=== PATIENT | female | born 1980 | race Caucasian/White ===

== ENCOUNTER → 2017-05-23 18:35 | Outpatient (CLI) | payer MEDICAID, SELFPAY ==
[2017-05-23 20:00] LABS: Group B Strep DNA By PCR Negative (Negative); Internal Control PASS; Probe Check PASS; Specimen Processing Control PASS
== END ==
PROVIDERS: Visit Provider Obstetrics & Gynecology
DX: O09.893 Supervision of other high risk pregnancies, third trimester (principal); Z3A.00 Weeks of gestation of pregnancy not specified
CPT/HCPCS: 87081; 87653

== ENCOUNTER → 2017-06-05 12:09 | Outpatient (CLI) | payer MEDICAID, SELFPAY ==
[2017-06-05 12:43] LABS: ROM Internal Control Test YES-OK TO RESULT pt. (Internal QC); ROM Patient Test Negative (Negative)
[2017-06-05 13:05] LABS: Absolute Lymphocyte Count 1.62 X10^3/ul (0.83-4.51); Absolute Neutrophil Count 7.7 X10^3/uL (2.0-7.7); Basophil# 0.02 X10^3/uL; Basophil% 0.2 % (0-1); Eosinophil# 0.11 X10^3/uL; Eosinophils% 1.1 % (0-5); Hematocrit 34.2 % (37-47); Hemoglobin 11.9 g/dl (12.0-15.0); Lymphocyte # 1.62 X10^3/ul (4.0); Lymphocyte % 15.8 % (19-41); Mean Corp Hgb Conc 34.8 g/gl (32-36); Mean Corpuscular Volume 89.1 fL (81-99); Mean Platelet Vol. 8.6 fl (6.2-12.0); Monocyte% 5.9 % (0-10); Neutrophil # 7.73 X10^3/uL (2.7-7.7); Neutrophil % 75.5 % (47-70); Platelet Count 158 K/mm3 (150-450); RBC Distribution Width CV 12.9 % (11.6-14.6); RBC Distribution Width SD 40.9 fl (35.1-43.9); Red Blood Count 3.84 M/mm3 (4.2-5.4); White Blood Count 10.2 K/mm3 (4.4-11.0)
[2017-06-05 13:06] LABS: POSITIVE COUNT NO; POSITIVE DIFFERENTIAL NO; POSITIVE MORPHOLOGY NO
[2017-06-05 13:29] LABS: Protein, Urine (Random) 16.1 mg/dL (<11.9); Protein:Creat Ratio 201 mg/g CRE (0-200)
[2017-06-05 13:54] LABS: ALB/GLOB Ratio 0.7 RATIO (0.9-2.4); AST(SGOT) 15 U/L (15-37); Alanine Aminotransfer ALT/SGPT 14 U/L (13-56); Albumin, Serum 2.7 g/dL (3.2-5.0); Alkaline Phosphatase 107 U/L (45-117); Anion Gap 7 (5-15); BUN 6 mg/dL (7-18); BUN/Creat Ratio 9.6 RATIO (10-20); Calcium,Total 9.1 mg/dL (8.5-10.1); Chloride 105 mmol/L (98-107); Creatinine, Serum 0.63 mg/dL (0.55-1.02); EST Glomerular Filtration Rate 114 mL/min (>60); Est Glom Filt Rate - Afr Amer 138 mL/min (>60); Globulin 3.9 g/dL (2.2-4.2); Glucose 86 mg/dL (74-106); LDH 134 U/L (84-246); Potassium 3.8 mmol/L (3.5-5.1); Protein, Total 6.6 g/dL (6.4-8.2); Sodium Level 139 mmol/L (136-145); Uric Acid 4.8 mg/dL (2.6-6.0)
== END ==
LOC: LABSPEC 12:31 → LAB 12:32
PROVIDERS: Family Provider Internal Medicine; PCP Internal Medicine; Visit Provider Nurse Practitioner Women's Health
DX: O09.893 Supervision of other high risk pregnancies, third trimester (principal); N89.8 Other specified noninflammatory disorders of vagina; O16.9 Unspecified maternal hypertension, unspecified trimester; Z3A.38 38 weeks gestation of pregnancy
CPT/HCPCS: 36415; 80053; 82570; 83615; 84112; 84156; 84550; 85025

== ENCOUNTER 2017-06-08 15:00 | Inpatient (IN) | payer MEDICAID, SELFPAY ==
[2017-06-08 14:49] VITALS: BMI 35.4
[2017-06-08 15:01] LABS: ROM Internal Control Test YES-OK TO RESULT pt. (Internal QC)
[2017-06-08 15:02] LABS: ROM Patient Test POSITIVE (Negative)
[2017-06-08] MEDS: Lactated Ringers 1,000 ML 50 ML IV ×2 (15:30→19:57)
[2017-06-08 15:43] LABS: Hematocrit 34.1 % (37-47); Hemoglobin 11.4 g/dl (12.0-15.0); Mean Corp Hgb Conc 33.4 g/gl (32-36); Mean Corpuscular Hgb 29.9 pg (27.0-32.0); Mean Corpuscular Volume 89.5 fL (81-99); Mean Platelet Vol. 9.1 fl (6.2-12.0); Platelet Count 148 K/mm3 (150-450); RBC Distribution Width CV 13.3 % (11.6-14.6); RBC Distribution Width SD 42.8 fl (35.1-43.9); Red Blood Count 3.81 M/mm3 (4.2-5.4); White Blood Count 9.9 K/mm3 (4.4-11.0)
[2017-06-08 15:45] LABS: Scan Indicated on CBC? Y/N NO
[2017-06-08] MEDS: miSOPROStol 25 MCG TABLET PO ×2 (17:04→21:07)
--- NOTE | 2017-06-08 19:07 | PCM.HP.OB ---
- Problem List (1) PROM (premature rupture of membranes) Status: Acute (2) Supervision of other high risk pregnancies, third trimester Status: Acute Comment: PRR KATALINA 06/18/17 boy PC Erik boyfriend Moe (3) Bicuspid aortic valve Status: Chronic Comment: s/p cardio consult, cleared for vaginal or cs delivery, follow up (4) Hyperlipidemia Status: Chronic (5) Mitral insufficiency Status: Chronic Qualifiers: (6) Nonrheumatic aortic (valve) stenosis Status: Chronic (7) Nonrheumatic tricuspid (valve) insufficiency Status: Chronic (8) Tricuspid insufficiency Status: Chronic Qualifiers: History Date of Admission: 06/08/17 Final KATALINA: 06/18/17 Gestational age: 38 Weeks and 4 Days History of this : 36 yo @ 38w4d presents with SROM meconium fluid. she denies any bleeding and ahs some contractions. she denies any CP SOB Pertinent Past Medical History: Medical History Nonrheumatic aortic (valve) stenosis (Chronic) Palpitations (Chronic) Hyperlipidemia (Chronic) nonrheumatic insufficiency mitral (Chronic) Nonrheumatic tricuspid (valve) insufficiency (Chronic) Mitral insufficiency (Chronic) Bicuspid aortic valve (Chronic) Tricuspid insufficiency (Chronic) Supervision of other high risk pregnancies, third trimester (Acute) Hyperlipidemia (Chronic) Family History Father Cancer prostate- Alcoholism Brother Diabetes Grandfather Alcoholism Mother Hypertension Hyperlipemia Anxiety Grandmother Parkinson disease Social History Smoking Status: Never smoker alcohol intake: never substance use type: does not use caffeine: No what type of physical activity do you participate in: none seatbelt use: always do you feel safe at home: Yes additional social history: 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 Date Name GA/Weeks Outcome Route Bth Weight Gen Labor Lgth Anesthesia Del Locatn Provider FOB Unknown 2014 Erik 38 live - full term Male [facility] Allergies bandages Adverse Reaction (Intermediate, Uncoded 06/08/17 15:22) Hives,itching pt states no reaction to latex Current Medications Acetaminophen (Tylenol) 325 - 650 mg PO Q4H PRN PRN PRN Reason: PAIN OR FEVER >100.4F Al Hydroxide/Mg Hydroxide (Mylanta Ii) 15 - 30 ml PO Q4H PRN PRN PRN Reason: INDIGESTION Citric Acid/Sodium Citrate (Bicitra) 30 ml PO UD PRN Lactated Ringer's () 1,000 mls @ 50 mls/hr IV .Q20H [facility] Last Admin: 06/08/17 15:30 Dose: 50 mls/hr Misoprostol (Cytotec) 25 mcg PO Q4H [facility] Stop: 06/09/17 13:01 Last Admin: 06/08/17 17:04 Dose: 25 mcg Nalbuphine HCl (Nubain) 5 - 10 mg IV Q3H PRN PRN PRN Reason: PAIN (4-10/10) Ondansetron HCl (Zofran) 4 mg IV Q8H PRN PRN PRN Reason: NAUSEA Promethazine HCl (Phenergan (Ll)) 6.25 - 12.5 mg IV Q4H PRN PRN; Protocol PRN Reason: IF NAUSEA PERSISTS Sodium Chloride () 5 - 15 ml IV UD [facility] Smoking Status: Never smoker Alcohol: None Drug Use: none Number of Fetus(es): 1 - fhts 130s moderate variability reactive no decels toco irregular Review of Systems Constitutional: Denies: Chills, Fever, Weight Change HEENT: Denies: Head Aches, Sinus Congestion, Sinus Drainage Cardiovascular: Denies: Chest Pain, Palpitations Respiratory: Denies: Cough, Shortness of breath at rest, Sputum production Gastrointestinal: Reports: Abdominal Pain. Denies: Nausea, Vomiting Genitourinary: Denies: Dysuria Gynecological: Reports: Vaginal discharge. Denies: Vaginal bleeding Musculoskeletal: Denies: Joint Pain, Joint Tenderness Skin: Denies: Rash, Wounds Neurological: Denies: Numbness, Tingling, Focal weakness Psychiatric: Denies: Anxiety, Depression, Homicidal Ideations, Suicidal Ideations Hematologic/ Lymphatic: Denies: Easy Bruising, Easy Bleeding Physical Exam General: Alert, Oriented x3, No apparent distress Cardiovascular: Regular rate Lungs: Normal air movement Abdomen: Soft, Non Tender, Gravid Estimated gestational size: Appropriate for gestational size Presentation: Cephalic Cervix Dilation (cm): 1.5 Station: -3 Effacement (%): 60 Assessment/Plan Active and Suspected Problems (Last Reviewed 06/06/17 @ 13:00 by Mabel Pollock) PROM (premature rupture of membranes) (Acute) 36 yo @ 38w4d presents with PROM 1. 1 cm dilated recommend cytotec IOL. 2. epi prn 3. meconium- peds to be present at delivery.
--- NOTE | 2017-06-08 19:13 | HP.PCM_ITS ---
- Problem List (1) PROM (premature rupture of membranes) Status: Acute (2) Supervision of other high risk pregnancies, third trimester Status: Acute Comment: PRR KATALINA 06/18/17 boy PC Erik boyfriend Moe (3) Bicuspid aortic valve Status: Chronic Comment: s/p cardio consult, cleared for vaginal or cs delivery, follow up (4) Hyperlipidemia Status: Chronic (5) Mitral insufficiency Status: Chronic Qualifiers: (6) Nonrheumatic aortic (valve) stenosis Status: Chronic (7) Nonrheumatic tricuspid (valve) insufficiency Status: Chronic (8) Tricuspid insufficiency Status: Chronic Qualifiers: History Date of Admission: 06/08/17 Final KATALINA: 06/18/17 Gestational age: 38 Weeks and 4 Days History of this : 36 yo @ 38w4d presents with SROM meconium fluid. she denies any bleeding and ahs some contractions. she denies any CP SOB Pertinent Past Medical History: Medical History Nonrheumatic aortic (valve) stenosis (Chronic) Palpitations (Chronic) Hyperlipidemia (Chronic) nonrheumatic insufficiency mitral (Chronic) Nonrheumatic tricuspid (valve) insufficiency (Chronic) Mitral insufficiency (Chronic) Bicuspid aortic valve (Chronic) Tricuspid insufficiency (Chronic) Supervision of other high risk pregnancies, third trimester (Acute) Hyperlipidemia (Chronic) Family History Father Cancer prostate- Alcoholism Brother Diabetes Grandfather Alcoholism Mother Hypertension Hyperlipemia Anxiety Grandmother Parkinson disease Social History Smoking Status: Never smoker alcohol intake: never substance use type: does not use caffeine: No what type of physical activity do you participate in: none seatbelt use: always do you feel safe at home: Yes additional social history: 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 Date Name GA/Weeks Outcome Route Bth Weight Gen Labor Lgth Anesthesia Del Locatn Provider FOB Unknown 2014 Erik 38 live - full term Male [place] [facility] Allergies bandages Adverse Reaction (Intermediate, Uncoded 06/08/17 15:22) Hives,itching pt states no reaction to latex Current Medications Acetaminophen (Tylenol) 325 - 650 mg PO Q4H PRN PRN PRN Reason: PAIN OR FEVER >100.4F Al Hydroxide/Mg Hydroxide (Mylanta Ii) 15 - 30 ml PO Q4H PRN PRN PRN Reason: INDIGESTION Citric Acid/Sodium Citrate (Bicitra) 30 ml PO UD PRN Lactated Ringer's () 1,000 mls @ 50 mls/hr IV .Q20H [facility] Last Admin: 06/08/17 15:30 Dose: 50 mls/hr Misoprostol (Cytotec) 25 mcg PO Q4H [facility] Stop: 06/09/17 13:01 Last Admin: 06/08/17 17:04 Dose: 25 mcg Nalbuphine HCl (Nubain) 5 - 10 mg IV Q3H PRN PRN PRN Reason: PAIN (4-10/10) Ondansetron HCl (Zofran) 4 mg IV Q8H PRN PRN PRN Reason: NAUSEA Promethazine HCl (Phenergan (Ll)) 6.25 - 12.5 mg IV Q4H PRN PRN; Protocol PRN Reason: IF NAUSEA PERSISTS Sodium Chloride () 5 - 15 ml IV UD [facility] Smoking Status: Never smoker Alcohol: None Drug Use: none Number of Fetus(es): 1 - fhts 130s moderate variability reactive no decels toco irregular Review of Systems Constitutional: Denies: Chills, Fever, Weight Change HEENT: Denies: Head Aches, Sinus Congestion, Sinus Drainage Cardiovascular: Denies: Chest Pain, Palpitations Respiratory: Denies: Cough, Shortness of breath at rest, Sputum production Gastrointestinal: Reports: Abdominal Pain. Denies: Nausea, Vomiting Genitourinary: Denies: Dysuria Gynecological: Reports: Vaginal discharge. Denies: Vaginal bleeding Musculoskeletal: Denies: Joint Pain, Joint Tenderness Skin: Denies: Rash, Wounds Neurological: Denies: Numbness, Tingling, Focal weakness Psychiatric: Denies: Anxiety, Depression, Homicidal Ideations, Suicidal Ideations Hematologic/ Lymphatic: Denies: Easy Bruising, Easy Bleeding Physical Exam General: Alert, Oriented x3, No apparent distress Cardiovascular: Regular rate Lungs: Normal air movement Abdomen: Soft, Non Tender, Gravid Estimated gestational size: Appropriate for gestational size Presentation: Cephalic Cervix Dilation (cm): 1.5 Station: -3 Effacement (%): 60 Assessment/Plan Active and Suspected Problems (Last Reviewed 06/06/17 @ 13:00 by Mabel Pollock) PROM (premature rupture of membranes) (Acute) 36 yo @ 38w4d presents with PROM 1. 1 cm dilated recommend cytotec IOL. 2. epi prn 3. meconium- peds to be present at delivery.
[2017-06-09] MEDS: Lactated Ringers 1,000 ML 50 ML IV ×4 (02:23→16:22)
[2017-06-09] MEDS: fentaNYL-bupivacaine (epidural) 100 ML BAG EPIDURAL ×4 (02:58→17:40)
[2017-06-09] MEDS: Oxytocin 30 units/NS 500 ml 30 UNITS/500 ML IV.SOLN IV (03:17)
[2017-06-09] MEDS: Ondansetron 4 MG/2 ML Vial IV ×2 (06:44→14:49)
[2017-06-09] MEDS: Amnioinfusion- 0.9% NS 1,000 ML IV.SOLN. 500 ML INTRA-UTER ×2 (11:39→15:23)
--- NOTE | 2017-06-09 12:37 | PCM.PN.BLA ---
Progress Note fht 120s moderate variability reactive- developed recurrent periodic variables that resolved with amnioinfusion and position changes. making adequate cervical change. comfortable with epidural. pit off for now, will restart prn.
[2017-06-09] MEDS: Oxytocin 30 units/NS 500 ml 30 UNITS/500 ML IV.SOLN 334 UNITS IV (20:53)
[2017-06-09] MEDS: Oxytocin 30 units/NS 500 ml 30 UNITS/500 ML IV.SOLN 167 UNITS IV (21:00)
--- NOTE | 2017-06-09 21:54 | PCM.OB.VAG ---
- Problem List (1) PROM (premature rupture of membranes) Status: Acute (2) Supervision of other high risk pregnancies, third trimester Status: Acute Comment: PRR KATALINA 06/18/17 boy GABRIELA [place] boyfriend Moe (3) Bicuspid aortic valve Status: Chronic Comment: s/p cardio consult, cleared for vaginal or cs delivery, follow up (4) Hyperlipidemia Status: Chronic (5) Mitral insufficiency Status: Chronic Qualifiers: (6) Nonrheumatic aortic (valve) stenosis Status: Chronic (7) Nonrheumatic tricuspid (valve) insufficiency Status: Chronic (8) Tricuspid insufficiency Status: Chronic Qualifiers: (9) heart rate decelerations affecting management of mother Status: Acute Vaginal Delivery Maternal Presentation: Medically Indicated Induction 36-year-old at 38 weeks 5 days presents with premature rupture of membranes meconium. Medical Reason for Induction: Premature Rupture of Membranes Amniotic Membrane Rupture Type: Spontaneous at home Amniotic Fluid Description: Moderate meconium Final KATALINA: 06/18/17 Gestational age: 38 Weeks and 5 Days Date of Procedure: 06/09/17 Pre-Operative Diagnosis: Induction of labor premature rupture of membranes, heart rate deceler Post-Operative Diagnosis: Same Surgery/ Procedure Performed: Vacuum Assisted Vaginal Delivery Type of Anesthesia: Epidural Description of Procedure: Patient proceeded to complete dilation and began pushing. After 2 hours the patient developed recurrent late decelerations with absent to minimal variability despite position changes and turning down the Pitocin. It was assessed that she still had at least another hour of pushing since she was at the +2 station and therefore the decision to apply a vacuum to shorten the second stage of labor was made. Vacuum was applied twice with no pop offs and pulls were made with 3 contractions to deliver the head in the KANDICE presentation. Vacuum was removed a left medial lateral episiotomy was made to aid in delivery and the anterior and posterior shoulders were delivered without complication and the infant was placed in the maternal abdomen cord was clamped and cut and handed off to waiting generation engineering technologist. Apgars were 6 and 8. Episiotomy was noted to be a second-degree laceration which was repaired in the usual fashion with 3-0 Vicryl repeat. EBL 300 cc. Placenta delivered spontaneously immediately following was noted be intact and have a three-vessel cord. ABGs and ABGs were sent. Presentation: KANDICE Placental Delivery Description: Spontaneous Placenta Disposition: [facility] Cord Vessel Description: 3 Vessels Cord Entanglement: None Estimated Blood Loss: 300 Infant A gender: Male Episiotomy Description: Left Mediolateral, Perineal Extension/lac, 2nd degree Medications given after delivery: IV Pitocin Complications: None
[2017-06-09] MEDS: Naproxen 250 MG Tablet PO (22:58)
[2017-06-09] MEDS: oxyCODONE 5 MG Tablet PO (23:00)
[2017-06-10 01:58] VITALS: BP 108/66; PULSE 91; RESP 17; TEMP 37.2; O2SAT 96
[2017-06-10] MEDS: oxyCODONE 5 MG Tablet PO ×2 (03:34→21:55)
[2017-06-10 06:00] VITALS: BP 115/59; PULSE 90; RESP 18; TEMP 37.2; O2SAT 94
--- NOTE | 2017-06-10 06:58 | NURSING ---
Patient stated she wanted to wait until her 6 weeks for bilateral tubal ligation. Patient requesting epidural cath be removed. Dr. Estevez notified of patient's desire to delay tubal.
--- NOTE | 2017-06-10 07:51 | PCM.PN.OB ---
Patient Problems: Active and Suspected Problems (Last Reviewed 06/06/17 @ 13:00 by Mabel Pollock) PROM (premature rupture of membranes) (Acute) heart rate decelerations affecting management of mother (Acute) Subjective: Grav 2/1 PPD 1; VAVD. . Denies chest pain, SOB. Some cramping donna with . Pain otherwise controlled - Physical Exam General: Alert, Oriented x3, Cooperative HEENT: Atraumatic, PERRLA, EOMI, Normocephalic Neck: Supple, No JVD, Negative Carotid Bruits Lungs: Clear to auscultation, Normal air movement Cardiovascular: Regular rate, No murmurs Abdomen: Bowel Sounds Present, Soft, Non Tender Extremities: No edema, Capillary Refill Less than 3 Seconds Skin: No rashes, No breakdown Musculoskeletal: No Tenderness to Palpation of Joints or Extremities Neurological: Cranial nerves II-XII grossly intact Psych/Mental Status: Normal Affect, Appropriate Vital Signs Temp Pulse Resp BP Pulse Ox 98.9 F 90 18 115/59 L 94 06/10/17 06:00 06/10/17 06:00 06/10/17 06:00 06/10/17 06:00 06/10/17 06:00 Oxygen Delivery Method Room Air Weight: 193 lb 9.054 oz Body Mass Index (BMI) 35.4 Intake and Output for Last 24 Hours 06/08/17 06/09/17 06/10/17 23:59 23:59 23:59 Intake Total 1387 / 1387 4279 / 4279 Output Total 2350 / 2350 500 / 500 Balance 1387 / 1387 1929 / 1929 -500 / -500 Medical Necessity - Tobacco Use Smoking Status: Never smoker Assessment/Plan Active and Suspected Problems (Last Reviewed 06/06/17 @ 13:00 by Mabel Pollock) PROM (premature rupture of membranes) (Acute) heart rate decelerations affecting management of mother (Acute)
[2017-06-10] MEDS: Naproxen 250 MG Tablet PO ×2 (08:32→20:15)
[2017-06-10 08:35] VITALS: BP 110/58; PULSE 89; RESP 20; TEMP 37.2; O2SAT 95
--- NOTE | 2017-06-10 09:18 | PCM.PN.OB ---
Patient Problems: Active and Suspected Problems (Last Reviewed 06/06/17 @ 13:00 by Mabel Pollock) PROM (premature rupture of membranes) (Acute) heart rate decelerations affecting management of mother (Acute) Subjective: Grav 2/1 PPD 1; VAVD. . Denies chest pain, SOB, nausea. Some cramping donna with . Pain otherwise controlled - Physical Exam General: Alert, Oriented x3 Abdomen: Soft, Non Tender, - - FF U2 Vital Signs Temp Pulse Resp BP Pulse Ox 98.9 F 90 18 115/59 L 94 06/10/17 06:00 06/10/17 06:00 06/10/17 06:00 06/10/17 06:00 06/10/17 06:00 Oxygen Delivery Method Room Air Weight: 193 lb 9.054 oz Body Mass Index (BMI) 35.4 Intake and Output for Last 24 Hours 06/08/17 06/09/17 06/10/17 23:59 23:59 23:59 Intake Total 1387 / 1387 4279 / 4279 Output Total 2350 / 2350 500 / 500 Balance 1387 / 1387 1929 / 1929 -500 / -500 Medical Necessity - Tobacco Use Smoking Status: Never smoker Assessment/Plan Active and Suspected Problems (Last Reviewed 06/06/17 @ 13:00 by Mabel Pollock) PROM (premature rupture of membranes) (Acute) heart rate decelerations affecting management of mother (Acute)
--- NOTE | 2017-06-10 09:35 | PCM.PN.OB ---
Patient Problems: Active and Suspected Problems (Last Reviewed 06/06/17 @ 13:00 by Mabel Pollock) PROM (premature rupture of membranes) (Acute) heart rate decelerations affecting management of mother (Acute) Subjective: doing well no CP SOB N V bottom sore managed with pain meds - Physical Exam General: Alert, Oriented x3 Abdomen: Soft, Non Tender, - - FF below U Vital Signs Temp Pulse Resp BP Pulse Ox 98.9 F 90 18 115/59 L 94 06/10/17 06:00 06/10/17 06:00 06/10/17 06:00 06/10/17 06:00 06/10/17 06:00 Oxygen Delivery Method Room Air Weight: 193 lb 9.054 oz Body Mass Index (BMI) 35.4 Intake and Output for Last 24 Hours 06/08/17 06/09/17 06/10/17 23:59 23:59 23:59 Intake Total 1387 / 1387 4279 / 4279 Output Total 2350 / 2350 500 / 500 Balance 1387 / 1387 1929 / 1929 -500 / -500 Medical Necessity - Tobacco Use Smoking Status: Never smoker Assessment/Plan Active and Suspected Problems (Last Reviewed 06/06/17 @ 13:00 by Mabel Pollock) PROM (premature rupture of membranes) (Acute) heart rate decelerations affecting management of mother (Acute) s/p VAVD ppd1 , rh positive, routine care. doing well
[2017-06-10] MEDS: Senna/Docusate Sodium 1 Tablet PO (10:27)
[2017-06-10] MEDS: Prenatal Vits Tablet 1 TABLET PO (10:27)
[2017-06-10 11:39] VITALS: BP 119/66; PULSE 98; RESP 18; TEMP 37.2; O2SAT 96
[2017-06-10 15:58] VITALS: BP 119/67; PULSE 91; RESP 12; TEMP 37.1; O2SAT 97
[2017-06-10 20:00] VITALS: BP 125/68; PULSE 95; RESP 16; TEMP 37.3; O2SAT 98
[2017-06-11 01:52] VITALS: BP 119/72; PULSE 90; RESP 18; TEMP 37.1; O2SAT 98
[2017-06-11] MEDS: Dibucaine 30 GM Tube 1 APPLIC TOPICAL (05:36)
--- NOTE | 2017-06-11 07:45 | PCM.PN.OB ---
Patient Problems: Active and Suspected Problems (Last Reviewed 06/06/17 @ 13:00 by Mabel Pollock) PROM (premature rupture of membranes) (Acute) heart rate decelerations affecting management of mother (Acute) Subjective: Doing well. No shortness of breasth, chest pain, nausea. Home today. Still some perineal discomfort and uterine cramping. - Physical Exam General: Alert, Oriented x3 Abdomen: Soft, Non Tender, - - FF below U Vital Signs Temp Pulse Resp BP Pulse Ox 98.7 F 90 18 119/72 98 06/11/17 01:52 06/11/17 01:52 06/11/17 01:52 06/11/17 01:52 06/11/17 01:52 Oxygen Delivery Method Room Air Weight: 193 lb 9.054 oz Body Mass Index (BMI) 35.4 Intake and Output for Last 24 Hours 06/09/17 06/10/17 06/11/17 23:59 23:59 23:59 Intake Total 4279 / 4279 Output Total 2350 / 2350 500 / 500 Balance 1929 / 1929 -500 / -500 Medical Necessity - Tobacco Use Smoking Status: Never smoker Assessment/Plan Active and Suspected Problems (Last Reviewed 06/06/17 @ 13:00 by Mabel Pollock) PROM (premature rupture of membranes) (Acute) heart rate decelerations affecting management of mother (Acute) S/P VAVD, PPD #2. Doing well. Routine care. Home today.
--- NOTE | 2017-06-11 08:02 | DCINST_ITS ---
Discharge Diet: No Restrictions Discharge Activity: Return to Normal Activity, May not drive while taking narcotic pain medications., May Shower May resume sexual activity in: 4-6 weeks Additional Activity Instructions:: Nothing in the vagina for 4-6 weeks. You may return to work/school in 6 weeks. Call your doctor if your incision/area has: Continuous Slow Oozing, Sudden Increased Bleeding, Increased Pain/ Swelling, Increased Redness, Foul Smelling Discharge Additional Instructions: If you experience any of the following, contact your healthcare provider. * Bleeding that soaks a pad every hour for 2 hours * Fever 100.4 or higher * Unrelieved incision or abdominal pain * Swelling, redness, discharge or bleeding from your incision or episiotomy site * Your incision begins to separate * Problems urinating (including inability to urinate or burning while urinating) . * Visual changes * Severe headache * Flu-like symptoms * Pain or redness in one of both of your breasts * Pain, warmth, tenderness or swelling in your legs, especially the calf area * Frequent nausea and vomiting * Symptoms of depression or anxiety If you experience any of the following, call 911 or go to the nearest Emergency Room. * Chest pain * Problems breathing * Seizure activity * Partial or complete paralysis of a body part, slurred speech, weakness or drooping of the face, or a sudden inability to walk or hold your balance Allergies/Adverse Reactions: Allergies bandages Adverse Reaction (Intermediate, Uncoded 06/08/17 15:22) Hives,itching pt states no reaction to latex Medications to take at Discharge Vits [Prenatabs FA ] 1 tab PO DAILY 05/02/14 Naproxen 500 mg PO BID #60 tab 06/11/17 Oxycodone HCl/Acetaminophen [Percocet 5/325] 1 - 2 tablet PO Q4H PRN PRN 7 Days #15 tablet 06/11/17 The following prescriptions were given: Oxycodone HCl/Acetaminophen [Percocet 5/325] 1 - 2 tablet PO Q4H PRN PRN 7 Days #15 tablet PRN Reason: Pain Naproxen 500 mg PO BID #60 tab When: Call to make an appointment with your doctor in 6 weeks. If you had elevated Blood Pressure or 4th degree laceration you will need to be seen in 2 weeks. Primary Care Physician: Rubén Alexander MD [Primary Care Provider] -
[2017-06-11 09:25] VITALS: BP 121/71; PULSE 71; RESP 20; TEMP 36.7; O2SAT 98
[2017-06-11] MEDS: Prenatal Vits Tablet 1 TABLET PO (09:40)
[2017-06-11] MEDS: Naproxen 250 MG Tablet PO (09:40)
[2017-06-11] MEDS: Senna/Docusate Sodium 1 Tablet PO (09:41)
[2017-06-11 13:38] VITALS: BP 127/69; PULSE 95; RESP 16; TEMP 37.1; O2SAT 97
[2017-06-11 14:45] VITALS: BP 127/69; PULSE 95; RESP 16; TEMP 37.1; O2SAT 97
== END 2017-06-11 14:45 | disposition home or self-care (01) | DRG 372 ==
LOC: WPOUT 15:04 → WP 15:06
PROVIDERS: Admitting Provider Obstetrics & Gynecology; Family Provider Internal Medicine; PCP Internal Medicine; Visit Provider Obstetrics & Gynecology
DX: O42.90 Premature rupture of membranes, unspecified as to length of time between rupture and onset of labor, unspecified weeks of gestation (principal); O16.9 Unspecified maternal hypertension, unspecified trimester; Q23.1 Congenital insufficiency of aortic valve; O76 Abnormality in fetal heart rate and rhythm complicating labor and delivery; E78.5 Hyperlipidemia, unspecified; Z37.0 Single live birth; Z3A.38 38 weeks gestation of pregnancy; O77.0 Labor and delivery complicated by meconium in amniotic fluid; N89.8 Other specified noninflammatory disorders of vagina
CPT/HCPCS: 36415; 59025; 59050; 80053; 82570; 83615; 84112; 84156; 84550; 85025; 85027; 86850; 86900; 99218; J7030; J7120; G0378; J2405

== ENCOUNTER 2017-06-12 13:13 | Outpatient (CLI) | payer MEDICAID, SELFPAY | END 2017-06-12 14:00 | disposition home or self-care (01) | LOC: WPOUT 13:15 → WP 13:17 | PROVIDERS: Family Provider Internal Medicine; PCP Internal Medicine; Visit Provider Obstetrics & Gynecology | DX: Z39.1 Encounter for care and examination of lactating mother (principal) | CPT/HCPCS: 96152 ==

== ENCOUNTER 2017-08-01 10:41 | Day surgery (SDC) | payer MEDICAID, SELFPAY ==
--- NOTE | 2017-07-29 06:13 | HP.PCM_ITS ---
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 Is patient in pain?: No Allergies bandages Adverse Reaction (Intermediate, Uncoded 07/28/17 14:23) Hives,itching Medications Vits [Prenatabs FA ] 1 tab PO DAILY 05/02/14 [History Confirmed ] : Yes [facility] Medical History Nonrheumatic aortic (valve) stenosis (Chronic) Palpitations (Chronic) Hyperlipidemia (Chronic) nonrheumatic insufficiency mitral (Chronic) Nonrheumatic tricuspid (valve) insufficiency (Chronic) Mitral insufficiency (Chronic) Bicuspid aortic valve (Chronic) Tricuspid insufficiency (Chronic) Supervision of other high risk pregnancies, third trimester (Acute) Hyperlipidemia (Chronic) Family History Father Cancer prostate- Alcoholism Brother Diabetes Grandfather Alcoholism Mother Hypertension Hyperlipemia Anxiety Grandmother Parkinson disease Social History Smoking Status: Never smoker alcohol intake: never substance use type: does not use caffeine: No what type of physical activity do you participate in: none seatbelt use: always do you feel safe at home: Yes additional social history: Moe- Self employed g[employer] Pregancy History 2 Elective abortions Hx Para 2 Spontaneous abortions Hx # Term Pregnancies Ectopic pregnancies Hx # Pregnancies Multiple births # of living children 2 Past Pregnancies Del. Date Name GA/Weeks Outcome Route Bth Weight Gen Labor Lgth Anesthesia Del Locatn Provider FOB Unknown 2014 Erik 38 live - full term Male [facility] 06/09/17 [place] 39 live - full term vacuum 6lbs 8oz Male epidural [facility] Sonya Rosa Delivery Date: 06/09/17 On 06/11/17 @ 11:30 Fatmata Gonzalez PROM, decels Delivery Date: No notes to display Depression Screen PHQ-2/9 If score is 2 or greater, continue Source: Developed by Drs. Alfonso Daugherty, Gina Rdz, Ray Galvan and colleagues, with an educational vianey from [employer] Scoring: Total Score Depression Severity Action 1-4 Minimal depression No action needed 5-9 Mild depression Repeat PHQ-9 at follow up 10-14 Moderate depression Make tx plan,consider counseling, fup, prescription 15-19 Moderately severe depression Prescribe drugs and counseling immediately 20-27 Severe depression If poor response, refer pt to mental health specialist Post HPI 6 week : Details: FATMATA CASTELLANOS is a 36 year old who presents for sterilization ROS Const Reports system reviewed and no additional complaints, except as docu GI Reports system reviewed and no additional complaints, except as docu, Denies bloating, Denies nausea, Denies vomiting, Denies constipation Reports system reviewed and no additional complaints, except as docu, Denies abnormal vaginal bleeding, Denies pelvic pain, Denies sexual problems, Denies urinary urgency, Denies vaginal discharge, Denies urinary hesitancy, Denies urinary incontinence Skin/Breast Reports system reviewed and no additional complaints, except as docu, Reports as per HPI Psych Reports as per HPI Exam Const General: cooperative, healthy appearing, comfortable, no acute distress HENMT Head: normal to inspection Neck Neck: normal visual inspection, no lymphadenopathy Thyroid: thyroid normal Chest Breast inspection: normal inspection of the breasts, normal inspection of the axillae Breast palpation: normal palpation of the breasts, normal palpation of the axillae Resp Effort & Inspection: normal respiratory effort GI Inspection: normal to inspection Palpation: soft, no hepatosplenomegaly, nontender General: bladder normal to palpation External Female Exam: normal external appearance, normal appearance of the urethra Urethra: normal appearance of the urethra Speculum Exam - Vagina: normal appearance of the vagina, normal vaginal discharge Speculum Exam - Cervix: normal appearance of the cervix Bimanual Exam- Vagina & Uterus: bladder normal to palpation, normal bimanual exam, uterine shape normal, uterine size normal, uterus non-tender Bimanual Exam- Adnexa, other: normal adnexae, pelvic support normal Pelvic Support: normal Skin General: no rashes or lesions noted Assessment & Plan sterilization plan laparoscopic bilateral salpingectomy.
[2017-08-01] VITALS (7 sets, daily range): BP systolic 102–135; BP diastolic 66–90; PULSE 45–70; RESP 16–18; TEMP 36.1–36.6; O2SAT 98–100; BMI 28.3
--- NOTE | 2017-08-01 | FALS_PTH ---
PATIENT: ALEK CASTELLANOS LOC: [facility] [place] U#:[id number] AGE/SX: 36/F ROOM: RE08/01/[address]: Dr. Sonya Estevez MD : 1980 BED: DIS: 08/01/2017 SPEC #: [id number] RECD: 08/01/17 14:56 STATUS: SWAPNA AUGUSTO #: [id number] CLARK: 08/01/17 00:[address]: Sonya Estevez DEPT: SURGICAL PATHOLOGY RECD BY: Mark Lucio ENTERED: 08/01/17 14:56 SP TYPE: FALL TUBES OTHR DR: Dr. Rubén Alexander MD Tissues: Fallopian tube Procedures: Surgery Specimen Level II HEADER OPERATION: Laparoscopic bilateral salpingectomy PRE-OP DIAGNOSIS: Desire for sterilization TISSUE SUBMITTED: Bilateral fallopian tubes MICROSCOPIC DIAGNOSIS Bilateral fallopian tubes, salpingectomy: Bilateral fallopian tubes including fimbrial ends, no pathologic diagnosis. SJ:reymundo 08/04/17 MICROSCOPIC DESCRIPTION Slides are reviewed. GROSS DESCRIPTION Received is one container labeled with the patient's name and designated bilateral fallopian tubes. The specimen consists of bilateral fallopian tubes including fimbrial ends. The fallopian tubes are not identified as right or left. One of the fallopian tubes measure 6.5 cm in length and 0.5 cm in diameter. The second fallopian tube measures 7 cm in length and 0.5 cm in diameter. Sections do not reveal any mass lesion. Heating And Cooling Systems Engineer sections are submitted in two cassettes with each cassette containing one fallopian tube. / DAKOTA:reymundo 08/01/17 TC:4 CPT: 52991 x2
[2017-08-01 11:06] LABS: Internal QC Validated? YES +Cl - CLEAR BKGD
[2017-08-01 11:10] LABS: Pregnancy, Urine Negative Negative
--- NOTE | 2017-08-01 12:42 | PCM.OPRPT ---
Problem List (1) Sterilization Status: Acute Report of Operation Date of Procedure: 08/01/17 Pre-Operative Diagnosis: sterilization Surgery/Procedure Performed:: laparoscopic bilateral salpigectomy Description of Surgical Findings:: Soft uterus normal fallopian tubes and ovaries bilaterally Type of Anesthesia:: General Special Medications: none Specimen's removed: bilateral tubes Drains: None Estimated Blood Loss (mL): Normal Fluids Replaced: crystalloid Description of Procedure: Patient was taken in the operating room and was placed under general anesthesia was prepped and draped in normal sterile fashion in the dorsal lithotomy position. Bladder was drained of clear urine and SCDs were on preoperatively. Uterus was sounded and a uterine manipulator was placed after dilating. Attention was then paid to the abdominal portion of the procedure and the umbilicus was elevated with towel clamps and injected with Marcaine and after a 5 mm incision was made and the Veress needle was entered into the abdomen confirmed to be intra-abdominal with a low opening pressure of less than 5 mmHg. Abdomen was insufflated with CO2 gas and a 5 mm optical trocar was placed under direct visualization. A left lower quadrant 5 mm port and a 5 mm port suprapubically replaced under direct visualization. Uterus was well visualized and bilateral fallopian tubes identified and was ntoed to be very soft and fribale, a small uterine perforation was seen with minimal bleedingremedied with di at the end of the procedure. bilateral tubes were elevated and transecting across the mesosalpinx and the attachment to the uterine corpus bilaterally the tubes were removed without complication. Excellent hemostasis was noted. Fallopian tubes were removed through the lower port sites without complication. Liver and upper abdomen were visualized notably within normal limits and no other gross abnormalities were seen in the abdomen. All instruments removed from the abdomen after gas was desufflated. Port sites were closed with 3-0 Monocryl Steri's and op sites were applied. All instruments removed from the vagina and patient was awoken and taken recovery in stable condition. Grafts/Implants Used: none - Complications none - Admit VTE Documentation VTE Present on Admission: No VTE Mechan Device Prophylaxis: SCD's VTE Pharm Prophylaxis ordered?: Yes
--- NOTE | 2017-08-01 12:43 | PCM.DC.TUB ---
Discharge Diet: No Restrictions - Increase fluid intake for the next 48 hours. Discharge Activity: Return to Normal Activity, May Drive - when you are no longer taking narcotic pain medications., May Shower, May Take a Tub Bath - in 7 days Additional Activity Instructions:: Ambulate often the next week after surgery. Nothing in the vagina for 5 days. Call your doctor if your incision/area has: Continuous Slow Oozing, Sudden Increased Bleeding, Increased Pain/ Swelling, Increased Redness, Foul Smelling Discharge Call your doctor if you observe: Fever of 101 or Higher Allergies/Adverse Reactions: Allergies bandages Adverse Reaction (Intermediate, Uncoded 07/28/17 14:23) Hives,itching pt states no reaction to latex Medications to take at Discharge Vits [Prenatabs FA ] 1 tab PO DAILY 05/02/14 Primary Care Physician: Rubén Alexander MD [Primary Care Provider] - Please Follow Up With: Sonya Estevez MD - [phone] When: 2-3 weeks Please Follow Up With:
[2017-08-01] MEDS: Bupivacaine 0.25% 30 ML Vial (13:05)
== END 2017-08-01 15:24 | disposition home or self-care (01) ==
LOC: SDC 10:41 → AC 10:43
PROVIDERS: Family Provider Internal Medicine; PCP Internal Medicine; Visit Provider Obstetrics & Gynecology
PROC: (CPT 58661; principal; 2017-08-01 12:15)
DX: Z30.2 Encounter for sterilization (principal); E78.5 Hyperlipidemia, unspecified
CPT/HCPCS: 58661; 81025; 86850; 86900; 88302; J7120

== ENCOUNTER → 2018-06-08 11:50 | Outpatient (CLI) | payer MEDICAID, SELFPAY ==
[2018-06-04 09:31] VITALS: BMI 26.6
--- NOTE | 2018-06-08 11:52 | US_ITS ---
STUDY: SUPERFICIAL ULTRASOUND - LEFT FOREARM REASON FOR EXAM: Female, 37 years old. Lump anterior forearm. TECHNIQUE: A superficial ultrasound was performed with real-time and static ramirez-scale imaging. COMPARISON: None. FINDINGS: At the interface between the subcutaneous tissues and musculature is a lentiform shaped, mildly heterogeneous 1.3 x 0.9 x 0.4 cm soft tissue nodule difficult to further characterize. This may be a lymph node or hematoma. US/Ext Non Vasc Limited/Soft Tiss IMPRESSION: 1.3 cm nodule at the interface between the subcutaneous tissues and musculature of the anterior left midforearm, correlating to the palpable lesion. Electronically Signed: Fernando Burden MD at 19:02 EDT , Service support ,
== END ==
PROVIDERS: Family Provider Internal Medicine; PCP Internal Medicine; Referring Provider Nurse Practitioner Family; Visit Provider Nurse Practitioner Family
DX: R22.30 Localized swelling, mass and lump, unspecified upper limb (principal)
CPT/HCPCS: 76882

== ENCOUNTER → 2018-06-23 12:46 | Outpatient (CLI) | payer MEDICAID, SELFPAY ==
[2018-06-04 10:07] VITALS: BMI 26.6
[2018-06-15 09:32] VITALS: BMI 26.6
--- NOTE | 2018-06-23 12:47 | ECHOD_ITS ---
Reason For Study: BISCUPID AORTIC VALVE Procedure This was a 2D Doppler, Color Flow transthoracic echocardiogram. Exam performed in department. Left Ventricle Normal LV size. Left ventricular systolic function is normal. The estimated ejection fraction is 65 %. Normal diastology for age. No regional wall motion abnormalities noted. Right Ventricle Normal RV size. Normal systolic function. Atria Normal left atrium. Normal right atrium. Mitral Valve Normal mitral valve. Mild (1+) eccentric mitral valve insufficiency. Tricuspid Valve Normal tricuspid valve. Mild tricuspid valve insufficiency. Aortic Valve The aortic valve is not well visualized. Peak aortic valve gradient 33 mmHg. Mean aortic valve gradient 20 mmHg. Mild aortic stenosis. Pulmonic Valve Normal pulmonic valve. Great Vessels Normal aortic root. The pulmonary artery is normal size. Normal inferior vena cava. Pericardium/Pleural No pericardial effusion. MMode/2D Measurements & Calculations LVIDd: 4.1 cm IVSd: 0.85 cm LVOT diam: 2.0 cm LVIDs: 2.6 cm LVPWd: 1.0 cm LVOT area: 3.0 cm2 RVDd: 3.0 cm FS: 36.3 % Ao root diam: 2.6 cm LAV(MOD-bp): 43.9 ml LA A4 area: 16.4 cm2 LA dimension: 0.94 cm LAV(MOD-bp) Indexed: 26.7 ml/m2 LAV(MOD-sp2): 40.8 ml LAV(MOD-sp4): 47.7 ml LA dimension(2D): 2.8 cm RA A4 area: 13.9 cm2 Time Measurements MV dec time: 0.23 sec Doppler Measurements & Calculations MV E max nirmal: 100.9 cm/sec Lat Peak E' Nirmal: 12.2 cm/sec Med Peak E' Nirmal: 9.6 cm/sec MV A max nirmal: 65.6 cm/sec E/E' lat: 8.3 E/E' med: 10.6 MV E/A: 1.5 Ao V2 max: 296.6 cm/sec LV V1 max: 145.5 cm/sec SV(LVOT): 100.5 ml Ao max P.8 mmHg LV V1 max P.5 mmHg Ao V2 mean: 214.8 cm/sec LV V1 mean P.7 mmHg Ao mean P.9 mmHg LV V1 mean: 102.5 cm/sec Ao V2 VTI: 70.1 cm LV V1 VTI: 33.0 cm NITESH(I,D): 1.4 cm2 NITESH(V,D): 1.5 cm2 PA V2 max: 98.0 cm/sec TR max nirmal: 242.4 cm/sec TR max P.6 mmHg Interpretation Summary Normal LV size. Left ventricular systolic function is normal. The estimated ejection fraction is 65 %. Normal diastology for age. Mild (1+) eccentric mitral valve insufficiency. Mild aortic stenosis. Mean aortic valve gradient 20 mmHg. Previously documented bicuspid AV Ordering Physician: Alex Jones Referring Physician: Rubén Alexander Performed By: Ashley Loera, CYNTHIA, RVT
== END ==
PROVIDERS: Family Provider Internal Medicine; PCP Internal Medicine; Referring Provider Internal Medicine Cardiovascular Disease; Visit Provider Internal Medicine Cardiovascular Disease
DX: Q23.1 Congenital insufficiency of aortic valve (principal)
CPT/HCPCS: 93306

== ENCOUNTER → 2018-08-18 | Outpatient (CLI) | payer MEDICAID, SELFPAY ==
[2018-08-18 14:52] VITALS: BMI 26.9
--- NOTE | 2018-08-18 15:54 | RAD_ITS ---
STUDY: X-RAY - PELVIS AND RIGHT HIP REASON FOR EXAM: Female, 37 years old. Pain TECHNIQUE: 3 views of the pelvis and hip. COMPARISON: None. FINDINGS: There is a non-specific bowel gas pattern. Normal visualized soft tissue structures. Normal bilateral iliac wings, sacroiliac joints and visualized sacrum. Normal bilateral superior and inferior pubic rami. Normal pubic symphysis. Normal bilateral ischial tuberosities. Normal visualized femoral head. Normal acetabulum. Normal hip joint. RAD/HIP, UNI W/ Pelvis 2-3 Views IMPRESSION: Normal x-ray examination of the pelvis and right hip. Electronically Signed: Kennedy Zarco, at 16:19 EDT Tel , Service support ,
== END | disposition home or self-care (01) ==
LOC: HPRAD 15:54
PROVIDERS: Family Provider Internal Medicine; PCP Internal Medicine; Referring Provider Internal Medicine; Visit Provider Internal Medicine
DX: M25.551 Pain in right hip (principal)
CPT/HCPCS: 73502

== ENCOUNTER 2018-09-02 08:29 | Emergency (ER) | payer MEDICAID, SELFPAY ==
[2018-09-01 09:41] VITALS: BMI 26.9
[2018-09-02 08:31] VITALS: BP 120/72; PULSE 88; RESP 16; TEMP 37.2; O2SAT 98; BMI 26.5
[2018-09-02] MEDS: Fluorescein 1 MG STRIP 1 STRIP OPHTHALMIC (08:59)
[2018-09-02] MEDS: Tetracaine 0.5% Ophthalmic Bottle OPHTHALMIC (08:59)
--- NOTE | 2018-09-02 09:15 | ED.VISSUMM ---
- ER Visit Summary Date of Service: 09/02/18 Chief Complaint: Right eye pain History of Present Illness: The patient is a [address] Alexander. She does not wear glasses or contacts. 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 She reports that 4 days ago at work she had the onset of a sharp pain in her right eye and it feels that it was a foreign body there. That resolved, but the next morning she woke up in her eye was diffusely red. She used the tele-clinic and began Polytrim drops 3 days ago. States it is not getting better and went to the now clinic yesterday and was placed on ofloxacin drops. She woke up this morning and her eye is more swollen. Patient denies any foreign body sensation at this time. She does have a sharp pain is 6 out of 10 with blinking and 2 out of 10 at rest. She complains of photophobia. She reports that she has had drainage and crusting from her eye. She has blurred vision. She denies any fever, chills, cough. She does report she has a sore throat that started 10 severity. Physical Examination: Vitals: Stable. Afebrile. General: Well-nourished and well-developed. Head: Normocephalic atraumatic. Right eye: She does have moderate swelling of the upper eyelid. There is no erythema or warmth. There is mild swelling of the lower eyelid. The upper eyelid was everted. There is no foreign body under this. She has diffuse conjunctival injection. There is significant chemosis laterally. Extraocular motions are intact. She has very mild pain with direct light. She has no consensual photophobia. Neck: Supple, no lymphadenopathy. No JVD. Nontender. Cardiovascular: Regular rate and rhythm. No murmurs. Respiratory: No respiratory distress. Clear to auscultation bilaterally. Abdominal: Soft, nontender, nondistended, normal bowel sounds. No guarding, rebound, or peritoneal signs. Back: Nontender. Extremities: Nontender, no edema. Skin: Normal color, no rash. Neurologic: Alert and oriented ?3. Cranial nerves II through XII are intact. Normal strength and sensation. Psych: Normal affect. Emergency Department Course and Treatment: Patient is resting comfortably without complaint. Treatment Plan: The patient was discussed with Dr. Chen. He will see her in the office today at 1 PM. Disposition: Discharged in stable condition. Impression: 1. Acute right eye pain. This note was generated with Finalta dictation software. It may contain incorrect words, spelling, and punctuation that were not noted in review of the chart prior to signing ED Disposition - Plan for ED Patient: Instructions: Understanding Red Eye: Causes Referrals: Shay Chen MD [STAFF PHYSICIAN] - 09/02/18 1:00 pm
--- NOTE | 2018-09-02 09:23 | ED.DCSUM_ITS ---
- ER Visit Summary Date of Service: 09/02/18 Chief Complaint: Right eye pain History of Present Illness: The patient is a [address] Alexander. She does not wear glasses or contacts. 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 She reports that 4 days ago at work she had the onset of a sharp pain in her right eye and it feels that it was a foreign body there. That resolved, but the next morning she woke up in her eye was diffusely red. She used the tele-clinic and began Polytrim drops 3 days ago. States it is not getting better and went to the now clinic yesterday and was placed on ofloxacin drops. She woke up this morning and her eye is more swollen. Patient denies any foreign body sensation at this time. She does have a sharp pain is 6 out of 10 with blinking and 2 out of 10 at rest. She complains of photophobia. She reports that she has had drainage and crusting from her eye. She has blurred vision. She denies any fever, chills, cough. She does report she has a sore throat that started 10 severity. Physical Examination: Vitals: Stable. Afebrile. General: Well-nourished and well-developed. Head: Normocephalic atraumatic. Right eye: She does have moderate swelling of the upper eyelid. There is no erythema or warmth. There is mild swelling of the lower eyelid. The upper eyelid was everted. There is no foreign body under this. She has diffuse conjunctival injection. There is significant chemosis laterally. Extraocular motions are intact. She has very mild pain with direct light. She has no consensual photophobia. Neck: Supple, no lymphadenopathy. No JVD. Nontender. Cardiovascular: Regular rate and rhythm. No murmurs. Respiratory: No respiratory distress. Clear to auscultation bilaterally. Abdominal: Soft, nontender, nondistended, normal bowel sounds. No guarding, rebound, or peritoneal signs. Back: Nontender. Extremities: Nontender, no edema. Skin: Normal color, no rash. Neurologic: Alert and oriented ?3. Cranial nerves II through XII are intact. Normal strength and sensation. Psych: Normal affect. Emergency Department Course and Treatment: Patient is resting comfortably without complaint. Treatment Plan: The patient was discussed with Dr. Chen. He will see her in the office today at 1 PM. Disposition: Discharged in stable condition. Impression: 1. Acute right eye pain. This note was generated with digitalbox dictation software. It may contain incorrect words, spelling, and punctuation that were not noted in review of the chart prior to signing ED Disposition - Plan for ED Patient: Instructions: Understanding Red Eye: Causes Referrals: Shay Chen MD [STAFF PHYSICIAN] - 09/02/18 1:00 pm
== END 2018-09-02 09:31 | disposition home or self-care (01) ==
LOC: ED 09:14
PROVIDERS: Emergency Provider Emergency Medicine; Family Provider Internal Medicine; PCP Internal Medicine
DX: H57.11 Ocular pain, right eye (principal); H11.421 Conjunctival edema, right eye; J02.9 Acute pharyngitis, unspecified; Q23.1 Congenital insufficiency of aortic valve
CPT/HCPCS: 99283

== ENCOUNTER → 2018-10-08 | Outpatient (CLI) | payer MEDICAID, SELFPAY ==
[2018-10-08 14:28] VITALS: BMI 26.5
--- NOTE | 2018-10-08 14:50 | RAD_ITS ---
STUDY: X-RAY - LUMBAR SPINE REASON FOR EXAM: Female, 38 years old. Back pain TECHNIQUE: 4 view(s) of the lumbar spine were obtained. COMPARISON: None FINDINGS: Normal lumbar lordosis. There is no substantial scoliosis. There is a normal alignment of the vertebrae. There are minimal osteophytes. Normal disc space heights. The soft tissue structures are unremarkable. RAD/L/S Spine Min 4 Views IMPRESSION: Mild spondylosis no acute fractures. Electronically Signed: Alfonso Velez, at 19:33 EDT Tel , Service support ,
== END | disposition home or self-care (01) ==
LOC: HPRAD 14:49
PROVIDERS: Family Provider Internal Medicine; PCP Internal Medicine; Referring Provider Orthopaedic Surgery; Visit Provider Orthopaedic Surgery
DX: M25.551 Pain in right hip (principal); R20.0 Anesthesia of skin; R20.2 Paresthesia of skin
CPT/HCPCS: 72110

== ENCOUNTER → 2018-11-17 | Outpatient (CLI) | payer MEDICAID, SELFPAY ==
[2018-10-08 15:36] VITALS: BMI 26.5
[2018-11-17 12:22] LABS: Anion Gap 6 (5-15); BUN 14 mg/dL (7-18); BUN/Creat Ratio 21.8 RATIO (10-20); Calcium,Total 8.4 mg/dL (8.5-10.1); Chloride 106 mmol/L (98-107); Cholesterol 152 mg/dL (200); Creatinine, Serum 0.64 mg/dL (0.55-1.02); EST Glomerular Filtration Rate 110 mL/min (>60); Est Glom Filt Rate - Afr Amer 133 mL/min (>60); Glucose 84 mg/dL (74-106); High Density Lipoprotein 51 mg/dL; Potassium 3.4 mmol/L (3.5-5.1); Sodium Level 139 mmol/L (136-145); Triglycerides 100 mg/dL; Very Low Density Lipoprotein 20 mg/dL (5-40)
== END | disposition home or self-care (01) ==
LOC: LAB 10:19
PROVIDERS: Family Provider Internal Medicine; PCP Internal Medicine; Referring Provider Internal Medicine; Visit Provider Internal Medicine
DX: E78.5 Hyperlipidemia, unspecified (principal)
CPT/HCPCS: 36415; 80048; 80061

== ENCOUNTER → 2018-12-02 11:16 | Outpatient (CLI) | payer MEDICAID, SELFPAY ==
[2018-11-17 10:44] VITALS: BMI 25.6
--- NOTE | 2018-12-02 11:19 | RAD_ITS ---
STUDY: X-RAY - CERVICAL SPINE REASON FOR EXAM: Female, 38 years old. Neck stiffness, no trauma TECHNIQUE: 3 view(s) of the cervical spine were obtained. COMPARISON: None FINDINGS: Normal anterior atlantoaxial articulation. Normal odontoid process. Normal cervical lordosis. There is endplate spondylosis of C5-C7. There is narrowing of the C5-6 and C6-7 disc spaces. The soft tissue structures are unremarkable. RAD/Cerv Spine 2 or 3 Views IMPRESSION: Cervical degenerative changes with disc space narrowing from C5 to C7. There is no evidence of fracture or subluxation. Electronically Signed: Boaz Manning MD at 23:40 EDT , Service support ,
[2019-05-20 08:12] VITALS: BMI 25.6
== END ==
PROVIDERS: Family Provider Internal Medicine; PCP Internal Medicine; Referring Provider Internal Medicine; Visit Provider Internal Medicine
DX: M54.10 Radiculopathy, site unspecified (principal); M54.5 Low back pain
CPT/HCPCS: 72040; 97113

== ENCOUNTER 2019-03-01 12:00 | Outpatient (RCR) | payer MEDICAID, SELFPAY ==
[2018-10-08 15:36] VITALS: BMI 26.5
--- NOTE | 2018-10-21 16:55 | HP.PTEVAL ---
Patient's Visit Information ALEK CASTELLANOS is a 38 year old F referred to Physical Therapy by Conchita Roman DO with a diagnosis of LBP. Date of Evaluation: 10/21/18 Physical Therapist: Keyla Melendrez PT, Cert MDT - Visit Plan Frequency: 2-3x /Week Duration: 4-6 Weeks Plan: AQUATIC THERAPY FOR PAIN RELEIF, POSTURE CORRECTION/STRENGTHENING, INSTRUCTION IN APPROPRIATE BODY MECHANICS AND ACTIVITY MODIFICATIONS. PLEASE INCLUDE PELVIC FLOOR EX'S. DLS WITH A NEUTRAL SPINE. SMITH LE ROM, STRETCHING AND STRENGTHENING. HEP INSTRUCTION. 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 MOM OF TWO YOUNG KIDS. Disability: NO. Present symptoms: LOW BACK PAIN, HIP PAIN, PELVIC AND GROIN PAIN. INTERMITTENT LEFT UE AND LEFT LE NUMBESS ESPECIALLY WITH WORKING OUT AND SHE HAS BEEN REFERRED TO A NEUROLOGIST FOR FUTHER TESTING. NO RIGHT SIDE SX'S LIKE THIS. INTERMITTENT SHARP SHOOTING PAINS IN FRONT OF PELVIS AT TIMES THAT CAN BE DEBILITATING AND SHE REPORTS IT ALMOST FEELS LIKE IT DISLOCATES. RIGHT BACK/HIP PAIN AND LEFT LATERAL THIGH TINGLING. AT NIGHT HAS A HORRIBLE FEELING LIKE SHE NEEDS TO CRACK HER BACK BUT SHE CAN'T. Present since: ABOUT 18 MONTHS AGO. Pain Scale: WORST 8/10, LEAST 0/10. Currently: 3/10. UNCHANGING. Commenced as a result of: GIVING ? Symptoms at onset: WHEN HER BABY WAS ABOUT 3 MONTHS OLD SHE HAD AN EPISODE OF HER HIPS AND LEGS SUDDENLY LOCKING UP ON HER ONE DAY AND SHE COULDN'T GET OUT OF BED. Worse: WORKING OUT (CAN'T MOVE THE NEXT DAY AFTER DOING HIP EX'S), GETTING OUT OF BED IS ONE OF THE WORST THINGS, SUDDENLY GETTING UP QUICKLY, SUDDEN MVMTS, PROLONGED STANDING REALLY HURTS BACK. Better: LIGHT WALKING, WARM BATH. Disturbed sleep: YES. Previous history/Previous treatment: ABOUT TWICE A YEAR BEFORE HAVING SECOND CHILD 18 MONTHS AGO WOULD GET A PINCHED NERVE THAT MAKES IT VERY HARD TO MOVE BUT JUST SELF TREATED. Coughing/sneezing/straining: NEGATIVE. Gait: A LOT SLOWER AND NEEDS TO TAKE MORE BREAKS BECAUSE OF PAIN AND WEAKNESS. Difficulty initiating urinatin: NO. Accidents: NO. Unexplained weight loss: NO. Imaging: JUST X-RAYS - NO MRI. PELVIC AND LUMBAR X-RAYS. LUMBAR SHOWED MILD SPONDYLOSIS. PMH: BICUSPID VALVE. Recent major surgery: JULY 2017 TUBAL. PLOF (Prior Level of Function): PRIOR TO ABOUT 18 MONTHS AGO UNLIMITED. - Objective Sitting/Standing Posture: POOR. SLOUCHED, FORWARD HEAD AND ROUNDED SHOULDERS. Lordosis: NORMAL. Lateral shift: NO. Relevant shift: N/A. Active Correction of posture: NE. Other Observations: INDEP GAIT INTO PT WITHOUT AD OR LOB BUT WITH DECREASED CADANCE AND SMITH STRIDE LENGTH. Motor deficit: SMITH LE'S 5/5 WITH MMT'ING EXCEPT SMITH HIPS 4/5 AND LEFT HS 4/5. Sensory deficit: DECREASED LIGHT TOUCH LEFT LATERAL THIGH AND LEG COMPARED TO RIGHT. DECREASED LEFT UE LIGHT TOUCH COMPARED TO RIGHT. ROM deficit: TIGHT AND PAINFUL IR OF RIGHT HIP. Reflexes: SMITH LE DTRS 2/3. Dural Signs: POSITIVE SMITH LE'S LEFT > RIGHT. POSITIVE LEFT UE. Lumbar mvmt loss: flex - MIN - FEELS GOOD TO BEND. ext - MOD - SHOOTING LOW BACK PAIN. R SG - MIN - PAIN THROUGH LEFT HIP. L SG - MOD - PAIN THROUGH RIGHT HIP. Core strength: POOR. Palpation: TENDERNESS IN LOW BACK ON SPINE FROM L34 TO L5S1 REGIONS. NO ACUTE HIP TENDERNESS. OTHER: ILIAC CREST COMPRESSION TEST IS NEGATIVE - Goals Goal 1:: DECREASE C/O BACK, PELVIC AND LEFT LE SX'S (MONITOR LEFT UE SX'S) Goal Time Frame: 4-6 Weeks Goal 2:: IMPROVE LIFTING, STANDING, SLEEP, TRAVEL AND WORK/HOMEMAKING FUNCTION Goal Time Frame: 4-6 Weeks Goal 3:: INSTRUCT IN PROPHYLAXIS Goal Time Frame: 4-6 Weeks - Rehabilitation Potential Rehabilitation Potential: Fair - Anticipated Interventions Thank you for the opportunity to evaluate your patient. For Medicare and Medicare HMO plans, please review the plan of care and approve it. It will need to be FAXED BACK to us at [phone] for Medicare purposes. For Medicare only, by signing this I certify the plan of care. Please let me know if there are questions or concerns regarding this plan of care. Physician Signature: Date:
--- NOTE | 2018-11-25 10:20 | HP.PTREVAL ---
Conchita Roman, DO, It has been my pleasure to treat ALEK CASTELLANOS over the last 7 visits for LBP. Please see the progress note below for an update on the physical therapy plan of care! Subjective: PATIENT REPORTS THE THERAPY IS HELPING HER PAIN AND SHE FEELS STRONGER. SHE REPORTS SHE CAN DEAL WITH THE PAIN AT WORK A LOT BETTER WITH BETTER POSTURE CONTROL. SHE REPORTS THAT AFTER WORK SHE USE TO BARELY BE ABLE TO MOVE BUT THAT HAS GOT A LOT BETTER. JUST MANAGING AND WORKING THROUGH THE PAIN THAT IS STILL THERE A LOT BETTER. Present symptoms: LOW BACK PAIN, HIP PAIN, PELVIC AND GROIN PAIN. INTERMITTENT LEFT UE AND LEFT LE NUMBESS AT WORK AND SOMETIMES AFTER THE WATER THERAPY. STATES DR. STYLES ORDERED A NECK X-RAY AND SHE IS GOING TO HAVE IT TODAY. STILL NO RIGHT UE SIDE SX'S LIKE THIS. INTERMITTENT SHARP SHOOTING PAINS IN FRONT OF PELVIS AT TIMES THAT CAN BE DEBILITATING AND SHE REPORTS IT ALMOST FEELS LIKE IT DISLOCATES - BUT GETTING MORE MANAGEABLE. RIGHT BACK/HIP PAIN AND LEFT LATERAL THIGH TINGLING. AT NIGHT THE HORRIBLE FEELING LIKE SHE NEEDS TO CRACK HER BACK BUT SHE CAN'T SEEMS TO HAVE GONE AWAY SINCE STARTING THERAPY. Present since: ABOUT 19 MONTHS AGO. Pain Scale: WORST 8/10 GROIN AND 5/10 IN RIGHT LOW BACK AND HIP, LEAST 0/10. Currently: 2/10 - IMPROVING OVER-ALL. Commenced as a result of: GIVING ? Symptoms at onset: WHEN HER BABY WAS ABOUT 3 MONTHS OLD SHE HAD AN EPISODE OF HER HIPS AND LEGS SUDDENLY LOCKING UP ON HER ONE DAY AND SHE COULDN'T GET OUT OF BED. Worse: GETTING OUT OF BED IS STILL ONE OF THE WORST THINGS AFTER SHE HAS WORKED THE NIGHT BEFORE, SUDDENLY GETTING UP QUICKLY HASN'T BEEN A PROBLEM LIKE IT WAS BEFORE WATER THERAPY, PROLONGED STANDING STILL REALLY HURTS BACK. Better: WATER THERAPY, LIGHT WALKING, WARM BATH, BEING MORE AWARE OF CORE, USING CORE AND HIPS. KEEPING BACK STRAIGHT. Disturbed sleep: YES BUT ONLY ABOUT ONE NIGHT A WEEK NOW. Previous history/Previous treatment: ABOUT TWICE A YEAR BEFORE HAVING SECOND CHILD 18 MONTHS AGO WOULD GET A PINCHED NERVE THAT MAKES IT VERY HARD TO MOVE BUT JUST SELF TREATED. Coughing/sneezing/straining: NEGATIVE. Gait: ABLE TO TRY TO START WALKING FOR EXERCISE AGAIN AND TOLERATING WELL. Difficulty initiating urinatin: NO. Accidents: NO. Unexplained weight loss: NO. Imaging: JUST X-RAYS - NO MRI. PELVIC AND LUMBAR X-RAYS. LUMBAR SHOWED MILD SPONDYLOSIS. NECK X-RAY PENDING TODAY. PMH: BICUSPID VALVE. Recent major surgery: JULY 2017 TUBAL. PLOF (Prior Level of Function): PRIOR TO ABOUT 18 MONTHS AGO UNLIMITED. OTHER: FEELING THE SAME NERVE PAIN ALONG THE LEFT SIDE OF HER BREAST NOW THAT SHE FEELS IN HER LEFT UE AND LEFT LEG. PLANS TO TELL DR. STYLES WHEN SHE GETS THE X-RAY RESULTS OR SOONER IF WORSENS. SHE DESCRIBES IT A SKIN SENSATIVITY. Objective/Function: PATIENT IS MAKING SLOW PROGRESS TOWARD ALL PT GOALS. UPON EXAM TODAY: PATIENT HAS INDEP GAIT INTO PT WITHOUT AD OR LOB. FAIR CADANCE AND STRIDE LENGTH. Motor deficit: SMITH LE'S 5/5 WITH MMT'ING EXCEPT SMITH HIPS 4+/5 AND LEFT HS 4+/5. Sensory deficit: DECREASED LIGHT TOUCH LEFT LATERAL THIGH AND MEDIAL LEG COMPARED TO RIGHT. ALTERED LEFT UE LIGHT TOUCH COMPARED TO RIGHT. ROM deficit: NO. RIGHT HIP MOVES GOOD AND TESTING DOES NOT PROVOKE PAIN TODAY. Reflexes: SMITH LE DTRS 2/3. Dural Signs: POSITIVE RIGHT LE, NEGATIVE LLE, POSITIVE LEFT UE. Lumbar mvmt loss: flex - MIN - FEELS GOOD TO BEND. ext - MOD - DISCOMFORT RIGHT LOW BACK. R SG - MIN - PAIN THROUGH LEFT HIP. L SG - MOD - PAIN THROUGH RIGHT HIP. Core strength: POOR. Palpation: NO ACUTE SPINE TENDERNESS TODAY IN LOWER THORACIC OR LUMBAR REGIONS BUT RIGHT PARASPINALS AND LATERAL HIP REGION AND INTO RIGHT BUTTOCK IS MILDLY TENDER COMPARED TO LEFT. OTHER: ILIAC CREST COMPRESSION TEST IS NEGATIVE Plan Plan: CONTINUE AQUATIC THERAPY DECREASING TO 1X A WEEK X 5 WEEKS FOR PAIN RELEIF, POSTURE CORRECTION/STRENGTHENING, INSTRUCTION IN APPROPRIATE BODY MECHANICS AND ACTIVITY MODIFICATIONS. DLS. SMITH LE ROM, STRETCHING AND STRENGTHENING. HEP INSTRUCTION. PATIENT PLANS TO JOIN A POOL NEAR HER HOME. PLEASE HELP PATIENT SUCCESSFULLY TRANSITION TO INDEP POOL PROGRAM. Goals Goal 1:: DECREASE C/O BACK, PELVIC AND LEFT LE SX'S (MONITOR LEFT UE SX'S) Goal Time Frame: 4-6 Weeks Goal Progress: Progressing Goal 2:: IMPROVE LIFTING, STANDING, SLEEP, TRAVEL AND WORK/HOMEMAKING FUNCTION Goal Time Frame: 4-6 Weeks Goal Progress: Progressing Goal 3:: INSTRUCT IN PROPHYLAXIS Goal Time Frame: 4-6 Weeks Goal Progress: Progressing Anticipated Interventions Please do not hesitate to contact me at [phone] by phone or if you have questions or concerns regarding this new plan of care! Sincerely, Keyla Melendrez, PT, Cert MDT
--- NOTE | 2019-01-04 15:45 | HP.PTREVAL ---
Conchita Roman, DO, It has been my pleasure to treat ALEK CASTELLANOS over the last 12 visits for LBP. Please see the progress note below for an update on the physical therapy plan of care! Subjective: PATIENT REPORTS HER HIP PAIN IS A LOT BETTER. SHE IS SLEEPING BETTER AND LESS PAIN AT WORK. WITH LONG SHIFT SHE DOES STILL GET PAIN. STATES SHE HAS STARTED GOING TO A POOL NEAR HER HOME. DOES STILL HAVE SOME RIGHT ANTERIOR PELVIC PAIN WITH GYNOCOLOGIST GRZEGORZ'T PENDING. Objective/Function: ALL GOALS MET. UPON EXAM TODAY: PATIENT HAS INDEP GAIT INTO PT WITHOUT AD OR LOB. GOOD CADANCE AND STRIDE LENGTH. Motor deficit: SMITH LE'S 5/5 WITH MMT'ING. Sensory deficit: DECREASED LIGHT TOUCH LEFT LATERAL THIGH AND MEDIAL LEG COMPARED TO RIGHT. ALTERED LEFT UE LIGHT TOUCH COMPARED TO RIGHT. ROM deficit: NO. Dural Signs: POSITIVE LEFT UE. Lumbar mvmt loss: flex - NIL. ext - MOD - DISCOMFORT RIGHT LOW BACK. R SG - MIN - PAIN THROUGH LEFT HIP. L SG - MIN - VERY MILD PAIN THROUGH RIGHT HIP. Core strength: POOR. Palpation: NO ACUTE TENDERNESS IN BACK OR HIPS TODAY. Plan Plan: D/C TO INDEP HEP. NECK EVAL PENDING NEXT VISIT. Goals Goal 1:: DECREASE C/O BACK, PELVIC AND LEFT LE SX'S (MONITOR LEFT UE SX'S) Goal Time Frame: 4-6 Weeks Goal Progress: Progressing Goal 2:: IMPROVE LIFTING, STANDING, SLEEP, TRAVEL AND WORK/HOMEMAKING FUNCTION Goal Time Frame: 4-6 Weeks Goal Progress: Progressing Goal 3:: INSTRUCT IN PROPHYLAXIS Goal Time Frame: 4-6 Weeks Goal Progress: Progressing Anticipated Interventions Please do not hesitate to contact me at [phone] by phone or if you have questions or concerns regarding this new plan of care! Sincerely, Keyla Melendrez, PT, Cert MDT
--- NOTE | 2019-01-13 14:53 | HP.PTREVAL ---
Conchita Roman, DO, It has been my pleasure to treat ALEK CASTELLANOS over the last 13 visits for LBP. Please see the progress note below for an update on the physical therapy plan of care! Subjective: Present symptoms: SMITH INTERMITTENT NECK PAIN. SOMETIMES CATCHES AND CAN'T MOVE IT. RIGHT HAND DOMINANT BUT LEFT UE GETS PAIN, NUMBNESS AND TINGLING TO FINGERS. ALSO FEELS WEAK AT TIMES. 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 THE LUE SX'S ARE THERE MORE THAN THEY ARE NOT. Present since: ABOUT 6-8 MONTHS. Pain Scale: Worst - 1/10 Least - 0/10. Currently: 0/10. Commenced as a result of: NO APPARENT REASON. Symptoms at onset: NECK LOCKING UP - DID IT REALLY BAD ONE TIME ABOUT 6-8 MONTHS AGO AND COULDN'T HARDLY MOVE FOR ABOUT 3 DAYS AND ALMOST WENT TO THE HOSPITAL. EVER SINCE THEN THE LEFT UE HAS BEEN TNGLING. Worse: LIFTING, TALKING ON THE PHONE FOR EVEN A MINUTE, CARRYING TRAYS AT WORK, SOME OF THE EX'S IN POOL IF ARM WAS APPROACHING OVER-HEAD. Better: TIME. Disturbed sleep: YES. Previous history/Previous treatment: UNREMARKABLE. Dizziness: NO. Tinnitis: YES. Nausea: NO. Shortness of Breath: NO. Difficulty Swollowing: NO. Accidents: NO. Unexplained weight loss: NO. Imaging: NECK X-RAY - FINDINGS: Normal anterior atlantoaxial articulation. Normal odontoid process. Normal cervical lordosis. There is endplate spondylosis of C5-C7. There. is narrowing of the C5-6 and C6-7 disc spaces. The soft tissue structures are unremarkable. RAD/Cerv Spine 2 or 3 Views. IMPRESSION: Cervical degenerative changes with disc space narrowing from C5 to C7. There is no evidence of fracture or subluxation. Objective/Function: Sitting Posture/Standing Posture: POOR. Active Correction of posture: BETTER. Other Observations: INDEP GAIT AND TRANSFERS. PATIENT IS PLEASANT AND COOPERATIVE TO WORK WITH. Motor deficit: RIGHT HANDED. 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 SMITH UE STRENGTH IS 5/5 WITH MMT'ING EXCEPT SCAPULEA RATED 4/5 RIGHT AND 4-/5 LEFT. Sensory deficit: DECREASED LIGHT TOUCH SENSATION OF LEFT UE COMPARED TO RIGHT THROUGHOUT. ROM deficit: SMITH UE ROM WNL BUT LEFT NECK PAIN AT THE END OF THE AVAILABLE ROM INTO SUPINE LEFT SHOULDER FLEX. Reflexes: SMITH UE DTR'S 2/3. Dural Signs: POSITIVE LEFT UE. Cervical Mvmt Loss: Flex: NIL. Pro: NIL. Ext: MIN. Ret: MOD. RSB: MOD. LSB: MOD. R Rot: MIN. L Rot: MOD. CERVICAL ROM TESTING PRODUCES LEFT UPPER TRAP AREA PAIN. CERVICAL ROM TESTING ALSO INCREASES LEFT UE NUMBNESS AND TINGLING. Postural strength: POOR. Palpation: Plan Plan: 2X'S A WEEK X 4 WKS FOR CTX, US, DEEP FLEXOR AND SCAP STRENGTHEING. POSTURE CORRECTION/STRENGTHENING, INSTRUCTION IN APPROPRIATE BODY MECHANICS AND ACTIVITY MODIFICATIONS. SMITH UE ROM, STRETCHING AND STRENGTHENING. HEP INSTRUCTION. Goals Goal 1:: DECREASE C/O BACK, PELVIC AND LEFT LE SX'S (MONITOR LEFT UE SX'S) Goal Time Frame: 4-6 Weeks Goal Progress: Progressing Goal 2:: IMPROVE LIFTING, STANDING, SLEEP, TRAVEL AND WORK/HOMEMAKING FUNCTION Goal Time Frame: 4-6 Weeks Goal Progress: Progressing Goal 3:: INSTRUCT IN PROPHYLAXIS Goal Time Frame: 4-6 Weeks Goal Progress: Progressing Anticipated Interventions Please do not hesitate to contact me at [phone] by phone or if you have questions or concerns regarding this new plan of care! Sincerely, Keyla Melendrez, PT, Cert MDT
== END 2019-03-01 19:00 | disposition home or self-care (01) ==
LOC: PT 12:00
PROVIDERS: Family Provider Internal Medicine; PCP Internal Medicine; Referring Provider Orthopaedic Surgery; Visit Provider Orthopaedic Surgery
DX: M54.5 Low back pain (principal)
CPT/HCPCS: 97012; 97110; 97113; 97162; 97530

== ENCOUNTER → 2019-05-05 09:47 | Outpatient (CLI) | payer MEDICAID, SELFPAY ==
[2019-05-05 09:24] VITALS: BMI 25.6
--- NOTE | 2019-05-05 09:47 | RAD_ITS ---
STUDY: X-RAY - LEFT KNEE REASON FOR EXAM: Female, 38 years old. FALL ONTO KNEE TECHNIQUE: 3 view(s) of the knee. COMPARISON: None. FINDINGS: Normal visualized distal femur. Normal visualized proximal tibia and fibula. Normal proximal tibiofibular articulation. Normal medial femorotibial compartment. Normal lateral femorotibial compartment. Normal patellofemoral articulation. The soft tissue structures are unremarkable. RAD/Knee 3 Views IMPRESSION: Normal x-ray examination of the knee. Electronically Signed: Zay Adair, at 15:45 EST , Service support ,
== END ==
PROVIDERS: PCP Internal Medicine; Referring Provider Nurse Practitioner Family; Visit Provider Nurse Practitioner Family
DX: M25.562 Pain in left knee (principal)
CPT/HCPCS: 73562

== ENCOUNTER → 2019-05-20 09:13 | Outpatient (CLI) | payer MEDICAID, SELFPAY ==
[2019-05-20 08:12] VITALS: BMI 25.6
[2019-05-20 10:04] LABS: Absolute Lymphocyte Count 1.59 X10^3/uL (0.83-4.51); Absolute Neutrophil Count 3.6 X10^3/uL (2.0-7.7); Basophil# 0.05 X10^3/uL; Basophil% 0.9 % (0-1); Eosinophil# 0.07 X10^3/uL; Eosinophils% 1.2 % (0-5); Hematocrit 44.6 % (37-47); Hemoglobin 14.7 g/dL (12.0-15.0); Lymphocyte # 1.59 X10^3/ul (4.0); Lymphocyte % 27.4 % (19-41); Mean Corpuscular Hgb 29.6 pg (27.0-32.0); Mean Corpuscular Volume 89.9 fL (81-99); Mean Platelet Vol. 8.5 fl (6.2-12.0); Monocyte# 0.44 X10^3/uL; Monocyte% 7.6 % (0-10); NRBC Flagged by Analyzer 0 % (0-5); Neutrophil # 3.63 X10^3/uL (2.7-7.7); Neutrophil % 62.4 % (47-70); Platelet Count 233 K/mm3 (150-450); RBC Distribution Width CV 11.8 % (11.6-14.6); RBC Distribution Width SD 38.5 fl (35.1-43.9); Red Blood Count 4.96 M/mm3 (4.2-5.4); White Blood Count 5.8 K/mm3 (4.4-11.0)
[2019-05-20 10:27] LABS: Thyroid Stim Hormone (TSH) 0.73 uIU/mL (0.358-3.74)
[2019-05-26 16:36] LABS: HPV APTIMA, High Risk Negative (Negative)
== END ==
PROVIDERS: PCP Internal Medicine; Referring Provider Obstetrics & Gynecology; Visit Provider Obstetrics & Gynecology
DX: N93.9 Abnormal uterine and vaginal bleeding, unspecified (principal); Z12.4 Encounter for screening for malignant neoplasm of cervix
CPT/HCPCS: 36415; 84443; 85025; 87624; 88175; G0145

== ENCOUNTER → 2019-05-27 12:01 | Outpatient (CLI) | payer MEDICAID, SELFPAY ==
[2019-05-20 08:12] VITALS: BMI 25.6
--- NOTE | 2019-05-27 12:02 | US_ITS ---
STUDY: ULTRASOUND OF THE FEMALE PELVIS - COMPLETE REASON FOR EXAM: Female, 38 years old. AUB LMP: May 20, 2019. TECHNIQUE: Transabdominal and Transvaginal TECHNICAL QUALITY: Adequate. COMPARISON: None. FINDINGS: The uterus is anteverted and is in a midline position. The uterus measures 8.6 cm x 4.8 cm x 3.6 cm. Normal uterine cervix. The endometrium measures 3.0 mm in thickness, and is hyperechoic. There is no demonstrated endometrial mass. There is no demonstrated myometrial mass. I.U.D. - The patient does not have an I.U.D. The right ovary is visualized. The right ovary measures 3.1 cm x 1.7 cm x 2.1 cm. There is no right ovarian cyst or ovarian mass. There is no visualized right adnexal mass or complex lesion. There is normal arterial and normal venous vascularity. The left ovary is visualized. The left ovary measures 2.4 cm x 1.9 cm x 2.0 cm. There is no left ovarian cyst or ovarian mass. There is no visualized left adnexal mass or complex lesion. There is normal arterial and normal venous vascularity. There is no fluid in the cul-de-sac. The pre void volume of the bladder was 42 ml. Polycystic ovary disease: No. US/Pelvic (Non ) IMPRESSION: Normal female pelvis. Electronically Signed: Zay Adair, at 14:50 EST , Service support ,
--- NOTE | 2019-05-27 12:02 | US_ITS ---
STUDY: ULTRASOUND OF THE FEMALE PELVIS - COMPLETE REASON FOR EXAM: Female, 38 years old. AUB LMP: May 20, 2019. TECHNIQUE: Transabdominal and Transvaginal TECHNICAL QUALITY: Adequate. COMPARISON: None. FINDINGS: The uterus is anteverted and is in a midline position. The uterus measures 8.6 cm x 4.8 cm x 3.6 cm. Normal uterine cervix. The endometrium measures 3.0 mm in thickness, and is hyperechoic. There is no demonstrated endometrial mass. There is no demonstrated myometrial mass. I.U.D. - The patient does not have an I.U.D. The right ovary is visualized. The right ovary measures 3.1 cm x 1.7 cm x 2.1 cm. There is no right ovarian cyst or ovarian mass. There is no visualized right adnexal mass or complex lesion. There is normal arterial and normal venous vascularity. The left ovary is visualized. The left ovary measures 2.4 cm x 1.9 cm x 2.0 cm. There is no left ovarian cyst or ovarian mass. There is no visualized left adnexal mass or complex lesion. There is normal arterial and normal venous vascularity. There is no fluid in the cul-de-sac. The pre void volume of the bladder was 42 ml. Polycystic ovary disease: No. US/Transvaginal Non- IMPRESSION: Normal female pelvis. Electronically Signed: Zay Adair, at 14:50 EST , Service support ,
== END ==
PROVIDERS: PCP Internal Medicine; Referring Provider Obstetrics & Gynecology; Visit Provider Obstetrics & Gynecology
DX: N93.9 Abnormal uterine and vaginal bleeding, unspecified (principal)
CPT/HCPCS: 76830; 76856

== ENCOUNTER → 2020-03-09 13:38 | Outpatient (CLI) | payer MEDICAID, SELFPAY ==
[2020-02-29 10:51] VITALS: BMI 29.0
--- NOTE | 2020-03-09 13:40 | ECHOD_ITS ---
Reason For Study: AMAUROSIS FUGAX Procedure This was a 2D Doppler, Color Flow transthoracic echocardiogram. Exam performed in department. Left Ventricle Normal LV size. The estimated ejection fraction is 65 %. No evidence for diastolic dysfunction. No regional wall motion abnormalities noted. Right Ventricle Normal RV size. Normal systolic function. Atria Normal left atrium. Normal right atrium. No doppler evidence for ASD. Mitral Valve There is no mitral valve stenosis. Trivial mitral valve insufficiency. Tricuspid Valve There is no tricuspid stenosis. No tricuspid valve insufficiency. Unable to estimate RV systolic pressure due to inadequate jet, pulmonary artery pressure probably normal. Aortic Valve Mild diffuse aortic valve thickening. Unable to ascertain whether the valve is bicuspid on this echo. Previously documented as bicuspid aortic valve. Moderate aortic stenosis. No aortic valve insufficiency. Pulmonic Valve There is no pulmonic valvular stenosis. No pulmonic valve insufficiency. Great Vessels Normal aortic root. Pericardium/Pleural No pericardial effusion. MMode/2D Measurements & Calculations LVIDd: 4.4 cm IVSd: 0.90 cm LVOT diam: 2.0 cm LVIDs: 2.8 cm LVPWd: 0.85 cm LVOT area: 3.0 cm2 RVDd: 2.9 cm FS: 35.0 % Ao root diam: 2.7 cm LAV(MOD-bp): 44.5 ml LA A4 area: 16.4 cm2 LAV(MOD-bp) Indexed: 27.1 ml/m2 LAV(MOD-sp2): 42.4 ml LAV(MOD-sp4): 46.8 ml LA dimension(2D): 2.9 cm RA A4 area: 14.1 cm2 Time Measurements MV dec time: 0.22 sec Doppler Measurements & Calculations MV E max nirmal: 100.9 cm/sec Lat Peak E' Nirmal: 9.5 cm/sec Med Peak E' Nirmal: 8.3 cm/sec MV A max nirmal: 77.1 cm/sec E/E' lat: 10.6 E/E' med: 12.1 MV E/A: 1.3 Ao V2 max: 309.1 cm/sec LV V1 max: 148.5 cm/sec SV(LVOT): 99.4 ml Ao max P.3 mmHg LV V1 max P.8 mmHg Ao V2 mean: 221.4 cm/sec LV V1 mean P.1 mmHg Ao mean P.5 mmHg LV V1 mean: 108.1 cm/sec Ao V2 VTI: 63.9 cm LV V1 VTI: 32.8 cm NITESH(I,D): 1.6 cm2 NITESH(V,D): 1.5 cm2 PA V2 max: 107.8 cm/sec Interpretation Summary The estimated ejection fraction is 65 %. No evidence for diastolic dysfunction. Trivial mitral valve insufficiency. Unable to ascertain whether the valve is bicuspid on this echo. Previously documented as bicuspid aortic valve Moderate aortic stenosis. Ordering Physician: Shay Chen Referring Physician: Rubén Burns Performed By: Ashley Loera, CYNTHIA, RVT
== END ==
PROVIDERS: PCP Internal Medicine; Referring Provider Ophthalmology; Visit Provider Ophthalmology
DX: G45.3 Amaurosis fugax (principal)
CPT/HCPCS: 93306

== ENCOUNTER → 2020-03-20 16:06 | Outpatient (CLI) | payer MEDICAID, SELFPAY ==
[2020-02-29 10:51] VITALS: BMI 29.0
--- NOTE | 2020-03-20 16:10 | MRI_ITS ---
STUDY: MRI BRAIN WITH AND WITHOUT CONTRAST REASON FOR EXAM: Female, 39 years old. SUDDEN VISION LOSS, DIZZINESS, CVA TECHNIQUE: Standardized multiplanar fat and water weighted pulse sequences were obtained. IV 15CC DOTAREM was administered for the contrast portion of the examination. COMPARISON: None. FINDINGS: Normal size of the ventricles and extra-axial spaces for the patient''s age. Normal white matter tracts of the supratentorial brain. Normal bilateral basal ganglia. Normal thalami. There is no extra-axial fluid accumulation. Normal flow voids within the major intracranial circulation suggesting patency by spin echo criteria. Normal venous enhancement. There is no enhancing intra-axial or extra-axial abnormality. Normal sella turcica, pituitary gland, infundibular stalk, optic chiasm and hypothalamus. Normal tectal plate and pineal gland. Normal midbrain, ida and medulla. Normal cerebellum. Normal basal cisterns. Normal bilateral temporal bones. Normal bilateral internal auditory canals. No demonstrated orbital abnormality, within the constraints of a routine brain study. Normal visualized paranasal sinuses. Normal calvarium and skull base. Normal visualized soft tissue structures. Normal visualized upper cervical spine. MRI/Brain W/WO Contrast IMPRESSION: Normal unenhanced and enhanced MRI of the brain. Electronically Signed: Mayur Vaz MD at 17:38 EST , Service support ,
== END ==
PROVIDERS: PCP Internal Medicine; Referring Provider Ophthalmology; Visit Provider Ophthalmology
DX: G45.3 Amaurosis fugax (principal)
CPT/HCPCS: 70553; A9575

== ENCOUNTER → 2020-04-11 12:49 | Outpatient (CLI) | payer MEDICAID, SELFPAY ==
[2020-04-06 15:26] VITALS: BMI 28.7
--- NOTE | 2020-04-11 12:51 | CDU_ITS ---
Reason For Study: vision changes, dizziness Rt. Velocities/BP Lt. Velocities/BP Prox CCA 78.6/20.0 cm/sec. Prox CCA 79.9/22.6 cm/sec. Mid CCA 78.6/22.6 cm/sec. Mid CCA 100.8/31.7 cm/sec. Dist CCA 72.1/23.9 cm/sec. Dist CCA 76.0/26.5 cm/sec. Prox ICA 42.1/20.0 cm/sec. Prox ICA 51.3/21.3 cm/sec. Mid ICA 61.7/26.5 cm/sec. Mid ICA 70.8/34.3 cm/sec. Dist ICA 76.0/35.6 cm/sec. Dist ICA 60.4/30.4 cm/sec. Rt. ICA/CCA = 1.0. Lt. ICA/CCA = .7. Prox ECA 100.8/22.6 cm/sec. Prox ECA 95.6/30.4 cm/sec. Rt. Vert. 35.6/12.1 cm/sec. Lt. Vert. 39.5/16.0 cm/sec. Right Extracranial There is intimal thickening but no significant atherosclerotic plaque noted in the right common carotid artery. There is intimal thickening but no significant atherosclerotic plaque noted in the right internal carotid artery. There is intimal thickening but no significant atherosclerotic plaque noted in the right external carotid artery. Antegrade flow is noted in the right vertebral artery. Left Extracranial There is intimal thickening but no significant atherosclerotic plaque noted in the left common carotid artery. There is intimal thickening but no significant atherosclerotic plaque noted in the left internal carotid artery. There is intimal thickening but no significant atherosclerotic plaque noted in the left external carotid artery. Antegrade flow is noted in the left vertebral artery. Procedure Carotid Duplex [id number]. This is a Carotid Duplex examination using B-mode, color flow and specral Doppler. The exam was diagnostic. Exam performed in department. Interpretation Summary Intimal thickening at the proximal right internal carotid artery with less than 50% stenosis Less than 50% stenosis right external carotid artery Intimal thickening of the proximal left internal carotid artery with less than 50% stenosis Less than 50% stenosis left external carotid artery Patent and antegrade vertebrals bilaterally Ordering Physician: Babak Anthony Performed By: Avelino Hernandez RVT
== END ==
PROVIDERS: PCP Internal Medicine; Visit Provider Nurse Practitioner Family
DX: I65.22 Occlusion and stenosis of left carotid artery (principal); R00.2 Palpitations; G45.3 Amaurosis fugax
CPT/HCPCS: 93225; 93226; 93880

== ENCOUNTER → 2020-09-14 15:34 | Outpatient (CLI) | payer MEDICAID, SELFPAY ==
[2020-04-06 15:26] VITALS: BMI 28.7
[2020-05-30 09:52] VITALS: BMI 29.0
--- NOTE | 2020-09-14 15:36 | BI_ITS ---
MAMMOGRAPHY - BILATERAL SCREENING 3-D TOMOSYNTHESIS REASON FOR EXAM: Female, 40 years old. screening -- pollyule for after 09/07/20 PERTINENT HISTORY: No significant family history. TECHNIQUE: 2-D mammograms and 3-D Tomosynthesis of the breast (s) were performed. CAD was performed. COMPARISON: None. FINDINGS: The breast composition is of heterogeneous fibroglandular tissue Scattered benign calcifications are seen. No dense spiculated masses or No architectural distortion is identified. There is no skin thickening or nipple retraction. There has been no significant change since the prior study. BI/SCRN MAMM (CAD)W/CARO BILAT IMPRESSION: No mammographic signs of malignancy. Routine yearly mammograms recommended. ASSESSMENT CATEGORY: BIRADS Category 1: Negative. A letter regarding these results will be sent to the patient by the facility within 30 days. FOLLOW UP RECOMMENDATION: Yearly follow up mammogram recommended. (A) Approximately 10% of breast cancers are not detected by mammography. A normal mammogram should not delay biopsy of a clinically suspicious abnormality. Electronically Signed: Andres Peterson, at 13:37 EDT Tel , Service support ,
== END ==
PROVIDERS: PCP Internal Medicine; Referring Provider Obstetrics & Gynecology; Visit Provider Obstetrics & Gynecology
DX: Z12.31 Encounter for screening mammogram for malignant neoplasm of breast (principal)
CPT/HCPCS: 77063; 77067

== ENCOUNTER → 2021-02-23 15:21 | Outpatient (CLI) | payer MEDICAID, SELFPAY ==
[2021-02-23 16:45] LABS: Absolute Lymphocyte Count 1.24 X10^3/uL (0.83-4.51); Absolute Neutrophil Count 5.3 X10^3/uL (2.0-7.7); Basophil# 0.04 X10^3/uL; Basophil% 0.5 % (0-1); Eosinophil# 0.36 X10^3/uL; Eosinophils% 4.7 % (0-5); Hematocrit 44.5 % (37-47); Hemoglobin 15.2 g/dL (12.0-15.0); Lymphocyte # 1.24 X10^3/ul (0.83-4.51); Lymphocyte % 16.3 % (19-41); Mean Corp Hgb Conc 34.2 g/dL (32-36); Mean Corpuscular Hgb 30.9 pg (27.0-32.0); Mean Corpuscular Volume 90.4 fL (81-99); Mean Platelet Vol. 8.7 fl (6.2-12.0); Monocyte# 0.57 X10^3/uL; Monocyte% 7.5 % (0-10); NRBC Flagged by Analyzer 0 % (0-5); Neutrophil # 5.33 X10^3/uL (2.7-7.7); Neutrophil % 69.8 % (47-70); Platelet Count 263 K/mm3 (150-450); RBC Distribution Width CV 11.6 % (11.6-14.6); RBC Distribution Width SD 38.5 fl (35.1-43.9); Red Blood Count 4.92 M/mm3 (4.2-5.4); White Blood Count 7.6 K/mm3 (4.4-11.0)
[2021-02-23 17:05] LABS: Cholesterol 219 mg/dL (200); Glucose 98 mg/dL (74-106); High Density Lipoprotein 80 mg/dL; Thyroid Stim Hormone (TSH) 0.43 uIU/mL (0.358-3.74); Triglycerides 115 mg/dL; Very Low Density Lipoprotein 23 mg/dL (5-40)
[2021-02-23 17:08] LABS: Vitamin D,25 Hydroxy 20.6 ng/mL
== END ==
PROVIDERS: Obstetrics & Gynecology; PCP Internal Medicine; Referring Provider Physician Assistant; Visit Provider Physician Assistant
DX: Z01.419 Encounter for gynecological examination (general) (routine) without abnormal findings (principal); L23.9 Allergic contact dermatitis, unspecified cause
CPT/HCPCS: 36415; 80061; 82306; 82947; 84443; 85025

== ENCOUNTER → 2021-09-17 | Outpatient (CLI) | payer MEDICAID, SELFPAY ==
--- NOTE | 2021-09-17 09:42 | BI_ITS ---
MAMMOGRAPHY - BILATERAL SCREENING REASON FOR EXAM: Female, 41 years old. Routine annual screening examination. PERTINENT HISTORY: Non-contributory. TECHNIQUE: Digital bilateral breast caro (3D mammographic acquisition) in the CC and MLO projections. 2-D mediolateral oblique (MLO) and craniocaudad (CC) views of both breasts were obtained. CAD: Full Field Digital Mammography with Computer Added Detection was performed. COMPARISON: Comparison is made with prior study dated 09/14/2020. FINDINGS: Breast Composition: The breasts are extremely dense, which lowers the sensitivity of mammography. There are no dominant masses or suspicious calcifications. No other significant abnormalities are identified. There has been no significant change since the prior study. BI/SCRN MAMM (CAD)W/CARO BILAT IMPRESSION: Stable bilateral screening mammogram. Yearly follow-up mammogram recommended. (A) ASSESSMENT CATEGORY: BIRADS Category 1: Negative. A letter regarding these results will be sent to the patient by the facility within 30 days. Approximately 10% of breast cancers are not detected by mammography. A normal mammogram should not delay biopsy of a clinically suspicious abnormality. [id number] Electronically Signed: Zay Adair MD at 10:20 EDT ,
== END | disposition home or self-care (01) ==
PROVIDERS: PCP Internal Medicine; Visit Provider Obstetrics & Gynecology
DX: Z12.31 Encounter for screening mammogram for malignant neoplasm of breast (principal)
CPT/HCPCS: 77063; 77067

== ENCOUNTER → 2022-03-11 | Outpatient (CLI) | payer MEDICAID, SELFPAY ==
--- NOTE | 2022-03-11 09:03 | ECHOD_ITS ---
Reason For Study: BICUSPID AORTA Procedure This was a 2D Doppler, Color Flow transthoracic echocardiogram. Exam performed in department. Left Ventricle Normal LV size. Left ventricular systolic function is normal. The estimated ejection fraction is 55 %. No regional wall motion abnormalities noted. Right Ventricle Normal RV size. Normal systolic function. Atria Normal left atrium. Normal right atrium. Mitral Valve Bileaflet diffuse mitral valve thickening. Mild (1+) eccentric mitral valve insufficiency. Tricuspid Valve Normal tricuspid valve. Mild (1+) tricuspid valve insufficiency. Pulmonary artery systolic pressure is 23 mmHg. Aortic Valve The aortic valve is not well visualized. Peak aortic valve gradient 39 mmHg. Mean aortic valve gradient 19 mmHg. The aortic valve is not very well visualized to ascertain whether it is bicuspid or trileaflet. Pulmonic Valve Normal pulmonic valve. Great Vessels Normal aortic root. The pulmonary artery is normal size. Normal inferior vena cava. Pericardium/Pleural No pericardial effusion. MMode/2D Measurements & Calculations LVIDd: 4.8 cm IVSd: 0.79 cm Ao root diam: 3.0 cm LVIDs: 3.2 cm LVPWd: 0.93 cm RVDd: 2.9 cm FS: 33.4 % LAV(MOD-bp): 59.0 ml LVAd ap4: 27.3 cm2 SV(MOD-sp4): 56.7 ml LAV(MOD-bp) Indexed: 34.4 ml/m2 LVLd ap4: 7.9 cm LAV(MOD-sp2): 68.1 ml EDV(MOD-sp4): 76.0 ml LAV(MOD-sp4): 52.2 ml EDV(sp4-el): 80.7 ml LVAs ap4: 11.6 cm2 LVLs ap4: 5.9 cm ESV(MOD-sp4): 19.2 ml ESV(sp4-el): 19.1 ml EF(MOD-sp4): 74.7 % EF(sp4-el): 76.3 % SV(sp4-el): 61.5 ml LA A4 area: 18.4 cm2 LA dimension(2D): 3.3 cm RA A4 area: 14.7 cm2 Time Measurements MV dec time: 0.22 sec Doppler Measurements & Calculations MV E max nirmal: 104.9 cm/sec Lat Peak E' Nirmal: 14.1 cm/sec Med Peak E' Nirmal: 7.1 cm/sec MV A max nirmal: 77.3 cm/sec E/E' lat: 7.4 E/E' med: 14.8 MV E/A: 1.4 MV V2 max: 129.9 cm/sec Ao V2 max: 314.2 cm/sec MV max P.8 mmHg MV dec slope: 475.7 cm/sec2 Ao max P.5 mmHg MV V2 mean: 66.8 cm/sec Ao V2 mean: 202.3 cm/sec MV mean P.2 mmHg Ao mean P.6 mmHg MV V2 VTI: 44.1 cm Ao V2 VTI: 72.0 cm AV (velocity ratio): 0.43 LV V1 max: 131.0 cm/sec MR max nirmal: 609.1 cm/sec PA V2 max: 105.1 cm/sec LV V1 max P.9 mmHg MR max P.4 mmHg PA V2 mean: 71.6 cm/sec LV V1 mean P.8 mmHg MR mean nirmal: 513.0 cm/sec LV V1 mean: 91.6 cm/sec MR mean P.1 mmHg LV V1 VTI: 30.9 cm MR VTI: 249.4 cm TR max nirmal: 221.2 cm/sec TR max P.6 mmHg ECHO/Echo Complete Interpretation Summary Normal LV size. Left ventricular systolic function is normal. The estimated ejection fraction is 55 %. Mean aortic valve gradient 19 mmHg. Peak aortic valve gradient 39 mmHg. The aortic valve is not very well visualized to ascertain whether it is bicuspi d or trileaflet. Ordering Physician: Babak Anthony Referring Physician: Rubén Alexander Performed By: Marianela Pozo RCS
== END | disposition home or self-care (01) ==
LOC: CVS 09:02
PROVIDERS: PCP Internal Medicine; Visit Provider Internal Medicine Cardiovascular Disease
DX: Q23.0 Congenital stenosis of aortic valve (principal); Q23.1 Congenital insufficiency of aortic valve
CPT/HCPCS: 93306

== ENCOUNTER → 2022-12-12 | Outpatient (CLI) | payer MEDICAID, SELFPAY ==
--- NOTE | 2022-12-12 15:40 | BI_ITS ---
MAMMOGRAPHY - BILATERAL SCREENING REASON FOR EXAM: Female, 42 years old. Routine annual screening examination. PERTINENT HISTORY: Non-contributory. TECHNIQUE: Digital bilateral breast caro (3D mammographic acquisition) in the CC and MLO projections. 2-D mediolateral oblique (MLO) and craniocaudad (CC) views of both breasts were obtained. CAD: Full Field Digital Mammography with Computer Added Detection was performed. COMPARISON: Comparison is made with prior study dated September 17, 2021 and September 14, 2020. FINDINGS: Breast Composition: The breasts are extremely dense, which lowers the sensitivity of mammography. There are no dominant masses or suspicious calcifications. No other significant abnormalities are identified. There has been no significant change since the prior study. BI/SCRN MAMM (CAD)W/CARO BILAT IMPRESSION: Stable bilateral screening mammogram. Yearly follow-up mammogram recommended. (A) ASSESSMENT CATEGORY: BIRADS Category 1: Negative. A letter regarding these results will be sent to the patient by the facility within 30 days. Approximately 10% of breast cancers are not detected by mammography. A normal mammogram should not delay biopsy of a clinically suspicious abnormality. [id number] Electronically Signed: Zay Adair MD at 9:09 EDT ,
== END | disposition home or self-care (01) ==
LOC: OPBI 15:39
PROVIDERS: PCP Internal Medicine; Referring Provider Obstetrics & Gynecology; Visit Provider Obstetrics & Gynecology
DX: Z12.31 Encounter for screening mammogram for malignant neoplasm of breast (principal)
CPT/HCPCS: 77063; 77067

== ENCOUNTER → 2024-02-03 | Outpatient (CLI) | payer OTHER, MEDICAID, SELFPAY | END | disposition home or self-care (01) | LOC: OPBI 15:23 | PROVIDERS: PCP Internal Medicine; Referring Provider Nurse Practitioner Women's Health; Visit Provider Nurse Practitioner Women's Health | DX: Z12.31 Encounter for screening mammogram for malignant neoplasm of breast (principal) | CPT/HCPCS: 77063; 77067 ==

== ENCOUNTER → 2024-04-14 | Outpatient (CLI) | payer OTHER, MEDICAID, SELFPAY ==
[2024-04-20 16:09] LABS: HPV APTIMA, High Risk Negative (Negative)
== END | disposition home or self-care (01) ==
LOC: LABSPEC 15:32
PROVIDERS: PCP Internal Medicine; Referring Provider Nurse Practitioner Family; Visit Provider Nurse Practitioner Family
DX: Z12.4 Encounter for screening for malignant neoplasm of cervix (principal)
CPT/HCPCS: 87624; 88175; G0145

== ENCOUNTER → 2024-04-30 | Outpatient (CLI) | payer OTHER, MEDICAID, SELFPAY ==
[2024-04-30 12:20] LABS: Absolute Lymphocyte Count 1.46 X10^3/uL (0.83-4.51); Absolute Neutrophil Count 3.3 X10^3/uL (2.0-7.7); Basophil# 0.04 X10^3/uL; Basophil% 0.7 % (0-1); Eosinophils% 3.6 % (0-5); Hematocrit 45.5 % (37-47); Hemoglobin 15.1 g/dL (12.0-15.0); Lymphocyte # 1.46 X10^3/ul (0.83-4.51); Lymphocyte % 26.6 % (19-41); Mean Corp Hgb Conc 33.2 g/dL (32-36); Mean Corpuscular Hgb 29.8 pg (27.0-32.0); Mean Corpuscular Volume 89.9 fL (81-99); Mean Platelet Vol. 8.8 fl (6.2-12.0); Monocyte# 0.49 X10^3/uL; Monocyte% 8.9 % (0-10); NRBC Flagged by Analyzer 0 % (0-5); Neutrophil # 3.27 X10^3/uL (2.7-7.7); Neutrophil % 59.7 % (47-70); Platelet Count 250 K/mm3 (150-450); RBC Distribution Width SD 39.2 fl (35.1-43.9); Red Blood Count 5.06 M/mm3 (4.2-5.4); White Blood Count 5.5 K/mm3 (4.4-11.0)
[2024-04-30 12:26] LABS: Vitamin D,25 Hydroxy 19.4 ng/mL
[2024-04-30 12:32] LABS: ALB/GLOB Ratio 1.1 RATIO (0.9-2.4); AST(SGOT) 26 U/L (15-37); Alanine Aminotransfer ALT/SGPT 32 U/L (13-56); Albumin, Serum 4.1 g/dL (3.2-5.0); Alkaline Phosphatase 64 U/L (45-117); Anion Gap 8 (5-15); BUN 15 mg/dL (7-18); BUN/Creat Ratio 18.7 RATIO (10-20); Calcium,Total 8.9 mg/dL (8.5-10.1); Chloride 104 mmol/L (98-107); Cholesterol 220 mg/dL (200); EST Glomerular Filtration Rate 83 mL/min (>60); Est Glom Filt Rate - Afr Amer 100 mL/min (>60); Globulin 3.9 g/dL (2.2-4.2); Glucose 102 mg/dL (74-106); High Density Lipoprotein 72 mg/dL; Potassium 3.9 mmol/L (3.5-5.1); Sodium Level 137 mmol/L (136-145); T4 Free Direct 1.04 ng/dL (0.76-1.46); Thyroid Stim Hormone (TSH) 0.697 uIU/mL (0.358-3.740); Triglycerides 131 mg/dL; Very Low Density Lipoprotein 26 mg/dL (5-40)
== END | disposition home or self-care (01) ==
LOC: BWCLAB 09:03
PROVIDERS: PCP Internal Medicine; Referring Provider Nurse Practitioner Family; Visit Provider Nurse Practitioner Family
DX: N91.2 Amenorrhea, unspecified (principal); Z13.29 Encounter for screening for other suspected endocrine disorder; Z13.21 Encounter for screening for nutritional disorder
CPT/HCPCS: 36415; 80053; 80061; 82306; 84439; 84443; 85025

== ENCOUNTER → 2024-06-30 | Outpatient (CLI) | payer OTHER, MEDICAID, SELFPAY ==
--- NOTE | 2024-06-30 14:52 | ECHOD_ITS ---
Reason For Study Reason For Study: BICUSPID AORTIC VALVE Procedure This was a 2D Doppler, Color Flow transthoracic echocardiogram. Exam performed in department. Left Ventricle Normal LV size. Left ventricular systolic function is normal. The left ventricular ejection fraction is 70 %. No regional wall motion abnormalities noted. Right Ventricle Normal RV size. Normal systolic function. Atria Normal left atrium. Normal right atrium. Mitral Valve Normal mitral valve. Tricuspid Valve Normal tricuspid valve. Mild tricuspid valve insufficiency. Aortic Valve Bicuspid aortic valve. Peak aortic valve gradient 64 mmHg. Mean aortic valve gradient 37 mmHg. Moderate to severe aortic stenosis. Pulmonic Valve Normal pulmonic valve. Great Vessels Normal aortic root. The pulmonary artery is normal size. Inferior vena cava collapse with respiration. Pericardium/Pleural No pericardial effusion. MMode/2D Measurements & Calculations LVIDd: 3.9 cm IVSd: 0.94 cm LVOT diam: 2.0 cm LVIDs: 2.4 cm LVPWd: 1.0 cm LVOT area: 3.0 cm2 RVDd: 3.2 cm FS: 38.6 % Ao root diam: 2.5 cm LAV(MOD-bp): 33.5 ml LVAd ap4: 25.0 cm2 LAV(MOD-bp) Indexed: 18.8 ml/m2 LVLd ap4: 7.3 cm LAV(MOD-sp2): 31.5 ml EDV(MOD-sp4): 69.7 ml LAV(MOD-sp4): 31.5 ml EDV(sp4-el): 73.0 ml LVAs ap4: 12.4 cm2 LVLs ap4: 6.0 cm ESV(MOD-sp4): 22.6 ml ESV(sp4-el): 21.9 ml EF(MOD-sp4): 67.5 % EF(sp4-el): 70.0 % SV(MOD-sp4): 47.1 ml SV(sp4-el): 51.1 ml LA A4 area: 13.2 cm2 SI(MOD-sp4): 26.3 ml/m2 LA dimension(2D): 2.9 cm RA A4 area: 11.7 cm2 TAPSE: 2.4 cm Time Measurements MV dec time: 0.25 sec Doppler Measurements & Calculations MV E max nirmal: 92.9 cm/sec Lat Peak E' Nirmal: 10.2 cm/sec Med Peak E' Nirmal: 9.4 cm/sec MV A max nirmal: 96.3 cm/sec E/E' lat: 9.1 E/E' med: 9.8 MV E/A: 0.96 Ao V2 max: 402.7 cm/sec LV V1 max: 151.5 cm/sec SV(LVOT): 96.9 ml Ao max P.9 mmHg LV V1 max P.2 mmHg Ao V2 mean: 288.6 cm/sec LV V1 mean P.0 mmHg Ao mean P.2 mmHg LV V1 mean: 106.8 cm/sec Ao V2 VTI: 82.9 cm LV V1 VTI: 32.0 cm AV (velocity ratio): 0.39 NITESH(I,D): 1.2 cm2 NITESH(V,D): 1.1 cm2 PA V2 max: 106.7 cm/sec TR max nirmal: 221.2 cm/sec TR max P.6 mmHg ECHO/Echo Complete Interpretation Summary Normal LV size. Left ventricular systolic function is normal. The left ventricular ejection fraction is 70 %. Bicuspid aortic valve. Mean aortic valve gradient 37 mmHg. Moderate to severe aortic stenosis. Ordering Physician: Chantel Samuels Referring Physician: TIESHA STYLES Performed By: Marisela Linder RDCS
== END | disposition home or self-care (01) ==
PROVIDERS: PCP Internal Medicine; Referring Provider Physician Assistant Medical; Visit Provider Physician Assistant Medical
DX: Q23.0 Congenital stenosis of aortic valve (principal); Q23.1 Congenital insufficiency of aortic valve; R03.0 Elevated blood-pressure reading, without diagnosis of hypertension
CPT/HCPCS: 93306

== ENCOUNTER → 2024-07-20 | Outpatient (CLI) | payer OTHER, MEDICAID, SELFPAY ==
--- NOTE | 2024-07-20 08:23 | CT_ITS ---
PROCEDURE: LIMITED CHEST CT CARDIAC ONLY REASON FOR EXAM: SEVERE TECHNIQUE: Contiguous axial scans of 2.5 mm slice thicknesses. One or more dose reduction techniques were used (e.g., automated exposure control, adjustment of mA and/or kv according to patient size, use of iterative reconstruction technique). Evaluation is limited to the non-coronary cardiac findings in non-cardiac findings. Only those areas demonstrated within the [id number] were evaluated. COMPARISON: No relevant prior. FINDINGS: Non-Coronary Cardiac Findings: The myocardium, valves and pericardium have a normal appearance. Non-Cardiac Findings: Lungs: Clear. Pleural spaces: No fluid, pneumothorax or thickening. Mediastinum:The visualized mediastinum is normal with no lymphadenopathy. Pulmonary vessels: Unremarkable. Chest wall: Unremarkable. Upper abdomen and bones: Normal appearance within the field of view. CT/Limited Chest CT Cardiac Only IMPRESSION: UNREMARKABLE LIMITED CHEST CT NON-CORONARY AND NON-CARDIAC ANATOMY ONLY. Reading Location: [facility]
[2024-07-20 08:46] VITALS: BP 168/82; PULSE 51; RESP 18; O2SAT 99; BMI 29.6
[2024-07-20] MEDS: 0.9% Saline Lock 10 ML Syringe IV (08:55)
[2024-07-20 09:05] VITALS: BP 169/95; PULSE 55
[2024-07-20] MEDS: Nitroglycerin SL (ED/IMG/CATH) 0.4 MG TABLET SL (09:05)
[2024-07-20 09:06] VITALS: BP 169/95; PULSE 54; RESP 18; O2SAT 97
--- NOTE | 2024-07-20 16:54 | CCTA.WCONT ---
CCTA w/Cont Coronary Arteries Date of Study:: 07/20/24 Bicuspid aortic valve Coronary Calcium Scoring: High-resolution Computed Tomographic imaging of the chest was performed on [07/20/2024], with particular attention paid to the coronary arteries. Intravenous contrast agent was administered per protocol and images reconstructed and displayed. LEFT MAIN CORONARY ARTERY: This arises from the left coronary cusp no significant atherosclerotic plaquing is noted or stenosis present. Bifurcates the left anterior descending artery and left circumflex artery. [] LEFT ANTERIOR DESCENDING CORONARY ARTERY: The left anterior descending artery is well imaged and arises from the left anterior descending artery and courses towards the apex of the ventricle giving off a diagonal branch. No significant atherosclerotic plaquing or coronary calcification is present. [] LEFT CIRCUMFLEX CORONARY ARTERY: Nondominant vessel but medium size arising from the left main coronary artery coursing in the AV groove with no significant stenosis or atherosclerotic plaquing noted. [] RIGHT CORONARY ARTERY: Dominant right coronary artery with no significant atherosclerotic plaquing or stenosis noted. It bifurcates distally to posterior descending artery and posterolateral vessel. [] THORACIC AORTA: Normal size [] PULMONARY ARTERY: Normal [] LEFT ATRIUM/APPENDAGE: Normal [] MITRAL VALVE: Normal [] AORTIC VALVE: Bileaflet with no calcification present [] LEFT VENTRICLE: Preserved CT angiogram demonstrating no coronary atherosclerosis or stenosis present. Bicuspid aortic valve present
== END | disposition home or self-care (01) ==
LOC: CT 08:19
PROVIDERS: PCP Internal Medicine; Referring Provider Physician Assistant Medical; Visit Provider Physician Assistant Medical
DX: R94.39 Abnormal result of other cardiovascular function study (principal); Q23.0 Congenital stenosis of aortic valve; Q23.1 Congenital insufficiency of aortic valve
CPT/HCPCS: 75574; 76380; Q9967

== ENCOUNTER 2025-02-05 18:20 | Emergency (ER) | payer OTHER, MEDICAID, SELFPAY ==
[2025-02-05 18:22] VITALS: BP 139/90; PULSE 112; RESP 16; TEMP 37.2; O2SAT 97; BMI 29.2
[2025-02-05 18:39] VITALS: BP 117/77; PULSE 100; RESP 12; TEMP 37.2; O2SAT 97
--- OUTSIDE RECORDS SUMMARY | 2025-02-05 19:00 | XMS RPT_ITS | CCD ---
Author Organization [facility] Care Team Providers Care Cardroom Hand Name Role Phone Sonya Spence MD Unavailable [phone] MELONIE CARLOS Unavailable Unavailable SONYA SPENCE Unavailable Unavailhenok LORENZANA PRIMARY CAREMD Unavailable Unavailable Dr. Tiesha Alexander Primary Care Provider [phone] Dr. Tiesha Alexander Referring Provider [phone] Dr. Sonya Spence Attending Provider Roof ELEVATOR CONSTRUCTOR, ELEVATOR CONSTRUCTOR-C Babak Gaston Attending Provider Dr. Tiesha Alexander Primary Care Provider Dr. Alex Jones Attending Provider Gabrielle ELEVATOR CONSTRUCTOR, ELEVATOR CONSTRUCTOR-C Babak Gaston Attending Provider Dr. Tiesha Alexander MD Primary Care Provider Dr. Tiesha Alexander MD Referring Provider Janina Chavarria Attending Provider Isamar LABOY-Janina Carreon Referring Provider Chantel Tang Attending Provider Chantel Tang Referring Provider Dr. Alex Jones MD Attending Provider Timi Zee Chi Primary Care Provider Tucker MONROE, Crystal Carey Unavailable Tiesha Alexander Referring Unavailable Janina Penn Attending Unavailable Oleghe, Efewongbe Primary Care Unavailable Oleghe, Efewongbe Primary Care Unavailable Aelx Jones Attending Unavailable Oleghe, Efewongbe Referring Unavailable Oleghe, Efewongbe Primary Care Unavailable Chantel Tang Attending Unavail able Chantel Tang Referring Unavail able Chantel Tang Consulting Unavail able Oleghe, Efewongbe Primary Care Unavailable Alex Jones Attending Unavailable Oleghe, Efewongbe Referring Unavailable Chantel Tang Attending Unavail able Oleghe, Efewongbe Primary Care Unavailable Janina Penn Attending Unavailable Janina Penn Referring Unavailable Oleghe, Efewongbe Primary Care Unavailable Chantel Tang Referring Unavail able Oleghe, Efewongbe Primary Care Unavailable Chantel Tang Attending Unavail able Chantel Tang Referring Unavail able Oleghe, Efewongbe Primary Care Unavailable Chantel Tang Attending Unavail able Jasmeet ELEVATOR CONSTRUCTOR, Katelyn Attending Unavailable Jasmeet ELEVATOR CONSTRUCTOR, Katelyn Referring Unavailable Oleghe, Efewongbe Primary Care Unavailable Janina Penn Attending Unavailable Janina Penn Referring Unavailable Oleghe, Efewongbe Primary Care Unavailable CRYSTAL CEBALLOS Referring Unavailable ANANDA, TIMI CHI Primary Care Unavailable CRYSTAL CEBALLOS Referring Unavailable ANANDA, TIMI CHI Primary Care Unavailable CRYSTAL CEBALLOS Referring Unavailable ANANDA, TIMI CHI Primary Care Unavailable CRYSTAL CEBALLOS Admitting Unavailable CRYSTAL CEBALLOS Attending Unavailable ANANDA, TIMI CHI Primary Care Unavailable CRYSTAL CEBALLOS Referring Unavailable ANANDA, TIMI CHI Primary Care Unavailable CRYSTAL CEBALLOS Referring Unavailable ANANDA, TIMI CHI Primary Care Unavailable WASSIF, HEBA Attending Unavailable CRYSTAL CEBALLOS Referring Unavailable ANANDA, TIMI CHI Primary Care Unavailable CRYSTAL CEBALLOS Attending Unavailable CRYSTAL CEBALLOS G Referring Unavailable ANANDA, TIMI CHI Primary Care Unavailable SELF Referring Unavailable ANANDA, TIMI CHI Primary Care Unavailable MIREYA BANSAL Attending Unavailable CRYSTAL CEBALLOS Referring Unavailable ANANDA, TIMI CHI Primary Care Unavailable MARY, RICARDO Attending Unavailable CRYSTAL CEBALLOS Referring Unavailable ANANDA, TIMI CHI Primary Care Unavailable MARY, RICARDO Admitting Unavailable MARY, RICARDO Attending Unavailable ANANDA, TIMI CHI Primary Care Unavailable CRYSTAL CEBALLOS Referring Unavailable ANANDA, TIMI CHI Primary Care Unavailable CRYSTAL CEBALLOS Referring Unavailable ANANDA, TIMI CHI Primary Care Unavailable Allergies Allergy Classification Reported Allergen(s) Allergy Type Date of Onset Reaction(s) Facility (3 sources) BANDAGES, ADHESIVE drug allergy 11-24-19 hives, itching [facility] (6 sources) NKDA; Translations: [NKDA] allergy to substance 07-11-19 [facility] (2 sources) Glucocorticoid Receptor Agonists Allergy to substance 08-14-19 [facility] (9 sources) Adhesive agent; Translations: [ADHESIVE] Drug Allergy 09-03-19 Hives, [facility] (5 sources) predniSONE; Translations: [PREDNISONE] Drug Allergy 09-03-19 [facility] (1 source) Corticosteroids Drug allergy (disorder) 06-04-19 [facility] Medications Current Medications Medication Drug Class(es) Dates Sig (Normalized) Sig (Original) metoprolol tartrate 50 mg oral tablet (1 source) beta-Adrenergic Heike Start: 07-01-2024 take 1 tablet by mouth once Metoprolol Tartrate 50 mg tablet Active 50 mg PO ONCE 1 July 01, 2024 12:00am Take 1 hour prior to your cardiac test. naproxen 500 mg oral tablet (20 sources) Nonsteroidal Anti-inflammatory Drug Start: 01-27-2024 naproxen (NAPROSYN) 500 mg tablet Take 500 mg by mouth as needed for pain (Cramps). 05/30/2024 Active Start: 05-20-2019 End: 06-26-2023 Naproxen 500 mg tablet Disco ntinued 500 mg PO 2 to 3 times per day as needed for pain September 03, 2021 2:58pm August 13, 2022 9:57am administer with food or milk Start: 08-01-2017 End: 08-20-2017 take 250-500 mg by mouth every eight hours as needed for pain Naproxen 250 MG tablet Discontinued 250 - 500 mg PO EVERY 8 HOURS NEEDED as needed for MILD PAIN August 01, 2017 12:00am August 20, 2017 9:03am Start: 05-04-2014 End: 02-27-2017 take 250-500 mg by mouth every eight hours as needed for pain Naproxen 250 MG tablet Discontinued 250 - 500 mg PO EVERY 8 HOURS NEEDED as needed for MILD PAIN (-05/31) May 04, 2014 1:00am February 27, 2017 3:13pm Completed/Discontinued Medications Medication Drug Class(es) Dates Sig (Normalized) Sig (Original) acetaminophen 325 mg / oxyCODONE hydrochloride 5 mg oral tablet (8 sources) Opioid Agonist Start: 08-01-2017 End: 08-20-2017 Oxycodone-Acetamino phen 1 TABLET tablet Discontinued 1 - 2 {tbl} PO EVERY 4 HOURS NEEDED as needed for Pain August 01, 2017 12:00am August 20, 2017 9:03am Start: 08-01-2017 End: 08-20-2017 take 1 tablet by mouth every four hours as needed Oxycodone-Acetaminophen Discontinued 1 - 2 TABLET PO EVERY 4 HOURS NEEDED August 01, 2017 12:00am August 20, 2017 9:03am amoxicillin 500 mg oral capsule (20 sources) Penicillin-class Antibacterial Start: 04-19-2022 End: 04-29-2022 take 1 capsule by mouth three times daily Amoxicillin 500 mg capsule Discontinued 500 mg PO THREE TIMES A DAY 20 01April 19, 2022 1:00am April 28, 2022 1:00am April 29, 2022 1:05am Start: 09-27-2021 End: 04-19-2022 take 4 tablets by mouth every hour as needed Amoxicillin 500 mg tablet Discontinued 2000 mg PO .COMPLEX as needed for Dental Visit 4 September 27, 2021 3:56pm April 19, 2022 11:23am 2,000 mg orally 1 hour prior to dental visits PRN; Start: 09-27-2021 End: 04-19-2022 take 2000 mg by mouth every hour as needed Amoxicillin Discontinued 2000 MG PO .COMPLEX 4 September 27, 2021 3:56pm April 19, 2022 11:23am 2,000 mg orally 1 hour prior to dental visits PRN; Start: 09-11-2020 End: 06-01-2021 take 4 tablets by mouth every hour Amoxicillin 500 mg tablet Discontinued 500 mg PO .COMPLEX September 11, 2020 3:34pm June 01, 2021 12:44pm 500 mg PO: 4 tablets by mouth 1 HR prior to dental procedure; Start: 11-16-2019 End: 02-29-2020 take 4 tablets by mouth every hour Amoxicillin 500 mg tablet Discontinued 500 mg PO .COMPLEX 4 November 16, 2019 11:37am February 29, 2020 11:52am 500 mg PO 4 tablets by mouth 1 HR prior to dental procedure; Start: 05-13-2019 End: 05-20-2019 take 4 tablets by mouth once Amoxicillin 500 mg tablet Discontinued 2000 mg PO ONCE May 13, 2019 1:00am May 20, 2019 9:11am Start: 05-13-2019 End: 05-20-2019 take 2000 mg by mouth once Amoxicillin Discontinued 20 00 MG PO ONCE May 13, 2019 1:00am May 20, 2019 9:11am Start: 06-24-2018 End: 08-18-2018 take 4 tablets by mouth once as needed Amoxicillin 500 mg tablet Discontinued 2000 mg PO ONCE as needed June 24, 2018 12:00am August 18, 2018 2:51pm Start: 06-24-2018 End: 08-18-2018 take 2000 mg by mouth once Amoxicillin Discontinued 20 00 MG PO ONCE June 24, 2018 12:00am August 18, 2018 2:51pm Start: 09-06-2010 take 4 tablets by mo uth every hour AMOXICILLIN 500 MG TABS 4 tablets by mouth 1 hr prior to procedure AMOXICILLIN [id number] Smita Lujan ascorbic acid 500 mg oral tablet (6 sources) Start: 09-06-2010 End: 11-27-2016 take 1 tablet by mouth once daily VITAMIN C 500 MG TABS One tablet by mouth daily ASCORBIC ACID [id number] Smita Lujan aspirin 81 mg delayed release oral tablet (4 sources) Platelet Aggregation Inhibitor, Nonsteroidal Anti-inflammatory Drug Start: 03-08-2020 End: 05-30-2020 take 1 tablet by mouth once daily Aspirin (Adult Aspirin Regimen) 81 mg tablet,delayed release (DR/EC) Discontinued 81 mg PO DAILY March 08, 2020 1:00am May 30, 2020 10:53am benzonatate 100 mg oral capsule (4 sources) Non-narcotic Antitussive Start: 02-29-2020 End: 04-06-2020 take 2 capsules by mouth three times daily as needed for cough Benzonatate 100 mg capsule Discontinued 200 mg PO THREE TIMES A DAY as needed for cough February 29, 2020 1:00am April 06, 2020 4:31pm Start: 02-29-2020 End: 04-06-2020 take 200 mg by mouth three times daily Benzonatate Discontinued 200 MG PO THREE TIMES A DAY February 29, 2020 1:00am April 06, 2020 4:31pm busPIRone hydrochloride 5 mg oral tablet (3 sources) Start: 03-04-2022 End: 08-13-2022 take 1 tablet by mouth twice daily Buspirone 5 mg tablet Discontinued 5 mg PO TWICE A DAY 60 March 04, 2022 1:00am August 13, 2022 9:36am ethinyl estradiol / norgestimate (6 sources) Progestin, Estrogen Start: 09-06-2010 End: 11-27-2016 take 1 tablet by mouth once daily ORTHO TRI-CYCLEN (28) TABS 35mcg, One tablet by mouth daily NORGESTIM-ETH ESTRAD TRIPHASIC TABS [id number] Alex Jones MD Start: 09-06-2010 take 1 tablet by margie th once daily ORTHO TRI-CYCLEN (28) TABS 35mcg, One tablet by mouth daily NORGESTIM-ETH ESTRAD TRIPHASIC TABS [id number] Smita Lujan famotidine 40 mg oral tablet (4 sources) Histamine-2 Receptor Antagonist Start: 02-23-2021 End: 06-01-2021 take 1 tablet by mouth once daily Famotidine 40 mg tablet Discontinued 40 mg PO DAILY February 23, 2021 1:00am June 01, 2021 12:44pm fexofenadine hydrochloride 60 mg oral tablet (4 sources) Histamine-1 Receptor Antagonist Start: 02-23-2021 End: 06-01-2021 take 1 tablet by mouth twice daily Fexofenadine (Ashlee Allergy) 60 mg tablet Discontinued 60 mg PO TWICE A DAY 60 February 23, 2021 1:00am June 01, 2021 12:44pm levonorgestrel 0.474922 mg/hr intrauterine system (5 sources) Progestin, Progestin-containi ng Intrauterine Device Start: 07-11-2014 End: 09-02-2024 levonorgestrel (DANIELE) 14 mcg/24 hour (3 years) IUD IUD 1 Each by INTRAUTERINE route continuous. 1 Each 0 07/11/2014 09/02/2024 Discontinued LORazepam 1 mg oral tablet (8 sources) Benzodiazepine Start: 10-05-2021 End: 06-26-2023 take 1 tablet by mouth twice daily as needed for anxiety Lorazepam (Ativan) 1 mg tablet Discontinued 1 mg PO TWICE A DAY as needed for anxiety February 20, 2022 11:01am August 13, 2022 10:00am methylPREDNISolone 4 mg oral tablet (1 source) Corticosteroid Start: 06-26-2023 End: 07-02-2023 take 1 tablet by mouth once Methylprednisolone (Medrol (Lewis)) 4 mg tablets,dose pack Discontinued 4 mg PO per package directions 11 09June 26, 2023 12:00am July 01, 2023 12:00am July 02, 2023 12:05am ofloxacin 3 mg/ml ophthalmic solution (4 sources) Quinolone Antimicrobial Start: 09-01-2018 End: 10-08-2018 Ofloxacin 0.3 % drops Discontinued 0 OPHTHALMIC .COMPLEX September 01, 2018 12:00am October 08, 2018 2:52pm put 1-2 drps into affected eye(s) every 2-4 h x 2 days, then 1-2 drps 4 times/day days 3-7 ophthalmic (eye) Start: 09-01-2018 End: 10-08-2018 Ofloxacin Discontinued 0 OPH THALMIC .COMPLEX September 01, 2018 12:00am October 08, 2018 2:52pm put 1-2 drps into affected eye(s) every 2-4 h x 2 days, then 1-2 drps 4 times/day days 3-7 ophthalmic (eye) oxyCODONE hydrochloride 5 mg oral tablet (4 sources) Opioid Agonist Start: 05-04-2014 End: 02-27-2017 Oxycodone 5 MG tablet Discontinued 1 - 2 {tbl} PO EVERY 4 HOURS NEEDED as needed for MODERATE PAIN (4-5/10) May 04, 2014 1:00am February 27, 2017 3:12pm polymyxin b 35655 unt/ml / trimethoprim 1 mg/ml ophthalmic solution (4 sources) Dihydrofolate Reductase Inhibitor Antibacterial, Polymyxin-class Antibacterial Start: 09-01-2018 End: 10-08-2018 Polymyxin B Sulf-Trimethoprim 10,000 unit- 1 mg/mL drops Discontinued 1 NMA OPHTHALMIC Q2H 10 9 September 01, 2018 12:00am October 08, 2018 2:52pm pravastatin sodium 40 mg oral tablet (9 sources) HMG-CoA Reductase Inhibitor Start: 07-10-2012 End: 11-27-2016 take 2 tablets by mouth at bedtime PRAVASTATIN SODIUM 40 MG TABS Two tablets by mouth at bedtime. PRAVASTATIN SODIUM [id number] Hilario Hardy MD Start: 06-30-2012 take 1 tablet by margie th at bedtime PRAVASTATIN SODIUM 40 MG TABS One tablet by mouth at bedtime. PRAVASTATIN SODIUM [id number] Smita Lujan predniSONE 10 mg oral tablet (8 sources) Start: 02-16-2021 End: 02-23-2021 take 4 tablets by mouth once daily, then take 3 tablets by mouth once daily, then take 2 tablets by mouth once daily, then take 1 tablet by mouth once daily Prednisone 10 mg tablet Discontinued 10 mg PO DAILY February 16, 2021 1:00am February 23, 2021 3:54pm 4 tablets daily for 3 days, then 3 tablets daily for 3 days, then 2 tablets daily for 3 days, then 1 tablet daily for 3 days Start: 05-05-2019 End: 05-20-2019 Prednisone 10 mg tablet Disc ontinued 0 PO daily May 05, 2019 1:00am May 20, 2019 9:11am 4 tabs for 3 days, then 3 tabs for 3 days, then 2 tabs for 3 days, then 1 tab for 3 days PO QDAY; administer with food or milk Vovmefzw-Tj-Ezb-Fe-FA ( VITAMIN) tab (5 sources) End: 09-02-2024 take 1 tablet by mouth once Wkefzagw-Uk-Jtt-Fe-FA ( VITAMIN) tab Take 1 tablet by mouth. 09/02/2024 Discontinued take 1 tablet by mouth once Pren atal Vgfhugjs-Gg-Mwh-Fe-FA ( VITAMIN) tab Take 1 tablet by mouth. Active Vit,Dpfw74-Fwnl-Useox (3 sources) Start: 05-02-2014 End: 06-02-2018 take 1 tablet by mouth once daily Vit,Zxbw97-Vvao-Ahumh Discontinued 1 TABLET PO DAILY May 02, 2014 12:00am June 02, 2018 12:21pm Start: 05-02-2014 End: 06-02-2018 take 1 tablet by mouth once daily Vit,Sukg03-Amvj-Xsdah Discontinued 1 TABLET PO DAILY May 02, 2014 1:00am June 02, 2018 1:21pm Vit,Wwho32-Vknf-Gvryl 1 TABLET tablet (1 source) Start: 05-02-2014 End: 06-02-2018 take 1 tablet by mouth once daily Vit,Ljrn38-Scid-Sunig 1 TABLET tablet Discontinued 1 {tbl} PO DAILY May 02, 2014 1:00am June 02, 2018 1:21pm VIT-DSS-FE CBN-FA (3 sources) Start: 11-27-2016 take 1 tablet by mouth once daily AD TABS One tablet by mouth daily VIT-DSS-FE CBN-FA [id number] Alex Jones MD 72 hr scopolamine 0.0139 mg/hr transdermal system (4 sources) Anticholinergic Start: 11-17-2018 End: 05-05-2019 Scopolamine Base 1 mg over 3 days patch 3 day Discontinued 1 NMA TD Q72H 4 November 17, 2018 12:00am May 05, 2019 9:57am Start: 11-17-2018 End: 05-05-2019 Scopolamine Base Discontinue d 1 PATCH TD Q72H 4 November 17, 2018 12:00am May 05, 2019 9:57am traZODone hydrochloride 100 mg oral tablet (8 sources) Serotonin Reuptake Inhibitor Start: 07-28-2020 End: 08-13-2022 Trazodone 100 mg tablet Discontinued 50 mg PO AT BEDTIME as needed for insomnia September 03, 2021 2:58pm August 13, 2022 9:36am Start: 07-28-2020 End: 08-13-2022 take 50 mg by mouth at bedtime Trazodone Discontinued 50 MG PO AT BEDTIME September 03, 2021 2:58pm August 13, 2022 9:36am triamcinolone acetonide 1 mg/ml topical cream (4 sources) Corticosteroid Start: 02-23-2021 End: 06-01-2021 Triamcinolone Acetonide 0.1 % cream Discontinued 1 NMA TOPICAL TWICE A DAY as needed for rash, itching 80 February 23, 2021 1:00am June 01, 2021 12:44pm valACYclovir 1000 mg oral tablet (4 sources) Herpesvirus Nucleoside Analog DNA Polymerase Inhibitor, Herpes Simplex Virus Nucleoside Analog DNA Polymerase Inhibitor, Herpes Zoster Virus Nucleoside Analog DNA Polymerase Inhibitor Start: 06-17-2020 End: 06-24-2020 Valacyclovir 1 gram tablet Discontinued 1000 mg PO Q8H 11 10June 17, 2020 12:00am June 23, 2020 12:00am June 24, 2020 12:03am Start: 06-17-2020 End: 06-24-2020 take 1000 mg by mouth every eight hours Valacyclovir Discontinued 1000 MG PO Q8H 11 10June 17, 2020 12:00am June 24, 2020 12:03am vitamin d 1000 unt oral tablet (6 sources) Start: 07-10-2012 End: 11-27-2016 take 1 tablet by mouth once daily VITAMIN D 1000 UNIT TABS One tablet by mouth daily CHOLECALCIFEROL [id number] Hilario Hardy MD Problems Active Problems Problem Classification Problem Date Documented Date Episodic/Chronic Allergic reactions (8 sources) Contact dermatitis due to poison sarah; Translations: [Allergic contact dermatitis due to plants, except food] 02-16-2021 Episodic Cardiac and circulatory congenital anomalies (18 sources) Bicuspid aortic valve; Translations: [Congenital stenosis of aortic valve] Onset: 09-30-2013 11-23-2016 Chronic Cardiac dysrhythmias (8 sources) Palpitations; Translations: [Palpitations] Onset: 09-06-2010 09-06-2010 Episodic Conditions associated with dizziness or vertigo (4 sources) Dizziness; Translations: [Dizziness and giddiness] 03-08-2020 Episodic Disorders of teeth and jaw (1 source) Temporomandibular joint inflamed; Translations: [Other specified disorders of temporomandibular joint] 06-03-2024 Episodic Essential hypertension (1 source) Essential (primary) hypertension; Translations: [Primary hypertension] Onset: 01-25-2025 Chronic Headache; including migraine (13 sources) Headache; Translations: [Nonintractable headache, unspecified chronicity pattern, unspecified headache type] 08-04-2024 Episodic Headache; including migraine (1 source) Headache; including migraine; Translations: [Nonintractable headache, unspecified chronicity pattern, unspecified headache type] Onset: 09-02-2024 Heart valve disorders (20 sources) Aortic valve stenosis; Translations: [Nonrheumatic tricuspid (valve) insufficiency] Onset: 09-06-2010 09-06-2010 Chronic Hypertension with complications and secondary hypertension (2 sources) Hypertensive heart disease; Translations: [Hypertensive heart disease without heart failure] Onset: 09-02-2024 09-02-2024 Chronic Immunizations and screening for infectious disease (8 sources) Contact with or exposure to other viral diseases; Translations: [Close exposure to COVID-19 virus] 03-08-2020 Episodic Menstrual disorders (1 source) Amenorrhea, unspecified; Translations: [Amenorrhea, unspecified] Onset: 05-14-2024 Chronic Other circulatory disease (2 sources) Elevated blood pressure; Translations: [Elevated blood-pressure reading, without diagnosis of hypertension] 06-03-2024 Episodic Other complications of (13 sources) High risk ; Translations: [Supervision of other high risk pregnancies, third trimester] Onset: 11-08-2016 01-02-2017 Episodic Comment on above: PRR KATALINA 06/18/17 boy PC Erik boyfriend Moe Other complications of (4 sources) bradycardia affecting management of mother; Translations: [Maternal care for abnormalities of the heart rate or rhythm, unspecified trimester, not applicable or unspecified] 08-01-2017 Episodic Other female genital disorders (4 sources) Abnormal uterine bleeding; Translations: [Abnormal uterine and vaginal bleeding, unspecified] 05-30-2020 Chronic Comment on above: cbc tsh pelvic us di scussed OCP if desired Other nervous system disorders (1 source) Other acute postprocedural pain; Translations: [Postoperative pain] Onset: 01-26-2025 Episodic Other non-traumatic joint disorders (4 sources) Hip pain; Translations: [Pain in right hip] 05-13-2019 Episodic Other screening for suspected conditions (not mental disorders or infectious disease) (4 sources) Abnormal result of other cardiovascular function study; Translations: [Encounter for screening for malignant neoplasm of cervix] Onset: 04-14-2024 Episodic Other upper respiratory infections (3 sources) Streptococcal sore throat; Translations: [Streptococcal pharyngitis] Onset: 01-15-2025 04-19-2022 Episodic Polyhydramnios and other problems of amniotic cavity (4 sources) Premature rupture of membranes; Translations: [Premature rupture of membranes, unspecified as to length of time between rupture and onset of labor, unspecified weeks of gestation] 08-01-2017 Episodic Superficial injury; contusion (4 sources) Abrasion of cornea of right eye; Translations: [Injury of conjunctiva and corneal abrasion without foreign body, right eye, initial encounter] 05-13-2019 Episodic Transient cerebral ischemia (4 sources) Amaurosis fugax; Translations: [Amaurosis fugax] Onset: 03-07-2020 04-06-2020 Chronic Unclassified (1 source) 20 weeks gestation of ; Translations: [20 weeks gestation of ] Onset: 11-08-2016 01-30-2017 Past or Other Problems Problem Classification Problem Date Documented Date Episodic/Chronic Disorders of lipid metabolism (16 sources) Hyperlipidemia; Translations: [Hyperlipidemia, unspecified] Onset: 06-30-2012 Resolved: 08-05-2016 06-30-2012 Chronic Hemorrhage during ; abruptio placenta; placenta previa (8 sources) Hemorrhage in early , unspecified; Translations: [Unspecified hemorrhage in early , antepartum condition or complication] Onset: 09-30-2013 Resolved: 02-14-2014 03-19-2021 Episodic Normal and/or delivery (19 sources) Gestation period, 20 weeks; Translations: [Gestation period, 8 weeks] Onset: 12-20-2013 Resolved: 08-05-2016 01-30-2017 Episodic Other circulatory disease (1 source) Elevated blood-pressure reading, without diagnosis of hypertension; Translations: [Elevated blood-pressure reading, without diagnosis of hypertension] Onset: 06-03-2024 Episodic Other complications of (8 sources) Pruritic urticarial papules and plaques of (PUPPP); Translations: [Other specified complications of , unspecified as to episode of care or not applicable] Onset: 03-25-2014 Resolved: 08-05-2016 08-05-2016 Episodic Other complications of (8 sources) Uterine size for dates discrepancy; Translations: [Uterine size-date discrepancy, unspecified trimester] Onset: 04-04-2014 Resolved: 08-05-2016 08-05-2016 Episodic Other nervous system disorders (4 sources) Facial paresthesia; Translations: [Paresthesia of skin] Onset: 03-07-2020 04-06-2020 Episodic Residual codes; unclassified (8 sources) Family history of cardiac disorder; Translations: [Family history of other congenital malformations, deformations and chromosomal abnormalities] Onset: 09-30-2013 Resolved: 08-05-2016 03-19-2021 Episodic Unclassified (6 sources) Long-term drug therapy; Translations: [Other jail (current) drug therapy] Onset: 06-30-2012 Resolved: 11-23-2016 06-30-2012 Unclassified (8 sources) Patient encounter status 08-04-2024 Viral infection (4 sources) COVID-19; Translations: [Severe acute respiratory syndrome coronavirus 2 (SARS-CoV-2) detected] Onset: 02-17-2020 03-08-2020 Episodic Results Test Name Value Interpretation Reference Range Facility CBC panel Auto (Bld)on 02-01 Erythrocyte distribution width (RBC) [Ratio] 11.3 % Low 11.5-15.0 [facility] Comment on above: Order Comment: Amanda heller Type: BLOOD SPECIMENOrdering Facility: [facility] Address: [address] [place] [address] Performed By: #### 5 8410-2 ####[facility] LABCLIA [id number] [place] [address] [place] Hematocrit (Bld) [Volume fraction] 35.0 % Low 36.0-46.0 [facility] Comment on above: Order Comment: Amanda heller Type: BLOOD SPECIMENOrdering Facility: [facility] Address: [address] [place] [address] Performed By: #### 5 8410-2 ####[facility] LABCLIA [id number] [place] [address] [place] Hemoglobin (Bld) [Mass/Vol] 12.3 g/dL Normal 11.5-15.5 [facility] Comment on above: Order Comment: Amanda heller Type: BLOOD SPECIMENOrdering Facility: [facility] Address: [address] [place] [address] Performed By: #### 5 8410-2 ####[facility] LABCLIA [id number] [place] [address] [place] MCH (RBC) [Entitic mass] 30.3 pg Normal 26.0-34.0 [facility] [facility] Comment on above: Order Comment: Speci men Type: BLOOD SPECIMENOrdering Facility: [facility] Address: [address] [place] [address] Performed By: #### 5 8410-2 ####[facility] LABCLIA [id number] [place] [address] [place] MCHC (RBC) [Mass/Vol] 35.1 g/dL Normal 30.5-36.0 [facility] Comment on above: Order Comment: Speci men Type: BLOOD SPECIMENOrdering Facility: [facility] Address: [address] [place] [address] Performed By: #### 5 8410-2 ####[facility] LABIA [id number] [place] [address] [place] MCV (RBC) [Entitic vol] 86.2 fL Normal 80.0-100.0 C [facility] Comment on above: Order Comment: Speci men Type: BLOOD SPECIMENOrdering Facility: [facility] Address: [address] [place] [address] Performed By: #### 5 8410-2 ####[facility] LABCLIA [id number] [place] [address] [place] Nucleated RBC (Bld) [#/Vol] 10*3/uL Normal <0.01 [facility] Comment on above: Order Comment: Speci men Type: BLOOD SPECIMENOrdering Facility: [facility] Address: [address] [place] [address] Performed By: #### 5 8410-2 ####[facility] LABIA [id number] [place] [address] [place] Platelet mean volume (Bld) [Entitic vol] 8.3 fL Low 9.0-12.7 [facility] Comment on above: Order Comment: Speci men Type: BLOOD SPECIMENOrdering Facility: [facility] Address: [address] [place] [address] Performed By: #### 5 8410-2 ####[facility] LABCLIA [id number] [place] [address] [place] Platelets (Bld) [#/Vol] 333 10*3/uL Normal 150-400 [facility] Comment on above: Order Comment: Speci men Type: BLOOD SPECIMENOrdering Facility: [facility] Address: [address] [place] [address] Performed By: #### 5 8410-2 ####[facility] LABCLIA [id number] [place] [address] [place] RBC (Bld) [#/Vol] 4.06 10*6/uL Normal 3.90-5.20 [facility] Comment on above: Order Comment: Speci men Type: BLOOD SPECIMENOrdering Facility: [facility] Address: [address] [place] [address] Performed By: #### 5 8410-2 ####[facility] LABCLIA [id number] [place] [address] [place] WBC (Bld) [#/Vol] 8.78 10*3/uL Normal 3.70-11.00 [facility] Comment on above: Order Comment: Speci men Type: BLOOD SPECIMENOrdering Facility: [facility] Address: [address] [place] [address] Performed By: #### 5 8410-2 ####[facility] LABCLIA [id number] [place] [address] [place] Comprehensive metabolic 2000 panelon 02-01-2025 Albumin [Mass/Vol] 3.5 g/dL Low 3.9-4.9 [facility] Comment on above: Order Comment: Speci men Type: BLOOD SPECIMENOrdering Facility: [facility] Address: [address] [place] [address] Performed By: #### 2 4323-8 ####[facility] LABCLIA [id number] [place] [address] [place] ALP [Catalytic activity/Vol] 72 U/L Normal 34-123 [facility] Comment on above: Order Comment: Speci men Type: BLOOD SPECIMENOrdering Facility: [facility] Address: [address] [place] [address] Performed By: #### 2 4323-8 ####[facility] LABCLIA [id number] [place] [address] [place] ALT [Catalytic activity/Vol] 28 U/L Normal 7-38 [facility] Comment on above: Order Comment: Speci men Type: BLOOD SPECIMENOrdering Facility: [facility] Address: [address] [place] [address] Performed By: #### 2 4323-8 ####[facility] LABCLIA [id number] [place] [address] [place] Anion gap [Moles/Vol] 13 mmol/L Normal 8-15 [facility] Comment on above: Order Comment: Speci men Type: BLOOD SPECIMENOrdering Facility: [facility] Address: [address] [place] [address] Performed By: #### 2 4323-8 ####[facility] LABCLIA [id number] [place] [address] [place] AST [Catalytic activity/Vol] 25 U/L Normal 13-35 [facility] Comment on above: Order Comment: Speci men Type: BLOOD SPECIMENOrdering Facility: [facility] Address: [address] [place] [address] Performed By: #### 2 4323-8 ####[facility] LABCLIA [id number] [place] [id number] [place] Bilirubin [Mass/Vol] 0.3 mg/dL Normal 0.2-1.3 [facility] Comment on above: Order Comment: Speci men Type: BLOOD SPECIMENOrdering Facility: [facility] Address: [address] [place] [address] Performed By: #### 2 4323-8 ####[facility] LABCLIA [id number] [place] [address] [place] Calcium [Mass/Vol] 9.3 mg/dL Normal 8.5-10.2 [facility] Comment on above: Order Comment: Speci men Type: BLOOD SPECIMENOrdering Facility: [facility] Address: [address] [place] [address] Performed By: #### 2 4323-8 ####[facility] LABCLIA [id number] [place] [address] [place] Chloride [Moles/Vol] 101 mmol/L Normal 98-107 [facility] Comment on above: Order Comment: Speci men Type: BLOOD SPECIMENOrdering Facility: [facility] Address: [address] [place] [address] Performed By: #### 2 4323-8 ####[facility] LABCLIA [id number] [place] [address] [place] CO2 [Moles/Vol] 22 mmol/L Normal 22-30 [facility] Comment on above: Order Comment: Speci men Type: BLOOD SPECIMENOrdering Facility: [facility] Address: [address] [place] [address] Performed By: #### 2 4323-8 ####[facility] LABCLIA [id number] [place] [address] [place] Creatinine [Mass/Vol] 0.58 mg/dL Normal 0.58-0.96 [facility] Comment on above: Order Comment: Speci men Type: BLOOD SPECIMENOrdering Facility: [facility] Address: [address] [place] [address] Performed By: #### 2 4323-8 ####[facility] LABCLIA [id number] [place] [address] [place] eGFRcr SerPlBld CKD-EPI 2020 115 mL/min/1.73m??? Normal >=60 [facility] Comment on above: Order Comment: Amanda heller Type: BLOOD SPECIMENOrdering Facility: [facility] Address: [address] [place] [address] Result Comment: Hilda mated Glomerular Filtration Rate (eGFR) is calculated using the 2020 CKD-EPI creatinine equation. This equation utilizes serum creatinine, sex, and age as parameters. The creatinine assay has traceable calibration to isotope dilution-mass spectrometry. Refer to KDIGO guidelines for clinical interpretation. In patients with unstable renal function, e.g. those with acute kidney injury, the eGFR may not accurately reflect actual GFR. Performed By: #### 2 4323-8 ####[facility] LABCLIA [id number] [place] [address] [place] Glucose [Mass/Vol] 126 mg/dL High 74-99 [facility] Comment on above: Order Comment: Amanda heller Type: BLOOD SPECIMENOrdering Facility: [facility] Address: [address] [place] [address] Result Comment: The [place] [employer] (ADA) provides guidance for cutoff values for fasting glucose and random glucose. The ADA defines fasting as no caloric intake for at least 8 hours. Fasting plasma glucose results between 100 to 125 mg/dL indicate increased risk for diabetes (prediabetes).Fasting plasma glucose results greater than or equal to 126 mg/dL meet the criteria for diagnosis of diabetes. In the absence of unequivocal hyperglycemia, results should be confirmed by repeat testing. In a patient with classic symptoms of hyperglycemia or hyperglycemic crisis, random plasma glucose results greater than or equal to 200 mg/dL meet the criteria for diagnosis of diabetes.Reference: Standards of Medical Care in Diabetes 2016, [place] [employer]. Diabetes Care. 2016.39(Suppl 1). Performed By: #### 2 4323-8 ####[facility] LABCLIA [id number] [place] [address] [place] Potassium [Moles/Vol] 4.1 mmol/L Normal 3.7-5.1 [facility] Comment on above: Order Comment: Amanda heller Type: BLOOD SPECIMENOrdering Facility: [facility] Address: [address] [place] [address] Performed By: #### 2 4323-8 ####[facility] LABCLIA [id number] [place] [address] [place] Protein [Mass/Vol] 7.1 g/dL Normal 6.3-8.0 [facility] Comment on above: Order Comment: Speci men Type: BLOOD SPECIMENOrdering Facility: [facility] Address: [address] [place] [address] Performed By: #### 2 4323-8 ####[facility] LABCLIA [id number] [place] [address] [place] Sodium [Moles/Vol] 136 mmol/L Normal 136-144 [facility] Comment on above: Order Comment: Speci men Type: BLOOD SPECIMENOrdering Facility: [facility] Address: [address] [place] [address] Performed By: #### 2 4323-8 ####[facility] LABCLIA [id number] [place] [address] [place] Urea nitrogen [Mass/Vol] 16 mg/dL Normal 7-21 [facility] Comment on above: Order Comment: Speci men Type: BLOOD SPECIMENOrdering Facility: [facility] Address: [address] [place] [address] Performed By: #### 2 4323-8 ####[facility] LABCLIA [id number] [place] [address] [place] PT panel Coag (PPP)on 2024 INR Coag (PPP) [Relative time] 1.6 {INR} High 0.9-1.3 [facility] Comment on above: Order Comment: Speci men Type: BLOOD SPECIMENOrdering Facility: [facility] Address: [address] [place] [address] Result Comment: Asmita min K Antagonist (VKA) Therapeutic Range: INR 2 to 3 (Target INR of 2.5)Note: For patients treated with VKA drugs, such as warfarin, the [place] [employer] 2012 Guideline recommends a therapeutic INR range of 2 to 3 (target INR of 2.5). This recommendation includes high-risk patients with antiphospholipid syndrome with previous arterial or venous thromboembolism, current-generation mechanical or bioprosthetic aortic heart valve replacement.Note: Patients with mechanical aortic valve replacement and additional risk factors for thromboembolic events (atrial fibrillation, previous thromboembolism, LV dysfunction, hypercoagulable conditions) or an older generation mechanical AVR (i.e., ball in-Cage) or any mechanical MVR should have a INR therapeutic range of 2.5 to 3.5 (target INR of 3).Keiry GH, et al. Chest 2012, 141:7S-47SNishimzaki RA, et al. JAC 2017, 70: 252-289 Performed By: #### 3 4528-0 ####[facility] LABCLIA [id number] [place] [address] [place] PT Coag (PPP) [Time] 16.1 s High 9.7-13.0 [facility] Comment on above: Order Comment: Speci men Type: BLOOD SPECIMENOrdering Facility: [facility] Address: [address] [place] [address] Performed By: #### 3 4528-0 ####[facility] LABCLIA [id number] [place] [address] [place] ALLIED HEALTHon 01-31-2025 ALLIED HEALTH Normal [facility] CASE MANAGEMon 01-31-2025 CASE MANAGEM Normal [facility] CBC panel Auto (Bld)on 01-31 Erythrocyte distribution width (RBC) [Ratio] 11.4 % Low 11.5-15.0 [facility] Comment on above: Order Comment: Amanda heller Type: BLOOD SPECIMENOrdering Facility: [facility] Address: [address] [place] [address] Performed By: #### 5 8410-2 ####[facility] LABCLIA [id number] [place] [address] [place] Hematocrit (Bld) [Volume fraction] 34.7 % Low 36.0-46.0 [facility] Comment on above: Order Comment: Speci men Type: BLOOD SPECIMENOrdering Facility: [facility] Address: [address] [place] [address] Performed By: #### 5 8410-2 ####[facility] LABCLIA [id number] [place] [address] [place] Hemoglobin (Bld) [Mass/Vol] 11.6 g/dL Normal 11.5-15.5 [facility] Comment on above: Order Comment: Speci men Type: BLOOD SPECIMENOrdering Facility: [facility] Address: [address] [place] [address] Performed By: #### 5 8410-2 ####[facility] LABCLIA [id number] [place] [address] [place] MCH (RBC) [Entitic mass] 29.5 pg Normal 26.0-34.0 [facility] Comment on above: Order Comment: Speci men Type: BLOOD SPECIMENOrdering Facility: [facility] Address: [address] [place] [address] Performed By: #### 5 8410-2 ####[facility] LABCLIA [id number] [place] [address] [place] MCHC (RBC) [Mass/Vol] 33.4 g/dL Normal 30.5-36.0 [facility] Comment on above: Order Comment: Speci men Type: BLOOD SPECIMENOrdering Facility: [facility] Address: [address] [place] [address] Performed By: #### 5 8410-2 ####[facility] LABCLIA [id number] [place] [address] [place] MCV (RBC) [Entitic vol] 88.3 fL Normal 80.0-100.0 C [facility] Comment on above: Order Comment: Speci men Type: BLOOD SPECIMENOrdering Facility: [facility] Address: [address] [place] [address] Performed By: #### 5 8410-2 ####[facility] LABCLIA [id number] [place] [address] [place] Nucleated RBC (Bld) [#/Vol] 10*3/uL Normal <0.01 [facility] Comment on above: Order Comment: Speci men Type: BLOOD SPECIMENOrdering Facility: [facility] Address: [address] [place] [address] Performed By: #### 5 8410-2 ####[facility] LABCLIA [id number] [place] [address] [place] Platelet mean volume (Bld) [Entitic vol] 8.9 fL Low 9.0-12.7 [facility] Comment on above: Order Comment: Speci men Type: BLOOD SPECIMENOrdering Facility: [facility] Address: [address] [place] [address] Performed By: #### 5 8410-2 ####[facility] LABCLIA [id number] [place] [address] [place] Platelets (Bld) [#/Vol] 331 10*3/uL Normal 150-400 [facility] Comment on above: Order Comment: Speci men Type: BLOOD SPECIMENOrdering Facility: [facility] Address: [address] [place] [address] Performed By: #### 5 8410-2 ####[facility] LABCLIA [id number] [place] [address] [place] RBC (Bld) [#/Vol] 3.93 10*6/uL Normal 3.90-5.20 [facility] Comment on above: Order Comment: Speci men Type: BLOOD SPECIMENOrdering Facility: [facility] Address: [address] [place] [address] Performed By: #### 5 8410-2 ####[facility] LABCLIA [id number] [place] [address] [place] WBC (Bld) [#/Vol] 8.68 10*3/uL Normal 3.70-11.00 [facility] Comment on above: Order Comment: Speci men Type: BLOOD SPECIMENOrdering Facility: [facility] Address: [address] [place] [address] Performed By: #### 5 8410-2 ####[facility] LABCLIA [id number] [place] [address] [place] CNPNon 01-31-2025 CNPN Normal [facility] metabolic 2000 panelon 01-31-2025 Albumin [Mass/Vol] 3.5 g/dL Low 3.9-4.9 [facility] Comment on above: Order Comment: Speci men Type: BLOOD SPECIMENOrdering Facility: [facility] Address: [address] [place] [address] Performed By: #### 2 4323-8 ####[facility] LABCLIA [id number] [place] [address] [place] ALP [Catalytic activity/Vol] 73 U/L Normal 34-123 [facility] Comment on above: Order Comment: Speci men Type: BLOOD SPECIMENOrdering Facility: [facility] Address: [address] [place] [address] Performed By: #### 2 4323-8 ####[facility] LABCLIA [id number] [place] [address] [place] ALT [Catalytic activity/Vol] 18 U/L Normal 7-38 [facility] Comment on above: Order Comment: Speci men Type: BLOOD SPECIMENOrdering Facility: [facility] Address: [address] [place] [address] Performed By: #### 2 4323-8 ####[facility] LABCLIA [id number] [place] [address] [place] Anion gap [Moles/Vol] 15 mmol/L Normal 8-15 [facility] Comment on above: Order Comment: Speci men Type: BLOOD SPECIMENOrdering Facility: [facility] Address: [address] [place] [address] Performed By: #### 2 4323-8 ####[facility] LABCLIA [id number] [place] [address] [place] AST [Catalytic activity/Vol] 21 U/L Normal 13-35 [facility] Comment on above: Order Comment: Speci men Type: BLOOD SPECIMENOrdering Facility: [facility] Address: [address] [place] [address] Performed By: #### 2 4323-8 ####[facility] LABCLIA [id number] [place] [address] [place] Bilirubin [Mass/Vol] 0.3 mg/dL Normal 0.2-1.3 [facility] Comment on above: Order Comment: Speci men Type: BLOOD SPECIMENOrdering Facility: [facility] Address: [address] [place] [address] Performed By: #### 2 4323-8 ####[facility] LABCLIA [id number] [place] [address] [place] Calcium [Mass/Vol] 9.4 mg/dL Normal 8.5-10.2 [facility] Comment on above: Order Comment: Speci men Type: BLOOD SPECIMENOrdering Facility: [facility] Address: [address] [place] [address] Performed By: #### 2 4323-8 ####[facility] LABCLIA [id number] [place] [address] [place] Chloride [Moles/Vol] 101 mmol/L Normal 98-107 [facility] Comment on above: Order Comment: Speci men Type: BLOOD SPECIMENOrdering Facility: [facility] Address: [address] [place] [address] Performed By: #### 2 4323-8 ####[facility] LABCLIA [id number] [place] [address] [place] CO2 [Moles/Vol] 22 mmol/L Normal 22-30 [facility] Comment on above: Order Comment: Speci men Type: BLOOD SPECIMENOrdering Facility: [facility] Address: [address] [place] [address] Performed By: #### 2 4323-8 ####[facility] LABCLIA [id number] [place] [address] [place] Creatinine [Mass/Vol] 0.59 mg/dL Normal 0.58-0.96 [facility] Comment on above: Order Comment: Speci men Type: BLOOD SPECIMENOrdering Facility: [facility] Address: [address] [place] [address] Performed By: #### 2 4323-8 ####[facility] LABCLIA [id number] [place] [address] [place] eGFRcr SerPlBld CKD-EPI 2020 114 mL/min/1.73m??? Normal >=60 [facility] Comment on above: Order Comment: Amanda heller Type: BLOOD SPECIMENOrdering Facility: [facility] Address: [address] [place] [address] Result Comment: Hilda mated Glomerular Filtration Rate (eGFR) is calculated using the 2020 CKD-EPI creatinine equation. This equation utilizes serum creatinine, sex, and age as parameters. The creatinine assay has traceable calibration to isotope dilution-mass spectrometry. Refer to KDIGO guidelines for clinical interpretation. In patients with unstable renal function, e.g. those with acute kidney injury, the eGFR may not accurately reflect actual GFR. Performed By: #### 2 4323-8 ####[facility] LABCLIA [id number] [place] [address] [place] Glucose [Mass/Vol] 101 mg/dL High 74-99 [facility] Comment on above: Order Comment: Amanda heller Type: BLOOD SPECIMENOrdering Facility: [facility] Address: [address] [place] [address] Result Comment: The [place] [employer] (ADA) provides guidance for cutoff values for fasting glucose and random glucose. The ADA defines fasting as no caloric intake for at least 8 hours. Fasting plasma glucose results between 100 to 125 mg/dL indicate increased risk for diabetes (prediabetes).Fasting plasma glucose results greater than or equal to 126 mg/dL meet the criteria for diagnosis of diabetes. In the absence of unequivocal hyperglycemia, results should be confirmed by repeat testing. In a patient with classic symptoms of hyperglycemia or hyperglycemic crisis, random plasma glucose results greater than or equal to 200 mg/dL meet the criteria for diagnosis of diabetes.Reference: Standards of Medical Care in Diabetes 2016, [place] [employer]. Diabetes Care. 2016.39(Suppl 1). Performed By: #### 2 4323-8 ####[facility] LABCLIA [id number] [place] [address] [place] Potassium [Moles/Vol] 3.9 mmol/L Normal 3.7-5.1 [facility] Comment on above: Order Comment: Speci men Type: BLOOD SPECIMENOrdering Facility: [facility] Address: [address] [place] [address] Performed By: #### 2 432-8 ####[facility] LABCLIA [id number] [place] [address] [place] Protein [Mass/Vol] 7.0 g/dL Normal 6.3-8.0 [facility] Comment on above: Order Comment: Speci men Type: BLOOD SPECIMENOrdering Facility: [facility] Address: [address] [place] [address] Performed By: #### 2 4323-8 ####[facility] LABCLIA [id number] [place] [address] [place] Sodium [Moles/Vol] 138 mmol/L Normal 136-144 [facility] Comment on above: Order Comment: Speci men Type: BLOOD SPECIMENOrdering Facility: [facility] Address: [address] [place] [address] Performed By: #### 2 4323-8 ####[facility] LABCLIA [id number] [place] [id number] [place] Urea nitrogen [Mass/Vol] 18 mg/dL Normal 7-21 [facility] Comment on above: Order Comment: Speci men Type: BLOOD SPECIMENOrdering Facility: [facility] Address: [address] [place] [address] Performed By: #### 2 4323-8 ####[facility] LABCLIA [id number] [place] [id number] [place] PT panel Coag (PPP)on 2024 INR Coag (PPP) [Relative time] 1.4 {INR} High 0.9-1.3 [facility] Comment on above: Order Comment: Speci men Type: BLOOD SPECIMENOrdering Facility: [facility] Address: [address] [place] [address] Result Comment: Asmita min K Antagonist (VKA) Therapeutic Range: INR 2 to 3 (Target INR of 2.5)Note: For patients treated with VKA drugs, such as warfarin, the [place] [employer] 2012 Guideline recommends a therapeutic INR range of 2 to 3 (target INR of 2.5). This recommendation includes high-risk patients with antiphospholipid syndrome with previous arterial or venous thromboembolism, current-generation mechanical or bioprosthetic aortic heart valve replacement.Note: Patients with mechanical aortic valve replacement and additional risk factors for thromboembolic events (atrial fibrillation, previous thromboembolism, LV dysfunction, hypercoagulable conditions) or an older generation mechanical AVR (i.e., ball in-Cage) or any mechanical MVR should have a INR therapeutic range of 2.5 to 3.5 (target INR of 3).Keiry GH, et al. Chest 2012, 141:7S-47SNishimzaki RA, et al. [facility] 2017, 70: 252-289 Performed By: #### 3 4528-0 ####[facility] LABCLIA [id number] [place] [id number] [place] PT Coag (PPP) [Time] 14.7 s High 9.7-13.0 [facility] Comment on above: Order Comment: Speci men Type: BLOOD SPECIMENOrdering Facility: [facility] Address: [address] [place] [address] Performed By: #### 3 4528-0 ####[facility] LABCLIA [id number] [place] [id number] [place] THERAPY NTon 01-31-2025 THERAPY NT Normal [facility] CBC panel Auto (Bld)on 01-30 Erythrocyte distribution width (RBC) [Ratio] 11.5 % Normal 11.5-15.0 [facility] Comment on above: Order Comment: Speci men Type: BLOOD SPECIMENOrdering Facility: [facility] Address: [address] [place] [address] Performed By: #### 5 8410-2 ####[facility] LABCLIA [id number] [place] [address] [place] Hematocrit (Bld) [Volume fraction] 33.3 % Low 36.0-46.0 [facility] Comment on above: Order Comment: Speci men Type: BLOOD SPECIMENOrdering Facility: [facility] Address: [address] [place] [address] Performed By: #### 5 8410-2 ####[facility] LABCLIA [id number] [place] [address] [place] Hemoglobin (Bld) [Mass/Vol] 11.1 g/dL Low 11.5-15.5 [facility] Comment on above: Order Comment: Speci men Type: BLOOD SPECIMENOrdering Facility: [facility] Address: [address] [place] [address] Performed By: #### 5 8410-2 ####[facility] LABCLIA [id number] [place] [address] [place] MCH (RBC) [Entitic mass] 30.7 pg Normal 26.0-34.0 [facility] Comment on above: Order Comment: Speci men Type: BLOOD SPECIMENOrdering Facility: [facility] Address: [address] [place] [address] Performed By: #### 5 8410-2 ####[facility] LABCLIA [id number] [place] [address] [place] MCHC (RBC) [Mass/Vol] 33.3 g/dL Normal 30.5-36.0 [facility] Comment on above: Order Comment: Speci men Type: BLOOD SPECIMENOrdering Facility: [facility] Address: [address] [place] [address] Performed By: #### 5 8410-2 ####[facility] LABCLIA [id number] [place] [address] [place] MCV (RBC) [Entitic vol] 92.2 fL Normal 80.0-100.0 [facility] Comment on above: Order Comment: Speci men Type: BLOOD SPECIMENOrdering Facility: [facility] Address: [address] [place] [address] Performed By: #### 5 8410-2 ####[facility] LABIA [id number] [place] [address] [place] Nucleated RBC (Bld) [#/Vol] 10*3/uL Normal <0.01 [facility] Comment on above: Order Comment: Speci men Type: BLOOD SPECIMENOrdering Facility: [facility] Address: [address] [place] [address] Performed By: #### 5 8410-2 ####[facility] LABIA [id number] [place] [address] [place] Platelet mean volume (Bld) [Entitic vol] 8.9 fL Low 9.0-12.7 [facility] Comment on above: Order Comment: Speci men Type: BLOOD SPECIMENOrdering Facility: [facility] Address: [address] [place] [address] Performed By: #### 5 8410-2 ####[facility] LABCLIA [id number] [place] [address] [place] Platelets (Bld) [#/Vol] 276 10*3/uL Normal 150-400 [facility] Comment on above: Order Comment: Speci men Type: BLOOD SPECIMENOrdering Facility: [facility] Address: [address] [place] [address] Performed By: #### 5 8410-2 ####[facility] LABCLIA [id number] [place] [address] [place] RBC (Bld) [#/Vol] 3.61 10*6/uL Low 3.90-5.20 [facility] Comment on above: Order Comment: Speci men Type: BLOOD SPECIMENOrdering Facility: [facility] Address: [address] [place] [address] Performed By: #### 5 8410-2 ####[facility] LABCLIA [id number] [place] [address] [place] WBC (Bld) [#/Vol] 8.26 10*3/uL Normal 3.70-11.00 [facility] Comment on above: Order Comment: Speci men Type: BLOOD SPECIMENOrdering Facility: [facility] Address: [address] [place] [address] Performed By: #### 5 8410-2 ####[facility] LABCLIA [id number] [place] [address] [place] Comprehensive metabolic 2000 panelon 01-30-2025 Albumin [Mass/Vol] 3.3 g/dL Low 3.9-4.9 [facility] Comment on above: Order Comment: Speci men Type: BLOOD SPECIMENOrdering Facility: [facility] Address: [address] [place] [address] Performed By: #### 2 4323-8 ####[facility] LABCLIA [id number] [place] [address] [place] ALP [Catalytic activity/Vol] 66 U/L Normal 34-123 [facility] Comment on above: Order Comment: Speci men Type: BLOOD SPECIMENOrdering Facility: [facility] Address: [address] [place] [address] Performed By: #### 2 4323-8 ####[facility] LABCLIA [id number] [place] [address] [place] ALT [Catalytic activity/Vol] 11 U/L Normal 7-38 [facility] Comment on above: Order Comment: Speci men Type: BLOOD SPECIMENOrdering Facility: [facility] Address: [address] [place] [address] Performed By: #### 2 4323-8 ####[facility] LABCLIA [id number] [place] [address] [place] Anion gap [Moles/Vol] 12 mmol/L Normal 8-15 [facility] Comment on above: Order Comment: Speci men Type: BLOOD SPECIMENOrdering Facility: [facility] Address: [address] [place] [address] Performed By: #### 2 4323-8 ####[facility] LABCLIA [id number] [place] [address] [place] AST [Catalytic activity/Vol] 14 U/L Normal 13-35 [facility] Comment on above: Order Comment: Speci men Type: BLOOD SPECIMENOrdering Facility: [facility] Address: [address] [place] [address] Performed By: #### 2 4323-8 ####[facility] LABCLIA [id number] [place] [address] [place] Bilirubin [Mass/Vol] 0.4 mg/dL Normal 0.2-1.3 [facility] Comment on above: Order Comment: Speci men Type: BLOOD SPECIMENOrdering Facility: [facility] Address: [address] [place] [address] Performed By: #### 2 4323-8 ####[facility] LABCLIA [id number] [place] [address] [place] Calcium [Mass/Vol] 8.9 mg/dL Normal 8.5-10.2 [facility] Comment on above: Order Comment: Speci men Type: BLOOD SPECIMENOrdering Facility: [facility] Address: [address] [place] [address] Performed By: #### 2 4323-8 ####[facility] LABCLIA [id number] [place] [address] [place] Chloride [Moles/Vol] 102 mmol/L Normal 98-107 [facility] Comment on above: Order Comment: Speci men Type: BLOOD SPECIMENOrdering Facility: [facility] Address: [address] [place] [address] Performed By: #### 2 4323-8 ####[facility] LABCLIA [id number] [place] [id number] [place] CO2 [Moles/Vol] 24 mmol/L Normal 22-30 [facility] Comment on above: Order Comment: Speci men Type: BLOOD SPECIMENOrdering Facility: [facility] Address: [address] [place] [address] Performed By: #### 2 4323-8 ####[facility] LABCLIA [id number] [place] [address] [place] Creatinine [Mass/Vol] 0.60 mg/dL Normal 0.58-0.96 [facility] Comment on above: Order Comment: Speci men Type: BLOOD SPECIMENOrdering Facility: [facility] Address: [address] [place] [address] Performed By: #### 2 4323-8 ####[facility] LABCLIA [id number] [place] [address] [place] eGFRcr SerPlBld CKD-EPI 2020 114 mL/min/1.73m??? Normal >=60 [facility] Comment on above: Order Comment: Speci men Type: BLOOD SPECIMENOrdering Facility: [facility] Address: [address] [place] [address] Result Comment: Hilda mated Glomerular Filtration Rate (eGFR) is calculated using the 2020 CKD-EPI creatinine equation. This equation utilizes serum creatinine, sex, and age as parameters. The creatinine assay has traceable calibration to isotope dilution-mass spectrometry. Refer to KDIGO guidelines for clinical interpretation. In patients with unstable renal function, e.g. those with acute kidney injury, the eGFR may not accurately reflect actual GFR. Performed By: #### 2 4323-8 ####[facility] LABCLIA [id number] [place] [address] [place] Glucose [Mass/Vol] 109 mg/dL High 74-99 [facility] Comment on above: Order Comment: Speci men Type: BLOOD SPECIMENOrdering Facility: [facility] Address: [address] [place] [address] Result Comment: The [place] [employer] (ADA) provides guidance for cutoff values for fasting glucose and random glucose. The ADA defines fasting as no caloric intake for at least 8 hours. Fasting plasma glucose results between 100 to 125 mg/dL indicate increased risk for diabetes (prediabetes).Fasting plasma glucose results greater than or equal to 126 mg/dL meet the criteria for diagnosis of diabetes. In the absence of unequivocal hyperglycemia, results should be confirmed by repeat testing. In a patient with classic symptoms of hyperglycemia or hyperglycemic crisis, random plasma glucose results greater than or equal to 200 mg/dL meet the criteria for diagnosis of diabetes.Reference: Standards of Medical Care in Diabetes 2016, [place] [employer]. Diabetes Care. 2016.39(Suppl 1). Performed By: #### 2 4323-8 ####[facility] LABCLIA [id number] [place] [address] [place] Potassium [Moles/Vol] 3.9 mmol/L Normal 3.7-5.1 [facility] Comment on above: Order Comment: Speci men Type: BLOOD SPECIMENOrdering Facility: [facility] Address: [address] [place] [id number] Performed By: #### 2 4323-8 ####[facility] LABCLIA [id number] [place] [address] [place] Protein [Mass/Vol] 6.5 g/dL Normal 6.3-8.0 [facility] Comment on above: Order Comment: Speci men Type: BLOOD SPECIMENOrdering Facility: [facility] Address: [address] [place] [address] Performed By: #### 2 4323-8 ####[facility] LABCLIA [id number] [place] [address] [place] Sodium [Moles/Vol] 138 mmol/L Normal 136-144 [facility] Comment on above: Order Comment: Speci men Type: BLOOD SPECIMENOrdering Facility: [facility] Address: [address] [place] [address] Performed By: #### 2 4323-8 ####[facility] LABCLIA [id number] [place] [address] [place] Urea nitrogen [Mass/Vol] 16 mg/dL Normal 7-21 [facility] Comment on above: Order Comment: Speci men Type: BLOOD SPECIMENOrdering Facility: [facility] Address: [address] [place] [address] Performed By: #### 2 4323-8 ####[facility] LABCLIA [id number] [place] [address] [place] PT panel Coag (PPP)on 2024 INR Coag (PPP) [Relative time] 1.5 {INR} High 0.9-1.3 [facility] Comment on above: Order Comment: Speci men Type: BLOOD SPECIMENOrdering Facility: [facility] Address: [address] [place] [address] Result Comment: Asmita min K Antagonist (VKA) Therapeutic Range: INR 2 to 3 (Target INR of 2.5)Note: For patients treated with VKA drugs, such as warfarin, the [place] [employer] 2012 Guideline recommends a therapeutic INR range of 2 to 3 (target INR of 2.5). This recommendation includes high-risk patients with antiphospholipid syndrome with previous arterial or venous thromboembolism, current-generation mechanical or bioprosthetic aortic heart valve replacement.Note: Patients with mechanical aortic valve replacement and additional risk factors for thromboembolic events (atrial fibrillation, previous thromboembolism, LV dysfunction, hypercoagulable conditions) or an older generation mechanical AVR (i.e., ball in-Cage) or any mechanical MVR should have a INR therapeutic range of 2.5 to 3.5 (target INR of 3).Keiry GH, et al. Chest 2012, 141:7S-47SNishimura RA, et al. [facility] 2017, 70: 252-289 Performed By: #### 3 4528-0 ####[facility] LABCLIA [id number] [address] [place] PT Coag (PPP) [Time] 15.6 s High 9.7-13.0 [facility] Comment on above: Order Comment: Speci men Type: BLOOD SPECIMENOrdering Facility: [facility] Address: [address] [place] [address] Performed By: #### 3 4528-0 ####[facility] LABCLIA [id number] [place] [address] [place] THERAPY NTon 01-30-2025 THERAPY NT Normal [facility] XR CHEST 2V FRONTAL/LATon XR CHEST 2V FRONTAL/LAT Normal [facility] CBC panel Auto (Bld)on 01-29 Erythrocyte distribution width (RBC) [Ratio] 11.7 % Normal 11.5-15.0 [facility] Comment on above: Order Comment: Speci men Type: BLOOD SPECIMENOrdering Facility: [facility] Address: [address] [place] [address] Performed By: #### 5 8410-2 ####[facility] LABIA [id number] [place] [address] [place] Hematocrit (Bld) [Volume fraction] 30.3 % Low 36.0-46.0 [facility] Comment on above: Order Comment: Speci men Type: BLOOD SPECIMENOrdering Facility: [facility] Address: [address] [place] [address] Performed By: #### 5 8410-2 ####[facility] LABCLIA [id number] [place] [address] [place] Hemoglobin (Bld) [Mass/Vol] 10.7 g/dL Low 11.5-15.5 [facility] Comment on above: Order Comment: Speci men Type: BLOOD SPECIMENOrdering Facility: [facility] Address: [address] [place] [address] Performed By: #### 5 8410-2 ####[facility] LABCLIA [id number] [place] [address] [place] MCH (RBC) [Entitic mass] 30.7 pg Normal 26.0-34.0 [facility] Comment on above: Order Comment: Speci men Type: BLOOD SPECIMENOrdering Facility: [facility] Address: [address] [place] [address] Performed By: #### 5 8410-2 ####[facility] LABCLIA [id number] [place] [address] [place] MCHC (RBC) [Mass/Vol] 35.3 g/dL Normal 30.5-36.0 [facility] Comment on above: Order Comment: Speci men Type: BLOOD SPECIMENOrdering Facility: [facility] Address: [address] [place] [address] Performed By: #### 5 8410-2 ####[facility] LABIA [id number] [place] [address] [place] MCV (RBC) [Entitic vol] 86.8 fL Normal 80.0-100.0 [facility] Comment on above: Order Comment: Speci men Type: BLOOD SPECIMENOrdering Facility: [facility] Address: [address] [place] [address] Performed By: #### 5 8410-2 ####[facility] LABIA [id number] [place] [address] [place] Nucleated RBC (Bld) [#/Vol] 10*3/uL Normal <0.01 [facility] Comment on above: Order Comment: Speci men Type: BLOOD SPECIMENOrdering Facility: [facility] Address: [address] [place] [address] Performed By: #### 5 8410-2 ####[facility] LABCLIA [id number] [place] [address] [place] Platelet mean volume (Bld) [Entitic vol] 9.5 fL Normal 9.0-12.7 [facility] Comment on above: Order Comment: Speci men Type: BLOOD SPECIMENOrdering Facility: [facility] Address: [address] [place] [address] Performed By: #### 5 8410-2 ####[facility] LABCLIA [id number] [place] [address] [place] Platelets (Bld) [#/Vol] 164 10*3/uL Normal 150-400 [facility] Comment on above: Order Comment: Speci men Type: BLOOD SPECIMENOrdering Facility: [facility] Address: [address] [place] [address] Performed By: #### 5 8410-2 ####[facility] LABCLIA [id number] [place] [address] [place] RBC (Bld) [#/Vol] 3.49 10*6/uL Low 3.90-5.20 [facility] Comment on above: Order Comment: Speci men Type: BLOOD SPECIMENOrdering Facility: [facility] Address: [address] [place] [address] Performed By: #### 5 8410-2 ####[facility] LABCLIA [id number] [place] [address] [place] [facility] WBC (Bld) [#/Vol] 11.08 10*3/uL High 3.70-11.00 [facility] Comment on above: Order Comment: Speci men Type: BLOOD SPECIMENOrdering Facility: [facility] Address: [address] [place] [address] Performed By: #### 5 8410-2 ####[facility] LABCLIA [id number] [place] [address] [place] CNDSon 01-29-2025 CNDS Normal [facility] Comprehensive metabolic 2000 panelon 01-29-2025 Albumin [Mass/Vol] 3.0 g/dL Low 3.9-4.9 [facility] Comment on above: Order Comment: Speci men Type: BLOOD SPECIMENOrdering Facility: [facility] Address: [address] [place] [address] Performed By: #### 2 4323-8 ####[facility] LABCLIA [id number] [place] [address] [place] ALP [Catalytic activity/Vol] 42 U/L Normal 34-123 [facility] Comment on above: Order Comment: Speci men Type: BLOOD SPECIMENOrdering Facility: [facility] Address: [address] [place] [address] Performed By: #### 2 4323-8 ####[facility] LABCLIA [id number] [place] [address] [place] ALT [Catalytic activity/Vol] 9 U/L Normal 7-38 [facility] Comment on above: Order Comment: Speci men Type: BLOOD SPECIMENOrdering Facility: [facility] Address: [address] [place] [address] Performed By: #### 2 4323-8 ####[facility] LABCLIA [id number] [place] [address] [place] Anion gap [Moles/Vol] 10 mmol/L Normal 8-15 [facility] Comment on above: Order Comment: Speci men Type: BLOOD SPECIMENOrdering Facility: [facility] Address: [address] [place] [address] Performed By: #### 2 4323-8 ####[facility] LABCLIA [id number] [place] [address] [place] AST [Catalytic activity/Vol] 13 U/L Normal 13-35 [facility] Comment on above: Order Comment: Speci men Type: BLOOD SPECIMENOrdering Facility: [facility] Address: [address] [place] [address] Performed By: #### 2 4323-8 ####[facility] LABCLIA [id number] [place] [address] [place] Bilirubin [Mass/Vol] 0.3 mg/dL Normal 0.2-1.3 [facility] Comment on above: Order Comment: Speci men Type: BLOOD SPECIMENOrdering Facility: [facility] Address: [address] [place] [address] Performed By: #### 2 4323-8 ####[facility] LABCLIA [id number] [place] [address] [place] Calcium [Mass/Vol] 7.6 mg/dL Low 8.5-10.2 [facility] Comment on above: Order Comment: Speci men Type: BLOOD SPECIMENOrdering Facility: [facility] Address: [address] [place] [address] Performed By: #### 2 4323-8 ####[facility] LABCLIA [id number] [place] [address] [place] Chloride [Moles/Vol] 106 mmol/L Normal 98-107 [facility] Comment on above: Order Comment: Speci men Type: BLOOD SPECIMENOrdering Facility: [facility] Address: [address] [place] [address] Performed By: #### 2 4323-8 ####[facility] LABCLIA [id number] [place] [address] [place] CO2 [Moles/Vol] 22 mmol/L Normal 22-30 [facility] Comment on above: Order Comment: Speci men Type: BLOOD SPECIMENOrdering Facility: [facility] Address: [address] [place] [address] Performed By: #### 2 4323-8 ####[facility] LABCLIA [id number] [place] [address] [place] Creatinine [Mass/Vol] 0.49 mg/dL Low 0.58-0.96 [facility] Comment on above: Order Comment: Speci men Type: BLOOD SPECIMENOrdering Facility: [facility] Address: [address] [place] [address] Performed By: #### 2 4323-8 ####[facility] LABCLIA [id number] [place] [address] [place] eGFRcr SerPlBld CKD-EPI 2020 119 mL/min/1.73m??? Normal >=60 [facility] Comment on above: Order Comment: Speci men Type: BLOOD SPECIMENOrdering Facility: [facility] Address: [address] [place] [address] Result Comment: Hilda mated Glomerular Filtration Rate (eGFR) is calculated using the 2020 CKD-EPI creatinine equation. This equation utilizes serum creatinine, sex, and age as parameters. The creatinine assay has traceable calibration to isotope dilution-mass spectrometry. Refer to KDIGO guidelines for clinical interpretation. In patients with unstable renal function, e.g. those with acute kidney injury, the eGFR may not accurately reflect actual GFR. Performed By: #### 2 4323-8 ####[facility] LABCLIA [id number] [place] [address] [place] Glucose [Mass/Vol] 98 mg/dL Normal 74-99 [facility] Comment on above: Order Comment: Amanda hellre Type: BLOOD SPECIMENOrdering Facility: [facility] Address: [address] [place] [address] Result Comment: The [place] [employer] (ADA) provides guidance for cutoff values for fasting glucose and random glucose. The ADA defines fasting as no caloric intake for at least 8 hours. Fasting plasma glucose results between 100 to 125 mg/dL indicate increased risk for diabetes (prediabetes).Fasting plasma glucose results greater than or equal to 126 mg/dL meet the criteria for diagnosis of diabetes. In the absence of unequivocal hyperglycemia, results should be confirmed by repeat testing. In a patient with classic symptoms of hyperglycemia or hyperglycemic crisis, random plasma glucose results greater than or equal to 200 mg/dL meet the criteria for diagnosis of diabetes.Reference: Standards of Medical Care in Diabetes 2016, [place] [employer]. Diabetes Care. 2016.39(Suppl 1). Performed By: #### 2 4323-8 ####[facility] LABCLIA [id number] [place] [address] [place] Potassium [Moles/Vol] 3.0 mmol/L Low 3.7-5.1 [facility] Comment on above: Order Comment: Amanda heller Type: BLOOD SPECIMENOrdering Facility: [facility] Address: [address] [place] [address] Performed By: #### 2 4323-8 ####[facility] LABCLIA [id number] [place] [address] [place] Protein [Mass/Vol] 5.5 g/dL Low 6.3-8.0 [facility] Comment on above: Order Comment: Speci men Type: BLOOD SPECIMENOrdering Facility: [facility] Address: [address] [place] [address] Performed By: #### 2 4323-8 ####[facility] LABCLIA [id number] [place] [address] [place] Sodium [Moles/Vol] 138 mmol/L Normal 136-144 [facility] Comment on above: Order Comment: Speci men Type: BLOOD SPECIMENOrdering Facility: [facility] Address: [address] [place] [address] Performed By: #### 2 4323-8 ####[facility] LABCLIA [id number] [place] [address] [place] Urea nitrogen [Mass/Vol] 13 mg/dL Normal 7-21 [facility] Comment on above: Order Comment: Speci men Type: BLOOD SPECIMENOrdering Facility: [facility] Address: [address] [place] [address] Performed By: #### 2 4323-8 ####[facility] LABCLIA [id number] [place] [address] [place] MEDICAL EMERon 01-29-2025 MEDICAL LOLI Normal [facility] PT EDon 01-29-2025 PT ED Normal [facility] PT panel Coag (PPP)on 2024 INR Coag (PPP) [Relative time] 2.7 {INR} High 0.9-1.3 [facility] Comment on above: Order Comment: Speci men Type: BLOOD SPECIMENOrdering Facility: [facility] Address: [address] [place] [address] Result Comment: Asmita min K Antagonist (VKA) Therapeutic Range: INR 2 to 3 (Target INR of 2.5)Note: For patients treated with VKA drugs, such as warfarin, the [place] [employer] 2012 Guideline recommends a therapeutic INR range of 2 to 3 (target INR of 2.5). This recommendation includes high-risk patients with antiphospholipid syndrome with previous arterial or venous thromboembolism, current-generation mechanical or bioprosthetic aortic heart valve replacement.Note: Patients with mechanical aortic valve replacement and additional risk factors for thromboembolic events (atrial fibrillation, previous thromboembolism, LV dysfunction, hypercoagulable conditions) or an older generation mechanical AVR (i.e., ball in-Cage) or any mechanical MVR should have a INR therapeutic range of 2.5 to 3.5 (target INR of 3).Keiry GH, et al. Chest 2012, 141:7S-47SNishioana RA, et al. [facility] 2017, 70: 252-289 Performed By: #### 3 4528-0 ####[facility] LABIA [id number] [place] [address] [place] PT Coag (PPP) [Time] 27.0 s High 9.7-13.0 [facility] Comment on above: Order Comment: Specshaina heller Type: BLOOD SPECIMENOrdering Facility: [facility] Address: [address] [place] [address] Performed By: #### 3 4528-0 ####[facility] LABIA [id number] [place] [address] [place] XR CHEST 1V FRONTAL PORTon 1 03-31-2024 XR CHEST 1V FRONTAL PORT Normal [facility] ARTERIAL BLOOD GASESon 01-28 Base deficit (BldA) [Moles/Vol] -1 mmol/L Normal -2-0 [facility] Comment on above: Order Comment: Amanda heller Type: ARTERIAL BLOOD SPECIMENOrdering Facility: [facility] Address: [address] [place] [address] Performed By: #### A LLBG ####[facility] LABIA [id number] [address] [place] Body temperature 98.06 [degF] Normal [facility] Comment on above: Order Comment: Amanda men Type: ARTERIAL BLOOD SPECIMENOrdering Facility: [facility] Address: [address] [place] [address] Performed By: #### A LLBG ####[facility] LABIA [id number] [place] [address] [place] Calcium.ionized (Bld) [Mass/Vol] 1.22 mmol/L Normal 1.08-1.30 [facility] Comment on above: Order Comment: Speci men Type: ARTERIAL BLOOD SPECIMENOrdering Facility: [facility] Address: [address] [place] [address] Performed By: #### A LLBG ####[facility] LABIA [id number] [place] [address] [place] Calcium.ionized adjusted to pH 7.4 (BldA) [Moles/Vol] 1.24 mmol/L Normal 1.08-1.30 [facility] Comment on above: Order Comment: Speci men Type: ARTERIAL BLOOD SPECIMENOrdering Facility: [facility] Address: [address] [place] [address] Performed By: #### A LLBG ####[facility] [id number] [address] [place] Carboxyhemoglobin (BldA) [Mass fraction] 1.5 % Normal 0.0-2.0 [facility] Comment on above: Order Comment: Speci men Type: ARTERIAL BLOOD SPECIMENOrdering Facility: [facility] Address: [address] [place] [address] Result Comment: Carb oxyhemoglobin Reference Range for Smokers: 2.0-8.0% Performed By: #### A LLBG ####[facility] LABIA [id number] [place] [address] [place] CO2 (Bld) [Partial pressure] 35 mm Hg Low 36-46 [facility] Comment on above: Order Comment: Speci men Type: ARTERIAL BLOOD SPECIMENOrdering Facility: [facility] Address: [address] [place] [address] Performed By: #### A LLBG ####[facility] [id number] [place] [address] [place] CO2 adjusted to patient's actual temperature (Bld) [Partial pressure] 35 mmHg Low 36-46 [facility] Comment on above: Order Comment: Speci men Type: ARTERIAL BLOOD SPECIMENOrdering Facility: [facility] Address: [address] [place] [address] Performed By: #### A LLBG ####[facility] LABCLIA [id number] [place] [address] [place] Glucose [Mass/Vol] 118 mg/dL High 60-105 [facility] Comment on above: Order Comment: Speci men Type: ARTERIAL BLOOD SPECIMENOrdering Facility: [facility] Address: [address] [place] [address] Performed By: #### A LLBG ####[facility] LABCLIA [id number] [place] [address] [place] HCO3 (Bld) [Moles/Vol] 23 mmol/L Normal 22-26 [facility] Comment on above: Order Comment: Speci men Type: ARTERIAL BLOOD SPECIMENOrdering Facility: [facility] Address: [address] [place] [address] Performed By: #### A LLBG ####[facility] LABCLIA [id number] [place] [address] [place] Hematocrit (Bld) [Volume fraction] 32.5 % Low 36.0-46.0 [facility] Comment on above: Order Comment: Speci men Type: ARTERIAL BLOOD SPECIMENOrdering Facility: [facility] Address: [address] [place] [address] Performed By: #### A LLBG ####[facility] LABCLIA [id number] [place] [address] [place] Hemoglobin (Bld) [Mass/Vol] 10.5 g/dL Low 11.5-15.5 [facility] Comment on above: Order Comment: Speci men Type: ARTERIAL BLOOD SPECIMENOrdering Facility: [facility] Address: [address] [place] [address] Performed By: #### A LLBG ####[facility] LABCLIA [id number] [place] [address] [place] Lactate [Moles/Vol] 1.2 mmol/L Normal 0.5-2.2 [facility] Comment on above: Order Comment: Speci men Type: ARTERIAL BLOOD SPECIMENOrdering Facility: [facility] Address: [address] [place] [address] Performed By: #### A LLBG ####[facility] LABCLIA [id number] [place] [address] [place] LITERS 1 Liters/min Normal [facility] Comment on above: Order Comment: Speci men Type: ARTERIAL BLOOD SPECIMENOrdering Facility: [facility] Address: [address] [place] [address] Performed By: #### A LLBG ####[facility] LABCLIA [id number] [place] [address] [place] Methemoglobin (Bld) [Mass fraction] 0.7 % Normal 0.0-1.5 [facility] Comment on above: Order Comment: Speci men Type: ARTERIAL BLOOD SPECIMENOrdering Facility: [facility] Address: [address] [place] [address] Performed By: #### A LLBG ####[facility] LABCLIA [id number] [place] [address] [place] O2 THERAPY NC = Nasal Cannula Normal [facility] Comment on above: Order Comment: Speci men Type: ARTERIAL BLOOD SPECIMENOrdering Facility: [facility] Address: [address] [place] [address] Performed By: #### A LLBG ####[facility] LABCLIA [id number] [place] [address] [place] Oxygen (Bld) [Partial pressure] 137 mm Hg High 85-95 [facility] Comment on above: Order Comment: Speci men Type: ARTERIAL BLOOD SPECIMENOrdering Facility: [facility] Address: [address] [place] [address] Performed By: #### A LLBG ####[facility] LABCLIA [id number] [place] [address] [place] Oxygen adjusted to patient's actual temperature (Bld) [Partial pressure] 135 mmHg High 85-95 [facility] Comment on above: Order Comment: Speci men Type: ARTERIAL BLOOD SPECIMENOrdering Facility: [facility] Address: [address] [place] [address] Performed By: #### A LLBG ####[facility] LABCLIA [id number] [place] [address] [place] Oxyhemoglobin (BldA) [Mass fraction] 98 % Normal 95-98 [facility] Comment on above: Order Comment: Speci men Type: ARTERIAL BLOOD SPECIMENOrdering Facility: [facility] Address: [address] [place] [address] Performed By: #### A LLBG ####[facility] LABCLIA [id number] [place] [address] [place] pH (Bld) 7.43 [pH] Normal 7.35-7.45 [facility] Comment on above: Order Comment: Speci men Type: ARTERIAL BLOOD SPECIMENOrdering Facility: [facility] Address: [address] [place] [address] Performed By: #### A LLBG ####[facility] LABCLIA [id number] [place] [address] [place] pH adjusted to patient's actual temperature (Bld) 7.43 Normal 7.35-7.45 [facility] Comment on above: Order Comment: Speci men Type: ARTERIAL BLOOD SPECIMENOrdering Facility: [facility] Address: [address] [place] [address] Performed By: #### A LLBG ####[facility] LABCLIA [id number] [place] [address] [place] Potassium [Moles/Vol] 4.0 mmol/L Normal 3.5-5.0 [facility] Comment on above: Order Comment: Speci men Type: ARTERIAL BLOOD SPECIMENOrdering Facility: [facility] Address: [address] [place] [address] Performed By: #### A LLBG ####[facility] LABCLIA [id number] [place] [address] [place] Sodium [Moles/Vol] 134 mmol/L Low 136-144 [facility] Comment on above: Order Comment: Speci men Type: ARTERIAL BLOOD SPECIMENOrdering Facility: [facility] Address: [address] [place] [address] Performed By: #### A LLBG ####[facility] LABCLIA [id number] [place] [address] [place] Base deficit (BldA) [Moles/Vol] -1 mmol/L Normal -2-0 [facility] Comment on above: Order Comment: Speci men Type: ARTERIAL BLOOD SPECIMENOrdering Facility: [facility] Address: [address] [place] [address] Performed By: #### A LLBG ####[facility] LABCLIA [id number] [place] [address] [place] Body temperature 98.6 [degF] Normal [facility] Comment on above: Order Comment: Speci men Type: ARTERIAL BLOOD SPECIMENOrdering Facility: [facility] Address: [address] [place] [address] Performed By: #### A LLBG ####[facility] LABCLIA [id number] [place] [address] [place] Calcium.ionized (Bld) [Mass/Vol] 1.21 mmol/L Normal 1.08-1.30 [facility] Comment on above: Order Comment: Speci men Type: ARTERIAL BLOOD SPECIMENOrdering Facility: [facility] Address: [address] [place] [address] Performed By: #### A LLBG ####[facility] LABCLIA [id number] [place] [address] [place] Calcium.ionized adjusted to pH 7.4 (BldA) [Moles/Vol] 1.22 mmol/L Normal 1.08-1.30 [facility] Comment on above: Order Comment: Speci men Type: ARTERIAL BLOOD SPECIMENOrdering Facility: [facility] Address: [address] [place] [address] Performed By: #### A LLBG ####[facility] LABCLIA [id number] [place] [address] [place] Carboxyhemoglobin (BldA) [Mass fraction] 1.6 % Normal 0.0-2.0 [facility] Comment on above: Order Comment: Speci men Type: ARTERIAL BLOOD SPECIMENOrdering Facility: [facility] Address: [address] [place] [address] Result Comment: Carb oxyhemoglobin Reference Range for Smokers: 2.0-8.0% Performed By: #### A LLBG ####[facility] LABCLIA [id number] [place] [address] [place] CO2 (Bld) [Partial pressure] 36 mm Hg Normal 36-46 [facility] Comment on above: Order Comment: Speci men Type: ARTERIAL BLOOD SPECIMENOrdering Facility: [facility] Address: [address] [place] [address] Performed By: #### A LLBG ####[facility] LABCLIA [id number] [place] [address] [place] Glucose [Mass/Vol] 116 mg/dL High 60-105 [facility] Comment on above: Order Comment: Speci men Type: ARTERIAL BLOOD SPECIMENOrdering Facility: [facility] Address: [address] [place] [address] Performed By: #### A LLBG ####[facility] LABCLIA [id number] [place] [address] [place] HCO3 (Bld) [Moles/Vol] 23 mmol/L Normal 22-26 [facility] Comment on above: Order Comment: Speci men Type: ARTERIAL BLOOD SPECIMENOrdering Facility: [facility] Address: [address] [place] [address] Performed By: #### A LLBG ####[facility] LABCLIA [id number] [place] [address] [place] Hematocrit (Bld) [Volume fraction] 33.1 % Low 36.0-46.0 [facility] Comment on above: Order Comment: Speci men Type: ARTERIAL BLOOD SPECIMENOrdering Facility: [facility] Address: [address] [place] [address] Performed By: #### A LLBG ####[facility] LABCLIA [id number] [place] [address] [place] Hemoglobin (Bld) [Mass/Vol] 10.7 g/dL Low 11.5-15.5 [facility] Comment on above: Order Comment: Speci men Type: ARTERIAL BLOOD SPECIMENOrdering Facility: [facility] Address: [address] [place] [address] Performed By: #### A LLBG ####[facility] LABCLIA [id number] [place] [address] [place] Lactate [Moles/Vol] 0.9 mmol/L Normal 0.5-2.2 [facility] Comment on above: Order Comment: Speci men Type: ARTERIAL BLOOD SPECIMENOrdering Facility: [facility] Address: [address] [place] [address] Performed By: #### A LLBG ####[facility] LABCLIA [id number] [place] [address] [place] Methemoglobin (Bld) [Mass fraction] 1.7 % High 0.0-1.5 [facility] Comment on above: Order Comment: Speci men Type: ARTERIAL BLOOD SPECIMENOrdering Facility: [facility] Address: [address] [place] [address] Performed By: #### A LLBG ####[facility] LABCLIA [id number] [place] [address] [place] O2 THERAPY NC = Nasal Cannula Normal [facility] Comment on above: Order Comment: Speci men Type: ARTERIAL BLOOD SPECIMENOrdering Facility: [facility] Address: [address] [place] [address] Performed By: #### A LLBG ####[facility] LABCLIA [id number] [place] [address] [place] Oxygen (Bld) [Partial pressure] 118 mm Hg High 85-95 [facility] Comment on above: Order Comment: Speci men Type: ARTERIAL BLOOD SPECIMENOrdering Facility: [facility] Address: [address] [place] [address] Performed By: #### A LLBG ####[facility] LABCLIA [id number] [place] [address] [place] Oxyhemoglobin (BldA) [Mass fraction] 96 % Normal 95-98 [facility] Comment on above: Order Comment: Speci men Type: ARTERIAL BLOOD SPECIMENOrdering Facility: [facility] Address: [address] [place] [address] Performed By: #### A LLBG ####[facility] LABCLIA [id number] [place] [address] [place] pH (Bld) 7.42 [pH] Normal 7.35-7.45 [facility] Comment on above: Order Comment: Speci men Type: ARTERIAL BLOOD SPECIMENOrdering Facility: [facility] Address: [address] [place] [address] Performed By: #### A LLBG ####[facility] LABCLIA [id number] [place] [address] [place] Potassium [Moles/Vol] 4.1 mmol/L Normal 3.5-5.0 [facility] Comment on above: Order Comment: Speci men Type: ARTERIAL BLOOD SPECIMENOrdering Facility: [facility] Address: [address] [place] [address] Performed By: #### A LLBG ####[facility] LABIA [id number] [place] [address] [place] Sodium [Moles/Vol] 134 mmol/L Low 136-144 [facility] Comment on above: Order Comment: Speci men Type: ARTERIAL BLOOD SPECIMENOrdering Facility: [facility] Address: [address] [place] [address] Performed By: #### A LLBG ####[facility] LABCLIA [id number] [place] [address] [place] CBC panel Auto (Bld)on 01-28 Erythrocyte distribution width (RBC) [Ratio] 11.7 % Normal 11.5-15.0 [facility] Comment on above: Order Comment: Speci men Type: BLOOD SPECIMENOrdering Facility: [facility] Address: [address] [place] [address] Performed By: #### 5 8410-2 ####[facility] LABCLIA [id number] [address] [place] Hematocrit (Bld) [Volume fraction] 31.0 % Low 36.0-46.0 [facility] Comment on above: Order Comment: Speci men Type: BLOOD SPECIMENOrdering Facility: [facility] Address: [address] [place] [address] Performed By: #### 5 8410-2 ####[facility] LABCLIA [id number] [address] [place] Hemoglobin (Bld) [Mass/Vol] 10.7 g/dL Low 11.5-15.5 [facility] Comment on above: Order Comment: Speci men Type: BLOOD SPECIMENOrdering Facility: [facility] Address: [address] [place] [address] Performed By: #### 5 8410-2 ####[facility] LABCLIA [id number] [place] [address] [place] MCH (RBC) [Entitic mass] 30.9 pg Normal 26.0-34.0 [facility] Comment on above: Order Comment: Speci men Type: BLOOD SPECIMENOrdering Facility: [facility] Address: [address] [place] [address] Performed By: #### 5 8410-2 ####[facility] LABCLIA [id number] [place] [address] [place] MCHC (RBC) [Mass/Vol] 34.5 g/dL Normal 30.5-36.0 [facility] Comment on above: Order Comment: Speci men Type: BLOOD SPECIMENOrdering Facility: [facility] Address: [address] [place] [address] Performed By: #### 5 8410-2 ####[facility] LABCLIA [id number] [place] [address] [place] MCV (RBC) [Entitic vol] 89.6 fL Normal 80.0-100.0 [facility] Comment on above: Order Comment: Speci men Type: BLOOD SPECIMENOrdering Facility: [facility] Address: [address] [place] [address] Performed By: #### 5 8410-2 ####[facility] LABIA [id number] [place] [address] [place] Nucleated RBC (Bld) [#/Vol] 10*3/uL Normal <0.01 [facility] Comment on above: Order Comment: Speci men Type: BLOOD SPECIMENOrdering Facility: [facility] Address: [address] [place] [address] Performed By: #### 5 8410-2 ####[facility] LABCLIA [id number] [place] [address] [place] Platelet mean volume (Bld) [Entitic vol] 9.7 fL Normal 9.0-12.7 [facility] Comment on above: Order Comment: Speci men Type: BLOOD SPECIMENOrdering Facility: [facility] Address: [address] [place] [address] Performed By: #### 5 8410-2 ####[facility] LABCLIA [id number] [place] [address] [place] Platelets (Bld) [#/Vol] 147 10*3/uL Low 150-400 [facility] Comment on above: Order Comment: Speci men Type: BLOOD SPECIMENOrdering Facility: [facility] Address: [address] [place] [address] Performed By: #### 5 8410-2 ####[facility] LABCLIA [id number] [place] [address] [place] RBC (Bld) [#/Vol] 3.46 10*6/uL Low 3.90-5.20 [facility] Comment on above: Order Comment: Speci men Type: BLOOD SPECIMENOrdering Facility: [facility] Address: [address] [place] [address] Performed By: #### 5 8410-2 ####[facility] LABCLIA [id number] [place] [address] [place] WBC (Bld) [#/Vol] 20.00 10*3/uL High 3.70-11.00 [facility] Comment on above: Order Comment: Speci men Type: BLOOD SPECIMENOrdering Facility: [facility] Address: [address] [place] [address] Performed By: #### 5 8410-2 ####[facility] LABCLIA [id number] [place] [address] [place] Comprehensive metabolic 2000 panelon 01-28-2025 Albumin [Mass/Vol] 3.4 g/dL Low 3.9-4.9 [facility] Comment on above: Order Comment: Speci men Type: BLOOD SPECIMENOrdering Facility: [facility] Address: [address] [place] [address] Performed By: #### 2 4323-8 ####[facility] LABCLIA [id number] [place] [address] [place] ALP [Catalytic activity/Vol] 39 U/L Normal 34-123 [facility] Comment on above: Order Comment: Speci men Type: BLOOD SPECIMENOrdering Facility: [facility] Address: [address] [place] [address] Performed By: #### 2 4323-8 ####[facility] LABCLIA [id number] [place] [address] [place] ALT [Catalytic activity/Vol] 10 U/L Normal 7-38 [facility] Comment on above: Order Comment: Speci men Type: BLOOD SPECIMENOrdering Facility: [facility] Address: [address] [place] [address] Performed By: #### 2 4323-8 ####[facility] LABCLIA [id number] [place] [address] [place] Anion gap [Moles/Vol] 10 mmol/L Normal 8-15 [facility] Comment on above: Order Comment: Speci men Type: BLOOD SPECIMENOrdering Facility: [facility] Address: [address] [place] [address] Performed By: #### 2 4323-8 ####[facility] LABCLIA [id number] [place] [address] [place] AST [Catalytic activity/Vol] 18 U/L Normal 13-35 [facility] Comment on above: Order Comment: Speci men Type: BLOOD SPECIMENOrdering Facility: [facility] Address: [address] [place] [address] Performed By: #### 2 4323-8 ####[facility] LABCLIA [id number] [place] [address] [place] Bilirubin [Mass/Vol] 0.5 mg/dL Normal 0.2-1.3 [facility] Comment on above: Order Comment: Speci men Type: BLOOD SPECIMENOrdering Facility: [facility] Address: [address] [place] [address] Performed By: #### 2 4323-8 ####[facility] LABCLIA [id number] [place] [address] [place] Calcium [Mass/Vol] 8.6 mg/dL Normal 8.5-10.2 [facility] Comment on above: Order Comment: Speci men Type: BLOOD SPECIMENOrdering Facility: [facility] Address: [address] [place] [address] Performed By: #### 2 4323-8 ####[facility] LABCLIA [id number] [place] [id number] [place] Chloride [Moles/Vol] 103 mmol/L Normal 98-107 [facility] Comment on above: Order Comment: Speci men Type: BLOOD SPECIMENOrdering Facility: [facility] Address: [address] [place] [address] Performed By: #### 2 4323-8 ####[facility] LABCLIA [id number] [place] [address] [place] CO2 [Moles/Vol] 22 mmol/L Normal 22-30 [facility] Comment on above: Order Comment: Speci men Type: BLOOD SPECIMENOrdering Facility: [facility] Address: [address] [place] [address] Performed By: #### 2 4323-8 ####[facility] LABCLIA [id number] [place] [address] [place] Creatinine [Mass/Vol] 0.56 mg/dL Low 0.58-0.96 [facility] Comment on above: Order Comment: Speci men Type: BLOOD SPECIMENOrdering Facility: [facility] Address: [address] [place] [address] Performed By: #### 2 4323-8 ####[facility] LABCLIA [id number] [place] [address] [place] eGFRcr SerPlBld CKD-EPI 2020 116 mL/min/1.73m??? Normal >=60 [facility] Comment on above: Order Comment: Speci men Type: BLOOD SPECIMENOrdering Facility: [facility] Address: [address] [place] [address] Result Comment: Hilda mated Glomerular Filtration Rate (eGFR) is calculated using the 2020 CKD-EPI creatinine equation. This equation utilizes serum creatinine, sex, and age as parameters. The creatinine assay has traceable calibration to isotope dilution-mass spectrometry. Refer to KDIGO guidelines for clinical interpretation. In patients with unstable renal function, e.g. those with acute kidney injury, the eGFR may not accurately reflect actual GFR. Performed By: #### 2 4323-8 ####[facility] LABCLIA [id number] [place] [address] [place] Glucose [Mass/Vol] 113 mg/dL High 74-99 [facility] Comment on above: Order Comment: Amanda heller Type: BLOOD SPECIMENOrdering Facility: [facility] Address: [address] [place] [address] Result Comment: The [place] [employer] (ADA) provides guidance for cutoff values for fasting glucose and random glucose. The ADA defines fasting as no caloric intake for at least 8 hours. Fasting plasma glucose results between 100 to 125 mg/dL indicate increased risk for diabetes (prediabetes).Fasting plasma glucose results greater than or equal to 126 mg/dL meet the criteria for diagnosis of diabetes. In the absence of unequivocal hyperglycemia, results should be confirmed by repeat testing. In a patient with classic symptoms of hyperglycemia or hyperglycemic crisis, random plasma glucose results greater than or equal to 200 mg/dL meet the criteria for diagnosis of diabetes.Reference: Standards of Medical Care in Diabetes 2016, [place] [employer]. Diabetes Care. 2016.39(Suppl 1). Performed By: #### 2 4323-8 ####[facility] LABCLIA [id number] [place] [address] [place] Potassium [Moles/Vol] 4.2 mmol/L Normal 3.7-5.1 [facility] Comment on above: Order Comment: Amanda heller Type: BLOOD SPECIMENOrdering Facility: [facility] Address: [address] [place] [id number] Performed By: #### 2 4323-8 ####[facility] LABCLIA [id number] [place] [address] [place] Protein [Mass/Vol] 5.5 g/dL Low 6.3-8.0 [facility] Comment on above: Order Comment: Amanda heller Type: BLOOD SPECIMENOrdering Facility: [facility] Address: [address] [place] [address] Performed By: #### 2 4323-8 ####[facility] LABCLIA [id number] [place] [id number] [place] Sodium [Moles/Vol] 135 mmol/L Low 136-144 [facility] Comment on above: Order Comment: Speci men Type: BLOOD SPECIMENOrdering Facility: [facility] Address: [address] [place] [address] Performed By: #### 2 4323-8 ####[facility] LABCLIA [id number] [place] [address] [place] Urea nitrogen [Mass/Vol] 11 mg/dL Normal 7-21 [facility] Comment on above: Order Comment: Amanda heller Type: BLOOD SPECIMENOrdering Facility: [facility] Address: [address] [place] [address] Performed By: #### 2 4323-8 ####[facility] LABCLIA [id number] [place] [address] [place] MEDICAL EMERon 01-28-2025 MEDICAL LOLI Normal [facility] MEDICAL LOLI Normal [facility] NURSING PROGon 01-28-2025 NURSING PROG Normal [facility] PT panel Coag (PPP)on 2024 INR Coag (PPP) [Relative time] 3.3 {INR} High 0.9-1.3 [facility] Comment on above: Order Comment: Amanda heller Type: BLOOD SPECIMENOrdering Facility: [facility] Address: [address] [place] [address] Result Comment: Asmita min K Antagonist (VKA) Therapeutic Range: INR 2 to 3 (Target INR of 2.5)Note: For patients treated with VKA drugs, such as warfarin, the [place] [employer] 2012 Guideline recommends a therapeutic INR range of 2 to 3 (target INR of 2.5). This recommendation includes high-risk patients with antiphospholipid syndrome with previous arterial or venous thromboembolism, current-generation mechanical or bioprosthetic aortic heart valve replacement.Note: Patients with mechanical aortic valve replacement and additional risk factors for thromboembolic events (atrial fibrillation, previous thromboembolism, LV dysfunction, hypercoagulable conditions) or an older generation mechanical AVR (i.e., ball in-Cage) or any mechanical MVR should have a INR therapeutic range of 2.5 to 3.5 (target INR of 3).Keiry IRENE, et al. Chest 2012, 141:7S-47SGifty RA, et al. [facility] 2017, 70: 252-289 Performed By: #### 3 4528-0 ####[facility] LABCLIA [id number] [place] [address] [place] PT Coag (PPP) [Time] 32.4 s High 9.7-13.0 [facility] Comment on above: Order Comment: Speci men Type: BLOOD SPECIMENOrdering Facility: [facility] Address: [address] [place] [address] Performed By: #### 3 4528-0 ####[facility] LABIA [id number] [place] [address] [place] THERAPY NTon 01-28-2025 THERAPY NT Normal [facility] XR CHEST 1V FRONTAL PORTon 1 03-30-2024 XR CHEST 1V FRONTAL PORT Normal [facility] ARTERIAL BLOOD GASESon 01-27 Base excess Calc (Bld) [Moles/Vol] 0 mmol/L Normal 0-2 [facility] Comment on above: Order Comment: Edisoni men Type: ARTERIAL BLOOD SPECIMENOrdering Facility: [facility] Address: [address] [place] [address] Performed By: #### A LLBG ####[facility] LABIA [id number] [address] [place] Body temperature 98.6 [degF] Normal [facility] Comment on above: Order Comment: Edisoni arron Type: ARTERIAL BLOOD SPECIMENOrdering Facility: [facility] Address: [address] [place] [address] Performed By: #### A LLBG ####[facility] LABIA [id number] [place] [address] [place] Calcium.ionized (Bld) [Mass/Vol] 1.19 mmol/L Normal 1.08-1.30 [facility] Comment on above: Order Comment: Speci men Type: ARTERIAL BLOOD SPECIMENOrdering Facility: [facility] Address: [address] [place] [address] Performed By: #### A LLBG ####[facility] LABCLIA [id number] [place] [address] [place] Calcium.ionized adjusted to pH 7.4 (BldA) [Moles/Vol] 1.20 mmol/L Normal 1.08-1.30 [facility] Comment on above: Order Comment: Speci men Type: ARTERIAL BLOOD SPECIMENOrdering Facility: [facility] Address: [address] [place] [address] Performed By: #### A LLBG ####[facility] LABIA [id number] [place] [address] [place] Carboxyhemoglobin (BldA) [Mass fraction] 1.1 % Normal 0.0-2.0 [facility] Comment on above: Order Comment: Speci men Type: ARTERIAL BLOOD SPECIMENOrdering Facility: [facility] Address: [address] [place] [address] Result Comment: Carb oxyhemoglobin Reference Range for Smokers: 2.0-8.0% Performed By: #### A LLBG ####[facility] LABCLIA [id number] [place] [address] [place] CO2 (Bld) [Partial pressure] 37 mm Hg Normal 36-46 [facility] Comment on above: Order Comment: Speci men Type: ARTERIAL BLOOD SPECIMENOrdering Facility: [facility] Address: [address] [place] [address] Performed By: #### A LLBG ####[facility] LABCLIA [id number] [place] [address] [place] Glucose [Mass/Vol] 131 mg/dL High 60-105 [facility] Comment on above: Order Comment: Speci men Type: ARTERIAL BLOOD SPECIMENOrdering Facility: [facility] Address: [address] [place] [address] Performed By: #### A LLBG ####[facility] LABCLIA [id number] [place] [address] [place] HCO3 (Bld) [Moles/Vol] 24 mmol/L Normal 22-26 [facility] Comment on above: Order Comment: Speci men Type: ARTERIAL BLOOD SPECIMENOrdering Facility: [facility] Address: [address] [place] [address] Performed By: #### A LLBG ####[facility] LABCLIA [id number] [place] [address] [place] Hematocrit (Bld) [Volume fraction] 33.1 % Low 36.0-46.0 [facility] Comment on above: Order Comment: Speci men Type: ARTERIAL BLOOD SPECIMENOrdering Facility: [facility] Address: [address] [place] [address] Performed By: #### A LLBG ####[facility] LABCLIA [id number] [place] [address] [place] Hemoglobin (Bld) [Mass/Vol] 10.7 g/dL Low 11.5-15.5 [facility] Comment on above: Order Comment: Speci men Type: ARTERIAL BLOOD SPECIMENOrdering Facility: [facility] Address: [address] [place] [address] Performed By: #### A LLBG ####[facility] LABCLIA [id number] [place] [address] [place] Lactate [Moles/Vol] 1.1 mmol/L Normal 0.5-2.2 [facility] Comment on above: Order Comment: Speci men Type: ARTERIAL BLOOD SPECIMENOrdering Facility: [facility] Address: [address] [place] [address] Performed By: #### A LLBG ####[facility] LABCLIA [id number] [place] [address] [place] Methemoglobin (Bld) [Mass fraction] 0.6 % Normal 0.0-1.5 [facility] Comment on above: Order Comment: Speci men Type: ARTERIAL BLOOD SPECIMENOrdering Facility: [facility] Address: [address] [place] [address] Performed By: #### A LLBG ####[facility] LABCLIA [id number] [address] [place] O2 THERAPY NC = Nasal Cannula Normal [facility] Comment on above: Order Comment: Speci men Type: ARTERIAL BLOOD SPECIMENOrdering Facility: [facility] Address: [address] [place] [address] Performed By: #### A LLBG ####[facility] LABCLIA [id number] [place] [address] [place] Oxygen (Bld) [Partial pressure] 148 mm Hg High 85-95 [facility] Comment on above: Order Comment: Speci men Type: ARTERIAL BLOOD SPECIMENOrdering Facility: [facility] Address: [address] [place] [address] Performed By: #### A LLBG ####[facility] LABCLIA [id number] [address] [place] Oxyhemoglobin (BldA) [Mass fraction] 98 % Normal 95-98 [facility] Comment on above: Order Comment: Speci men Type: ARTERIAL BLOOD SPECIMENOrdering Facility: [facility] Address: [address] [place] [address] Performed By: #### A LLBG ####[facility] LABCLIA [id number] [place] [address] [place] pH (Bld) 7.43 [pH] Normal 7.35-7.45 [facility] Comment on above: Order Comment: Speci men Type: ARTERIAL BLOOD SPECIMENOrdering Facility: [facility] Address: [address] [place] [address] Performed By: #### A LLBG ####[facility] LABCLIA [id number] [place] [address] [place] Potassium [Moles/Vol] 4.1 mmol/L Normal 3.5-5.0 [facility] Comment on above: Order Comment: Speci men Type: ARTERIAL BLOOD SPECIMENOrdering Facility: [facility] Address: [address] [place] [address] Performed By: #### A LLBG ####[facility] LABCLIA [id number] [place] [address] [place] Sodium [Moles/Vol] 132 mmol/L Low 136-144 [facility] Comment on above: Order Comment: Speci men Type: ARTERIAL BLOOD SPECIMENOrdering Facility: [facility] Address: [address] [place] [address] Performed By: #### A LLBG ####[facility] LABCLIA [id number] [place] [address] [place] Calcium.ionized adjusted to pH 7.4 (BldA) [Moles/Vol] 1.19 mmol/L Normal 1.08-1.30 [facility] Comment on above: Order Comment: Speci men Type: ARTERIAL BLOOD SPECIMENOrdering Facility: [facility] Address: [address] [place] [address] Performed By: #### A LLBG ####[facility] LABIA [id number] [place] [address] [place] Carboxyhemoglobin (BldA) [Mass fraction] 1.3 % Normal 0.0-2.0 [facility] Comment on above: Order Comment: Speci men Type: ARTERIAL BLOOD SPECIMENOrdering Facility: [facility] Address: [address] [place] [address] Result Comment: Carb oxyhemoglobin Reference Range for Smokers: 2.0-8.0% Performed By: #### A LLBG ####[facility] LABCLIA [id number] [place] [address] [place] CO2 (Bld) [Partial pressure] 36 mm Hg Normal 36-46 [facility] Comment on above: Order Comment: Speci men Type: ARTERIAL BLOOD SPECIMENOrdering Facility: [facility] Address: [address] [place] [address] Performed By: #### A LLBG ####[facility] LABCLIA [id number] [place] [address] [place] Glucose [Mass/Vol] 148 mg/dL High 60-105 [facility] Comment on above: Order Comment: Speci men Type: ARTERIAL BLOOD SPECIMENOrdering Facility: [facility] Address: [address] [place] [address] Performed By: #### A LLBG ####[facility] LABCLIA [id number] [place] [address] [place] Hematocrit (Bld) [Volume fraction] 34.0 % Low 36.0-46.0 [facility] Comment on above: Order Comment: Speci men Type: ARTERIAL BLOOD SPECIMENOrdering Facility: [facility] Address: [address] [place] [address] Performed By: #### A LLBG ####[facility] LABCLIA [id number] [place] [address] [place] Hemoglobin (Bld) [Mass/Vol] 11.0 g/dL Low 11.5-15.5 [facility] Comment on above: Order Comment: Speci men Type: ARTERIAL BLOOD SPECIMENOrdering Facility: [facility] Address: [address] [place] [address] Performed By: #### A LLBG ####[facility] LABCLIA [id number] [place] [address] [place] Methemoglobin (Bld) [Mass fraction] 0.9 % Normal 0.0-1.5 [facility] Comment on above: Order Comment: Speci men Type: ARTERIAL BLOOD SPECIMENOrdering Facility: [facility] Address: [address] [place] [address] Performed By: #### A LLBG ####[facility] LABCLIA [id number] [place] [address] [place] Oxygen (Bld) [Partial pressure] 120 mm Hg High 85-95 [facility] Comment on above: Order Comment: Speci men Type: ARTERIAL BLOOD SPECIMENOrdering Facility: [facility] Address: [address] [place] [address] Performed By: #### A LLBG ####[facility] LABCLIA [id number] [place] [address] [place] pH (Bld) 7.42 [pH] Normal 7.35-7.45 [facility] Comment on above: Order Comment: Speci men Type: ARTERIAL BLOOD SPECIMENOrdering Facility: [facility] Address: [address] [place] [address] Performed By: #### A LLBG ####[facility] LABCLIA [id number] [place] [address] [place] Base deficit (BldA) [Moles/Vol] -1 mmol/L Normal -2-0 [facility] Comment on above: Order Comment: Speci men Type: ARTERIAL BLOOD SPECIMENOrdering Facility: [facility] Address: [address] [place] [address] Performed By: #### A LLBG ####[facility] LABCLIA [id number] [place] [address] [place] Body temperature 98.6 [degF] Normal [facility] Comment on above: Order Comment: Speci men Type: ARTERIAL BLOOD SPECIMENOrdering Facility: [facility] Address: [address] [place] [address] Performed By: #### A LLBG ####[facility] LABCLIA [id number] [place] [address] [place] Calcium.ionized (Bld) [Mass/Vol] 1.20 mmol/L Normal 1.08-1.30 [facility] Comment on above: Order Comment: Speci men Type: ARTERIAL BLOOD SPECIMENOrdering Facility: [facility] Address: [address] [place] [address] Performed By: #### A LLBG ####[facility] LABCLIA [id number] [place] [address] [place] Calcium.ionized adjusted to pH 7.4 (BldA) [Moles/Vol] 1.20 mmol/L Normal 1.08-1.30 [facility] Comment on above: Order Comment: Speci men Type: ARTERIAL BLOOD SPECIMENOrdering Facility: [facility] Address: [address] [place] [address] Performed By: #### A LLBG ####[facility] LABCLIA [id number] [place] [address] [place] Carboxyhemoglobin (BldA) [Mass fraction] 1.7 % Normal 0.0-2.0 [facility] Comment on above: Order Comment: Speci men Type: ARTERIAL BLOOD SPECIMENOrdering Facility: [facility] Address: [address] [place] [address] Result Comment: Carb oxyhemoglobin Reference Range for Smokers: 2.0-8.0% Performed By: #### A LLBG ####[facility] LABCLIA [id number] [place] [address] [place] CO2 (Bld) [Partial pressure] 39 mm Hg Normal 36-46 [facility] Comment on above: Order Comment: Speci men Type: ARTERIAL BLOOD SPECIMENOrdering Facility: [facility] Address: [address] [place] [address] Performed By: #### A LLBG ####[facility] LABCLIA [id number] [place] [address] [place] Glucose [Mass/Vol] 120 mg/dL High 60-105 [facility] Comment on above: Order Comment: Speci men Type: ARTERIAL BLOOD SPECIMENOrdering Facility: [facility] Address: [address] [place] [address] Performed By: #### A LLBG ####[facility] LABCLIA [id number] [place] [address] [place] HCO3 (Bld) [Moles/Vol] 23 mmol/L Normal 22-26 [facility] Comment on above: Order Comment: Speci men Type: ARTERIAL BLOOD SPECIMENOrdering Facility: [facility] Address: [address] [place] [address] Performed By: #### A LLBG ####[facility] LABCLIA [id number] [place] [address] [place] Hematocrit (Bld) [Volume fraction] 34.3 % Low 36.0-46.0 [facility] Comment on above: Order Comment: Speci men Type: ARTERIAL BLOOD SPECIMENOrdering Facility: [facility] Address: [address] [place] [address] Performed By: #### A LLBG ####[facility] LABCLIA [id number] [place] [address] [place] Hemoglobin (Bld) [Mass/Vol] 11.1 g/dL Low 11.5-15.5 [facility] Comment on above: Order Comment: Speci men Type: ARTERIAL BLOOD SPECIMENOrdering Facility: [facility] Address: [address] [place] [address] Performed By: #### A LLBG ####[facility] LABCLIA [id number] [place] [address] [place] Lactate [Moles/Vol] 1.2 mmol/L Normal 0.5-2.2 [facility] Comment on above: Order Comment: Speci men Type: ARTERIAL BLOOD SPECIMENOrdering Facility: [facility] Address: [address] [place] [address] Performed By: #### A LLBG ####[facility] LABCLIA [id number] [place] [address] [place] LITERS 1 Liters/min Normal [facility] Comment on above: Order Comment: Speci men Type: ARTERIAL BLOOD SPECIMENOrdering Facility: [facility] Address: [address] [place] [address] Performed By: #### A LLBG ####[facility] LABCLIA [id number] [id number] [place] Methemoglobin (Bld) [Mass fraction] 0.7 % Normal 0.0-1.5 [facility] Comment on above: Order Comment: Speci men Type: ARTERIAL BLOOD SPECIMENOrdering Facility: [facility] Address: [address] [place] [address] Performed By: #### A LLBG ####[facility] LABCLIA [id number] [place] [address] [place] O2 THERAPY NC = Nasal Cannula Normal [facility] Comment on above: Order Comment: Speci men Type: ARTERIAL BLOOD SPECIMENOrdering Facility: [facility] Address: [address] [place] [address] Performed By: #### A LLBG ####[facility] LABCLIA [id number] [place] [address] [place] Oxygen (Bld) [Partial pressure] 110 mm Hg High 85-95 [facility] Comment on above: Order Comment: Speci men Type: ARTERIAL BLOOD SPECIMENOrdering Facility: [facility] Address: [address] [place] [address] Performed By: #### A LLBG ####[facility] LABCLIA [id number] [address] [place] Oxyhemoglobin (BldA) [Mass fraction] 96 % Normal 95-98 [facility] Comment on above: Order Comment: Speci men Type: ARTERIAL BLOOD SPECIMENOrdering Facility: [facility] Address: [address] [place] [address] Performed By: #### A LLBG ####[facility] LABCLIA [id number] [place] [address] [place] pH (Bld) 7.39 [pH] Normal 7.35-7.45 [facility] Comment on above: Order Comment: Speci men Type: ARTERIAL BLOOD SPECIMENOrdering Facility: [facility] Address: [address] [place] [address] Performed By: #### A LLBG ####[facility] LABCLIA [id number] [place] [address] [place] Potassium [Moles/Vol] 4.2 mmol/L Normal 3.5-5.0 [facility] Comment on above: Order Comment: Speci men Type: ARTERIAL BLOOD SPECIMENOrdering Facility: [facility] Address: [address] [place] [address] Performed By: #### A LLBG ####[facility] LABCLIA [id number] [place] [address] [place] Sodium [Moles/Vol] 133 mmol/L Low 136-144 [facility] Comment on above: Order Comment: Speci men Type: ARTERIAL BLOOD SPECIMENOrdering Facility: [facility] Address: [address] [place] [address] Performed By: #### A LLBG ####[facility] LABCLIA [id number] [place] [address] [place] Base deficit (BldA) [Moles/Vol] -3 mmol/L Low -2-0 [facility] Comment on above: Order Comment: Speci men Type: ARTERIAL BLOOD SPECIMENOrdering Facility: [facility] Address: [address] [place] [address] Performed By: #### A LLBG ####[facility] LABCLIA [id number] [place] [address] [place] Body temperature 98.6 [degF] Normal [facility] Comment on above: Order Comment: Speci men Type: ARTERIAL BLOOD SPECIMENOrdering Facility: [facility] Address: [address] [place] [address] Performed By: #### A LLBG ####[facility] LABCLIA [id number] [place] [address] [place] Calcium.ionized (Bld) [Mass/Vol] 1.23 mmol/L Normal 1.08-1.30 [facility] Comment on above: Order Comment: Speci men Type: ARTERIAL BLOOD SPECIMENOrdering Facility: [facility] Address: [address] [place] [address] Performed By: #### A LLBG ####[facility] LABCLIA [id number] [place] [address] [place] Calcium.ionized adjusted to pH 7.4 (BldA) [Moles/Vol] 1.20 mmol/L Normal 1.08-1.30 [facility] Comment on above: Order Comment: Speci men Type: ARTERIAL BLOOD SPECIMENOrdering Facility: [facility] Address: [address] [place] [address] Performed By: #### A LLBG ####[facility] LABCLIA [id number] [place] [address] [place] Carboxyhemoglobin (BldA) [Mass fraction] 1.4 % Normal 0.0-2.0 [facility] Comment on above: Order Comment: Speci men Type: ARTERIAL BLOOD SPECIMENOrdering Facility: [facility] Address: [address] [place] [address] Result Comment: Carb oxyhemoglobin Reference Range for Smokers: 2.0-8.0% Performed By: #### A LLBG ####[facility] LABIA [id number] [place] [address] [place] CO2 (Bld) [Partial pressure] 40 mm Hg Normal 36-46 [facility] Comment on above: Order Comment: Speci men Type: ARTERIAL BLOOD SPECIMENOrdering Facility: [facility] Address: [address] [place] [address] Performed By: #### A LLBG ####[facility] LABCLIA [id number] [place] [address] [place] Glucose [Mass/Vol] 151 mg/dL High 60-105 [facility] Comment on above: Order Comment: Speci men Type: ARTERIAL BLOOD SPECIMENOrdering Facility: [facility] Address: [address] [place] [address] Performed By: #### A LLBG ####[facility] LABCLIA [id number] [place] [address] [place] HCO3 (Bld) [Moles/Vol] 22 mmol/L Normal 22-26 [facility] Comment on above: Order Comment: Speci men Type: ARTERIAL BLOOD SPECIMENOrdering Facility: [facility] Address: [address] [place] [address] Performed By: #### A LLBG ####[facility] LABCLIA [id number] [place] [address] [place] Hematocrit (Bld) [Volume fraction] 37.3 % Normal 36.0-46.0 [facility] Comment on above: Order Comment: Speci men Type: ARTERIAL BLOOD SPECIMENOrdering Facility: [facility] Address: [address] [place] [address] Performed By: #### A LLBG ####[facility] LABCLIA [id number] [place] [address] [place] Hemoglobin (Bld) [Mass/Vol] 12.1 g/dL Normal 11.5-15.5 [facility] Comment on above: Order Comment: Speci men Type: ARTERIAL BLOOD SPECIMENOrdering Facility: [facility] Address: [address] [place] [address] Performed By: #### A LLBG ####[facility] LABCLIA [id number] [place] [address] [place] Lactate [Moles/Vol] 1.5 mmol/L Normal 0.5-2.2 [facility] Comment on above: Order Comment: Speci men Type: ARTERIAL BLOOD SPECIMENOrdering Facility: [facility] Address: [address] [place] [address] Performed By: #### A LLBG ####[facility] LABCLIA [id number] [place] [address] [place] LITERS 2 Liters/min Normal [facility] Comment on above: Order Comment: Speci men Type: ARTERIAL BLOOD SPECIMENOrdering Facility: [facility] Address: [address] [place] [address] Performed By: #### A LLBG ####[facility] LABCLIA [id number] [place] [address] [place] Methemoglobin (Bld) [Mass fraction] 1.0 % Normal 0.0-1.5 [facility] Comment on above: Order Comment: Speci men Type: ARTERIAL BLOOD SPECIMENOrdering Facility: [facility] Address: [address] [place] [address] Performed By: #### A LLBG ####[facility] LABCLIA [id number] [place] [address] [place] O2 THERAPY [place] = Nasal Cannula Normal [facility] Comment on above: Order Comment: Speci men Type: ARTERIAL BLOOD SPECIMENOrdering Facility: [facility] Address: [address] [place] [address] Performed By: #### A LLBG ####[facility] [id number] [place] [address] [place] Oxygen (Bld) [Partial pressure] 114 mm Hg High 85-95 [facility] Comment on above: Order Comment: Speci men Type: ARTERIAL BLOOD SPECIMENOrdering Facility: [facility] Address: [address] [place] [address] Performed By: #### A LLBG ####[facility] LABIA [id number] [place] [address] [place] Oxyhemoglobin (BldA) [Mass fraction] 96 % Normal 95-98 [facility] Comment on above: Order Comment: Speci men Type: ARTERIAL BLOOD SPECIMENOrdering Facility: [facility] Address: [address] [place] [address] Performed By: #### A LLBG ####[facility] LABIA [id number] [place] [address] [place] pH (Bld) 7.36 [pH] Normal 7.35-7.45 [facility] Comment on above: Order Comment: Speci men Type: ARTERIAL BLOOD SPECIMENOrdering Facility: [facility] Address: [address] [place] [address] Performed By: #### A LLBG ####[facility] LABCLIA [id number] [place] [address] [place] Potassium [Moles/Vol] 4.6 mmol/L Normal 3.5-5.0 [facility] Comment on above: Order Comment: Speci men Type: ARTERIAL BLOOD SPECIMENOrdering Facility: [facility] Address: [address] [place] [address] Performed By: #### A LLBG ####[facility] LABCLIA [id number] [place] [address] [place] Sodium [Moles/Vol] 132 mmol/L Low 136-144 [facility] Comment on above: Order Comment: Speci men Type: ARTERIAL BLOOD SPECIMENOrdering Facility: [facility] Address: [address] [place] [address] Performed By: #### A LLBG ####[facility] LABCLIA [id number] [place] [address] [place] Base deficit (BldA) [Moles/Vol] -3 mmol/L Low -2-0 [facility] Comment on above: Order Comment: Speci men Type: ARTERIAL BLOOD SPECIMENOrdering Facility: [facility] Address: [address] [place] [address] Performed By: #### A LLBG ####[facility] LABCLIA [id number] [place] [address] [place] Body temperature 98.6 [degF] Normal [facility] Comment on above: Order Comment: Speci men Type: ARTERIAL BLOOD SPECIMENOrdering Facility: [facility] Address: [address] [place] [address] Performed By: #### A LLBG ####[facility] LABCLIA [id number] [place] [address] [place] Calcium.ionized (Bld) [Mass/Vol] 1.17 mmol/L Normal 1.08-1.30 [facility] Comment on above: Order Comment: Speci men Type: ARTERIAL BLOOD SPECIMENOrdering Facility: [facility] Address: [address] [place] [address] Performed By: #### A LLBG ####[facility] LABCLIA [id number] [place] [address] [place] Calcium.ionized adjusted to pH 7.4 (BldA) [Moles/Vol] 1.14 mmol/L Normal 1.08-1.30 [facility] Comment on above: Order Comment: Speci men Type: ARTERIAL BLOOD SPECIMENOrdering Facility: [facility] Address: [address] [place] [address] Performed By: #### A LLBG ####[facility] LABIA [id number] [place] [address] [place] Carboxyhemoglobin (BldA) [Mass fraction] 1.6 % Normal 0.0-2.0 [facility] Comment on above: Order Comment: Speci men Type: ARTERIAL BLOOD SPECIMENOrdering Facility: [facility] Address: [address] [place] [address] Result Comment: Carb oxyhemoglobin Reference Range for Smokers: 2.0-8.0% Performed By: #### A LLBG ####[facility] LABIA [id number] [place] [address] [place] CO2 (Bld) [Partial pressure] 39 mm Hg Normal 36-46 [facility] Comment on above: Order Comment: Speci men Type: ARTERIAL BLOOD SPECIMENOrdering Facility: [facility] Address: [address] [place] [address] Performed By: #### A LLBG ####[facility] LABCLIA [id number] [place] [address] [place] Glucose [Mass/Vol] 167 mg/dL High 60-105 [facility] Comment on above: Order Comment: Speci men Type: ARTERIAL BLOOD SPECIMENOrdering Facility: [facility] Address: [address] [place] [address] Performed By: #### A LLBG ####[facility] LABCLIA [id number] [place] [address] [place] HCO3 (Bld) [Moles/Vol] 22 mmol/L Normal 22-26 [facility] Comment on above: Order Comment: Speci men Type: ARTERIAL BLOOD SPECIMENOrdering Facility: [facility] Address: [address] [place] [address] Performed By: #### A LLBG ####[facility] LABCLIA [id number] [place] [address] [place] Hematocrit (Bld) [Volume fraction] 37.0 % Normal 36.0-46.0 [facility] Comment on above: Order Comment: Speci men Type: ARTERIAL BLOOD SPECIMENOrdering Facility: [facility] Address: [address] [place] [address] Performed By: #### A LLBG ####[facility] LABCLIA [id number] [place] [address] [place] Hemoglobin (Bld) [Mass/Vol] 12.0 g/dL Normal 11.5-15.5 [facility] Comment on above: Order Comment: Speci men Type: ARTERIAL BLOOD SPECIMENOrdering Facility: [facility] Address: [address] [place] [address] Performed By: #### A LLBG ####[facility] LABCLIA [id number] [place] [address] [place] Lactate [Moles/Vol] 1.3 mmol/L Normal 0.5-2.2 [facility] Comment on above: Order Comment: Speci men Type: ARTERIAL BLOOD SPECIMENOrdering Facility: [facility] Address: [address] [place] [address] Performed By: #### A LLBG ####[facility] LABCLIA [id number] [place] [address] [place] LITERS 2 Liters/min Normal [facility] Comment on above: Order Comment: Speci men Type: ARTERIAL BLOOD SPECIMENOrdering Facility: [facility] Address: [address] [place] [address] Performed By: #### A LLBG ####[facility] LABCLIA [id number] [place] [address] [place] Methemoglobin (Bld) [Mass fraction] 1.1 % Normal 0.0-1.5 [facility] Comment on above: Order Comment: Speci men Type: ARTERIAL BLOOD SPECIMENOrdering Facility: [facility] Address: [address] [place] [address] Performed By: #### A LLBG ####[facility] LABCLIA [id number] [place] [address] [place] O2 THERAPY NC = Nasal Cannula Normal [facility] Comment on above: Order Comment: Speci men Type: ARTERIAL BLOOD SPECIMENOrdering Facility: [facility] Address: [address] [place] [address] Performed By: #### A LLBG ####[facility] LABIA [id number] [place] [address] [place] Oxygen (Bld) [Partial pressure] 135 mm Hg High 85-95 [facility] Comment on above: Order Comment: Speci men Type: ARTERIAL BLOOD SPECIMENOrdering Facility: [facility] Address: [address] [place] [address] Performed By: #### A LLBG ####[facility] LABIA [id number] [place] [address] [place] Oxyhemoglobin (BldA) [Mass fraction] 97 % Normal 95-98 [facility] Comment on above: Order Comment: Speci men Type: ARTERIAL BLOOD SPECIMENOrdering Facility: [facility] Address: [address] [place] [address] Performed By: #### A LLBG ####[facility] LABCLIA [id number] [place] [address] [place] pH (Bld) 7.36 [pH] Normal 7.35-7.45 [facility] Comment on above: Order Comment: Speci men Type: ARTERIAL BLOOD SPECIMENOrdering Facility: [facility] Address: [address] [place] [address] Performed By: #### A LLBG ####[facility] LABCLIA [id number] [place] [address] [place] Potassium [Moles/Vol] 4.4 mmol/L Normal 3.5-5.0 [facility] Comment on above: Order Comment: Speci men Type: ARTERIAL BLOOD SPECIMENOrdering Facility: [facility] Address: [address] [place] [address] Performed By: #### A LLBG ####[facility] LABCLIA [id number] [place] [address] [place] Sodium [Moles/Vol] 130 mmol/L Low 136-144 [facility] Comment on above: Order Comment: Speci men Type: ARTERIAL BLOOD SPECIMENOrdering Facility: [facility] Address: [address] [place] [address] Performed By: #### A LLBG ####[facility] LABCLIA [id number] [place] [address] [place] Base deficit (BldA) [Moles/Vol] -3 mmol/L Low -2-0 [facility] Comment on above: Order Comment: Speci men Type: ARTERIAL BLOOD SPECIMENOrdering Facility: [facility] Address: [address] [place] [address] Performed By: #### A LLBG ####[facility] LABCLIA [id number] [place] [address] [place] Body temperature 98.6 [degF] Normal [facility] Comment on above: Order Comment: Speci men Type: ARTERIAL BLOOD SPECIMENOrdering Facility: [facility] Address: [address] [place] [address] Performed By: #### A LLBG ####[facility] LABCLIA [id number] [place] [address] [place] Calcium.ionized (Bld) [Mass/Vol] 1.18 mmol/L Normal 1.08-1.30 [facility] Comment on above: Order Comment: Speci men Type: ARTERIAL BLOOD SPECIMENOrdering Facility: [facility] Address: [address] [place] [address] Performed By: #### A LLBG ####[facility] LABCLIA [id number] [place] [address] [place] Calcium.ionized adjusted to pH 7.4 (BldA) [Moles/Vol] 1.16 mmol/L Normal 1.08-1.30 [facility] Comment on above: Order Comment: Speci men Type: ARTERIAL BLOOD SPECIMENOrdering Facility: [facility] Address: [address] [place] [address] Performed By: #### A LLBG ####[facility] LABIA [id number] [place] [address] [place] Carboxyhemoglobin (BldA) [Mass fraction] 1.8 % Normal 0.0-2.0 [facility] Comment on above: Order Comment: Speci men Type: ARTERIAL BLOOD SPECIMENOrdering Facility: [facility] Address: [address] [place] [address] Result Comment: Carb oxyhemoglobin Reference Range for Smokers: 2.0-8.0% Performed By: #### A LLBG ####[facility] LABIA [id number] [place] [address] [place] CO2 (Bld) [Partial pressure] 38 mm Hg Normal 36-46 [facility] Comment on above: Order Comment: Speci men Type: ARTERIAL BLOOD SPECIMENOrdering Facility: [facility] Address: [address] [place] [address] Performed By: #### A LLBG ####[facility] LABIA [id number] [place] [address] [place] Glucose [Mass/Vol] 152 mg/dL High 60-105 [facility] Comment on above: Order Comment: Speci men Type: ARTERIAL BLOOD SPECIMENOrdering Facility: [facility] Address: [address] [place] [address] Performed By: #### A LLBG ####[facility] LABCLIA [id number] [place] [address] [place] HCO3 (Bld) [Moles/Vol] 22 mmol/L Normal 22-26 [facility] Comment on above: Order Comment: Speci men Type: ARTERIAL BLOOD SPECIMENOrdering Facility: [facility] Address: [address] [place] [address] Performed By: #### A LLBG ####[facility] LABCLIA [id number] [place] [address] [place] Hematocrit (Bld) [Volume fraction] 35.6 % Low 36.0-46.0 [facility] Comment on above: Order Comment: Speci men Type: ARTERIAL BLOOD SPECIMENOrdering Facility: [facility] Address: [address] [place] [address] Performed By: #### A LLBG ####[facility] LABCLIA [id number] [place] [address] [place] Hemoglobin (Bld) [Mass/Vol] 11.5 g/dL Normal 11.5-15.5 [facility] Comment on above: Order Comment: Speci men Type: ARTERIAL BLOOD SPECIMENOrdering Facility: [facility] Address: [address] [place] [address] Performed By: #### A LLBG ####[facility] LABCLIA [id number] [place] [address] [place] Methemoglobin (Bld) [Mass fraction] 1.1 % Normal 0.0-1.5 [facility] Comment on above: Order Comment: Speci men Type: ARTERIAL BLOOD SPECIMENOrdering Facility: [facility] Address: [address] [place] [address] Performed By: #### A LLBG ####[facility] LABIA [id number] [place] [address] [place] O2 THERAPY NC = Nasal Cannula Normal [facility] Comment on above: Order Comment: Speci men Type: ARTERIAL BLOOD SPECIMENOrdering Facility: [facility] Address: [address] [place] [address] Performed By: #### A LLBG ####[facility] LABCLIA [id number] [place] [address] [place] Oxygen (Bld) [Partial pressure] 130 mm Hg High 85-95 [facility] Comment on above: Order Comment: Speci men Type: ARTERIAL BLOOD SPECIMENOrdering Facility: [facility] Address: [address] [place] [address] Performed By: #### A LLBG ####[facility] LABCLIA [id number] [place] [address] [place] pH (Bld) 7.37 [pH] Normal 7.35-7.45 [facility] Comment on above: Order Comment: Speci men Type: ARTERIAL BLOOD SPECIMENOrdering Facility: [facility] Address: [address] [place] [address] Performed By: #### A LLBG ####[facility] LABIA [id number] [place] [address] [place] Potassium [Moles/Vol] 4.3 mmol/L Normal 3.5-5.0 [facility] Comment on above: Order Comment: Speci men Type: ARTERIAL BLOOD SPECIMENOrdering Facility: [facility] Address: [address] [place] [address] Performed By: #### A LLBG ####[facility] LABIA [id number] [place] [address] [place] Sodium [Moles/Vol] 134 mmol/L Low 136-144 [facility] Comment on above: Order Comment: Speci men Type: ARTERIAL BLOOD SPECIMENOrdering Facility: [facility] Address: [address] [place] [address] Performed By: #### A LLBG ####[facility] LABCLIA [id number] [place] [address] [place] Base deficit (BldA) [Moles/Vol] -4 mmol/L Low -2-0 [facility] Comment on above: Order Comment: Speci men Type: ARTERIAL BLOOD SPECIMENOrdering Facility: [facility] Address: [address] [place] [address] Performed By: #### A LLBG ####[facility] LABCLIA [id number] [place] [address] [place] Body temperature 98.6 [degF] Normal [facility] Comment on above: Order Comment: Speci men Type: ARTERIAL BLOOD SPECIMENOrdering Facility: [facility] Address: [address] [place] [address] Performed By: #### A LLBG ####[facility] LABIA [id number] [place] [address] [place] Calcium.ionized (Bld) [Mass/Vol] 1.21 mmol/L Normal 1.08-1.30 [facility] Comment on above: Order Comment: Speci men Type: ARTERIAL BLOOD SPECIMENOrdering Facility: [facility] Address: [address] [place] [address] Performed By: #### A LLBG ####[facility] LABCLIA [id number] [place] [address] [place] Calcium.ionized adjusted to pH 7.4 (BldA) [Moles/Vol] 1.19 mmol/L Normal 1.08-1.30 [facility] Comment on above: Order Comment: Speci men Type: ARTERIAL BLOOD SPECIMENOrdering Facility: [facility] Address: [address] [place] [address] Performed By: #### A LLBG ####[facility] LABCLIA [id number] [place] [address] [place] Carboxyhemoglobin (BldA) [Mass fraction] 1.7 % Normal 0.0-2.0 [facility] Comment on above: Order Comment: Speci men Type: ARTERIAL BLOOD SPECIMENOrdering Facility: [facility] Address: [address] [place] [address] Result Comment: Carb oxyhemoglobin Reference Range for Smokers: 2.0-8.0% Performed By: #### A LLBG ####[facility] LABCLIA [id number] [place] [address] [place] CO2 (Bld) [Partial pressure] 37 mm Hg Normal 36-46 [facility] Comment on above: Order Comment: Speci men Type: ARTERIAL BLOOD SPECIMENOrdering Facility: [facility] Address: [address] [place] [address] Performed By: #### A LLBG ####[facility] LABCLIA [id number] [place] [address] [place] Glucose [Mass/Vol] 133 mg/dL High 60-105 [facility] Comment on above: Order Comment: Speci men Type: ARTERIAL BLOOD SPECIMENOrdering Facility: [facility] Address: [address] [place] [address] Performed By: #### A LLBG ####[facility] LABCLIA [id number] [place] [address] [place] HCO3 (Bld) [Moles/Vol] 21 mmol/L Low 22-26 [facility] Comment on above: Order Comment: Speci men Type: ARTERIAL BLOOD SPECIMENOrdering Facility: [facility] Address: [address] [place] [address] Performed By: #### A LLBG ####[facility] LABCLIA [id number] [place] [address] [place] Hematocrit (Bld) [Volume fraction] 34.9 % Low 36.0-46.0 [facility] Comment on above: Order Comment: Speci men Type: ARTERIAL BLOOD SPECIMENOrdering Facility: [facility] Address: [address] [place] [address] Performed By: #### A LLBG ####[facility] LABCLIA [id number] [place] [address] [place] Hemoglobin (Bld) [Mass/Vol] 11.3 g/dL Low 11.5-15.5 [facility] Comment on above: Order Comment: Speci men Type: ARTERIAL BLOOD SPECIMENOrdering Facility: [facility] Address: [address] [id number] Performed By: #### A LLBG ####[facility] LABCLIA [id number] [place] [address] [place] Lactate [Moles/Vol] 2.1 mmol/L Normal 0.5-2.2 [facility] Comment on above: Order Comment: Speci men Type: ARTERIAL BLOOD SPECIMENOrdering Facility: [facility] Address: [address] [place] [address] Performed By: #### A LLBG ####[facility] LABCLIA [id number] [place] [address] [place] Methemoglobin (Bld) [Mass fraction] 0.8 % Normal 0.0-1.5 [facility] Comment on above: Order Comment: Speci men Type: ARTERIAL BLOOD SPECIMENOrdering Facility: [facility] Address: [address] [place] [address] Performed By: #### A LLBG ####[facility] LABCLIA [id number] [place] [address] [place] O2 THERAPY NC = Nasal Cannula Normal [facility] Comment on above: Order Comment: Speci men Type: ARTERIAL BLOOD SPECIMENOrdering Facility: [facility] Address: [address] [place] [address] Performed By: #### A LLBG ####[facility] LABCLIA [id number] [place] [address] [place] Oxygen (Bld) [Partial pressure] 113 mm Hg High 85-95 [facility] Comment on above: Order Comment: Speci men Type: ARTERIAL BLOOD SPECIMENOrdering Facility: [facility] Address: [address] [place] [address] Performed By: #### A LLBG ####[facility] LABCLIA [id number] [place] [id number] [place] Oxyhemoglobin (BldA) [Mass fraction] 96 % Normal 95-98 [facility] Comment on above: Order Comment: Speci men Type: ARTERIAL BLOOD SPECIMENOrdering Facility: [facility] Address: [address] [place] [address] Performed By: #### A LLBG ####[facility] LABCLIA [id number] [place] [address] [place] pH (Bld) 7.36 [pH] Normal 7.35-7.45 [facility] Comment on above: Order Comment: Speci men Type: ARTERIAL BLOOD SPECIMENOrdering Facility: [facility] Address: [address] [place] [address] Performed By: #### A LLBG ####[facility] LABCLIA [id number] [place] [address] [place] Potassium [Moles/Vol] 4.2 mmol/L Normal 3.5-5.0 [facility] Comment on above: Order Comment: Speci men Type: ARTERIAL BLOOD SPECIMENOrdering Facility: [facility] Address: [address] [place] [address] Performed By: #### A LLBG ####[facility] LABCLIA [id number] [place] [address] [place] Sodium [Moles/Vol] 135 mmol/L Low 136-144 [facility] Comment on above: Order Comment: Speci men Type: ARTERIAL BLOOD SPECIMENOrdering Facility: [facility] Address: [address] [place] [address] Performed By: #### A LLBG ####[facility] LABCLIA [id number] [place] [address] [place] Base deficit (BldA) [Moles/Vol] -3 mmol/L Low -2-0 [facility] Comment on above: Order Comment: Speci men Type: ARTERIAL BLOOD SPECIMENOrdering Facility: [facility] Address: [address] [place] [address] Performed By: #### A LLBG ####[facility] LABCLIA [id number] [place] [address] [place] Body temperature 98.6 [degF] Normal [facility] Comment on above: Order Comment: Speci men Type: ARTERIAL BLOOD SPECIMENOrdering Facility: [facility] Address: [address] [place] [address] Performed By: #### A LLBG ####[facility] LABIA [id number] [place] [address] [place] Calcium.ionized (Bld) [Mass/Vol] 1.15 mmol/L Normal 1.08-1.30 [facility] Comment on above: Order Comment: Speci men Type: ARTERIAL BLOOD SPECIMENOrdering Facility: [facility] Address: [address] [place] [address] Performed By: #### A LLBG ####[facility] LABIA [id number] [place] [address] [place] Calcium.ionized adjusted to pH 7.4 (BldA) [Moles/Vol] 1.12 mmol/L Normal 1.08-1.30 [facility] Comment on above: Order Comment: Speci men Type: ARTERIAL BLOOD SPECIMENOrdering Facility: [facility] Address: [address] [place] [address] Performed By: #### A LLBG ####[facility] LABIA [id number] [place] [address] [place] Carboxyhemoglobin (BldA) [Mass fraction] 1.6 % Normal 0.0-2.0 [facility] Comment on above: Order Comment: Speci men Type: ARTERIAL BLOOD SPECIMENOrdering Facility: [facility] Address: [address] [place] [address] Result Comment: Carb oxyhemoglobin Reference Range for Smokers: 2.0-8.0% Performed By: #### A LLBG ####[facility] LABIA [id number] [place] [address] [place] CO2 (Bld) [Partial pressure] 41 mm Hg Normal 36-46 [facility] Comment on above: Order Comment: Speci men Type: ARTERIAL BLOOD SPECIMENOrdering Facility: [facility] Address: [address] [place] [address] Performed By: #### A LLBG ####[facility] LABCLIA [id number] [place] [address] [place] Glucose [Mass/Vol] 190 mg/dL High 60-105 [facility] Comment on above: Order Comment: Speci men Type: ARTERIAL BLOOD SPECIMENOrdering Facility: [facility] Address: [address] [place] [address] Performed By: #### A LLBG ####[facility] LABCLIA [id number] [place] [address] [place] HCO3 (Bld) [Moles/Vol] 22 mmol/L Normal 22-26 [facility] Comment on above: Order Comment: Speci men Type: ARTERIAL BLOOD SPECIMENOrdering Facility: [facility] Address: [address] [place] [address] Performed By: #### A LLBG ####[facility] LABCLIA [id number] [place] [address] [place] Hematocrit (Bld) [Volume fraction] 36.5 % Normal 36.0-46.0 [facility] Comment on above: Order Comment: Speci men Type: ARTERIAL BLOOD SPECIMENOrdering Facility: [facility] Address: [address] [place] [address] Performed By: #### A LLBG ####[facility] LABCLIA [id number] [place] [address] [place] Hemoglobin (Bld) [Mass/Vol] 11.9 g/dL Normal 11.5-15.5 [facility] Comment on above: Order Comment: Speci men Type: ARTERIAL BLOOD SPECIMENOrdering Facility: [facility] Address: [address] [place] [address] Performed By: #### A LLBG ####[facility] LABCLIA [id number] [place] [address] [place] Lactate [Moles/Vol] 1.2 mmol/L Normal 0.5-2.2 [facility] Comment on above: Order Comment: Speci men Type: ARTERIAL BLOOD SPECIMENOrdering Facility: [facility] Address: [address] [place] [address] Performed By: #### A LLBG ####[facility] LABCLIA [id number] [place] [address] [place] Methemoglobin (Bld) [Mass fraction] 1.1 % Normal 0.0-1.5 [facility] Comment on above: Order Comment: Speci men Type: ARTERIAL BLOOD SPECIMENOrdering Facility: [facility] Address: [address] [place] [address] Performed By: #### A LLBG ####[facility] LABIA [id number] [place] [address] [place] O2 THERAPY NC = Nasal Cannula Normal [facility] Comment on above: Order Comment: Speci men Type: ARTERIAL BLOOD SPECIMENOrdering Facility: [facility] Address: [address] [place] [address] Performed By: #### A LLBG ####[facility] LABIA [id number] [place] [address] [place] Oxygen (Bld) [Partial pressure] 121 mm Hg High 85-95 [facility] Comment on above: Order Comment: Speci men Type: ARTERIAL BLOOD SPECIMENOrdering Facility: [facility] Address: [address] [place] [address] Performed By: #### A LLBG ####[facility] LABCLIA [id number] [place] [address] [place] Oxyhemoglobin (BldA) [Mass fraction] 96 % Normal 95-98 [facility] Comment on above: Order Comment: Speci men Type: ARTERIAL BLOOD SPECIMENOrdering Facility: [facility] Address: [address] [place] [address] Performed By: #### A LLBG ####[facility] LABCLIA [id number] [place] [address] [place] pH (Bld) 7.35 [pH] Normal 7.35-7.45 [facility] Comment on above: Order Comment: Speci men Type: ARTERIAL BLOOD SPECIMENOrdering Facility: [facility] Address: [address] [place] [address] Performed By: #### A LLBG ####[facility] LABCLIA [id number] [place] [address] [place] Potassium [Moles/Vol] 4.5 mmol/L Normal 3.5-5.0 [facility] Comment on above: Order Comment: Speci men Type: ARTERIAL BLOOD SPECIMENOrdering Facility: [facility] Address: [address] [place] [address] Performed By: #### A LLBG ####[facility] LABCLIA [id number] [place] [address] [place] Sodium [Moles/Vol] 132 mmol/L Low 136-144 [facility] Comment on above: Order Comment: Speci men Type: ARTERIAL BLOOD SPECIMENOrdering Facility: [facility] Address: [address] [place] [address] Performed By: #### A LLBG ####[facility] LABCLIA [id number] [place] [address] [place] CASE MGT INIT ASSESon 2024 CASE MGT INIT ASSES Normal [facility] CBC panel Auto (Bld)on 01-27 Erythrocyte distribution width (RBC) [Ratio] 11.7 % Normal 11.5-15.0 [facility] Comment on above: Order Comment: Speci men Type: BLOOD SPECIMENOrdering Facility: [facility] Address: [address] [place] [address] Performed By: #### 5 8410-2 ####[facility] LABCLIA [id number] [place] [address] [place] Hematocrit (Bld) [Volume fraction] 34.2 % Low 36.0-46.0 [facility] Comment on above: Order Comment: Speci men Type: BLOOD SPECIMENOrdering Facility: [facility] Address: [address] [place] [address] Performed By: #### 5 8410-2 ####[facility] LABCLIA [id number] [place] [address] [place] Hemoglobin (Bld) [Mass/Vol] 11.7 g/dL Normal 11.5-15.5 [facility] Comment on above: Order Comment: Speci men Type: BLOOD SPECIMENOrdering Facility: [facility] Address: [address] [place] [address] Performed By: #### 5 8410-2 ####[facility] LABCLIA [id number] [place] [address] [place] MCH (RBC) [Entitic mass] 30.1 pg Normal 26.0-34.0 [facility] Comment on above: Order Comment: Speci men Type: BLOOD SPECIMENOrdering Facility: [facility] Address: [address] [place] [address] Performed By: #### 5 8410-2 ####[facility] LABCLIA [id number] [place] [address] [place] MCHC (RBC) [Mass/Vol] 34.2 g/dL Normal 30.5-36.0 [facility] Comment on above: Order Comment: Speci men Type: BLOOD SPECIMENOrdering Facility: [facility] Address: [address] [place] [address] Performed By: #### 5 8410-2 ####[facility] LABCLIA [id number] [place] [address] [place] MCV (RBC) [Entitic vol] 87.9 fL Normal 80.0-100.0 [facility] Comment on above: Order Comment: Speci men Type: BLOOD SPECIMENOrdering Facility: [facility] Address: [address] [place] [address] Performed By: #### 5 8410-2 ####[facility] LABCLIA [id number] [place] [address] [place] Nucleated RBC (Bld) [#/Vol] 10*3/uL Normal <0.01 [facility] Comment on above: Order Comment: Speci men Type: BLOOD SPECIMENOrdering Facility: [facility] Address: [address] [place] [address] Performed By: #### 5 8410-2 ####[facility] LABCLIA [id number] [place] [address] [place] Platelet mean volume (Bld) [Entitic vol] 8.7 fL Low 9.0-12.7 [facility] Comment on above: Order Comment: Speci men Type: BLOOD SPECIMENOrdering Facility: [facility] Address: [address] [place] [address] Performed By: #### 5 8410-2 ####[facility] LABCLIA [id number] [place] [address] [place] Platelets (Bld) [#/Vol] 148 10*3/uL Low 150-400 [facility] Comment on above: Order Comment: Speci men Type: BLOOD SPECIMENOrdering Facility: [facility] Address: [address] [place] [address] Performed By: #### 5 8410-2 ####[facility] LABCLIA [id number] [place] [address] [place] RBC (Bld) [#/Vol] 3.89 10*6/uL Low 3.90-5.20 [facility] Comment on above: Order Comment: Speci men Type: BLOOD SPECIMENOrdering Facility: [facility] Address: [address] [place] [address] Performed By: #### 5 8410-2 ####[facility] LABCLIA [id number] [place] [address] [place] WBC (Bld) [#/Vol] 13.90 10*3/uL High 3.70-11.00 [facility] Comment on above: Order Comment: Speci men Type: BLOOD SPECIMENOrdering Facility: [facility] Address: [address] [place] [address] Performed By: #### 5 8410-2 ####[facility] LABCLIA [id number] [place] [address] [place] Comprehensive metabolic 2000 panelon 01-27-2025 Albumin [Mass/Vol] 3.8 g/dL Low 3.9-4.9 [facility] Comment on above: Order Comment: Speci men Type: BLOOD SPECIMENOrdering Facility: [facility] Address: [address] [place] [address] Performed By: #### 2 4323-8, HSTNT, , 2776- ####[facility] LABCLIA [id number] [place] [address] [place] ALP [Catalytic activity/Vol] 33 U/L Low 34-123 [facility] Comment on above: Order Comment: Speci men Type: BLOOD SPECIMENOrdering Facility: [facility] Address: [address] [place] [address] Performed By: #### 2 4323-8, HSTNT, , 2776- ####[facility] LABCLIA [id number] [address] [place] ALT [Catalytic activity/Vol] 13 U/L Normal 7-38 [facility] Comment on above: Order Comment: Speci men Type: BLOOD SPECIMENOrdering Facility: [facility] Address: [address] [place] [address] Performed By: #### 2 4323-8, HSTNT, , 2776-1 ####[facility] LABCLIA [id number] [place] [id number] [place] Anion gap [Moles/Vol] 10 mmol/L Normal 8-15 [facility] Comment on above: Order Comment: Speci men Type: BLOOD SPECIMENOrdering Facility: [facility] Address: [address] [place] [address] Performed By: #### 2 4323-8, HSTNT, , 2776-03 ####[facility] LABCLIA [id number] [place] [id number] [place] AST [Catalytic activity/Vol] 28 U/L Normal 13-35 [facility] Comment on above: Order Comment: Speci men Type: BLOOD SPECIMENOrdering Facility: [facility] Address: [address] [place] [address] Performed By: #### 2 4323-8, HSTNT, , 2776-03 ####[facility] LABCLIA [id number] [place] [id number] [place] Bilirubin [Mass/Vol] 0.8 mg/dL Normal 0.2-1.3 [facility] Comment on above: Order Comment: Speci men Type: BLOOD SPECIMENOrdering Facility: [facility] Address: [address] [place] [address] Performed By: #### 2 4323-8, HSTNT, , 2776-03 ####[facility] LABCLIA [id number] [place] [address] [place] Calcium [Mass/Vol] 8.4 mg/dL Low 8.5-10.2 [facility] Comment on above: Order Comment: Speci men Type: BLOOD SPECIMENOrdering Facility: [facility] Address: [address] [place] [address] Performed By: #### 2 4323-8, HSTNT, , 2776-03 ####[facility] LABCLIA [id number] [place] [id number] [place] Chloride [Moles/Vol] 107 mmol/L Normal 98-107 [facility] Comment on above: Order Comment: Speci men Type: BLOOD SPECIMENOrdering Facility: [facility] Address: [address] [place] [address] Performed By: #### 2 4323-8, HSTNT, 25241-82776-03 ####[facility] LABCLIA [id number] [place] [address] [place] CO2 [Moles/Vol] 19 mmol/L Low 22-30 [facility] Comment on above: Order Comment: Speci men Type: BLOOD SPECIMENOrdering Facility: [facility] Address: [address] [place] [address] Performed By: #### 2 4323-8, HSTNT, , 2776-03 ####[facility] LABCLIA [id number] [place] [address] [place] Creatinine [Mass/Vol] 0.62 mg/dL Normal 0.58-0.96 [facility] Comment on above: Order Comment: Speci men Type: BLOOD SPECIMENOrdering Facility: [facility] Address: [address] [place] [address] Performed By: #### 2 4323-8, HSTNT, , 2776-03 ####[facility] [id number] [place] [address] [place] eGFRcr SerPlBld CKD-EPI 2020 113 mL/min/1.73m??? Normal >=60 [facility] Comment on above: Order Comment: Speci men Type: BLOOD SPECIMENOrdering Facility: [facility] Address: [address] [place] [address] Result Comment: Hilda mated Glomerular Filtration Rate (eGFR) is calculated using the 2020 CKD-EPI creatinine equation. This equation utilizes serum creatinine, sex, and age as parameters. The creatinine assay has traceable calibration to isotope dilution-mass spectrometry. Refer to KDIGO guidelines for clinical interpretation. In patients with unstable renal function, e.g. those with acute kidney injury, the eGFR may not accurately reflect actual GFR. Performed By: #### 2 4323-8, HSTNT, , 2776-03 ####[facility] LABCLIA [id number] [place] [id number] [place] Glucose [Mass/Vol] 168 mg/dL High 74-99 [facility] Comment on above: Order Comment: Speci men Type: BLOOD SPECIMENOrdering Facility: [facility] Address: [address] [place] [address] Result Comment: The [place] [employer] (ADA) provides guidance for cutoff values for fasting glucose and random glucose. The ADA defines fasting as no caloric intake for at least 8 hours. Fasting plasma glucose results between 100 to 125 mg/dL indicate increased risk for diabetes (prediabetes).Fasting plasma glucose results greater than or equal to 126 mg/dL meet the criteria for diagnosis of diabetes. In the absence of unequivocal hyperglycemia, results should be confirmed by repeat testing. In a patient with classic symptoms of hyperglycemia or hyperglycemic crisis, random plasma glucose results greater than or equal to 200 mg/dL meet the criteria for diagnosis of diabetes.Reference: Standards of Medical Care in Diabetes 2016, [place] [employer]. Diabetes Care. 2016.39(Suppl 1). Performed By: #### 2 4323-8, HSTNT, , 2776-03 ####[facility] LABCLIA [id number] [place] [address] [place] Potassium [Moles/Vol] 4.6 mmol/L Normal 3.7-5.1 [facility] Comment on above: Order Comment: Amanda heller Type: BLOOD SPECIMENOrdering Facility: [facility] Address: [address] [place] [address] Performed By: #### 2 4323-8, HSTNT, , 2776-03 ####[facility] LABCLIA [id number] [place] [address] [place] Protein [Mass/Vol] 5.8 g/dL Low 6.3-8.0 [facility] Comment on above: Order Comment: Amanda heller Type: BLOOD SPECIMENOrdering Facility: [facility] Address: [address] [place] [address] Performed By: #### 2 4323-8, HSTNT, , 2776-03 ####[facility] LABCLIA [id number] [place] [address] [place] Sodium [Moles/Vol] 136 mmol/L Normal 136-144 [facility] Comment on above: Order Comment: Speci men Type: BLOOD SPECIMENOrdering Facility: [facility] Address: [address] [place] [address] Performed By: #### 2 4323-8, HSTNT, 06221-2, 2776-1 ####[facility] LABCLIA [id number] [place] [address] [place] Urea nitrogen [Mass/Vol] 11 mg/dL Normal 7-21 [facility] Comment on above: Order Comment: Speci men Type: BLOOD SPECIMENOrdering Facility: [facility] Address: [address] [place] [address] Performed By: #### 2 4323-8, HSTNT, , 2776- ####[facility] LABCLIA [id number] [place] [address] [place] HIGH SENSITIVITY TROPONIN To n 01-27-2025 Troponin T.cardiac High sensitivity method [Mass/Vol] 153 ng/L High <12 [facility] Comment on above: Order Comment: Speci men Type: BLOOD SPECIMENOrdering Facility: [facility] Address: [address] [place] [address] Performed By: #### 2 4323-8, HSTNT, 51749-5, 2776- ####[facility] LABCLIA [id number] [place] [address] [place] Magnesium SerPl-mCncon 01-27 Magnesium [Mass/Vol] 2.1 mg/dL Normal 1.7-2.3 [facility] Comment on above: Order Comment: Speci men Type: BLOOD SPECIMENOrdering Facility: [facility] Address: [address] [place] [address] Performed By: #### 2 4323-8, HSTNT, 82786-9, 2776- ####[facility] LABCLIA [id number] [place] [address] [place] Phosphate SerPl-mCncon 01-27 Phosphate [Mass/Vol] 3.2 mg/dL Normal 2.7-4.8 [facility] Comment on above: Order Comment: Speci men Type: BLOOD SPECIMENOrdering Facility: [facility] Address: [address] [place] [address] Performed By: #### 2 4323-8, HSTNT, 72835-4, 2777-1 ####[facility] LABCLIA [id number] [place] [address] [place] XR CHEST 1V FRONTAL PORTon 1 03-29-2024 XR CHEST 1V FRONTAL PORT Normal [facility] XR CHEST 1V FRONTAL PORT Normal [facility] XR CHEST 1V FRONTAL PORT Normal [facility] ANES POSTPROC EVALon 025 ANES POSTPROC EVAL Normal [facility] ANES PRE-OPon 01-26-2025 ANES PRE-OP Normal [facility] ARTERIAL BLOOD GASESon 01-26 Base deficit (BldA) [Moles/Vol] -3 mmol/L Low -2-0 [facility] Comment on above: Order Comment: Speci men Type: ARTERIAL BLOOD SPECIMENOrdering Facility: [facility] Address: [address] [place] [address] Performed By: #### A LLBG ####[facility] LABCLIA [id number] [place] [address] [place] Body temperature 98.6 [degF] Normal [facility] Comment on above: Order Comment: Speci men Type: ARTERIAL BLOOD SPECIMENOrdering Facility: [facility] Address: [address] [place] [address] Performed By: #### A LLBG ####[facility] LABCLIA [id number] [place] [address] [place] Calcium.ionized (Bld) [Mass/Vol] 1.16 mmol/L Normal 1.08-1.30 [facility] Comment on above: Order Comment: Speci men Type: ARTERIAL BLOOD SPECIMENOrdering Facility: [facility] Address: [address] [place] [address] Performed By: #### A LLBG ####[facility] LABCLIA [id number] [place] [address] [place] Calcium.ionized adjusted to pH 7.4 (BldA) [Moles/Vol] 1.14 mmol/L Normal 1.08-1.30 [facility] Comment on above: Order Comment: Speci men Type: ARTERIAL BLOOD SPECIMENOrdering Facility: [facility] Address: [address] [place] [address] Performed By: #### A LLBG ####[facility] LABIA [id number] [place] [address] [place] Carboxyhemoglobin (BldA) [Mass fraction] 1.5 % Normal 0.0-2.0 [facility] Comment on above: Order Comment: Speci men Type: ARTERIAL BLOOD SPECIMENOrdering Facility: [facility] Address: [address] [place] [address] Result Comment: Carb oxyhemoglobin Reference Range for Smokers: 2.0-8.0% Performed By: #### A LLBG ####[facility] LABIA [id number] [place] [address] [place] CO2 (Bld) [Partial pressure] 39 mm Hg Normal 36-46 [facility] Comment on above: Order Comment: Speci men Type: ARTERIAL BLOOD SPECIMENOrdering Facility: [facility] Address: [address] [place] [address] Performed By: #### A LLBG ####[facility] LABCLIA [id number] [place] [address] [place] Glucose [Mass/Vol] 144 mg/dL High 60-105 [facility] Comment on above: Order Comment: Speci men Type: ARTERIAL BLOOD SPECIMENOrdering Facility: [facility] Address: [address] [place] [address] Performed By: #### A LLBG ####[facility] LABCLIA [id number] [place] [address] [place] HCO3 (Bld) [Moles/Vol] 21 mmol/L Low 22-26 [facility] Comment on above: Order Comment: Speci men Type: ARTERIAL BLOOD SPECIMENOrdering Facility: [facility] Address: [address] [place] [address] Performed By: #### A LLBG ####[facility] LABCLIA [id number] [place] [address] [place] Hematocrit (Bld) [Volume fraction] 39.0 % Normal 36.0-46.0 [facility] Comment on above: Order Comment: Speci men Type: ARTERIAL BLOOD SPECIMENOrdering Facility: [facility] Address: [address] [place] [address] Performed By: #### A LLBG ####[facility] LABCLIA [id number] [place] [address] [place] Hemoglobin (Bld) [Mass/Vol] 12.7 g/dL Normal 11.5-15.5 [facility] Comment on above: Order Comment: Speci men Type: ARTERIAL BLOOD SPECIMENOrdering Facility: [facility] Address: [address] [place] [address] Performed By: #### A LLBG ####[facility] LABCLIA [id number] [place] [address] [place] Lactate [Moles/Vol] 1.8 mmol/L Normal 0.5-2.2 [facility] Comment on above: Order Comment: Speci men Type: ARTERIAL BLOOD SPECIMENOrdering Facility: [facility] Address: [address] [place] [address] Performed By: #### A LLBG ####[facility] LABCLIA [id number] [place] [address] [place] LITERS 2 Liters/min Normal [facility] Comment on above: Order Comment: Speci men Type: ARTERIAL BLOOD SPECIMENOrdering Facility: [facility] Address: [address] [place] [address] Performed By: #### A LLBG ####[facility] LABCLIA [id number] [place] [address] [place] Methemoglobin (Bld) [Mass fraction] 1.1 % Normal 0.0-1.5 [facility] Comment on above: Order Comment: Speci men Type: ARTERIAL BLOOD SPECIMENOrdering Facility: [facility] Address: [address] [place] [address] Performed By: #### A LLBG ####[facility] LABCLIA [id number] [place] [address] [place] O2 THERAPY NC = Nasal Cannula Normal [facility] Comment on above: Order Comment: Speci men Type: ARTERIAL BLOOD SPECIMENOrdering Facility: [facility] Address: [address] [place] [address] Performed By: #### A LLBG ####[facility] LABIA [id number] [place] [address] [place] Oxygen (Bld) [Partial pressure] 121 mm Hg High 85-95 [facility] Comment on above: Order Comment: Speci men Type: ARTERIAL BLOOD SPECIMENOrdering Facility: [facility] Address: [address] [place] [address] Performed By: #### A LLBG ####[facility] LABIA [id number] [place] [address] [place] Oxyhemoglobin (BldA) [Mass fraction] 96 % Normal 95-98 [facility] Comment on above: Order Comment: Speci men Type: ARTERIAL BLOOD SPECIMENOrdering Facility: [facility] Address: [address] [place] [address] Performed By: #### A LLBG ####[facility] LABCLIA [id number] [place] [id number] [place] pH (Bld) 7.35 [pH] Normal 7.35-7.45 [facility] Comment on above: Order Comment: Speci men Type: ARTERIAL BLOOD SPECIMENOrdering Facility: [facility] Address: [address] [place] [address] Performed By: #### A LLBG ####[facility] LABCLIA [id number] [place] [address] [place] Potassium [Moles/Vol] 4.7 mmol/L Normal 3.5-5.0 [facility] Comment on above: Order Comment: Speci men Type: ARTERIAL BLOOD SPECIMENOrdering Facility: [facility] Address: [address] [place] [address] Performed By: #### A LLBG ####[facility] LABCLIA [id number] [place] [address] [place] Sodium [Moles/Vol] 135 mmol/L Low 136-144 [facility] Comment on above: Order Comment: Speci men Type: ARTERIAL BLOOD SPECIMENOrdering Facility: [facility] Address: [address] [place] [address] Performed By: #### A LLBG ####[facility] LABCLIA [id number] [place] [address] [place] Base deficit (BldA) [Moles/Vol] -3 mmol/L Low -2-0 [facility] Comment on above: Order Comment: Speci men Type: ARTERIAL BLOOD SPECIMENOrdering Facility: [facility] Address: [address] [place] [address] Performed By: #### A LLBG ####[facility] LABCLIA [id number] [place] [address] [place] Body temperature 98.6 [degF] Normal [facility] Comment on above: Order Comment: Speci men Type: ARTERIAL BLOOD SPECIMENOrdering Facility: [facility] Address: [address] [place] [address] Performed By: #### A LLBG ####[facility] LABCLIA [id number] [place] [address] [place] Calcium.ionized (Bld) [Mass/Vol] 1.18 mmol/L Normal 1.08-1.30 [facility] Comment on above: Order Comment: Speci men Type: ARTERIAL BLOOD SPECIMENOrdering Facility: [facility] Address: [address] [place] [address] Performed By: #### A LLBG ####[facility] LABCLIA [id number] [place] [address] [place] Calcium.ionized adjusted to pH 7.4 (BldA) [Moles/Vol] 1.16 mmol/L Normal 1.08-1.30 [facility] Comment on above: Order Comment: Speci men Type: ARTERIAL BLOOD SPECIMENOrdering Facility: [facility] Address: [address] [place] [address] Performed By: #### A LLBG ####[facility] LABIA [id number] [place] [address] [place] Carboxyhemoglobin (BldA) [Mass fraction] 1.5 % Normal 0.0-2.0 [facility] Comment on above: Order Comment: Speci men Type: ARTERIAL BLOOD SPECIMENOrdering Facility: [facility] Address: [address] [place] [address] Result Comment: Carb oxyhemoglobin Reference Range for Smokers: 2.0-8.0% Performed By: #### A LLBG ####[facility] LABIA [id number] [place] [address] [place] CO2 (Bld) [Partial pressure] 38 mm Hg Normal 36-46 [facility] Comment on above: Order Comment: Speci men Type: ARTERIAL BLOOD SPECIMENOrdering Facility: [facility] Address: [address] [place] [address] Performed By: #### A LLBG ####[facility] LABCLIA [id number] [place] [address] [place] Glucose [Mass/Vol] 129 mg/dL High 60-105 [facility] Comment on above: Order Comment: Speci men Type: ARTERIAL BLOOD SPECIMENOrdering Facility: [facility] Address: [address] [place] [address] Performed By: #### A LLBG ####[facility] LABCLIA [id number] [place] [address] [place] HCO3 (Bld) [Moles/Vol] 21 mmol/L Low 22-26 [facility] Comment on above: Order Comment: Speci men Type: ARTERIAL BLOOD SPECIMENOrdering Facility: [facility] Address: [address] [place] [address] Performed By: #### A LLBG ####[facility] LABCLIA [id number] [place] [address] [place] Hematocrit (Bld) [Volume fraction] 37.0 % Normal 36.0-46.0 [facility] Comment on above: Order Comment: Speci men Type: ARTERIAL BLOOD SPECIMENOrdering Facility: [facility] Address: [address] [place] [address] Performed By: #### A LLBG ####[facility] LABCLIA [id number] [place] [address] [place] Hemoglobin (Bld) [Mass/Vol] 12.0 g/dL Normal 11.5-15.5 [facility] Comment on above: Order Comment: Speci men Type: ARTERIAL BLOOD SPECIMENOrdering Facility: [facility] Address: [address] [place] [address] Performed By: #### A LLBG ####[facility] LABCLIA [id number] [place] [address] [place] Lactate [Moles/Vol] 0.9 mmol/L Normal 0.5-2.2 [facility] Comment on above: Order Comment: Speci men Type: ARTERIAL BLOOD SPECIMENOrdering Facility: [facility] Address: [address] [place] [address] Performed By: #### A LLBG ####[facility] LABCLIA [id number] [place] [address] [place] LITERS 2 Liters/min Normal [facility] Comment on above: Order Comment: Speci men Type: ARTERIAL BLOOD SPECIMENOrdering Facility: [facility] Address: [address] [place] [address] Performed By: #### A LLBG ####[facility] LABCLIA [id number] [place] [address] [place] Methemoglobin (Bld) [Mass fraction] 0.9 % Normal 0.0-1.5 [facility] Comment on above: Order Comment: Speci men Type: ARTERIAL BLOOD SPECIMENOrdering Facility: [facility] Address: [address] [place] [address] Performed By: #### A LLBG ####[facility] LABCLIA [id number] [place] [address] [place] O2 THERAPY NC = Nasal Cannula Normal [facility] Comment on above: Order Comment: Speci men Type: ARTERIAL BLOOD SPECIMENOrdering Facility: [facility] Address: [address] [place] [address] Performed By: #### A LLBG ####[facility] LABCLIA [id number] [place] [address] [place] Oxygen (Bld) [Partial pressure] 131 mm Hg High 85-95 [facility] Comment on above: Order Comment: Speci men Type: ARTERIAL BLOOD SPECIMENOrdering Facility: [facility] Address: [address] [place] [address] Performed By: #### A LLBG ####[facility] LABCLIA [id number] [place] [address] [place] Oxyhemoglobin (BldA) [Mass fraction] 97 % Normal 95-98 [facility] Comment on above: Order Comment: Speci men Type: ARTERIAL BLOOD SPECIMENOrdering Facility: [facility] Address: [address] [place] [address] Performed By: #### A LLBG ####[facility] LABCLIA [id number] [place] [id number] [place] pH (Bld) 7.37 [pH] Normal 7.35-7.45 [facility] Comment on above: Order Comment: Speci men Type: ARTERIAL BLOOD SPECIMENOrdering Facility: [facility] Address: [address] [place] [address] Performed By: #### A LLBG ####[facility] LABCLIA [id number] [place] [address] [place] Potassium [Moles/Vol] 3.9 mmol/L Normal 3.5-5.0 [facility] Comment on above: Order Comment: Speci men Type: ARTERIAL BLOOD SPECIMENOrdering Facility: [facility] Address: [address] [place] [address] Performed By: #### A LLBG ####[facility] LABCLIA [id number] [place] [address] [place] Sodium [Moles/Vol] 137 mmol/L Normal 136-144 [facility] Comment on above: Order Comment: Speci men Type: ARTERIAL BLOOD SPECIMENOrdering Facility: [facility] Address: [address] [place] [address] Performed By: #### A LLBG ####[facility] LABCLIA [id number] [place] [address] [place] Base deficit (BldA) [Moles/Vol] -3 mmol/L Low -2-0 [facility] Comment on above: Order Comment: Speci men Type: ARTERIAL BLOOD SPECIMENOrdering Facility: [facility] Address: [address] [place] [address] Performed By: #### A LLBG ####[facility] LABCLIA [id number] [place] [address] [place] Body temperature 98.6 [degF] Normal [facility] Comment on above: Order Comment: Speci men Type: ARTERIAL BLOOD SPECIMENOrdering Facility: [facility] Address: [address] [place] [address] Performed By: #### A LLBG ####[facility] LABCLIA [id number] [place] [address] [place] Calcium.ionized (Bld) [Mass/Vol] 1.16 mmol/L Normal 1.08-1.30 [facility] Comment on above: Order Comment: Speci men Type: ARTERIAL BLOOD SPECIMENOrdering Facility: [facility] Address: [address] [place] [address] Performed By: #### A LLBG ####[facility] LABCLIA [id number] [place] [address] [place] Calcium.ionized adjusted to pH 7.4 (BldA) [Moles/Vol] 1.17 mmol/L Normal 1.08-1.30 [facility] Comment on above: Order Comment: Speci men Type: ARTERIAL BLOOD SPECIMENOrdering Facility: [facility] Address: [address] [place] [address] Performed By: #### A LLBG ####[facility] LABCLIA [id number] [place] [address] [place] Carboxyhemoglobin (BldA) [Mass fraction] 1.1 % Normal 0.0-2.0 [facility] Comment on above: Order Comment: Speci men Type: ARTERIAL BLOOD SPECIMENOrdering Facility: [facility] Address: [address] [place] [address] Result Comment: Carb oxyhemoglobin Reference Range for Smokers: 2.0-8.0% Performed By: #### A LLBG ####[facility] LABCLIA [id number] [place] [address] [place] CO2 (Bld) [Partial pressure] 30 mm Hg Low 36-46 [facility] Comment on above: Order Comment: Speci men Type: ARTERIAL BLOOD SPECIMENOrdering Facility: [facility] Address: [address] [place] [address] Performed By: #### A LLBG ####[facility] LABCLIA [id number] [place] [address] [place] FIO2 40 % Normal [facility] Comment on above: Order Comment: Speci men Type: ARTERIAL BLOOD SPECIMENOrdering Facility: [facility] Address: [address], [place] [address] Performed By: #### A LLBG ####[facility] LABCLIA [id number] [place] [address] [place] Glucose [Mass/Vol] 132 mg/dL High 60-105 [facility] Comment on above: Order Comment: Speci men Type: ARTERIAL BLOOD SPECIMENOrdering Facility: [facility] Address: [address] [place] [address] Performed By: #### A LLBG ####[facility] LABCLIA [id number] [place] [address] [place] HCO3 (Bld) [Moles/Vol] 20 mmol/L Low 22-26 [facility] Comment on above: Order Comment: Speci men Type: ARTERIAL BLOOD SPECIMENOrdering Facility: [facility] Address: [address] [place] [address] Performed By: #### A LLBG ####[facility] LABCLIA [id number] [place] [address] [place] Hematocrit (Bld) [Volume fraction] 37.2 % Normal 36.0-46.0 [facility] Comment on above: Order Comment: Speci men Type: ARTERIAL BLOOD SPECIMENOrdering Facility: [facility] Address: [address] [place] [address] Performed By: #### A LLBG ####[facility] LABCLIA [id number] [place] [address] [place] Hemoglobin (Bld) [Mass/Vol] 12.1 g/dL Normal 11.5-15.5 [facility] Comment on above: Order Comment: Speci men Type: ARTERIAL BLOOD SPECIMENOrdering Facility: [facility] Address: [address] [place] [address] Performed By: #### A LLBG ####[facility] LABCLIA [id number] [place] [address] [place] Lactate [Moles/Vol] 1.5 mmol/L Normal 0.5-2.2 [facility] Comment on above: Order Comment: Speci men Type: ARTERIAL BLOOD SPECIMENOrdering Facility: [facility] Address: [address] [place] [address] Performed By: #### A LLBG ####[facility] LABCLIA [id number] [place] [address] [place] Methemoglobin (Bld) [Mass fraction] 0.6 % Normal 0.0-1.5 [facility] Comment on above: Order Comment: Speci men Type: ARTERIAL BLOOD SPECIMENOrdering Facility: [facility] Address: [address] [place] [address] Performed By: #### A LLBG ####[facility] LABCLIA [id number] [place] [address] [place] O2 THERAPY VENT=Ventilator Normal [facility] Comment on above: Order Comment: Speci men Type: ARTERIAL BLOOD SPECIMENOrdering Facility: [facility] Address: [address] [place] [address] Result Comment: pres sure support Performed By: #### A LLBG ####[facility] LABCLIA [id number] [place] [address] [place] Oxygen (Bld) [Partial pressure] 199 mm Hg High 85-95 [facility] Comment on above: Order Comment: Speci men Type: ARTERIAL BLOOD SPECIMENOrdering Facility: [facility] Address: [address] [place] [address] Performed By: #### A LLBG ####[facility] LABCLIA [id number] [place] [address] [place] Oxyhemoglobin (BldA) [Mass fraction] 98 % Normal 95-98 [facility] Comment on above: Order Comment: Speci men Type: ARTERIAL BLOOD SPECIMENOrdering Facility: [facility] Address: [address] [place] [address] Performed By: #### A LLBG ####[facility] LABCLIA [id number] [place] [id number] [place] pH (Bld) 7.43 [pH] Normal 7.35-7.45 [facility] Comment on above: Order Comment: Speci men Type: ARTERIAL BLOOD SPECIMENOrdering Facility: [facility] Address: [address] [place] [address] Performed By: #### A LLBG ####[facility] LABCLIA [id number] [place] [address] [place] [place] PO2 / FIO2 RATIO 498 mmHg Normal >300 [facility] Comment on above: Order Comment: Speci men Type: ARTERIAL BLOOD SPECIMENOrdering Facility: [facility] Address: [address] [place] [address] Performed By: #### A LLBG ####[facility] LABCLIA [id number] [place] [address] [place] Potassium [Moles/Vol] 3.8 mmol/L Normal 3.5-5.0 [facility] Comment on above: Order Comment: Speci men Type: ARTERIAL BLOOD SPECIMENOrdering Facility: [facility] Address: [address] [place] [address] Performed By: #### A LLBG ####[facility] LABCLIA [id number] [place] [address] [place] Sodium [Moles/Vol] 136 mmol/L Normal 136-144 [facility] Comment on above: Order Comment: Speci men Type: ARTERIAL BLOOD SPECIMENOrdering Facility: [facility] Address: [address] [place] [address] Performed By: #### A LLBG ####[facility] LABCLIA [id number] [place] [address] [place] Base deficit (BldA) [Moles/Vol] -4 mmol/L Low -2-0 [facility] Comment on above: Order Comment: Speci men Type: ARTERIAL BLOOD SPECIMENOrdering Facility: [facility] Address: [address] [place] [address] Performed By: #### A LLBG ####[facility] LABCLIA [id number] [place] [address] [place] Body temperature 98.6 [degF] Normal [facility] Comment on above: Order Comment: Speci men Type: ARTERIAL BLOOD SPECIMENOrdering Facility: [facility] Address: [address] [place] [address] Performed By: #### A LLBG ####[facility] LABIA [id number] [place] [address] [place] Calcium.ionized (Bld) [Mass/Vol] 1.18 mmol/L Normal 1.08-1.30 [facility] Comment on above: Order Comment: Speci men Type: ARTERIAL BLOOD SPECIMENOrdering Facility: [facility] Address: [address] [place] [address] Performed By: #### A LLBG ####[facility] [id number] [place] [address] [place] Calcium.ionized adjusted to pH 7.4 (BldA) [Moles/Vol] 1.14 mmol/L Normal 1.08-1.30 [facility] Comment on above: Order Comment: Speci men Type: ARTERIAL BLOOD SPECIMENOrdering Facility: [facility] Address: [address] [place] [address] Performed By: #### A LLBG ####[facility] LABIA [id number] [address] [place] Carboxyhemoglobin (BldA) [Mass fraction] 1.2 % Normal 0.0-2.0 [facility] Comment on above: Order Comment: Speci men Type: ARTERIAL BLOOD SPECIMENOrdering Facility: [facility] Address: [address] [place] [address] Result Comment: Carb oxyhemoglobin Reference Range for Smokers: 2.0-8.0% Performed By: #### A LLBG ####[facility] LABIA [id number] [place] [address] [place] CO2 (Bld) [Partial pressure] 39 mm Hg Normal 36-46 [facility] Comment on above: Order Comment: Speci men Type: ARTERIAL BLOOD SPECIMENOrdering Facility: [facility] Address: [address] [place] [address] Performed By: #### A LLBG ####[facility] LABCLIA [id number] [place] [address] [place] FIO2 40 % Normal [facility] Comment on above: Order Comment: Speci men Type: ARTERIAL BLOOD SPECIMENOrdering Facility: [facility] Address: [address] [place] [address] Performed By: #### A LLBG ####[facility] LABCLIA [id number] [place] [address] [place] Glucose [Mass/Vol] 140 mg/dL High 60-105 [facility] Comment on above: Order Comment: Speci men Type: ARTERIAL BLOOD SPECIMENOrdering Facility: [facility] Address: [address] [place] [address] Performed By: #### A LLBG ####[facility] LABCLIA [id number] [place] [address] [place] HCO3 (Bld) [Moles/Vol] 21 mmol/L Low 22-26 [facility] Comment on above: Order Comment: Speci men Type: ARTERIAL BLOOD SPECIMENOrdering Facility: [facility] Address: [address] [place] [address] Performed By: #### A LLBG ####[facility] LABCLIA [id number] [place] [address] [place] Hematocrit (Bld) [Volume fraction] 37.3 % Normal 36.0-46.0 [facility] Comment on above: Order Comment: Speci men Type: ARTERIAL BLOOD SPECIMENOrdering Facility: [facility] Address: [address] [place] [address] Performed By: #### A LLBG ####[facility] LABCLIA [id number] [place] [address] [place] Hemoglobin (Bld) [Mass/Vol] 12.1 g/dL Normal 11.5-15.5 [facility] Comment on above: Order Comment: Speci men Type: ARTERIAL BLOOD SPECIMENOrdering Facility: [facility] Address: [address] [place] [address] Performed By: #### A LLBG ####[facility] LABCLIA [id number] [place] [address] [place] Lactate [Moles/Vol] 0.9 mmol/L Normal 0.5-2.2 [facility] Comment on above: Order Comment: Speci men Type: ARTERIAL BLOOD SPECIMENOrdering Facility: [facility] Address: [address] [place] [address] Performed By: #### A LLBG ####[facility] LABCLIA [id number] [place] [address] [place] Methemoglobin (Bld) [Mass fraction] 1.0 % Normal 0.0-1.5 [facility] Comment on above: Order Comment: Speci men Type: ARTERIAL BLOOD SPECIMENOrdering Facility: [facility] Address: [address] [place] [address] Performed By: #### A LLBG ####[facility] LABCLIA [id number] [place] [address] [place] O2 THERAPY VENT=Ventilator Normal [facility] Comment on above: Order Comment: Speci men Type: ARTERIAL BLOOD SPECIMENOrdering Facility: [facility] Address: [address] [place] [address] Performed By: #### A LLBG ####[facility] LABCLIA [id number] [place] [address] [place] Oxygen (Bld) [Partial pressure] 148 mm Hg High 85-95 [facility] Comment on above: Order Comment: Speci men Type: ARTERIAL BLOOD SPECIMENOrdering Facility: [facility] Address: [address] [place] [address] Performed By: #### A LLBG ####[facility] LABCLIA [id number] [place] [address] [place] Oxyhemoglobin (BldA) [Mass fraction] 97 % Normal 95-98 [facility] Comment on above: Order Comment: Speci men Type: ARTERIAL BLOOD SPECIMENOrdering Facility: [facility] Address: [address] [place] [address] Performed By: #### A LLBG ####[facility] LABCLIA [id number] [place] [address] [place] pH (Bld) 7.35 [pH] Normal 7.35-7.45 [facility] Comment on above: Order Comment: Speci men Type: ARTERIAL BLOOD SPECIMENOrdering Facility: [facility] Address: [address] [place] [address] Performed By: #### A LLBG ####[facility] LABCLIA [id number] [place] [address] [place] PO2 / FIO2 RATIO 370 mmHg Normal >300 [facility] Comment on above: Order Comment: Speci men Type: ARTERIAL BLOOD SPECIMENOrdering Facility: [facility] Address: [address] [place] [address] Performed By: #### A LLBG ####[facility] LABCLIA [id number] [place] [address] [place] Potassium [Moles/Vol] 4.4 mmol/L Normal 3.7-5.1 [facility] Comment on above: Order Comment: Speci men Type: ARTERIAL BLOOD SPECIMENOrdering Facility: [facility] Address: [address] [place] [address] Performed By: #### A LLBG ####[facility] LABCLIA [id number] [place] [address] [place] Order Comment: Speci men Type: BLOOD SPECIMENOrdering Facility: [facility] Address: [address] [place] [address] Performed By: #### K 1, 2345-7 ####[facility] LABCLIA [id number] [place] [address] [place] Sodium [Moles/Vol] 134 mmol/L Low 136-144 [facility] Comment on above: Order Comment: Speci men Type: ARTERIAL BLOOD SPECIMENOrdering Facility: [facility] Address: [address] [place] [address] Performed By: #### A LLBG ####[facility] LABCLIA [id number] [place] [address] [place] Base deficit (BldA) [Moles/Vol] -5 mmol/L Low -2-0 [facility] Comment on above: Order Comment: Speci men Type: ARTERIAL BLOOD SPECIMENOrdering Facility: [facility] Address: [address] [place] [address] Performed By: #### A LLBG ####[facility] LABCLIA [id number] [place] [address] [place] Calcium.ionized (Bld) [Mass/Vol] 1.21 mmol/L Normal 1.08-1.30 [facility] Comment on above: Order Comment: Speci men Type: ARTERIAL BLOOD SPECIMENOrdering Facility: [facility] Address: [address] [place] [address] Performed By: #### A LLBG ####[facility] LABCLIA [id number] [place] [address] [place] Calcium.ionized adjusted to pH 7.4 (BldA) [Moles/Vol] 1.13 mmol/L Normal 1.08-1.30 [facility] Comment on above: Order Comment: Speci men Type: ARTERIAL BLOOD SPECIMENOrdering Facility: [facility] Address: [address] [place] [address] Performed By: #### A LLBG ####[facility] LABCLIA [id number] [place] [address] [place] Carboxyhemoglobin (BldA) [Mass fraction] 1.1 % Normal 0.0-2.0 [facility] Comment on above: Order Comment: Speci men Type: ARTERIAL BLOOD SPECIMENOrdering Facility: [facility] Address: [address] [place] [address] Result Comment: Carb oxyhemoglobin Reference Range for Smokers: 2.0-8.0% Performed By: #### A LLBG ####[facility] LABCLIA [id number] [place] [address] [place] CO2 (Bld) [Partial pressure] 46 mm Hg Normal 36-46 [facility] Comment on above: Order Comment: Speci men Type: ARTERIAL BLOOD SPECIMENOrdering Facility: [facility] Address: [address] [place] [address] Performed By: #### A LLBG ####[facility] LABCLIA [id number] [place] [address] [place] CO2 adjusted to patient's actual temperature (Bld) [Partial pressure] 46 mmHg Normal 36-46 [facility] Comment on above: Order Comment: Speci men Type: ARTERIAL BLOOD SPECIMENOrdering Facility: [facility] Address: [address] [place] [address] Performed By: #### A LLBG ####[facility] LABCLIA [id number] [place] [address] [place] Glucose [Mass/Vol] 151 mg/dL High 60-105 [facility] Comment on above: Order Comment: Speci men Type: ARTERIAL BLOOD SPECIMENOrdering Facility: [facility] Address: [address] [place] [address] Performed By: #### A LLBG ####[facility] LABCLIA [id number] [place] [address] [place] HCO3 (Bld) [Moles/Vol] 21 mmol/L Low 22-26 [facility] Comment on above: Order Comment: Speci men Type: ARTERIAL BLOOD SPECIMENOrdering Facility: [facility] Address: [address] [place] [address] Performed By: #### A LLBG ####[facility] LABCLIA [id number] [place] [address] [place] Hematocrit (Bld) [Volume fraction] 34.7 % Low 36.0-46.0 [facility] Comment on above: Order Comment: Speci men Type: ARTERIAL BLOOD SPECIMENOrdering Facility: [facility] Address: [address] [place] [address] Performed By: #### A LLBG ####[facility] LABCLIA [id number] [place] [address] [place] Hemoglobin (Bld) [Mass/Vol] 11.2 g/dL Low 11.5-15.5 [facility] Comment on above: Order Comment: Speci men Type: ARTERIAL BLOOD SPECIMENOrdering Facility: [facility] Address: [address] [place] [address] Performed By: #### A LLBG ####[facility] LABCLIA [id number] [place] [address] [place] Lactate [Moles/Vol] 1.1 mmol/L Normal 0.5-2.2 [facility] Comment on above: Order Comment: Speci men Type: ARTERIAL BLOOD SPECIMENOrdering Facility: [facility] Address: [address] [place] [address] Performed By: #### A LLBG ####[facility] LABCLIA [id number] [place] [address] [place] Methemoglobin (Bld) [Mass fraction] 1.3 % Normal 0.0-1.5 [facility] Comment on above: Order Comment: Speci men Type: ARTERIAL BLOOD SPECIMENOrdering Facility: [facility] Address: [address] [place] [address] Performed By: #### A LLBG ####[facility] LABCLIA [id number] [place] [address] [place] Oxygen (Bld) [Partial pressure] 267 mm Hg High 85-95 [facility] Comment on above: Order Comment: Speci men Type: ARTERIAL BLOOD SPECIMENOrdering Facility: [facility] Address: [address] [place] [address] Performed By: #### A LLBG ####[facility] LABCLIA [id number] [place] [address] [place] Oxygen adjusted to patient's actual temperature (Bld) [Partial pressure] 267 mmHg High 85-95 [facility] Comment on above: Order Comment: Speci men Type: ARTERIAL BLOOD SPECIMENOrdering Facility: [facility] Address: [address] [place] [address] Performed By: #### A LLBG ####[facility] LABCLIA [id number] [place] [address] [place] Oxyhemoglobin (BldA) [Mass fraction] 97 % Normal 95-98 [facility] Comment on above: Order Comment: Speci men Type: ARTERIAL BLOOD SPECIMENOrdering Facility: [facility] Address: [address] [place] [address] Performed By: #### A LLBG ####[facility] LABCLIA [id number] [place] [address] [place] pH (Bld) 7.29 [pH] Low 7.35-7.45 [facility] Comment on above: Order Comment: Speci men Type: ARTERIAL BLOOD SPECIMENOrdering Facility: [facility] Address: [address] [place] [address] Performed By: #### A LLBG ####[facility] LABCLIA [id number] [place] [address] [place] pH adjusted to patient's actual temperature (Bld) 7.29 Low 7.35-7.45 [facility] Comment on above: Order Comment: Speci men Type: ARTERIAL BLOOD SPECIMENOrdering Facility: [facility] Address: [address] [place] [address] Performed By: #### A LLBG ####[facility] LABCLIA [id number] [place] [address] [place] Potassium [Moles/Vol] 3.8 mmol/L Normal 3.5-5.0 [facility] Comment on above: Order Comment: Speci men Type: ARTERIAL BLOOD SPECIMENOrdering Facility: [facility] Address: [address] [place] [address] Performed By: #### A LLBG ####[facility] LABCLIA [id number] [place] [address] [place] Sodium [Moles/Vol] 131 mmol/L Low 136-144 [facility] Comment on above: Order Comment: Speci men Type: ARTERIAL BLOOD SPECIMENOrdering Facility: [facility] Address: [address] [place] [address] Performed By: #### A LLBG ####[facility] LABCLIA [id number] [place] [address] [place] Base excess Calc (Bld) [Moles/Vol] 0 mmol/L Normal 0-2 [facility] Comment on above: Order Comment: Speci men Type: ARTERIAL BLOOD SPECIMENOrdering Facility: [facility] Address: [address] [place] [address] Performed By: #### A LLBG ####[facility] LABIA [id number] [place] [address] [place] Calcium.ionized (Bld) [Mass/Vol] 1.07 mmol/L Low 1.08-1.30 [facility] Comment on above: Order Comment: Speci men Type: ARTERIAL BLOOD SPECIMENOrdering Facility: [facility] Address: [address] [place] [address] Performed By: #### A LLBG ####[facility] LABIA [id number] [place] [address] [place] Carboxyhemoglobin (BldA) [Mass fraction] 1.0 % Normal 0.0-2.0 [facility] Comment on above: Order Comment: Speci men Type: ARTERIAL BLOOD SPECIMENOrdering Facility: [facility] Address: [address] [place] [address] Result Comment: Carb oxyhemoglobin Reference Range for Smokers: 2.0-8.0% Performed By: #### A LLBG ####[facility] LABCLIA [id number] [place] [address] [place] CO2 (Bld) [Partial pressure] 49 mm Hg High 36-46 [facility] Comment on above: Order Comment: Speci men Type: ARTERIAL BLOOD SPECIMENOrdering Facility: [facility] Address: [address] [place] [address] Performed By: #### A LLBG ####[facility] LABCLIA [id number] [place] [address] [place] CO2 adjusted to patient's actual temperature (Bld) [Partial pressure] 49 mmHg High 36-46 [facility] Comment on above: Order Comment: Speci men Type: ARTERIAL BLOOD SPECIMENOrdering Facility: [facility] Address: [address] [place] [address] Performed By: #### A LLBG ####[facility] LABCLIA [id number] [place] [address] [place] Glucose [Mass/Vol] 176 mg/dL High 60-105 [facility] Comment on above: Order Comment: Speci men Type: ARTERIAL BLOOD SPECIMENOrdering Facility: [facility] Address: [address] [place] [address] Performed By: #### A LLBG ####[facility] LABCLIA [id number] [place] [address] [place] Hematocrit (Bld) [Volume fraction] 30.7 % Low 36.0-46.0 [facility] Comment on above: Order Comment: Speci men Type: ARTERIAL BLOOD SPECIMENOrdering Facility: [facility] Address: [address] [place] [address] Performed By: #### A LLBG ####[facility] LABCLIA [id number] [place] [address] [place] Hemoglobin (Bld) [Mass/Vol] 9.9 g/dL Low 11.5-15.5 [facility] Comment on above: Order Comment: Speci men Type: ARTERIAL BLOOD SPECIMENOrdering Facility: [facility] Address: [address] [place] [address] Performed By: #### A LLBG ####[facility] LABCLIA [id number] [place] [address] [place] Lactate [Moles/Vol] 1.0 mmol/L Normal 0.5-2.2 [facility] Comment on above: Order Comment: Speci men Type: ARTERIAL BLOOD SPECIMENOrdering Facility: [facility] Address: [address] [place] [address] Performed By: #### A LLBG ####[facility] LABCLIA [id number] [place] [address] [place] Methemoglobin (Bld) [Mass fraction] 1.1 % Normal 0.0-1.5 [facility] Comment on above: Order Comment: Speci men Type: ARTERIAL BLOOD SPECIMENOrdering Facility: [facility] Address: [address] [place] [address] Performed By: #### A LLBG ####[facility] LABCLIA [id number] [place] [address] [place] Oxygen (Bld) [Partial pressure] 394 mm Hg High 85-95 [facility] Comment on above: Order Comment: Speci men Type: ARTERIAL BLOOD SPECIMENOrdering Facility: [facility] Address: [address] [place] [address] Performed By: #### A LLBG ####[facility] LABCLIA [id number] [place] [address] [place] Oxygen adjusted to patient's actual temperature (Bld) [Partial pressure] 394 mmHg High 85-95 [facility] Comment on above: Order Comment: Speci men Type: ARTERIAL BLOOD SPECIMENOrdering Facility: [facility] Address: [address] [place] [address] Performed By: #### A LLBG ####[facility] LABCLIA [id number] [place] [address] [place] Oxyhemoglobin (BldA) [Mass fraction] 98 % Normal 95-98 [facility] Comment on above: Order Comment: Speci men Type: ARTERIAL BLOOD SPECIMENOrdering Facility: [facility] Address: [address] [place] [address] Performed By: #### A LLBG ####[facility] LABCLIA [id number] [place] [address] [place] pH (Bld) 7.34 [pH] Low 7.35-7.45 [facility] Comment on above: Order Comment: Speci men Type: ARTERIAL BLOOD SPECIMENOrdering Facility: [facility] Address: [address] [place] [address] Performed By: #### A LLBG ####[facility] LABCLIA [id number] [place] [address] [place] pH adjusted to patient's actual temperature (Bld) 7.34 Low 7.35-7.45 [facility] Comment on above: Order Comment: Speci men Type: ARTERIAL BLOOD SPECIMENOrdering Facility: [facility] Address: [address] [place] [address] Performed By: #### A LLBG ####[facility] LABCLIA [id number] [place] [address] [place] Sodium [Moles/Vol] 133 mmol/L Low 136-144 [facility] Comment on above: Order Comment: Speci men Type: ARTERIAL BLOOD SPECIMENOrdering Facility: [facility] Address: [address] [place] [address] Performed By: #### A LLBG ####[facility] LABCLIA [id number] [place] [address] [place] Base deficit (BldA) [Moles/Vol] -2 mmol/L Normal -2-0 [facility] Comment on above: Order Comment: Speci men Type: ARTERIAL BLOOD SPECIMENOrdering Facility: [facility] Address: [address] [place] [address] Performed By: #### A LLBG ####[facility] LABCLIA [id number] [place] [address] [place] Calcium.ionized (Bld) [Mass/Vol] 1.23 mmol/L Normal 1.08-1.30 [facility] Comment on above: Order Comment: Speci men Type: ARTERIAL BLOOD SPECIMENOrdering Facility: [facility] Address: [address] [place] [address] Performed By: #### A LLBG ####[facility] LABCLIA [id number] [place] [address] [place] Calcium.ionized adjusted to pH 7.4 (BldA) [Moles/Vol] 1.25 mmol/L Normal 1.08-1.30 [facility] Comment on above: Order Comment: Speci men Type: ARTERIAL BLOOD SPECIMENOrdering Facility: [facility] Address: [address] [place] [address] Performed By: #### A LLBG ####[facility] LABCLIA [id number] [place] [address] [place] [place] Carboxyhemoglobin (BldA) [Mass fraction] 1.0 % Normal 0.0-2.0 [facility] Comment on above: Order Comment: Speci men Type: ARTERIAL BLOOD SPECIMENOrdering Facility: [facility] Address: [address] [place] [address] Result Comment: Carb oxyhemoglobin Reference Range for Smokers: 2.0-8.0% Performed By: #### A LLBG ####[facility] LABCLIA [id number] [place] [address] [place] CO2 (Bld) [Partial pressure] 33 mm Hg Low 36-46 [facility] Comment on above: Order Comment: Speci men Type: ARTERIAL BLOOD SPECIMENOrdering Facility: [facility] Address: [address] [place] [address] Performed By: #### A LLBG ####[facility] LABCLIA [id number] [place] [address] [place] CO2 adjusted to patient's actual temperature (Bld) [Partial pressure] 33 mmHg Low 36-46 [facility] Comment on above: Order Comment: Speci men Type: ARTERIAL BLOOD SPECIMENOrdering Facility: [facility] Address: [address] [place] [address] Performed By: #### A LLBG ####[facility] LABCLIA [id number] [place] [address] [place] Glucose [Mass/Vol] 116 mg/dL High 60-105 [facility] Comment on above: Order Comment: Speci men Type: ARTERIAL BLOOD SPECIMENOrdering Facility: [facility] Address: [address] [place] [address] Performed By: #### A LLBG ####[facility] LABCLIA [id number] [place] [address] [place] HCO3 (Bld) [Moles/Vol] 21 mmol/L Low 22-26 [facility] Comment on above: Order Comment: Speci men Type: ARTERIAL BLOOD SPECIMENOrdering Facility: [facility] Address: [address] [place] [address] Performed By: #### A LLBG ####[facility] LABCLIA [id number] [place] [address] [place] Hematocrit (Bld) [Volume fraction] 44.3 % Normal 36.0-46.0 [facility] Comment on above: Order Comment: Speci men Type: ARTERIAL BLOOD SPECIMENOrdering Facility: [facility] Address: [address] [place] [address] Performed By: #### A LLBG ####[facility] LABCLIA [id number] [place] [address] [place] Hemoglobin (Bld) [Mass/Vol] 14.5 g/dL Normal 11.5-15.5 [facility] Comment on above: Order Comment: Speci men Type: ARTERIAL BLOOD SPECIMENOrdering Facility: [facility] Address: [address] [place] [address] Performed By: #### A LLBG ####[facility] LABCLIA [id number] [place] [address] [place] Lactate [Moles/Vol] 0.8 mmol/L Normal 0.5-2.2 [facility] Comment on above: Order Comment: Speci men Type: ARTERIAL BLOOD SPECIMENOrdering Facility: [facility] Address: [address] [place] [address] Performed By: #### A LLBG ####[facility] LABCLIA [id number] [place] [id number] [place] Methemoglobin (Bld) [Mass fraction] 1.0 % Normal 0.0-1.5 [facility] Comment on above: Order Comment: Speci men Type: ARTERIAL BLOOD SPECIMENOrdering Facility: [facility] Address: [address] [place] [address] Performed By: #### A LLBG ####[facility] LABCLIA [id number] [place] [address] [place] Oxygen (Bld) [Partial pressure] 111 mm Hg High 85-95 [facility] Comment on above: Order Comment: Speci men Type: ARTERIAL BLOOD SPECIMENOrdering Facility: [facility] Address: [address] [place] [address] Performed By: #### A LLBG ####[facility] LABCLIA [id number] [place] [address] [place] Oxygen adjusted to patient's actual temperature (Bld) [Partial pressure] 111 mmHg High 85-95 [facility] Comment on above: Order Comment: Speci men Type: ARTERIAL BLOOD SPECIMENOrdering Facility: [facility] Address: [address] [place] [address] Performed By: #### A LLBG ####[facility] LABCLIA [id number] [place] [id number] [place] Oxyhemoglobin (BldA) [Mass fraction] 97 % Normal 95-98 [facility] Comment on above: Order Comment: Speci men Type: ARTERIAL BLOOD SPECIMENOrdering Facility: [facility] Address: [address] [place] [address] Performed By: #### A LLBG ####[facility] LABCLIA [id number] [place] [id number] [place] pH (Bld) 7.42 [pH] Normal 7.35-7.45 [facility] Comment on above: Order Comment: Speci men Type: ARTERIAL BLOOD SPECIMENOrdering Facility: [facility] Address: [address] [place] [address] Performed By: #### A LLBG ####[facility] LABCLIA [id number] [place] [address] [place] pH adjusted to patient's actual temperature (Bld) 7.42 Normal 7.35-7.45 [facility] Comment on above: Order Comment: Speci men Type: ARTERIAL BLOOD SPECIMENOrdering Facility: [facility] Address: [address] [place] [address] Performed By: #### A LLBG ####[facility] LABCLIA [id number] [place] [address] [place] Potassium [Moles/Vol] 3.8 mmol/L Normal 3.5-5.0 [facility] Comment on above: Order Comment: Speci men Type: ARTERIAL BLOOD SPECIMENOrdering Facility: [facility] Address: [address] [place] [address] Performed By: #### A LLBG ####[facility] LABCLIA [id number] [place] [address] [place] Sodium [Moles/Vol] 138 mmol/L Normal 136-144 [facility] Comment on above: Order Comment: Speci men Type: ARTERIAL BLOOD SPECIMENOrdering Facility: [facility] Address: [address] [place] [address] Performed By: #### A LLBG ####[facility] LABCLIA [id number] [place] [address] [place] Fibrinogen PPP-mCncon 2024 Fibrinogen Coag (PPP) [Mass/Vol] 218 mg/dL Normal 200-400 [facility] Comment on above: Order Comment: Speci men Type: BLOOD SPECIMENOrdering Facility: [facility] Address: [address] [place] [address] Performed By: #### 3 4528-0, 3255-7, 94596-2 ####[facility] LABCLIA [id number] [place] [address] [place] Gas + CO Pnl BldVon 01-27-20 25 Calcium.ionized adjusted to pH 7.4 (BldA) [Moles/Vol] 1.03 mmol/L Low 1.08-1.30 [facility] Comment on above: Order Comment: Speci men Type: VENOUS BLOOD SPECIMENOrdering Facility: [facility] Address: [address] [place] [address] Performed By: #### 2 4344-4 ####[facility] LABCLIA [id number] [address] STATES OF [facility] Order Comment: Speci men Type: ARTERIAL BLOOD SPECIMENOrdering Facility: [facility] Address: [address] [place] [address] Performed By: #### A LLBG ####[facility] LABCLIA [id number] [place] [address] [place] HCO3 (Bld) [Moles/Vol] 26 mmol/L Normal 22-26 [facility] Comment on above: Order Comment: Speci men Type: VENOUS BLOOD SPECIMENOrdering Facility: [facility] Address: [address] [place] [address] Performed By: #### 2 4344-4 ####[facility] LABCLIA [id number] [address] STATES [place] [facility] Order Comment: Speci men Type: ARTERIAL BLOOD SPECIMENOrdering Facility: [facility] Address: [address] [place] [address] Performed By: #### A LLBG ####[facility] LABCLIA [id number] [place] [address] [place] Potassium [Moles/Vol] 4.1 mmol/L Normal 3.5-5.0 [facility] Comment on above: Order Comment: Speci men Type: VENOUS BLOOD SPECIMENOrdering Facility: [facility] Address: [address] [place] [address] Performed By: #### 2 4344-4 ####[facility] LABCLIA [id number] [address] [place] Order Comment: Speci men Type: ARTERIAL BLOOD SPECIMENOrdering Facility: [facility] Address: [address] [place] [address] Performed By: #### A LLBG ####[facility] LABCLIA [id number] [place] [address] [place] Gas and Carbon monoxide pane l (BldV)on 01-26-2025 BASE DEFICIT, VENOUS >-1 Normal -2-0 [facility] Comment on above: Order Comment: Speci men Type: VENOUS BLOOD SPECIMENOrdering Facility: [facility] Address: [address] [place] [address] Performed By: #### 2 4344-4 ####[facility] LABCLIA [id number] [place] [address] [place] Calcium.ionized (Bld) [Mass/Vol] 1.09 mmol/L Normal 1.08-1.30 [facility] Comment on above: Order Comment: Speci men Type: VENOUS BLOOD SPECIMENOrdering Facility: [facility] Address: [address] [place] [address] Performed By: #### 2 4344-4 ####[facility] LABCLIA [id number] [place] [address] [place] Carboxyhemoglobin (BldV) [Mass fraction] 1.5 % Normal 0.0-2.0 [facility] Comment on above: Order Comment: Speci men Type: VENOUS BLOOD SPECIMENOrdering Facility: [facility] Address: [address] [place] [address] Result Comment: Carb oxyhemoglobin Reference Range for Smokers: 2.0-8.0% Performed By: #### 2 4344-4 ####[facility] LABCLIA [id number] [place] [address] [place] CO2 (BldV) [Partial pressure] 55 mm[Hg] Normal 42-55 [facility] Comment on above: Order Comment: Speci men Type: VENOUS BLOOD SPECIMENOrdering Facility: [facility] Address: [address] [place] [address] Performed By: #### 2 4344-4 ####[facility] LABCLIA [id number] [place] [address] [place] CO2 adjusted to patient's actual temperature (BldV) [Partial pressure] 55 mmHg Normal 42-55 [facility] Comment on above: Order Comment: Speci men Type: VENOUS BLOOD SPECIMENOrdering Facility: [facility] Address: [address] [place] [address] Performed By: #### 2 4344-4 ####[facility] LABCLIA [id number] [place] [address] [place] Glucose [Mass/Vol] 175 mg/dL High 60-105 [facility] Comment on above: Order Comment: Speci men Type: VENOUS BLOOD SPECIMENOrdering Facility: [facility] Address: [address] [place] [address] Performed By: #### 2 4344-4 ####[facility] LABCLIA [id number] [place] [address] [place] Hematocrit (Bld) [Volume fraction] 31.0 % Low 36.0-46.0 [facility] Comment on above: Order Comment: Speci men Type: VENOUS BLOOD SPECIMENOrdering Facility: [facility] Address: [address] [place] [address] Performed By: #### 2 4344-4 ####[facility] LABCLIA [id number] [place] [address] [place] Hemoglobin (Bld) [Mass/Vol] 10.0 g/dL Low 11.5-15.5 [facility] Comment on above: Order Comment: Speci men Type: VENOUS BLOOD SPECIMENOrdering Facility: [facility] Address: [address] [place] [address] Performed By: #### 2 4344-4 ####[facility] LABCLIA [id number] [place] [address] [place] Lactate [Moles/Vol] 1.1 mmol/L Normal 0.5-2.2 [facility] Comment on above: Order Comment: Speci men Type: VENOUS BLOOD SPECIMENOrdering Facility: [facility] Address: [address] [place] [address] Performed By: #### 2 4344-4 ####[facility] LABCLIA [id number] [place] [address] [place] Methemoglobin (Bld) [Mass fraction] 0.6 % Normal 0.0-1.5 [facility] Comment on above: Order Comment: Speci men Type: VENOUS BLOOD SPECIMENOrdering Facility: [facility] Address: [address] [place] [address] Performed By: #### 2 4344-4 ####[facility] LABCLIA [id number] [place] [address] [place] Oxygen (BldV) [Partial pressure] 60 mm[Hg] High 35-45 [facility] Comment on above: Order Comment: Speci men Type: VENOUS BLOOD SPECIMENOrdering Facility: [facility] Address: [address] [place] [address] Performed By: #### 2 4344-4 ####[facility] LABCLIA [id number] [place] [address] [place] Oxygen adjusted to patient's actual temperature (BldV) [Partial pressure] 60 mmHg High 35-45 [facility] Comment on above: Order Comment: Speci men Type: VENOUS BLOOD SPECIMENOrdering Facility: [facility] Address: [address] [place] [address] Performed By: #### 2 4344-4 ####[facility] LABCLIA [id number] [place] [address] [place] Oxygen saturation in Venous blood 88 % High 60-85 [facility] Comment on above: Order Comment: Speci men Type: VENOUS BLOOD SPECIMENOrdering Facility: [facility] Address: [address] [place] [address] Performed By: #### 2 4344-4 ####[facility] LABCLIA [id number] [place] [address] [place] Oxyhemoglobin (BldV) [Mass fraction] 86 % High 60-85 [facility] Comment on above: Order Comment: Speci men Type: VENOUS BLOOD SPECIMENOrdering Facility: [facility] Address: [address] [place] [address] Performed By: #### 2 4344-4 ####[facility] LABCLIA [id number] [place] [address] [place] pH (BldV) 7.30 [pH] Low 7.32-7.42 [facility] Comment on above: Order Comment: Speci men Type: VENOUS BLOOD SPECIMENOrdering Facility: [facility] Address: [address] [place] [address] Performed By: #### 2 4344-4 ####[facility] LABCLIA [id number] [place] [address] [place] pH adjusted to patient's actual temperature (BldV) 7.30 Low 7.32-7.42 [facility] Comment on above: Order Comment: Speci men Type: VENOUS BLOOD SPECIMENOrdering Facility: [facility] Address: [address] [place] [address] Performed By: #### 2 4344-4 ####[facility] LABCLIA [id number] [place] [address] [place] Sodium [Moles/Vol] 134 mmol/L Low 136-144 [facility] Comment on above: Order Comment: Speci men Type: VENOUS BLOOD SPECIMENOrdering Facility: [facility] Address: [address] [place] [address] Performed By: #### 2 4344-4 ####[facility] LABCLIA [id number] [place] [address] [place] Glucose SerPl-mCncon 11-05-2 025 Glucose [Mass/Vol] 129 mg/dL High 74-99 [facility] Comment on above: Order Comment: Amanda heller Type: BLOOD SPECIMENOrdering Facility: [facility] Address: [address] [place] [address] Result Comment: The [place] [employer] (ADA) provides guidance for cutoff values for fasting glucose and random glucose. The ADA defines fasting as no caloric intake for at least 8 hours. Fasting plasma glucose results between 100 to 125 mg/dL indicate increased risk for diabetes (prediabetes).Fasting plasma glucose results greater than or equal to 126 mg/dL meet the criteria for diagnosis of diabetes. In the absence of unequivocal hyperglycemia, results should be confirmed by repeat testing. In a patient with classic symptoms of hyperglycemia or hyperglycemic crisis, random plasma glucose results greater than or equal to 200 mg/dL meet the criteria for diagnosis of diabetes.Reference: Standards of Medical Care in Diabetes 2016, [place] [employer]. Diabetes Care. 2016.39(Suppl 1). Performed By: #### K 1, 2345-7 ####[facility] LABCLIA [id number] [place] [address] [place] HISTORY PHYSICALon HISTORY PHYSICAL Normal [facility] Hematocrit Auto (Bld) [Volum e fraction]on 01-26-2025 Hematocrit (Bld) [Volume fraction] 34.8 % Low 36.0-46.0 [facility] Comment on above: Order Comment: Amanda heller Type: BLOOD SPECIMENOrdering Facility: [facility] Address: [address] [place] [address] Performed By: #### 4 544-3 ####[facility] LABCLIA [id number] [place] [address] [place] INTRAOPERATIVE ECHO PREon INTRAOPERATIVE ECHO PRE [facility]on 01-26-2025 OPERATIVE NO Normal [facility] PT panel Coag (PPP)on 2024 INR Coag (PPP) [Relative time] 1.1 {INR} Normal 0.9-1.3 [facility] Comment on above: Order Comment: Speci men Type: BLOOD SPECIMENOrdering Facility: [facility] Address: [address] [place] [address] Result Comment: Asmita min K Antagonist (VKA) Therapeutic Range: INR 2 to 3 (Target INR of 2.5)Note: For patients treated with VKA drugs, such as warfarin, the [place] [employer] 2012 Guideline recommends a therapeutic INR range of 2 to 3 (target INR of 2.5). This recommendation includes high-risk patients with antiphospholipid syndrome with previous arterial or venous thromboembolism, current-generation mechanical or bioprosthetic aortic heart valve replacement.Note: Patients with mechanical aortic valve replacement and additional risk factors for thromboembolic events (atrial fibrillation, previous thromboembolism, LV dysfunction, hypercoagulable conditions) or an older generation mechanical AVR (i.e., ball in-Cage) or any mechanical MVR should have a INR therapeutic range of 2.5 to 3.5 (target INR of 3).Keiry GH, et al. Chest 2012, 141:7S-47SNishimura RA, et al. [facility] 2017, 70: 252-289 Performed By: #### 3 4528-0, 3255-7, 82792-4 ####[facility] LABIA [id number] [place] [address] [place] PT Coag (PPP) [Time] 12.1 s Normal 9.7-13.0 [facility] Comment on above: Order Comment: Speci men Type: BLOOD SPECIMENOrdering Facility: [facility] Address: [address] [place] [address] Performed By: #### 3 4528-0, 3255-7, 07826-1 ####[facility] LABCLIA [id number] [place] [id number] [place] Pathology biopsy report Ambrocio (Tiss)on 01-26-2025 CASE REPORT Normal [facility] Comment on above: Order Comment: Edisoni men Type: TISSUE SPECIMENOrdering Facility: [facility] Address: [address] [place] [address] Result Comment: Surg ical Pathology Report Case: [id number] Provider: Crystal Ceballos MD Collected: 01/26/2025 10:34 AMOrdering Location: Admitting Received: 01/26/2025 02:02 PMPathologist: Parisa Kohler MDSpecimen: Heart, Aortic Valve, aortic valve Performed By: #### 6 6121-5 ####[facility] LABCLIA [id number] [address] OF [facility] CLINICAL HISTORY Normal [facility] Comment on above: Order Comment: Speci men Type: TISSUE SPECIMENOrdering Facility: [facility] Address: [address] [place] [address] Result Comment: Pre- op diagnosis:Pre-operative cardiovascular examination [Z01.810]Aortic valve disorder [I35.9]Associated Diagnoses:Z01.810 - Pre-operative cardiovascular cxzrcbjoqcoS95.9 - Aortic valve disorder Performed By: #### 6 6121-5 ####[facility] LABCLIA [id number] [address] FINAL DIAGNOSIS Normal [facility] Comment on above: Order Comment: Speci men Type: TISSUE SPECIMENOrdering Facility: [facility] Address: [address] [place] [address] Result Comment: A. A ortic valve, excision:- Moderate calcification and severe fibrosis (gross examination only).Gross examination performed at [facility], [address] [place] [address] at 1620 EST Performed By: #### 6 6121-5 ####[facility] LABCLIA [id number] [address] FINAL PERFORMING LAB Normal [facility] Comment on above: Order Comment: Speci men Type: TISSUE SPECIMENOrdering Facility: [facility] Address: [address] [place] [address] Result Comment: Diag nostic interpretation performed at: [facility], [address] [place] [address] CLIA# [id number] Director: Manny Turcios MD Performed By: #### 6 6121-5 ####[facility] LABIA [id number] [place] [address] [place] GROSS DESCRIPTION Normal [facility] Comment on above: Order Comment: Speci men Type: TISSUE SPECIMENOrdering Facility: [facility] Address: [address] [place] [address] Result Comment: Lemuel ramos, Aortic ValveReceived in formalin labeled "aortic valve" are 1-1/2 cusps measuring 1.4 to 2.1 cm in length along the free edge and 1.4 to 1.6 cm in width from free edge to base. There is moderate calcification and severe fibrosis. Lambl's excrescences are identified. Fenestrations are not identified. Perforations and vegetations are not present. No sections are submitted. The specimen is reviewed with Dr. Kohler.KVB January 27, 2025 12:29 PMGross examination performed at [facility], [address] [place] [address] Performed By: #### 6 6121-5 ####[facility] [id number] [place] [address] [place] Platelets Auto (Bld) [#/Vol] on 01-26-2025 Platelets (Bld) [#/Vol] 107 10*3/uL Low 150-400 [facility] Comment on above: Order Comment: Speci men Type: BLOOD SPECIMENOrdering Facility: [facility] Address: [address] [place] [address] Performed By: #### 7 77-3 ####[facility] LABIA [id number] [place] [address] [place] STAPHYLOCOCCUS AUREUS AND MR SA SCREEN, PCR, NASALon 01-26-2025 S. aureus and MRSA panel MARTINE+probe (Nose) Not detected Normal Not Detected [facility] Comment on above: Order Comment: Speci men Type: SWABOrdering Facility: [facility] Address: [address] [place] [address] Performed By: #### S APCR ####[facility] LABCLIA [id number] [place] [address] [place] TEG WITH HEPARIN NEUTRALIZAT IONon 01-26-2025 CITRATED FUNCTIONAL FIBRINOGEN W HAPARINASE MAXIMUM AMPLITUDE 16.7 mm Normal 15-34 [facility] Comment on above: Order Comment: Speci men Type: BLOOD SPECIMENOrdering Facility: [facility] Address: [address] [place] [address] Performed By: #### T EGHN ####[facility] LABCLIA [id number] [place] [address] [place] CITRATED KAOLIN W HEPARINASE CLOT LYSIS AT 30 MINS 2.0 % Normal 0.0-3.2 [facility] Comment on above: Order Comment: Speci men Type: BLOOD SPECIMENOrdering Facility: [facility] Address: [address] [place] [address] Performed By: #### T EGHN ####[facility] LABCLIA [id number] [place] [address] [place] CITRATED RAPID TEG W HEPARINASE MAXIMUM AMPLITUDE 47.7 mm Low 53-69 [facility] Comment on above: Order Comment: Speci men Type: BLOOD SPECIMENOrdering Facility: [facility] Address: [address] [place] [address] Performed By: #### T EGHN ####[facility] LABCLIA [id number] [place] [address] [place] Clotting time after addition of heparinase TEG (Bld) 3.3 minutes Low 4.3-8.3 [facility] Comment on above: Order Comment: Speci men Type: BLOOD SPECIMENOrdering Facility: [facility] Address: [address] [place] [address] Performed By: #### T EGHN ####[facility] LABCLIA [id number] [place] [address] [place] Clotting time.extrinsic coagulation system activated Rotational TEG (Bld) 3.7 minutes Low 4.6-9.1 [facility] Comment on above: Order Comment: Speci men Type: BLOOD SPECIMENOrdering Facility: [facility] Address: [address] [place] [address] Performed By: #### T EGHN ####[facility] LABCLIA [id number] [place] [address] [place] Maximum clot firmness TEG (Bld) [Length] 51.3 mm Low 52.0-69.0 [facility] Comment on above: Order Comment: Speci men Type: BLOOD SPECIMENOrdering Facility: [facility] Address: [address] [place] [address] Performed By: #### T EGHN ####[facility] LABCLIA [id number] [place] [address] [place] THROMBOGRAPH INTERP Normal [facility] Comment on above: Order Comment: Speci arron Type: BLOOD SPECIMENOrdering Facility: [facility] Address: [address] [place] [address] Result Comment: A th romboelastograph (TEG) study was performed using citrate-anticoagulated whole blood treated with and without heparinase to neutralize a heparin effect.The R value, a measure of coagulation function, is short. This indicates coagulation hyperfunction. This could be seen with high levels of coagulation factors, coagulation activation, or inadequate anticoagulation. The Ly30, a measure of fibrinolysis, is normal. This is indicative of normal fibrinolytic function.The Maximal Amplitude (MA), a measure of platelet function, is decreased. A decreased MA can be seen with increased anti-platelet drug effect, thrombocytopenia, or platelet dysfunction.Viscoelastic testing is not intended for the monitoring of anticoagulation or antiplatelet medications or the diagnosis and/or management of platelet disorders and/or coagulopathies but may be useful for guiding blood product utilization in emergency and urgent (OR) circumstances when routine coagulation and cell blood counts are not available in a timely manner. Performed By: #### T EGHN ####[facility] LABCLIA [id number] [place] [address] [place] XR CHEST 1V FRONTAL PORTon 1 03-28-2024 XR CHEST 1V FRONTAL PORT Normal [facility] aPTT PPPon 01-26-2025 aPTT Coag (PPP) [Time] 24.1 s Normal 23.0-32.4 [facility] Comment on above: Order Comment: Speci men Type: BLOOD SPECIMENOrdering Facility: [facility] Address: [address] [place] [address] Performed By: #### 3 4528-0, 3255-7, 54504-9 ####[facility] LABCLIA [id number] [place] [address] [place] CNCNPATEDon 01-25-2025 CNCNPATED Normal [facility] CNOVon 01-25-2025 CNOV Normal [facility] CNPNon 01-25-2025 CNPN Normal [facility] [id number] 01-24-2025 [id number] Normal [facility] B-HCG SerPl-aCncon HCG.beta subunit Qn m[IU]/mL Normal <5.0 [facility] Comment on above: Order Comment: Speci men Type: BLOOD SPECIMENOrdering Facility: [facility] Address: [address] [place] [address] Result Comment: Malena teran Performed By: #### 2 1198-7 ####[facility] LABCLIA [id number] [place] [address] [place] BRIEF OP NOTon 01-24-2025 BRIEF OP NOT Normal [facility] Basic metabolic 2000 panelon 01-24-2025 Anion gap [Moles/Vol] 11 mmol/L Normal 8-15 [facility] Comment on above: Order Comment: Speci men Type: BLOOD SPECIMENOrdering Facility: [facility] Address: [address] [place] [address] Performed By: #### 2 4321-2 ####[facility] LABCLIA [id number] [place] [address] [place] Calcium [Mass/Vol] 9.1 mg/dL Normal 8.5-10.2 [facility] Comment on above: Order Comment: Speci men Type: BLOOD SPECIMENOrdering Facility: [facility] Address: [address] [place] [address] Performed By: #### 2 4321-2 ####[facility] LABCLIA [id number] [place] [id number] [place] Chloride [Moles/Vol] 107 mmol/L Normal 98-107 [facility] Comment on above: Order Comment: Speci men Type: BLOOD SPECIMENOrdering Facility: [facility] Address: [address] [place] [address] Performed By: #### 2 4321-2 ####[facility] LABCLIA [id number] [place] [address] [place] CO2 [Moles/Vol] 22 mmol/L Normal 22-30 [facility] Comment on above: Order Comment: Speci men Type: BLOOD SPECIMENOrdering Facility: [facility] Address: [address] [place] [address] Performed By: #### 2 4321-2 ####[facility] LABCLIA [id number] [place] [address] [place] Creatinine [Mass/Vol] 0.68 mg/dL Normal 0.58-0.96 [facility] Comment on above: Order Comment: Speci men Type: BLOOD SPECIMENOrdering Facility: [facility] Address: [address] [place] [address] Performed By: #### 2 4321-2 ####[facility] LABCLIA [id number] [place] [address] [place] eGFRcr SerPlBld CKD-EPI 2020 110 mL/min/1.73m??? Normal >=60 [facility] Comment on above: Order Comment: Speci men Type: BLOOD SPECIMENOrdering Facility: [facility] Address: [address] [place] [address] Result Comment: Hilda mated Glomerular Filtration Rate (eGFR) is calculated using the 2020 CKD-EPI creatinine equation. This equation utilizes serum creatinine, sex, and age as parameters. The creatinine assay has traceable calibration to isotope dilution-mass spectrometry. Refer to KDIGO guidelines for clinical interpretation. In patients with unstable renal function, e.g. those with acute kidney injury, the eGFR may not accurately reflect actual GFR. Performed By: #### 2 4321-2 ####[facility] LABCLIA [id number] [place] [address] [place] Glucose [Mass/Vol] 96 mg/dL Normal 74-99 [facility] Comment on above: Order Comment: Amanda heller Type: BLOOD SPECIMENOrdering Facility: [facility] Address: [address] [place] [address] Result Comment: The [place] [employer] (ADA) provides guidance for cutoff values for fasting glucose and random glucose. The ADA defines fasting as no caloric intake for at least 8 hours. Fasting plasma glucose results between 100 to 125 mg/dL indicate increased risk for diabetes (prediabetes).Fasting plasma glucose results greater than or equal to 126 mg/dL meet the criteria for diagnosis of diabetes. In the absence of unequivocal hyperglycemia, results should be confirmed by repeat testing. In a patient with classic symptoms of hyperglycemia or hyperglycemic crisis, random plasma glucose results greater than or equal to 200 mg/dL meet the criteria for diagnosis of diabetes.Reference: Standards of Medical Care in Diabetes 2016, [place] [employer]. Diabetes Care. 2016.39(Suppl 1). Performed By: #### 2 4321-2 ####[facility] LABCLIA [id number] [place] [address] [place] Potassium [Moles/Vol] 3.6 mmol/L Low 3.7-5.1 [facility] Comment on above: Order Comment: Amanda heller Type: BLOOD SPECIMENOrdering Facility: [facility] Address: [address] [place] [address] Performed By: #### 2 4321-2 ####[facility] LABCLIA [id number] [place] [address] [place] Sodium [Moles/Vol] 140 mmol/L Normal 136-144 [facility] Comment on above: Order Comment: Amanda heller Type: BLOOD SPECIMENOrdering Facility: [facility] Address: [address] [place] [address] Performed By: #### 2 4321-2 ####[facility] LABCLIA [id number] [place] [address] [place] Urea nitrogen [Mass/Vol] 11 mg/dL Normal 7-21 [facility] Comment on above: Order Comment: Speci men Type: BLOOD SPECIMENOrdering Facility: [facility] Address: [address] [place] [address] Performed By: #### 2 4321-2 ####[facility] LABCLIA [id number] [place] [address] [place] CARD CATH DIAGNOSTICon 01-24 CARD CATH DIAGNOSTIC Normal [facility] CBC W Auto Differential pane l (Bld)on 01-24-2025 Basophils (Bld) [#/Vol] 0.03 10*3/uL Normal <0.11 [facility] Comment on above: Order Comment: Speci men Type: BLOOD SPECIMENOrdering Facility: [facility] Address: [address] [place] [address] Performed By: #### 5 7021-8 ####[facility] LABCLIA [id number] [place] [address] [place] Basophils/100 WBC (Bld) 0.5 % Normal [facility] Comment on above: Order Comment: Speci men Type: BLOOD SPECIMENOrdering Facility: [facility] Address: [address] [place] [address] Performed By: #### 5 7021-8 ####[facility] LABCLIA [id number] [place] [address] [place] Differential cell count method Nom (Bld) Auto Normal [facility] Comment on above: Order Comment: Speci men Type: BLOOD SPECIMENOrdering Facility: [facility] Address: [address] [place] [address] Performed By: #### 5 7021-8 ####[facility] LABCLIA [id number] [place] [address] [place] Eosinophils (Bld) [#/Vol] 0.20 10*3/uL Normal <0.46 [facility] Comment on above: Order Comment: Speci men Type: BLOOD SPECIMENOrdering Facility: [facility] Address: [address] [place] [address] Performed By: #### 5 7021-8 ####[facility] LABCLIA [id number] [place] [address] [place] Eosinophils/100 WBC (Bld) 3.6 % Normal [facility] Comment on above: Order Comment: Speci men Type: BLOOD SPECIMENOrdering Facility: [facility] Address: [address] [place] [address] Performed By: #### 5 7021-8 ####[facility] LABCLIA [id number] [place] [address] [place] Erythrocyte distribution width (RBC) [Ratio] 11.2 % Low 11.5-15.0 [facility] Comment on above: Order Comment: Speci men Type: BLOOD SPECIMENOrdering Facility: [facility] Address: [address] [place] [address] Performed By: #### 5 7021-8 ####[facility] LABCLIA [id number] [place] [address] [place] Hematocrit (Bld) [Volume fraction] 43.8 % Normal 36.0-46.0 [facility] Comment on above: Order Comment: Speci men Type: BLOOD SPECIMENOrdering Facility: [facility] Address: [address] [place] [address] Performed By: #### 5 7021-8 ####[facility] LABCLIA [id number] [place] [address] [place] Hemoglobin (Bld) [Mass/Vol] 14.8 g/dL Normal 11.5-15.5 [facility] Comment on above: Order Comment: Speci men Type: BLOOD SPECIMENOrdering Facility: [facility] Address: [address] [place] [address] Performed By: #### 5 7021-8 ####[facility] LABCLIA [id number] [place] [address] [place] Immature granulocytes (Bld) [#/Vol] 10*3/uL Normal <0.10 [facility] Comment on above: Order Comment: Speci men Type: BLOOD SPECIMENOrdering Facility: [facility] Address: [address] [place] [address] Performed By: #### 5 7021-8 ####[facility] LABCLIA [id number] [place] [address] [place] Immature granulocytes/100 WBC (Bld) 0.4 % Normal [facility] Comment on above: Order Comment: Speci men Type: BLOOD SPECIMENOrdering Facility: [facility] Address: [address] [place] [address] Performed By: #### 5 7021-8 ####[facility] LABCLIA [id number] [place] [address] [place] Lymphocytes (Bld) [#/Vol] 1.58 10*3/uL Normal 1.00-4.00 [facility] Comment on above: Order Comment: Speci men Type: BLOOD SPECIMENOrdering Facility: [facility] Address: [address] [place] [address] Performed By: #### 5 7021-8 ####[facility] LABCLIA [id number] [place] [address] [place] Lymphocytes/100 WBC (Bld) 28.4 % Normal [facility] Comment on above: Order Comment: Speci men Type: BLOOD SPECIMENOrdering Facility: [facility] Address: [address] [place] [address] Performed By: #### 5 7021-8 ####[facility] LABCLIA [id number] [place] [address] [place] MCH (RBC) [Entitic mass] 30.6 pg Normal 26.0-34.0 [facility] Comment on above: Order Comment: Speci men Type: BLOOD SPECIMENOrdering Facility: [facility] Address: [address] [place] [address] Performed By: #### 5 7021-8 ####[facility] LABCLIA [id number] [place] [address] [place] MCHC (RBC) [Mass/Vol] 33.8 g/dL Normal 30.5-36.0 [facility] Comment on above: Order Comment: Speci men Type: BLOOD SPECIMENOrdering Facility: [facility] Address: [address] [place] [address] Performed By: #### 5 7021-8 ####[facility] LABCLIA [id number] [place] [address] [place] MCV (RBC) [Entitic vol] 90.5 fL Normal 80.0-100.0 [facility] Comment on above: Order Comment: Speci men Type: BLOOD SPECIMENOrdering Facility: [facility] Address: [address] [place] [address] Performed By: #### 5 7021-8 ####[facility] LABCLIA [id number] [place] [address] [place] Monocytes (Bld) [#/Vol] 0.45 10*3/uL Normal <0.87 [facility] Comment on above: Order Comment: Speci men Type: BLOOD SPECIMENOrdering Facility: [facility] Address: [address] [place] [address] Performed By: #### 5 7021-8 ####[facility] LABCLIA [id number] [address] [place] Monocytes/100 WBC (Bld) 8.1 % Normal [facility] Comment on above: Order Comment: Speci men Type: BLOOD SPECIMENOrdering Facility: [facility] Address: [address] [place] [address] Performed By: #### 5 7021-8 ####[facility] LABCLIA [id number] [place] [address] [place] Neutrophils (Bld) [#/Vol] 3.28 10*3/uL Normal 1.45-7.50 [facility] Comment on above: Order Comment: Speci men Type: BLOOD SPECIMENOrdering Facility: [facility] Address: [address] [place] [address] Performed By: #### 5 7021-8 ####[facility] LABCLIA [id number] [place] [address] [place] Neutrophils/100 WBC (Bld) 59.0 % Normal [facility] Comment on above: Order Comment: Speci men Type: BLOOD SPECIMENOrdering Facility: [facility] Address: [address] [place] [address] Performed By: #### 5 7021-8 ####[facility] LABCLIA [id number] [place] [address] [place] Nucleated RBC (Bld) [#/Vol] 10*3/uL Normal <0.01 [facility] Comment on above: Order Comment: Speci men Type: BLOOD SPECIMENOrdering Facility: [facility] Address: [address] [place] [address] Performed By: #### 5 7021-8 ####[facility] LABCLIA [id number] [place] [address] [place] Nucleated RBC/100 WBC (Bld) [Ratio] 0.0 /100 WBC Normal [facility] Comment on above: Order Comment: Speci men Type: BLOOD SPECIMENOrdering Facility: [facility] Address: [address] [place] [address] Performed By: #### 5 7021-8 ####[facility] LABCLIA [id number] [place] [address] [place] Platelet mean volume (Bld) [Entitic vol] 8.7 fL Low 9.0-12.7 [facility] Comment on above: Order Comment: Speci men Type: BLOOD SPECIMENOrdering Facility: [facility] Address: [address] [place] [address] Performed By: #### 5 7021-8 ####[facility] LABCLIA [id number] [place] [address] [place] Platelets (Bld) [#/Vol] 228 10*3/uL Normal 150-400 [facility] Comment on above: Order Comment: Speci men Type: BLOOD SPECIMENOrdering Facility: [facility] Address: [address] [place] [address] Performed By: #### 5 7021-8 ####[facility] LABCLIA [id number] [place] [address] [place] RBC (Bld) [#/Vol] 4.84 10*6/uL Normal 3.90-5.20 [facility] Comment on above: Order Comment: Speci men Type: BLOOD SPECIMENOrdering Facility: [facility] Address: [address] [place] [address] Performed By: #### 5 7021-8 ####[facility] LABIA [id number] [place] [address] [place] WBC (Bld) [#/Vol] 5.56 10*3/uL Normal 3.70-11.00 [facility] Comment on above: Order Comment: Speci men Type: BLOOD SPECIMENOrdering Facility: [facility] Address: [address] [place] [address] Performed By: #### 5 7021-8 ####[facility] LABCLIA [id number] [place] [address] [place] CBC panel Auto (Bld)on 01-24 Erythrocyte distribution width (RBC) [Ratio] 11.3 % Low 11.5-15.0 [facility] Comment on above: Order Comment: Speci men Type: BLOOD SPECIMENOrdering Facility: [facility] Address: [address] [place] [address] Performed By: #### 5 8410-2 ####[facility] LABCLIA [id number] [place] [address] [place] Hematocrit (Bld) [Volume fraction] 40.5 % Normal 36.0-46.0 [facility] Comment on above: Order Comment: Speci men Type: BLOOD SPECIMENOrdering Facility: [facility] Address: [address] [place] [address] Performed By: #### 5 8410-2 ####[facility] LABCLIA [id number] [place] [address] [place] Hemoglobin (Bld) [Mass/Vol] 14.3 g/dL Normal 11.5-15.5 [facility] Comment on above: Order Comment: Speci men Type: BLOOD SPECIMENOrdering Facility: [facility] Address: [address] [place] [address] Performed By: #### 5 8410-2 ####[facility] LABCLIA [id number] [place] [address] [place] MCH (RBC) [Entitic mass] 30.4 pg Normal 26.0-34.0 [facility] Comment on above: Order Comment: Speci men Type: BLOOD SPECIMENOrdering Facility: [facility] Address: [address] [place] [address] Performed By: #### 5 8410-2 ####[facility] LABCLIA [id number] [place] [address] [place] MCHC (RBC) [Mass/Vol] 35.3 g/dL Normal 30.5-36.0 [facility] Comment on above: Order Comment: Speci men Type: BLOOD SPECIMENOrdering Facility: [facility] Address: [address] [place] [address] Performed By: #### 5 8410-2 ####[facility] LABCLIA [id number] [place] [address] [place] MCV (RBC) [Entitic vol] 86.2 fL Normal 80.0-100.0 [facility] Comment on above: Order Comment: Speci men Type: BLOOD SPECIMENOrdering Facility: [facility] Address: [address] [place] [address] Performed By: #### 5 8410-2 ####[facility] LABCLIA [id number] [place] [address] [place] Nucleated RBC (Bld) [#/Vol] 10*3/uL Normal <0.01 [facility] Comment on above: Order Comment: Speci men Type: BLOOD SPECIMENOrdering Facility: [facility] Address: [address] [place] [address] Performed By: #### 5 8410-2 ####[facility] LABCLIA [id number] [place] [address] [place] Platelet mean volume (Bld) [Entitic vol] 8.1 fL Low 9.0-12.7 [facility] Comment on above: Order Comment: Speci men Type: BLOOD SPECIMENOrdering Facility: [facility] Address: [address] [place] [address] Performed By: #### 5 8410-2 ####[facility] LABCLIA [id number] [place] [address] [place] Platelets (Bld) [#/Vol] 204 10*3/uL Normal 150-400 [facility] Comment on above: Order Comment: Speci men Type: BLOOD SPECIMENOrdering Facility: [facility] Address: [address] [place] [address] Performed By: #### 5 8410-2 ####[facility] LABCLIA [id number] [place] [address] [place] RBC (Bld) [#/Vol] 4.70 10*6/uL Normal 3.90-5.20 [facility] Comment on above: Order Comment: Speci men Type: BLOOD SPECIMENOrdering Facility: [facility] Address: [address] [place] [address] Performed By: #### 5 8410-2 ####[facility] LABCLIA [id number] [place] [address] [place] WBC (Bld) [#/Vol] 5.51 10*3/uL Normal 3.70-11.00 [facility] Comment on above: Order Comment: Speci men Type: BLOOD SPECIMENOrdering Facility: [facility] Address: [address] [place] [address] Performed By: #### 5 8410-2 ####[facility] LABCLIA [id number] [address] STATES OF [facility] CONFIRM BLOOD TYPEon 025 ABO O Normal [facility] Comment on above: Order Comment: Speci men Type: BLOOD SPECIMENOrdering Facility: [facility] Address: [address] [place] [address] Performed By: #### C ONABO ####[facility] LABCLIA [id number] [place] [address] [place] Rh Nom (Bld) Positive Normal [facility] Comment on above: Order Comment: Speci men Type: BLOOD SPECIMENOrdering Facility: [facility] Address: [address] [place] [address] Performed By: #### C ONABO ####[facility] LABCLIA [id number] [place] [address] [place] Comprehensive metabolic 2000 panelon 01-24-2025 Albumin [Mass/Vol] 4.5 g/dL Normal 3.9-4.9 [facility] Comment on above: Order Comment: Speci men Type: BLOOD SPECIMENOrdering Facility: [facility] Address: [address] [place] [address] Performed By: #### 2 532-0, 70080-4 ####[facility] LABCLIA [id number] [place] [address] [place] ALP [Catalytic activity/Vol] 52 U/L Normal 34-123 [facility] Comment on above: Order Comment: Speci men Type: BLOOD SPECIMENOrdering Facility: [facility] Address: [address] [place] [address] Performed By: #### 2 532-0, 01244-7 ####[facility] LABCLIA [id number] [place] [address] [place] ALT [Catalytic activity/Vol] 22 U/L Normal 7-38 [facility] Comment on above: Order Comment: Speci men Type: BLOOD SPECIMENOrdering Facility: [facility] Address: [address] [place] [address] Performed By: #### 2 532-0, ####[facility] LABCLIA [id number] [place] [address] [place] Anion gap [Moles/Vol] 10 mmol/L Normal 8-15 [facility] Comment on above: Order Comment: Speci men Type: BLOOD SPECIMENOrdering Facility: [facility] Address: [address] [place] [address] Performed By: #### 2 532-0, ####[facility] LABCLIA [id number] [place] [address] [place] AST [Catalytic activity/Vol] 20 U/L Normal 13-35 [facility] Comment on above: Order Comment: Speci men Type: BLOOD SPECIMENOrdering Facility: [facility] Address: [address] [place] [address] Performed By: #### 2 532-0, ####[facility] LABCLIA [id number] [place] [address] [place] Bilirubin [Mass/Vol] 0.5 mg/dL Normal 0.2-1.3 [facility] Comment on above: Order Comment: Speci men Type: BLOOD SPECIMENOrdering Facility: [facility] Address: [address] [place] [address] Performed By: #### 2 532-0, 92244-7 ####[facility] LABCLIA [id number] [place] [address] [place] Calcium [Mass/Vol] 9.4 mg/dL Normal 8.5-10.2 [facility] Comment on above: Order Comment: Speci men Type: BLOOD SPECIMENOrdering Facility: [facility] Address: [address] [place] [address] Performed By: #### 2 532-0, 65874-8 ####[facility] LABCLIA [id number] [place] [address] [place] Chloride [Moles/Vol] 107 mmol/L Normal 98-107 [facility] Comment on above: Order Comment: Speci men Type: BLOOD SPECIMENOrdering Facility: [facility] Address: [address] [place] [address] Performed By: #### 2 532-0, 71592-2 ####[facility] LABCLIA [id number] [place] [address] [place] CO2 [Moles/Vol] 23 mmol/L Normal 22-30 [facility] Comment on above: Order Comment: Speci men Type: BLOOD SPECIMENOrdering Facility: [facility] Address: [address] [place] [address] Performed By: #### 2 532-0, 32466-4 ####[facility] LABCLIA [id number] [place] [address] [place] Creatinine [Mass/Vol] 0.72 mg/dL Normal 0.58-0.96 [facility] Comment on above: Order Comment: Speci men Type: BLOOD SPECIMENOrdering Facility: [facility] Address: [address] [place] [address] Performed By: #### 2 532-0, 28777-8 ####[facility] LABCLIA [id number] [place] [address] [place] eGFRcr SerPlBld CKD-EPI 2020 106 mL/min/1.73m??? Normal >=60 [facility] Comment on above: Order Comment: Speci men Type: BLOOD SPECIMENOrdering Facility: [facility] Address: [address] [place] [address] Result Comment: Hilda mated Glomerular Filtration Rate (eGFR) is calculated using the 2020 CKD-EPI creatinine equation. This equation utilizes serum creatinine, sex, and age as parameters. The creatinine assay has traceable calibration to isotope dilution-mass spectrometry. Refer to KDIGO guidelines for clinical interpretation. In patients with unstable renal function, e.g. those with acute kidney injury, the eGFR may not accurately reflect actual GFR. Performed By: #### 2 532-0, 89991-2 ####[facility] LABCLIA [id number] [place] [id number] [place] Glucose [Mass/Vol] 93 mg/dL Normal 74-99 [facility] Comment on above: Order Comment: Amanda heller Type: BLOOD SPECIMENOrdering Facility: [facility] Address: [address] [place] [address] Result Comment: The [place] Diabetes Association (ADA) provides guidance for cutoff values for fasting glucose and random glucose. The ADA defines fasting as no caloric intake for at least 8 hours. Fasting plasma glucose results between 100 to 125 mg/dL indicate increased risk for diabetes (prediabetes).Fasting plasma glucose results greater than or equal to 126 mg/dL meet the criteria for diagnosis of diabetes. In the absence of unequivocal hyperglycemia, results should be confirmed by repeat testing. In a patient with classic symptoms of hyperglycemia or hyperglycemic crisis, random plasma glucose results greater than or equal to 200 mg/dL meet the criteria for diagnosis of diabetes.Reference: Standards of Medical Care in Diabetes 2016, [place] [employer]. Diabetes Care. 2016.39(Suppl 1). Performed By: #### 2 532-0, 94977-9 ####[facility] LABCLIA [id number] [place] [id number] [place] Potassium [Moles/Vol] 4.6 mmol/L Normal 3.7-5.1 [facility] Comment on above: Order Comment: Amanda heller Type: BLOOD SPECIMENOrdering Facility: [facility] Address: [address] [place] [id number] Performed By: #### 2 532-0, 76905-3 ####[facility] LABCLIA [id number] [place] [id number] [place] Protein [Mass/Vol] 6.8 g/dL Normal 6.3-8.0 [facility] Comment on above: Order Comment: Amanda heller Type: BLOOD SPECIMENOrdering Facility: [facility] Address: [address] [place] [address] Performed By: #### 2 532-0, 52104-1 ####[facility] LABCLIA [id number] [place] [address] [place] Sodium [Moles/Vol] 140 mmol/L Normal 136-144 [facility] Comment on above: Order Comment: Speci men Type: BLOOD SPECIMENOrdering Facility: [facility] Address: [address] [place] [address] Performed By: #### 2 532-0, 04044-8 ####[facility] LABCLIA [id number] [place] [address] [place] Urea nitrogen [Mass/Vol] 11 mg/dL Normal 7-21 [facility] Comment on above: Order Comment: Speci men Type: BLOOD SPECIMENOrdering Facility: [facility] Address: [address] [place] [address] Performed By: #### 2 532-0, 18837-1 ####[facility] LABCLIA [id number] [place] [address] [place] HISTORY PHYSICALon HISTORY PHYSICAL Normal [facility] LDH SerPl-cCncon 01-24-2025 LDH [Catalytic activity/Vol] 193 U/L Normal 135-214 [facility] Comment on above: Order Comment: Speci men Type: BLOOD SPECIMENOrdering Facility: [facility] Address: [address] [place] [address] Performed By: #### 2 532-0, 56153-9 ####[facility] LABCLIA [id number] [place] [address] [place] Lipoprotein a [Mass/Vol]on 03-26-2024 Lipoprotein a [Moles/Vol] 7 nmol/L Normal <75 [facility] Comment on above: Order Comment: Speci men Type: BLOOD SPECIMENOrdering Facility: [facility] Address: [address] [place] [address] Result Comment: < 75 nmol/L : Low Lp(a) attributable ASCVD risk75 - <125 nmol/L : Intermediate Lp(a) attributable ASCVD risk>=125 nmol/L : High Lp(a) attributable ASCVD risk, with increasing risk with higher Lp(a) values Performed By: #### 1 0835-7 ####[facility] LABCLIA [id number] [place] [address] [place] PT panel Coag (PPP)on 2024 INR Coag (PPP) [Relative time] 1.0 {INR} Normal 0.9-1.3 [facility] Comment on above: Order Comment: Speci men Type: BLOOD SPECIMENOrdering Facility: [facility] Address: [address] [place] [address] Result Comment: Asmita min K Antagonist (VKA) Therapeutic Range: INR 2 to 3 (Target INR of 2.5)Note: For patients treated with VKA drugs, such as warfarin, the [place] [employer] 2012 Guideline recommends a therapeutic INR range of 2 to 3 (target INR of 2.5). This recommendation includes high-risk patients with antiphospholipid syndrome with previous arterial or venous thromboembolism, current-generation mechanical or bioprosthetic aortic heart valve replacement.Note: Patients with mechanical aortic valve replacement and additional risk factors for thromboembolic events (atrial fibrillation, previous thromboembolism, LV dysfunction, hypercoagulable conditions) or an older generation mechanical AVR (i.e., ball in-Cage) or any mechanical MVR should have a INR therapeutic range of 2.5 to 3.5 (target INR of 3).Keiry GH, et al. Chest 2012, 141:7S-47SNishimura RA, et al. [facility] 2017, 70: 252-289 Performed By: #### 3 4528-0, 99472-0 ####[facility] LABCLIA [id number] [place] [address] [place] PT Coag (PPP) [Time] 10.3 s Normal 9.7-13.0 [facility] Comment on above: Order Comment: Speci men Type: BLOOD SPECIMENOrdering Facility: [facility] Address: [address] [place] [address] Performed By: #### 3 4528-0, 89103-9 ####[facility] LABCLIA [id number] [place] [address] [place] STAPHYLOCOCCUS AUREUS AND MR SA SCREEN, PCR, NASALon 01-24-2025 S. aureus and MRSA panel MARTINE+probe (Nose) Not detected Normal Not Detected [facility] Comment on above: Order Comment: Speci men Type: SWABOrdering Facility: [facility] Address: [address] [place] [address] Performed By: #### S APCR ####[facility] LABCLIA [id number] [place] [address] [place] TYPE AND SCREEN,30 DAYon ABO O Normal [facility] Comment on above: Order Comment: Speci men Type: BLOOD SPECIMENOrdering Facility: [facility] Address: [address] [place] [address] Performed By: #### T SCR30 ####[facility] LABCLIA [id number] [place] [address] [place] Rh Nom (Bld) Positive Normal [facility] Comment on above: Order Comment: Speci men Type: BLOOD SPECIMENOrdering Facility: [facility] Address: [address] [place] [address] Performed By: #### T SCR30 ####[facility] LABCLIA [id number] [place] [address] [place] URINALYSIS, DIPSTICK ONLYon 01-24-2025 Bilirubin Ql (U) Negative Normal Negative [facility] Comment on above: Order Comment: Speci men Type: URINE SPECIMENOrdering Facility: [facility] Address: [address] [place] [address] Performed By: #### U A ####[facility] LABCLIA [id number] [place] [address] [place] Clarity (Unsp spec) Clear Normal Clear [facility] Comment on above: Order Comment: Speci men Type: URINE SPECIMENOrdering Facility: [facility] Address: [address] [place] [address] Performed By: #### U A ####[facility] LABCLIA [id number] [place] [address] [place] Color (U) Yellow Normal Yellow [facility] Comment on above: Order Comment: Speci men Type: URINE SPECIMENOrdering Facility: [facility] Address: [address] [place] [address] Performed By: #### U A ####[facility] LABCLIA [id number] [address] [place] Glucose Test strip (U) [Mass/Vol] Negative Normal Negative [facility] Comment on above: Order Comment: Speci men Type: URINE SPECIMENOrdering Facility: [facility] Address: [address] [place] [address] Performed By: #### U A ####[facility] LABCLIA [id number] [place] [address] [place] Hemoglobin Ql (U) Negative Normal Negative [facility] Comment on above: Order Comment: Speci men Type: URINE SPECIMENOrdering Facility: [facility] Address: [address] [place] [address] Performed By: #### U A ####[facility] LABCLIA [id number] [place] [address] [place] Ketones Ql (U) Negative Normal Negative [facility] Comment on above: Order Comment: Speci men Type: URINE SPECIMENOrdering Facility: [facility] Address: [address] [place] [address] Performed By: #### U A ####[facility] LABCLIA [id number] [place] [address] [place] Leukocyte esterase Test strip Ql (U) Negative Normal Negative [facility] Comment on above: Order Comment: Speci men Type: URINE SPECIMENOrdering Facility: [facility] Address: [address] [place] [address] Performed By: #### U A ####[facility] LABCLIA [id number] [place] [address] [place] Nitrite Ql (U) Negative Normal Negative [facility] Comment on above: Order Comment: Speci men Type: URINE SPECIMENOrdering Facility: [facility] Address: [address] [place] [address] Performed By: #### U A ####[facility] LABCLIA [id number] [place] [address] [place] pH (U) 6.5 [pH] Normal 5.0-8.0 [facility] Comment on above: Order Comment: Speci men Type: URINE SPECIMENOrdering Facility: [facility] Address: [address] [place] [address] Performed By: #### U A ####[facility] LABIA [id number] [place] [address] [place] Protein (U) [Mass/Vol] Negative Normal Negative [facility] Comment on above: Order Comment: Speci men Type: URINE SPECIMENOrdering Facility: [facility] Address: [address] [place] [address] Performed By: #### U A ####[facility] LABIA [id number] [address] [place] Specific gravity (U) [Rel density] 1.012 Normal 1.005-1.030 [facility] Comment on above: Order Comment: Speci men Type: URINE SPECIMENOrdering Facility: [facility] Address: [address] [place] [address] Performed By: #### U A ####[facility] LABIA [id number] [place] [address] [place] Urobilinogen Ql (U) 0.2 EU/dL Normal 0.2-1.0 EU/dL [facility] Comment on above: Order Comment: Speci men Type: URINE SPECIMENOrdering Facility: [facility] Address: [address] [place] [address] Performed By: #### U A ####[facility] LABCLIA [id number] [place] [id number] [place] XR CHEST 2V FRONTAL/LATon XR CHEST 2V FRONTAL/LAT Normal C [facility] aPTT PPPon 01-24-2025 aPTT Coag (PPP) [Time] 25.6 s Normal 23.0-32.4 Cl [facility] Comment on above: Order Comment: Speci men Type: BLOOD SPECIMENOrdering Facility: [facility] Address: [address] [place] [address] Performed By: #### 3 4528-0, 03242-6 ####[facility] LABCLIA [id number] [place] [address] [place] CNPNon 01-23-2025 CNPN Normal [facility] CNPNon 01-17-2025 CNPN Normal [facility] CNOVon 01-15-2025 CNOV Normal [facility] CNOVon 09-21-2024 CNOV Normal [facility] CNPNon 09-21-2024 CNPN Normal [facility] CNOVon 09-02-2024 CNOV Normal [facility] ECG COMPLETEon 09-02-2024 ECG COMPLETE Normal [facility] LUNG DIFFUSION CAPACITY (URSULA O)on 09-02-2024 LUNG DIFFUSION CAPACITY (DLCO) Normal [facility] SPIROMETRY BASELINE ONLYon 0 09-02-2024 SPIROMETRY BASELINE ONLY Normal [facility] MR Brain WO contraston 09-01 IMPRESSION: No acute findings. No acute infarction, intracranial hemorrhage or intracranial mass lesion. Grading Clerk: PSCB Transcribe Date/Time: Sep 01 2024 3:05P Dictated by : STEVE KAMINSKI MD This examination was interpreted and the report reviewed and electronically signed by: STEVE KAMINSKI MD on Sep 01 2024 3:11PM [facility] DIVISION OF RADIOLOGY * * *Final Report* * * DATE OF EXAM: Sep 01 2024 2:57PM [facility] 0294 - MRI BRAIN WO IVCON / PROCEDURE REASON: multiple diagnoses * * * * Physician Interpretation * * * * EXAMINATION: MRI BRAIN WO IVCON CLINICAL HISTORY: Hx of Amarousis Fugax . Preoperative evaluation. TECHNIQUE: Routine noncontrast MRI protocol including diffusion images. MQ: [id number] COMPARISON: None. RESULT: Acute Change: There is no evidence of restricted diffusion to suggest an acute infarct. Hemorrhage: No evidence of prior parenchymal hemorrhage on the susceptibility weighted images. Mass Lesion/ Mass Effect: No evidence of an intracranial mass or extra-axial fluid collection. No significant mass effect. Chronic Change: The white matter is within normal limits of signal intensity for age. Parenchyma: No significant volume loss for age. The brain parenchyma is otherwise within normal limits of signal intensity and morphology. Ventricles: Normal caliber and morphology. Skull Base: Hypothalamic and pituitary region are grossly normal. Craniocervical junction is normal. No significant marrow replacement process. Vasculature: Major intracranial arterial structures, and dural venous sinuses show typical flow void, suggesting patency by spin echo criteria. Other: The visualized paranasal sinuses and mastoid air cells are clear. The orbits and extracranial soft tissues are unremarkable. DIVISION OF RADIOLOGY Provider, [facility] - 09/01/2024 * * *Final Report* * * DATE OF EXAM: Sep 01 2024 2:57PM [facility] 0294 - MRI BRAIN WO IVCON / PROCEDURE REASON: multiple diagnoses * * * * Physician Interpretation * * * * EXAMINATION: MRI BRAIN WO IVCON CLINICAL HISTORY: Hx of Amarousis Fugax . Preoperative evaluation. TECHNIQUE: Routine noncontrast MRI protocol including diffusion images. MQ: [id number]_2 COMPARISON: None. RESULT: Acute Change: There is no evidence of restricted diffusion to suggest an acute infarct. Hemorrhage: No evidence of prior parenchymal hemorrhage on the susceptibility weighted images. Mass Lesion/ Mass Effect: No evidence of an intracranial mass or extra-axial fluid collection. No significant mass effect. Chronic Change: The white matter is within normal limits of signal intensity for age. Parenchyma: No significant volume loss for age. The brain parenchyma is otherwise within normal limits of signal intensity and morphology. Ventricles: Normal caliber and morphology. Skull Base: Hypothalamic and pituitary region are grossly normal. Craniocervical junction is normal. No significant marrow replacement process. Vasculature: Major intracranial arterial structures, and dural venous sinuses show typical flow void, suggesting patency by spin echo criteria. Other: The visualized paranasal sinuses and mastoid air cells are clear. The orbits and extracranial soft tissues are unremarkable. IMPRESSION IMPRESSION: No acute findings. No acute infarction, intracranial hemorrhage or intracranial mass lesion. Grading Clerk: DENNIS Transcribe Date/Time: Sep 01 2024 3:05P Dictated by : STEVE KAMINSKI MD This examination was interpreted and the report reviewed and electronically signed by: STEVE KAMINSKI MD on Sep 01 2024 3:11PM EST [facility] Radiology Study observation (narrative) [facility] MR Brain WO contrastOrdered By: Ccf Provider on 09-01-2024 [facility] MRI BRAIN WO IVCONon 025 MRI BRAIN WO IVCON Normal [facility] CNPNon 08-04-2024 CNPN Normal [facility] CNPNon 08-03-2024 CNPN Normal [facility] Coronary Angiography CTon Coronary Angiography CT [facility] [address] [place] [address] 07/20/24 1654 MR#: [id number] Acct: [id number] Name: ALEK ASHTON Rep #: [id number] : 1980 43 From: Alex Jones MD PCP: Dr. Tiesha Alexander MD Status:REG CLI Y Location: CT CCTA w/Cont Coronary Arteries Date of Study:: 07/20/24 Bicuspid aortic valve Coronary Calcium Scoring: High-resolution Computed Tomographic imaging of the chest was performed on [07/20/2024], with particular attention paid to the coronary arteries. Intravenous contrast agent was administered per protocol and images reconstructed and displayed. LEFT MAIN CORONARY ARTERY: This arises from the left coronary cusp no significant atherosclerotic plaquing is noted or stenosis present. Bifurcates the left anterior descending artery and left circumflex artery. [] LEFT ANTERIOR DESCENDING CORONARY ARTERY: The left anterior descending artery is well imaged and arises from the left anterior descending artery and courses towards the apex of the ventricle giving off a diagonal branch. No significant atherosclerotic plaquing or coronary calcification is present. [] LEFT CIRCUMFLEX CORONARY ARTERY: Nondominant vessel but medium size arising from the left main coronary artery coursing in the AV groove with no significant stenosis or atherosclerotic plaquing noted. [] RIGHT CORONARY ARTERY: Dominant right coronary artery with no significant atherosclerotic plaquing or stenosis noted. It bifurcates distally to posterior descending artery and posterolateral vessel. [] THORACIC AORTA: Normal size [] PULMONARY ARTERY: Normal [] LEFT ATRIUM/APPENDAGE: Normal [] MITRAL VALVE: Normal [] AORTIC VALVE: Bileaflet with no calcification present [] LEFT VENTRICLE: Preserved CT angiogram demonstrating no coronary atherosclerosis or stenosis present. Bicuspid aortic valve present 07/20/24 165 Date Alex Jones MD Cosigner Signature (if applicable): Date CC: Dr. Alex Jones MD; Dr. Tiesha Alexander MD; DONATO Thorne Signed Normal [facility] Limited Chest CT Cardiac Onl yon 07-20-[address] Cardiac Only [facility] Imaging Services [address] [place] [id number] Cardiac Only MR#: [id number] Acct: [id number] Name: ALEK ASHTON Rep #: [id number] : 1980 F 43 From: Leif Salcido MD PCP: Dr. Tiesha Alexander MD Status: [facility] Study: Limited Chest CT Cardiac Only Date of Exam: Exam# [id number] Ordering Dr: Chantel Samuels PROCEDURE: LIMITED CHEST CT CARDIAC ONLY REASON FOR EXAM: SEVERE TECHNIQUE: Contiguous axial scans of 2.5 mm slice thicknesses. One or more dose reduction techniques were used (e.g., automated exposure control, adjustment of mA and/or kv according to patient size, use of iterative reconstruction technique). Evaluation is limited to the non-coronary cardiac findings in non-cardiac findings. Only those areas demonstrated within the [id number] were evaluated. COMPARISON: No relevant prior. FINDINGS: Non-Coronary Cardiac Findings: The myocardium, valves and pericardium have a normal appearance. Non-Cardiac Findings: Lungs: Clear. Pleural spaces: No fluid, pneumothorax or thickening. Mediastinum:The visualized mediastinum is normal with no lymphadenopathy. Pulmonary vessels: Unremarkable. Chest wall: Unremarkable. Upper abdomen and bones: Normal appearance within the field of view. CT/Limited Chest CT Cardiac Only IMPRESSION: UNREMARKABLE LIMITED CHEST CT NON-CORONARY AND NON-CARDIAC ANATOMY ONLY. Reading Location: [place] CC: Dr. Tiesha Alexander MD; DONATO Thorne Grading Clerk: Signed Normal [facility] Echo Completeon 06-30-2024 Echo Complete [facility] [address] [facility] [place] [address] Echo Complete 06/30/24 1457 MR#: [id number] Acct: [id number] Name: ALEK ASHTON Rep #: [id number] : 1980 43 From: Alex Jones MD Attending Dr: DONATO Thorne Status: REG CLI Ordering Dr: Chantel Samuels Date: 12/16 Location: [facility] Sex: F C Admitted: Reason For Study Reason For Study: BICUSPID AORTIC VALVE Procedure This was a 2D Doppler, Color Flow transthoracic echocardiogram. Exam performed in department. Left Ventricle Normal LV size. Left ventricular systolic function is normal. The left ventricular ejection fraction is 70 %. No regional wall motion abnormalities noted. Right Ventricle Normal RV size. Normal systolic function. Atria Normal left atrium. Normal right atrium. Mitral Valve Normal mitral valve. Tricuspid Valve Normal tricuspid valve. Mild tricuspid valve insufficiency. Aortic Valve Bicuspid aortic valve. Peak aortic valve gradient 64 mmHg. Mean aortic valve gradient 37 mmHg. Moderate to severe aortic stenosis. Pulmonic Valve Normal pulmonic valve. Great Vessels Normal aortic root. The pulmonary artery is normal size. Inferior vena cava collapse with respiration. Pericardium/Pleural No pericardial effusion. MMode/2D Measurements Calculations LVIDd: 3.9 cm IVSd: 0.94 cm LVOT diam: 2.0 cm LVIDs: 2.4 cm LVPWd: 1.0 cm LVOT area: 3.0 cm2 RVDd: 3.2 cm FS: 38.6 % Ao root diam: 2.5 cm LAV(MOD-bp): 33.5 ml LVAd ap4: 25.0 cm2 LAV(MOD-bp) Indexed: 18.8 ml/m2 LVLd ap4: 7.3 cm LAV(MOD-sp2): 31.5 ml EDV(MOD-sp4): 69.7 ml LAV(MOD-sp4): 31.5 ml EDV(sp4-el): 73.0 ml LVAs ap4: 12.4 cm2 LVLs ap4: 6.0 cm ESV(MOD-sp4): 22.6 ml ESV(sp4-el): 21.9 ml EF(MOD-sp4): 67.5 % EF(sp4-el): 70.0 % SV(MOD-sp4): 47.1 ml SV(sp4-el): 51.1 ml LA A4 area: 13.2 cm2 SI(MOD-sp4): 26.3 ml/m2 LA dimension(2D): 2.9 cm RA A4 area: 11.7 cm2 TAPSE: 2.4 cm Time Measurements MV dec time: 0.25 sec Doppler Measurements Calculations MV E max jennyfer: 92.9 cm/sec Lat Peak E' Jennyfer: 10.2 cm/sec Med Peak E' Jennyfer: 9.4 cm/sec MV A max jennyfer: 96.3 cm/sec E/E' lat: 9.1 E/E' med: 9.8 MV E/A: 0.96 Ao V2 max: 402.7 cm/sec LV V1 max: 151.5 cm/sec SV(LVOT): 96.9 ml Ao max P.9 mmHg LV V1 max P.2 mmHg Ao V2 mean: 288.6 cm/sec LV V1 mean P.0 mmHg Ao mean P.2 mmHg LV V1 mean: 106.8 cm/sec Ao V2 VTI: 82.9 cm LV V1 VTI: 32.0 cm AV (velocity ratio): 0.39 NITESH(I,D): 1.2 cm2 NITESH(V,D): 1.1 cm2 PA V2 max: 106.7 cm/sec TR max jennyfer: 221.2 cm/sec TR max P.6 mmHg ECHO/Echo Complete Interpretation Summary Normal LV size. Left ventricular systolic function is normal. The left ventricular ejection fraction is 70 %. Bicuspid aortic valve. Mean aortic valve gradient 37 mmHg. Moderate to severe aortic stenosis. Ordering Physician: Chantel Samuels Referring Physician: TIESHA ALEXANDER Performed By: Marisela Linder RDCS 06/30/241723 Date Alex Jones MD CC: Dr. Tiesha Alexander MD; DONATO Thorne Date Dictated: 06/30/241456 Date Transcribed: 06/30/241723 Grading Clerk: Signed Normal [facility] Echocardiogram study reportO rdered By: Alex Jones on 06-30-2024 Study report [facility] Cardiovascular Services [address] [place] [address] Echo Complete 06/30/241456 MR#: [id number] Acct: [id number] Name: ALEK ASHTON Rep #:[id number] : 1980 43 From: Alex Nance Attending Dr: DONATO Thorne Status: REG CLI Ordering Dr: Chantel Samuels Date: 06/30/24 Location: [facility] Sex: F C Admitted: Reason For Study Reason For Study: BICUSPID AORTIC VALVE Procedure This was a 2D Doppler, Color Flow transthoracic echocardiogram. Exam performed in department. Left Ventricle Normal LV size. Left ventricular systolic function is normal. The left ventricular ejection fraction is 70 %. No regional wall motion abnormalities noted. Right Ventricle Normal RV size. Normal systolic function. Atria Normal left atrium. Normal right atrium. Mitral Valve Normal mitral valve. Tricuspid Valve Normal tricuspid valve. Mild tricuspid valve insufficiency. Aortic Valve Bicuspid aortic valve. Peak aortic valve gradient 64 mmHg. Mean aortic valve gradient 37 mmHg. Moderate to severe aortic stenosis. Pulmonic Valve Normal pulmonic valve. Great Vessels Normal aortic root. The pulmonary artery is normal size. Inferior vena cava collapse with respiration. Pericardium/Pleural No pericardial effusion. MMode/2D Measurements & Calculations LVIDd: 3.9 cm IVSd: 0.94 cm LVOT diam: 2.0 cm LVIDs: 2.4 cm LVPWd: 1.0 cm LVOT area: 3.0 cm2 RVDd: 3.2 cm FS: 38.6 % Ao root diam: 2.5 cm LAV(MOD-bp): 33.5 ml LVAd ap4: 25.0 cm2 LAV(MOD-bp) Indexed: 18.8 ml/m2 LVLd ap4: 7.3 cm LAV(MOD-sp2): 31.5 ml EDV(MOD-sp4): 69.7 ml LAV(MOD-sp4): 31.5 ml EDV(sp4-el): 73.0 ml LVAs ap4: 12.4 cm2 LVLs ap4: 6.0 cm ESV(MOD-sp4): 22.6 ml ESV(sp4-el): 21.9 ml EF(MOD-sp4): 67.5 % EF(sp4-el): 70.0 % SV(MOD-sp4): 47.1 ml SV(sp4-el): 51.1 ml LA A4 area: 13.2 cm2 SI(MOD-sp4): 26.3 ml/m2 LA dimension(2D): 2.9 cm RA A4 area: 11.7 cm2 TAPSE: 2.4 cm Time Measurements MV dec time: 0.25 sec Doppler Measurements & Calculations MV E max jennyfer: 92.9 cm/sec Lat Peak E' Jennyfer: 10.2 cm/sec Med Peak E' Jennyfer: 9.4 cm/sec MV A max jennyfer: 96.3 cm/sec E/E' lat: 9.1 E/E' med: 9.8 MV E/A: 0.96 Ao V2 max: 402.7 cm/sec LV V1 max: 151.5 cm/sec SV(LVOT): 96.9 ml Ao max P.9 mmHg LV V1 max P.2 mmHg Ao V2 mean: 288.6 cm/sec LV V1 mean P.0 mmHg Ao mean P.2 mmHg LV V1 mean: 106.8 cm/sec Ao V2 VTI: 82.9 cm LV V1 VTI: 32.0 cm AV (velocity ratio): 0.39 NITESH(I,D): 1.2 cm2 NITESH(V,D): 1.1 cm2 PA V2 max: 106.7 cm/sec TR max jennyfer: 221.2 cm/sec TR max P.6 mmHg ECHO/Echo Complete Interpretation Summary Normal LV size. Left ventricular systolic function is normal. The left ventricular ejection fraction is 70 %. Bicuspid aortic valve. Mean aortic valve gradient 37 mmHg. Moderate to severe aortic stenosis. Ordering Physician: Chantel Samuels Referring Physician: TIESHA ALEXANDER Performed By: Marisela Linder RDCS 06/30/241723 Date _ Alex Jones MD CC: Dr. Tiesha Alexander MD; DONATO Thorne ~ Date Dictated: 06/30/24 1457 Date Transcribed: 06/30/241723 Grading Clerk: Signed [facility] Work Phone: Cardiology Visit Reporton Cardiology Visit Report [facility] [address] [place] [address] OFFICE VISIT Date of Service: 06/03/24 MR#: [id number] Acct: [id number] Name: ALEK ASHTON Rep #: [id number] : 1980 Provider: DONATO Ac Age/Sex: 43/F [place] [facility] Status: Signed HPI HPI History of Present Illness Details: ALEK ASHTON, is a 43 F who presents to the office today for a follow-up visit. She is a lady with a history of bicuspid aortic valve. Patient has been evaluated with Dr. Shay Chen regarding aqmaurosis fugax. She was started on aspirin therapy. She underwent a brain MRI on 03/20/2020 that was considered to be a "normal unenhanced and enhanced MRI of the brain". She underwent an echocardiogram on 03/12/2020 that showed ejection fraction of 65% and moderate aortic valve stenosis. She was seen by oral and maxillofacial pathologist on 04/05/2020 and asked to follow-up with [facility]. She underwent a carotid duplex ultrasound that showed less than 50% stenosis. She underwent a 48-hour Holter monitor that showed normal sinus rhythm with an average heart rate of 87 bpm. She was last in the office in 2021. Pt was prompted to call because she feels that she is more SOB at times with activity. She does sometimes have lightheadedness. She does not have any chest pain. She is active for her age. She knows she is due to have an echo done. Intake Vital Signs 04/14/24 13:30 06/03/24 11:23 Height 5 ft 2 in 5 ft 2 in Weight: 177 lb 171 lb BMI 32.3 31.2 BP 145/88 H 138/93 H Blood Pressure Location Lt brachial Position Sitting Respiration 18 Pulse 68 Pulse Source Monitor Pulse Oximetry (%) 99 Intake Visit Reasons: OVERDUE FOR OV/LAST SEEN 07/13 Medical Auditor Required: No Is patient in pain?: No Allergies Corticosteroids (Glucocorticoids) Allergy (Severe, Verified 06/03/24 13:56) hives Medications ???Medication ???Instructions ???Recorded ???Confirmed ???Type naproxen 500 mg tablet 500 mg PO BID-TID PRN pain #30 tab s 01/27/24 06/03/24 Rx Ejection fraction %: 55 [facility] Medical History (Updated 06/03/24 @ 14:17 by Chantel SEWELL, [place]) Aortic stenosis with bicuspid valve 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) Facial paresthesia (03/07/20) COVID-19 virus detected (02/17/20) Abnormal uterine bleeding Nonrheumatic mitral (valve) insufficiency Segmental and somatic dysfunction of pelvic region Segmental and somatic dysfunction of sacral region Sterilization Hyperlipidemia Nonrheumatic tricuspid (valve) insufficiency Hyperlipidemia Supervision of other high risk pregnancies, third trimester Surgical History History of laparoscopy (08/01/17) History of tubal ligation Family History Father Cancer prostate- Alcoholism Brother Diabetes Grandfather Alcoholism Heart disease Mother Hypertension Hyperlipemia Anxiety Grandmother Parkinson disease Social History Smoking Status: Never smoker alcohol intake: current Alcohol type: hard liquor details: once weekly substance use type: does not use caffeine: No what type of physical activity do you participate in: none seatbelt use: always do you feel safe at home: Yes additional social history: 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 [employer] Const Const: Negative for fatigue, weakness or headache(s) Eyes Eyes: Negative for change in vision ENT ENT: Negative for headache(s), dizziness or balance problems Cardio Chest Pain: No Palpitations: No Edema: None Muscle aches with walking: None Resp Respiratory: Positive for SOB with activity; Negative for SOB at rest or SOB orthopnea SOB lying down GI GI: Negative nausea, vomiting or heartburn Musc Musc: Negative for muscle aches/ myalgia, muscle weakness, joint pain or balance problems Neuro Neuro: Negative for dizziness, headache(s) or weakness Endo Endo: Negative for fatigue Cardiology Exam Const Appearance: cooperative, healthy appearing, comfortable and no acute distress Nutritional Appearance: well nourished and overweight Orientation: alert, awake and oriented x3 Head Head: normal to inspection Ears: hearing grossly normal bilaterally Nose: external nose normal Face and Sinus: face symmetric Mouth: oral mucosae normal Eyes General: appearance normal, both eyes and all related structures Eyelids: eyelids normal EOM: EOM intact bilaterally Neck Neck: normal visual inspection and no JVD Carotids: normal carotid upstroke Chest Chest inspection: normal inspection of the chest, symmetric chest movement and normal respiratory effort; Negative cough Auscultation: Bilateral: Clear to Auscultation Cardio Rate: regu (more content not included)... Normal [facility] [id number] DOrdered By: Velma Penn on 04-30-2024 Vitamin D 25-Hydroxy 19.4 ng/mL [facility] Comment on above: Vitamin D 25(OH) Sta tus Range Deficiency <20 ng/mL (50nmol/L) Insufficiency 20 - 30 ng/mL (50 - 75 nmol/L) Sufficiency 30 - 100 ng/mL (75 - 250 nmol/L) Toxicity >100 ng/mL (>250 nmol/L) Absolute neutrophil countOrd ered By: Janina Penn on 04-30-2024 Neutrophils (Bld) [#/Vol] 3.3 10*3/uL 2.0-7.7 [facility] Albumin to globulin ratioOrd ered By: Janina Penn on 04-30-2024 Albumin/Globulin [Mass ratio] 1.1 {ratio} 0.9-2.4 [facility] Basophil percentageOrdered B y: Janina Penn on 04-30-2024 Basophils/100 WBC (Bld) 0.7 % 0-1 [place] Bilirubin, totalOrdered By: Janina Penn on 04-30-2024 Bilirubin [Mass/Vol] 0.80 mg/dL 0.20-1.00 [facility] Comment on above: For patients on eltr ombopag therapy, use of Dimension [place] TBIL is not recommended. Blood urea nitrogen (BUN)/cr eatinine ratioOrdered By: Janina Penn on 04-30-2024 Urea nitrogen/Creatinine [Mass ratio] 18.7 mg/mg 10-20 [facility] CBC W/Diff, Automatedon Absolute Lymph 1.46 X10 3/uL Normal 0.83-4.51 [facility] Comment on above: Performed By: #### L 506.0400, L501.9520, L506.1000, L100.0100, L500.4050, L500.4100 #### [facility] Laboratory [address] [place], [address] Absolute Neut 3.3 X10 3/uL Normal 2.0-7.7 [facility] Comment on above: Performed By: #### L 506.0400, L501.9520, L506.1000, L100.0100, L500.4050, L500.4100 #### [facility] [address] [place], [address] Basophils/100 WBC (Bld) 0.7 % Normal 0-1 [facility] [place] Comment on above: Performed By: #### L 506.0400, L501.9520, L506.1000, L100.0100, L500.4050, L500.4100 #### [facility] [address] [place], [address] Eosinophils/100 WBC (Bld) 3.6 % Normal 0-5 [facility] Comment on above: Performed By: #### L 506.0400, L501.9520, L506.1000, L100.0100, L500.4050, L500.4100 #### [facility] [address] [place], [address] Erythrocyte distribution width (RBC) [Ratio] 12.0 % Normal 11.6-14.6 [facility] Comment on above: Performed By: #### L 506.0400, L501.9520, L506.1000, L100.0100, L500.4050, L500.4100 #### [facility] [address] [place], [address] Hematocrit (Bld) [Volume fraction] 45.5 % Normal 37-47 [facility] Comment on above: Performed By: #### L 506.0400, L501.9520, L506.1000, L100.0100, L500.4050, L500.4100 #### [facility] [address] [place], [address] Hemoglobin (Bld) [Mass/Vol] 15.1 g/dL High 12.0-15.0 [facility] Comment on above: Performed By: #### L 506.0400, L501.9520, L506.1000, L100.0100, L500.4050, L500.4100 #### [facility] [address] [place], [address] IG% 0.500 Normal 0.0-0.9 [facility] Comment on above: Result Comment: IG% - Immature Granulocytes (promyelocytes, myelocytes and metamyelocytes) > 1% indicates that a LEFT SHIFT is Present. Performed By: #### L 506.0400, L501.9520, L506.1000, L100.0100, L500.4050, L500.4100 #### [facility] [address] [place], [address] Lymphocytes/100 WBC (Bld) 26.6 % Normal 19-41 [facility] Comment on above: Performed By: #### L 506.0400, L501.9520, L506.1000, L100.0100, L500.4050, L500.4100 #### [facility] [address] [place], [address] MCH (RBC) [Entitic mass] 29.8 pg Normal 27.0-32.0 [facility] Comment on above: Performed By: #### L 506.0400, L501.9520, L506.1000, L100.0100, L500.4050, L500.4100 #### [facility] [address] [place], [address] MCHC (RBC) [Mass/Vol] 33.2 g/dL Normal 32-36 [facility] Comment on above: Performed By: #### L 506.0400, L501.9520, L506.1000, L100.0100, L500.4050, L500.4100 #### [facility] [address] [place], [address] MCV (RBC) [Entitic vol] 89.9 fL Normal 81-99 [facility] [place] Comment on above: Performed By: #### L 506.0400, L501.9520, L506.1000, L100.0100, L500.4050, L500.4100 #### [facility] [address] [place], [address] Monocytes/100 WBC (Bld) 8.9 % Normal 0-10 [facility] [place] Comment on above: Performed By: #### L 506.0400, L501.9520, L506.1000, L100.0100, L500.4050, L500.4100 #### [facility] [address] [place], [address] Neutrophils/100 WBC (Bld) 59.7 % Normal 47-70 [facility] Comment on above: Performed By: #### L 506.0400, L501.9520, L506.1000, L100.0100, L500.4050, L500.4100 #### [facility] [address] [place], [address] Nucleated RBC (Bld) [#/Vol] 0 10*3/uL Normal 0-5 [facility] Comment on above: Performed By: #### L 506.0400, L501.9520, L506.1000, L100.0100, L500.4050, L500.4100 #### [facility] [address] [place], [address] Platelet mean volume (Bld) [Entitic vol] 8.8 fL Normal 6.2-12.0 [facility] Comment on above: Performed By: #### L 506.0400, L501.9520, L506.1000, L100.0100, L500.4050, L500.4100 #### [facility] [address] [place], [address] Platelets (Bld) [#/Vol] 250 10*3/uL Normal 150-450 [facility] Comment on above: Performed By: #### L 506.0400, L501.9520, L506.1000, L100.0100, L500.4050, L500.4100 #### [facility] [address] [place], [address] RBC (Bld) [#/Vol] 5.06 10*6/uL Normal 4.2-5.4 [facility] Comment on above: Performed By: #### L 506.0400, L501.9520, L506.1000, L100.0100, L500.4050, L500.4100 #### [facility] [address] [place], [address] RDW SD 39.2 fl Normal 35.1-43.9 [facility] Comment on above: Performed By: #### L 506.0400, L501.9520, L506.1000, L100.0100, L500.4050, L500.4100 #### [facility] [address] [place], [address] WBC (Bld) [#/Vol] 5.5 10*3/uL Normal 4.4-11.0 [facility] Comment on above: Performed By: #### L 506.0400, L501.9520, L506.1000, L100.0100, L500.4050, L500.4100 #### [facility] [address] [place], [address] Carbon dioxide measurementOr dered By: Janina Penn on 04-30-2024 CO2 [Moles/Vol] 25.0 mmol/L 21.0-32.0 [facility] Chloride measurementOrdered By: Janina Penn on 04-30-2024 Chloride [Moles/Vol] 104 mmol/L 98-107 [facility] Comprehensive Metabolic Prof ilon 04-30-2024 Albumin [Mass/Vol] 4.1 g/dL Normal 3.2-5.0 [facility] Comment on above: Performed By: #### L 506.0400, L501.9520, L506.1000, L100.0100, L500.4050, L500.4100 #### [facility] [address] [place], [address] Albumin/Globulin [Mass ratio] 1.1 {ratio} Normal 0.9-2.4 [facility] Comment on above: Performed By: #### L 506.0400, L501.9520, L506.1000, L100.0100, L500.4050, L500.4100 #### [facility] [address] [place], [address] ALK P 64 U/L Normal 45-117 [facility] Comment on above: Performed By: #### L 506.0400, L501.9520, L506.1000, L100.0100, L500.4050, L500.4100 #### [facility] [address] [place], [address] ALT [Catalytic activity/Vol] 32 U/L Normal 13-56 [facility] Comment on above: Performed By: #### L 506.0400, L501.9520, L506.1000, L100.0100, L500.4050, L500.4100 #### [facility] [address] [place], [address] AST [Catalytic activity/Vol] 26 U/L Normal 15-37 [facility] Comment on above: Performed By: #### L 506.0400, L501.9520, L506.1000, L100.0100, L500.4050, L500.4100 #### [facility] [address] [place], [address] Bilirubin [Mass/Vol] 0.80 mg/dL Normal 0.20-1.00 [facility] Comment on above: Result Comment: For patients on eltrombopag therapy, use of Dimension [place] TBIL is not recommended. Performed By: #### L 506.0400, L501.9520, L506.1000, L100.0100, L500.4050, L500.4100 #### [facility] [address] [place], [address] BUN/CRE 18.7 RATIO Normal 10-20 [facility] Comment on above: Performed By: #### L 506.0400, L501.9520, L506.1000, L100.0100, L500.4050, L500.4100 #### [facility] [address] [place], [address] CA,Total 8.9 mg/dL Normal 8.5-10.1 [facility] Comment on above: Performed By: #### L 506.0400, L501.9520, L506.1000, L100.0100, L500.4050, L500.4100 #### [facility] [address] [place], [address] Chloride [Moles/Vol] 104 mmol/L Normal 98-107 [facility] Comment on above: Performed By: #### L 506.0400, L501.9520, L506.1000, L100.0100, L500.4050, L500.4100 #### [facility] [address] [place], [address] CO2 [Moles/Vol] 25.0 mmol/L Normal 21.0-32.0 [facility] Comment on above: Performed By: #### L 506.0400, L501.9520, L506.1000, L100.0100, L500.4050, L500.4100 #### [facility] [address] [place], [address] Creatinine [Mass/Vol] 0.80 mg/dL Normal 0.55-1.02 [facility] Comment on above: Result Comment: The validity of the calculated GFR GFRAA in patients over 70 years has not been determined. Clinical correlation is essential. Performed By: #### L 506.0400, L501.9520, L506.1000, L100.0100, L500.4050, L500.4100 #### [facility] [address] [place], [address] EST GFR - AA 100 mL/min Normal >60 [facility] Comment on above: Result Comment: Afri can [place] GFR Calc Performed By: #### L 506.0400, L501.9520, L506.1000, L100.0100, L500.4050, L500.4100 #### [facility] [address] [place], [address] GAP 8 Normal 5-15 [facility] Comment on above: Performed By: #### L 506.0400, L501.9520, L506.1000, L100.0100, L500.4050, L500.4100 #### [facility] [address] [place], [address] GFR/1.73 sq M.predicted among non-blacks MDRD (S/P/Bld) [Vol rate/Area] 83 mL/min/{1.73_m2} Normal >60 [facility] Comment on above: Result Comment: Non- GFR Calc Performed By: #### L 506.0400, L501.9520, L506.1000, L100.0100, L500.4050, L500.4100 #### [facility] [address] [place], [address] Globulin (S) [Mass/Vol] 3.9 g/dL Normal 2.2-4.2 [facility] Comment on above: Performed By: #### L 506.0400, L501.9520, L506.1000, L100.0100, L500.4050, L500.4100 #### [facility] [address] [place], [address] Glucose [Mass/Vol] 102 mg/dL Normal 74-106 [facility] Comment on above: Result Comment: Fast ing Glucose result from 100 to 125 mg/dL suggests IMPAIRED HOMEOSTASIS per A.D.A. criteria. Performed By: #### L 506.0400, L501.9520, L506.1000, L100.0100, L500.4050, L500.4100 #### [facility] [address] [place], [address] Potassium [Moles/Vol] 3.9 mmol/L Normal 3.5-5.1 [facility] Comment on above: Performed By: #### L 506.0400, L501.9520, L506.1000, L100.0100, L500.4050, L500.4100 #### [facility] [address] [place], [address] Sodium [Moles/Vol] 137 mmol/L Normal 136-145 [facility] Comment on above: Performed By: #### L 506.0400, L501.9520, L506.1000, L100.0100, L500.4050, L500.4100 #### [facility] [address] [place], [address] T PROT 8.0 g/dL Normal 6.4-8.2 [facility] Comment on above: Performed By: #### L 506.0400, L501.9520, L506.1000, L100.0100, L500.4050, L500.4100 #### [facility] [address] [place], [address] Urea nitrogen [Mass/Vol] 15 mg/dL Normal 7-18 [facility] Comment on above: Performed By: #### L 506.0400, L501.9520, L506.1000, L100.0100, L500.4050, L500.4100 #### [facility] [address] [place], [address] Direct serum free thyroxine (FT4) measurementOrdered By: Janina Penn on 04-30-2024 Free T4 [Mass/Vol] 1.04 ng/dL 0.76-1.46 [facility] Eosinophil percentageOrdered By: Janina Penn on 04-30-2024 Eosinophils/100 WBC (Bld) 3.6 % 0-5 [facility] Erythrocyte distribution wid th (RBC) [Ratio]Ordered By: Janina Penn on 04-30-2024 Erythrocyte distribution width (RBC) [Entitic vol] 39.2 fL 35.1-43.9 [facility] Erythrocyte distribution wid th ratioOrdered By: Janina Penn on 04-30-2024 Erythrocyte distribution width (RBC) [Ratio] 12.0 % 11.6-14.6 [facility] Estimated glomerular filtrat ion rate (GFR) AmericanOrdered By: Janina Penn on 04-30-2024 Estimated GFR (MDRD) Amer 100 mL/min >60 [facility] Comment on above: GFR Calc Glomerular filtration rate ( GFR) estimationOrdered By: Janina Penn on 04-30-2024 Estimated GFR (MDRD) Non-Af Amer 83 mL/min >60 [facility] Comment on above: Non- GFR Calc Glucose measurementOrdered B y: Janina Penn on 04-30-2024 Glucose [Mass/Vol] 102 mg/dL 74-106 [facility] Comment on above: Fasting Glucose resu lt from 100 to 125 mg/dL suggests IMPAIRED HOMEOSTASIS per A.D.A. criteria. Hematocrit Auto (Bld) [Volum e fraction]Ordered By: Janina Penn on 04-30-2024 Hematocrit (Bld) [Volume fraction] 45.5 % 37-47 [facility] Hemoglobin measurementOrdere d By: Janina Penn on 04-30-2024 Hemoglobin (Bld) [Mass/Vol] 15.1 g/dL High 12.0-15.0 [facility] High density lipoprotein (HD L) measurementOrdered By: Janina Penn on 04-30-2024 Cholesterol in HDL [Mass/Vol] 72 mg/dL >40 [facility] Comment on above: The drugs N-Acetylcy steine and Metamizole may falsely depress this assay. Reference Range HDL <40 mg/dL Low HDL Cholesterol HDL >or= 60 mg/dL High HDL Cholesterol Immature granulocytes/100 WB C Auto (Bld)Ordered By: Janina Penn on 04-30-2024 Immature granulocytes/100 WBC (Bld) 0.500 % 0.0-0.9 [facility] Comment on above: IG% - Immature Granu locytes (promyelocytes, myelocytes and metamyelocytes) > 1% indicates that a LEFT SHIFT is Present. Laboratory - Chemistry and C hemistry - challengeOrdered By: Janina Penn on 04-30-2024 AST [Catalytic activity/Vol] 26 U/L 15-37 [facility] Lipid Profileon 04-30-2024 Cholesterol [Mass/Vol] 220 mg/dL High 200 [facility] Comment on above: Result Comment: <200 mg/dL Desirable 200-240 mg/dL Borderline >240 mg/dL High Risk Performed By: #### L 506.0400, L501.9520, L506.1000, L100.0100, L500.4050, L500.4100 ####[facility] [id number] [place], [address] Cholesterol in HDL [Mass/Vol] 72 mg/dL Normal [facility] Comment on above: Result Comment: The drugs N-Acetylcysteine and Metamizole may falsely depress this assay. Reference Range HDL <40 mg/dL Low HDL Cholesterol HDL >or= 60 mg/dL High HDL Cholesterol Performed By: #### L 506.0400, L501.9520, L506.1000, L100.0100, L500.4050, L500.4100 ####[facility] [address] [place], [address] Cholesterol in LDL [Mass/Vol] 122 mg/dL Normal 0-130 [facility] Comment on above: Performed By: #### L 506.0400, L501.9520, L506.1000, L100.0100, L500.4050, L500.4100 ####[facility] [address] [place], [address] Cholesterol in VLDL [Mass/Vol] 26 mg/dL Normal 5-40 [facility] Comment on above: Performed By: #### L 506.0400, L501.9520, L506.1000, L100.0100, L500.4050, L500.4100 ####[facility] [address] [place], [address] Triglyceride [Mass/Vol] 131 mg/dL Normal [facility] Comment on above: Result Comment: The drugs N-Acetylcysteine and Metamizole may falsely depress this assay. Serum Triglycerides Reference Interval Normal <150 mg/dL Borderline high 150 - 199 mg/dL High 200 - 499 mg/dL Very High > or = 500 mg/dL Performed By: #### L 506.0400, L501.9520, L506.1000, L100.0100, L500.4050, L500.4100 ####[facility] [address] [place], [address] Low density lipoprotein (LDL ) cholesterol measurementOrdered By: Janina Penn on 04-30-2024 Cholesterol in LDL [Mass/Vol] 122 mg/dL 0-130 [facility] Lymphocytes Auto (Unsp spec) [#/Vol]Ordered By: Janina Penn on 04-30-2024 Lymphocytes (Bld) [#/Vol] 1.46 10*3/uL 0.83-4.51 [facility] Lymphocytes/100 WBC Auto (Un sp spec)Ordered By: Janina Penn on 04-30-2024 Lymphocytes/100 WBC (Bld) 26.6 % 19-41 [facility] MCV (mean corpuscular volume ) determinationOrdered By: Janina Penn on 04-30-2024 MCV (RBC) [Entitic vol] 89.9 fL 81-99 [facility] Mean corpuscular hemoglobin (MCH) determinationOrdered By: Janina Penn on 04-30-2024 MCH (RBC) [Entitic mass] 29.8 pg 27.0-32.0 [facility] Mean corpuscular hemoglobin concentration (MCHC) determinationOrdered By: Janina Penn on 04-30-2024 MCHC (RBC) [Mass/Vol] 33.2 g/dL 32-36 [facility] Mean platelet volume determi nationOrdered By: Janina Penn on 04-30-2024 Platelet mean volume (Bld) [Entitic vol] 8.8 fL 6.2-12.0 [facility] Monocyte percentageOrdered B y: Janina Penn on 04-30-2024 Monocytes/100 WBC (Bld) 8.9 % 0-10 [facility] Neutrophil percentageOrdered By: Janina Penn on 04-30-2024 Neutrophils/100 WBC (Bld) 59.7 % 47-70 [facility] Nucleated red blood cell per centageOrdered By: Janina Penn on 04-30-2024 Nucleated RBC/100 WBC (Bld) [Ratio] 0 % 0-5 [facility] Platelet countOrdered By: Maisha Penn on 04-30-2024 Platelets (Bld) [#/Vol] 250 10*3/uL 150-450 [facility] Potassium measurementOrdered By: Janina Penn on 04-30-2024 Potassium [Moles/Vol] 3.9 mmol/L 3.5-5.1 [facility] RBC Auto (Bld) [#/Vol]Ordere d By: Janina Penn on 04-30-2024 RBC (Bld) [#/Vol] 5.06 10*6/uL 4.2-5.4 [facility] Serum anion gap measurementO rdered By: Janina Penn on 04-30-2024 Anion gap [Moles/Vol] 8 mmol/L 5-15 [facility] Serum globulin measurementOr dered By: Janina Penn on 04-30-2024 Globulin (S) [Mass/Vol] 3.9 g/dL 2.2-4.2 [facility] Serum or plasma alanine ag otransferase (ALT) measurementOrdered By: Janina Penn on 04-30-2024 ALT [Catalytic activity/Vol] 32 U/L 13-56 [facility] Serum or plasma albumin dayami urement (mass/volume)Ordered By: Janina Penn on 04-30-2024 Albumin [Mass/Vol] 4.1 g/dL 3.2-5.0 [facility] Serum or plasma alkaline demar sphatase measurementOrdered By: Janina Penn on 04-30-2024 ALP [Catalytic activity/Vol] 64 U/L 45-117 [facility] Serum or plasma calcium dayami urement (mass/volume)Ordered By: Janina Penn on 04-30-2024 Calcium [Mass/Vol] 8.9 mg/dL 8.5-10.1 [facility] Serum or plasma cholesterol measurement (mass/volume)Ordered By: Janina Penn on 04-30-2024 Cholesterol [Mass/Vol] 220 mg/dL High <200 [facility] Comment on above: <200 mg/dL Desirable 200-240 mg/dL Borderline >240 mg/dL High Risk Serum or plasma creatinine m easurement (mass/volume)Ordered By: Janina Penn on 04-30-2024 Creatinine [Mass/Vol] 0.80 mg/dL 0.55-1.02 [facility] Comment on above: The validity of the calculated GFR & GFRAA in patients over 70 years has not been determined. Clinical correlation is essential. Serum or plasma urea nitroge n measurement (mass/volume)Ordered By: Janina Penn on 04-30-2024 Urea nitrogen [Mass/Vol] 15 mg/dL 7-18 [facility] Sodium levelOrdered By: Denise Penn on 04-30-2024 Sodium [Moles/Vol] 137 mmol/L 136-145 [facility] T4 Free Directon 04-30-2024 T4 FREE DIRECT 1.04 ng/dL Normal 0.76-1.46 [facility] Comment on above: Performed By: #### L 506.0400, L501.9520, L506.1000, L100.0100, L500.4050, L500.4100 ####[facility] [address] [place], [address] TSH QnOrdered By: Janina Bains on 04-30-2024 Thyroid Stimulating Hormone (TSH) 0.697 uIU/mL 0.358-3.740 [facility] Thyroid Stim Hormone (TSH)on 04-30-2024 TSH 0.697 uIU/mL Normal 0.358-3.740 [facility] Comment on above: Performed By: #### L 506.0400, L501.9520, L506.1000, L100.0100, L500.4050, L500.4100 ####[facility] [address] [place], [address] Total proteinOrdered By: Manpreet Penn on 04-30-2024 Protein [Mass/Vol] 8.0 g/dL 6.4-8.2 [facility] Triglycerides measurementOrd ered By: Janina Penn on 04-30-2024 Triglyceride [Mass/Vol] 131 mg/dL <199 [facility] Comment on above: The drugs N-Acetylcy steine and Metamizole may falsely depress this assay.Serum Triglycerides Reference Interval Normal <150 mg/dL Borderline high 150 - 199 mg/dL High 200 - 499 mg/dL Very High > or = 500 mg/dL Very low density lipoprotein (VLDL) cholesterol measurementOrdered By: Janina Penn on 04-30-2024 VLDL Cholesterol 26 mg/dL 5-40 [facility] Vitamin D,25 Hydroxyon 04-30 Vitamin D 25-OH 19.4 ng/mL Normal [facility] Comment on above: Result Comment: Asmita min D 25(OH) Status Range Deficiency <20 ng/mL (50nmol/L) Insufficiency 20 - 30 ng/mL (50 - 75 nmol/L) Sufficiency 30 - 100 ng/mL (75 - 250 nmol/L) Toxicity >100 ng/mL (>250 nmol/L) Performed By: #### L 506.0400, L501.9520, L506.1000, L100.0100, L500.4050, L500.4100 #### [facility] [address] [place], [place], [address] White blood cell (WBC) count Ordered By: Janina Penn on 04-30-2024 WBC (Bld) [#/Vol] 5.5 10*3/uL 4.4-11.0 [facility] PAP IG HPV APTIMA 16/18,45on 04-20-2024 ADEQ Comment Normal . [facility] Comment on above: Order Comment: Speci men Comment: [id number] Specimen Comment: Source.............Cervix;Endocervix Specimen Comment: No. of containers..01 ThinPrep Vial Result Comment: Sati sfactory for evaluation. Endocervical and/or squamous metaplastic cells (endocervical component) are present. Performed By: #### L 7400.0280 #### [facility] [address] [place], [place], [address] COMM . Normal . [facility] Comment on above: Order Comment: Speci men Comment: [id number] Specimen Comment: Source.............Cervix;Endocervix Specimen Comment: No. of containers..01 ThinPrep Vial Performed By: #### L 7400.0280 #### [facility] [address] [place], [place], [address] COMMENT Comment Normal . [facility] Comment on above: Order Comment: Speci men Comment: [id number] Specimen Comment: Source.............Cervix;Endocervix Specimen Comment: No. of containers..01 ThinPrep Vial Result Comment: This liquid based ThinPrep(R) pap test was screened with the use of an image guided system. Performed By: #### L 7400.0280 #### [facility] [address] [place], [place], [address] DIAG Comment Normal . [facility] Comment on above: Order Comment: Speci men Comment: [id number] Specimen Comment: Source.............Cervix;Endocervix Specimen Comment: No. of containers..01 ThinPrep Vial Result Comment: NEGA TIVE FOR INTRAEPITHELIAL LESION OR MALIGNANCY. Performed By: #### L 7400.0280 #### [facility] [address] [place], [place], [address] HPV APTIMA, HR Negative Normal Negative [facility] Comment on above: Order Comment: Speci men Comment: [id number] Specimen Comment: Source.............Cervix;Endocervix Specimen Comment: No. of containers..01 ThinPrep Vial Result Comment: This nucleic acid amplification test detects fourteen high- risk HPV types (16,18,31,33,35,39,45,51,52,56,58,59,66,68) without differentiation. Performed By: #### L 7400.0280 #### [facility] [address] [place], [place], [address] HPV Monie Rfx Comment Normal . [facility] Comment on above: Order Comment: Speci men Comment: [id number] Specimen Comment: Source.............Cervix;Endocervix Specimen Comment: No. of containers..01 ThinPrep Vial Result Comment: Crit eria not met, HPV Genotype not performed. Performed at: - [address] [id number] Funds Transfer Clerk: Mary Sahu MD, Phone: [phone] Performed at: =[address] [id number] Funds Transfer Clerk: Mary Sahu MD, Phone: [phone] Performed By: #### L 7400.0280 #### [facility] [address] [place], [place], [address] PAPSMR Comment Normal . [facility] Comment on above: Order Comment: Speci men Comment: [id number] Specimen Comment: Source.............Cervix;Endocervix Specimen Comment: No. of containers..01 ThinPrep Vial Result Comment: The Pap smear is a screening test designed to aid in the detection of premalignant and malignant conditions of the uterine cervix. It is not a diagnostic procedure and should not be used as the sole means of detecting cervical cancer. Both false-positive and false-negative reports do occur. Performed By: #### L 7400.0280 #### [facility] [address] [place], [place], [id number] PERFORM Comment Normal . [facility] Comment on above: Order Comment: Speci men Comment: [id number] Specimen Comment: Source.............Cervix;Endocervix Specimen Comment: No. of containers..01 ThinPrep Vial Result Comment: Roxana Munguia, [employer] (ASCP) Performed By: #### L 7400.0280 #### [facility] [address] [place], [place], [address] [employer] Lead Cyto stain Nom (C vx/Vag) [ID]Ordered By: Janina Penn on 04-14-2024 Pap Smear Performed By Comment . [facility] Comment on above: Sumeet Mohan totechnologist (ASCP) Cytology report Cyto stain D oc (Cvx/Vag)Ordered By: Janina Penn on 04-14-2024 Thin Prep Pap Smear Comment . [facility] Comment on above: The Pap smear is a s creening test designed to aid in thedetection of premalignant and malignant conditions of theuterine cervix. It is not a diagnostic procedure andshould not be used as the sole means of detecting cervicalcancer. Both false-positive and false-negative reports dooccur. Cytology report Cyto stain.t hin prep Doc (Cvx/Vag)Ordered By: Janina Penn on 04-14-2024 HPV Genotype Special Info Comment . [facility] Comment on above: Criteria not met, HP V Genotype not performed.Performed at: WB - [facility] [address] [id number] Director: Mary Sahu MD, Phone: [phone] at: =G - [facility] [address] [id number] Director: Mary Sahu MD, Phone: [phone] HPV 16+18+31+33+35+39+45+51+ 52+56+58+59+66+68 DNA Probe+sig amp Ql (Cvx)Ordered By: Janina Penn on 04-14-2024 Human Papillomavirus High Risk Negative Negative [facility] Comment on above: This nucleic acid am plification test detects fourteen high-risk HPV types (16,18,31,33,35,39,45,51,52,56,58,59,66,68)without differentiation. Image-guided ThinPrep PapOrd ered By: Janina Penn on 04-14-2024 Pap Smear Note Comment . [facility] Comment on above: This liquid based Th inPrep(R) pap test was screened withthe use of an image guided system. Image-guided liquid-based Pa pOrdered By: Janina Penn on 04-14-2024 Pap Smear Diagnosis Comment . [facility] Comment on above: NEGATIVE FOR INTRAEP ITHELIAL LESION OR MALIGNANCY. Merchandiser Office Visit Reporton 04-14-2024 Merchandiser Office Visit Report [facility] [address], [address] [place] [address] OFFICE VISIT Date of Service: 04/14/24 MR#: [id number] Acct: [id number] Name: DHEERAJKEATONESTEPHANIEALEK Sangeeta Rep #: [id number] : 1980 Provider: SANDRA Bains Age/Sex: 43/F Location: [facility] [place] Status: Signed Intake Vital Signs 06/26/23 15:01 04/14/24 13:30 Height 5 ft 2 in 5 ft 2 in Weight: 160 lb 177 lb BMI 29.2 32.3 BP 142/92 H 145/88 H Blood Pressure Location Lt brachial Position Sitting Respiration 16 Pulse 66 Pulse Source Monitor Temp 98.0 F Pulse Oximetry (%) 98 Oxygen Delivery Method room air 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 Required: No Is patient in pain?: No Allergies Corticosteroids (Glucocorticoids) Allergy (Severe, Verified 04/14/24 13:29) hives Medications ???Medication ???Instructions ???Recorded ???Confirmed ???Type naproxen 500 mg tablet 500 mg PO BID-TID PRN pain #30 tabs 01/27/24 04/14/24 Rx Post menopausal: No Patient : No : No Control Method: tubal PFSH Medical History Acute streptococcal pharyngitis Allergic dermatitis Contact dermatitis due to poison sarah Aortic stenosis with bicuspid valve 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) Facial paresthesia (03/07/20) COVID-19 virus detected (02/17/20) Abnormal uterine bleeding Nonrheumatic mitral (valve) insufficiency Segmental and somatic dysfunction of pelvic region Segmental and somatic dysfunction of sacral region Sterilization Hyperlipidemia Nonrheumatic tricuspid (valve) insufficiency Hyperlipidemia Supervision of other high risk pregnancies, third trimester Surgical History History of laparoscopy (08/01/17) History of tubal ligation Family History Father Cancer prostate- Alcoholism Brother Diabetes Grandfather Alcoholism Heart disease Mother Hypertension Hyperlipemia Anxiety Grandmother Parkinson disease Social History Smoking Status: Never smoker alcohol intake: current Alcohol type: hard liquor details: once weekly substance use type: does not use caffeine: No what type of physical activity do you participate in: none seatbelt use: always do you feel safe at home: Yes additional social history: Works at [employer] History 2 Elective abortions Hx Para 2 Spontaneous abortions Hx # Term Pregnancies Ectopic pregnancies Hx # Pregnancies Multiple births # of living children 2 Past Pregnancies Del. Date Name GA/Weeks Outcome Route Bth Weight Infant Gen Labor Lgth Anesthesia Del Locatn Provider FOB Unknown 2014 Erik 38 live - full term Male [facility] 06/09/17 Den 39 live - full term vacuum 6lbs 8oz Male epidural [facility] Kasey Rosa Delivery Date: 06/09/17 Last Updated by: Alek Lisa PROM, decels HPI Encounter for routine gynecological examination Details: ALEK ASHTON is a 43 year old who presents for annual exam. She reports no issues or concerns today. Interested in starting a probiotic. Last PAP: 2019; normal hpv neg History of abnormal PAP: no Last mammogram: 2023 normal History of abnormal mammogram: no Colon cancer screening: age 45 for routine screening. Other preventative health care screenings: GONZALO Alexander Female Reproductive History Last Menstrual Period: 04/14/24 Cycle Length: 21-35 Bleeding Duration: 5 Questions: metorrhagia: No, sexually active: Yes, dyspareunia: No and PCB: No Menopausal Symptoms: No hot flashes, No night sweats, No difficulty concentrating and No change in libido ROS Const Constitutional: Reports as per HPI; Denies fatigue, increased appetite, poor appetite, night sweats, weight gain or weight loss Cardio Card: Denies chest pain Resp Resp: Denies cough or dyspnea GI GI: Reports as per HPI; Denies abdominal pain, bloating, constipation, nausea or vomiting : Reports as per HPI and other; Denies difficulty voiding, dysuria, hematuria, hot flashes, nipple discharge, pelvic pain, prolapse symptoms, urinary frequency, urinary incontinence, urinary urgency, vaginal discharge, vaginal dryness, vaginal odor or vaginal pruritus Skin Skin/Breast: Denies changing lesions, breast mass, breast pain, breast skin changes or nipple discharge Psych Psych: Denies anxiety, change in libido, depression or difficulty concentrating Exam Const General: cooperative, healthy appearing, comfortable, no acute distress, well groomed and well hydrated Nutritional Appearance: well nourished Orientation: alert, awake and (more content not included)... Normal [facility] Service comment (Unsp spec) [Interp]Ordered By: Janina Penn on 04-14-2024 Pap Smear Comment (3) . . [facility] SCRN MAMM (CAD)W/CARO BILATo n 02-03-2024 SCRN MAMM (CAD)W/CARO BILAT [facility] Services [address] [place] [address] SCRN MAMM (CAD)W/CARO BILAT MR#: [id number] Acct: [id number] Name: ALEK ASHTON Rep #: [id number] : 1980 F 43 From: Zay zhou MD PCP: Dr. Tiesha Alexander MD Status: REG CLI Study: SCRN MAMM (CAD)W/CARO BILAT Date of Exam: 01/22 05/17 Exam# [id number] Ordering Dr: Katelyn Alamo NP ELEVATOR CONSTRUCTOR -C [id number] MAMMOGRAPHY - BILATERAL SCREENING REASON FOR EXAM: Female, 43 years old. Routine annual screening examination. PERTINENT HISTORY: Non-contributory. TECHNIQUE: Digital bilateral breast caro (3D mammographic acquisition) in the CC and MLO projections. 2-D mediolateral oblique (MLO) and craniocaudad (CC) views of both breasts were obtained. CAD: Full Field Digital Mammography with Computer Added Detection was performed. COMPARISON: Comparison is made with prior study December 12, 2022 and September 17, 2021. FINDINGS: Breast Composition: The breasts are extremely dense, which lowers the sensitivity of mammography. There are no dominant masses or suspicious calcifications. No other significant abnormalities are identified. There has been no significant change since the prior study. BI/SCRN MAMM (CAD)W/CARO BILAT IMPRESSION: Stable bilateral screening mammogram. Yearly follow-up mammogram recommended. (A) ASSESSMENT CATEGORY: BIRADS Category 1: Negative. A letter regarding these results will be sent to the patient by the facility within 30 days. Approximately 10% of breast cancers are not detected by mammography. A normal mammogram should not delay biopsy of a clinically suspicious abnormality. [id number] Electronically Signed: Zay Adair MD at 8:49 EST , CC: SANDRA Alamo; Dr. Tiesha Alexander MD Grading Clerk: Signed Normal [facility] Office Visit: OB Routineon 1 04-01-2016 Documentation of current medications (procedure) Done Invalid Interpretation Code [facility] Urine, glucose presence N Invalid Interpretation Code [facility] Urine, protein N Invalid Interpretation Code [facility] Office Visit: OB Routineon 1 Alcoholism counseling (procedure) no Invalid Interpretation Code [facility] Tobacco use CPHS Never smoker Invalid Interpretation Code [facility] Replaced Document: Miscellan eous Lab Procedureon 12-11-2016 MISC LAB TEST . 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 12-09-2016 Left ventricular Ejection fraction 60 % Invalid Interpretation Code [facility] Lab Report: Hepatitis B Surf magaly Agon 12-06-2016 BSA (Body Surface Area) Negative Invalid Interpretation Code Negative [facility] Lab Report: Rapid Plasmin Re agin (RPR)on 12-06-2016 Reagin antibody presence NONREACTIVE Invalid Interpretation Code NONREACTIVE [facility] Lab Report: Rubella IgGon Rubella IgG 385.0 [iU]/mL Invalid Interpretation Code [facility] Lab Report: CBC W/Diff, Auto matedon 12-05-2016 Absolute Neut 6.0 X10 3/UL Invalid Interpretation Code 2.0-7.7 [facility] Basophils/100 WBC Auto (Bld) 0.2 % Invalid Interpretation Code 0-1 [facility] Eosinophils/100 leukocytes 1.7 % Invalid Interpretation Code 0-5 [facility] Erythrocyte distribution width Auto Ratio (RBC) 12.3 % Invalid Interpretation Code 11.6-14.6 [facility] Erythrocytes (RBC) 4.49 10*6/uL Invalid Interpretation Code 4.2-5.4 [facility] [facility] Hematocrit (HCT) 39.3 % Invalid Interpretation Code 37-47 [facility] Hemoglobin mass conc (Bld) 13.4 g/dL Invalid Interpretation Code 12.0-15.0 [facility] Immature granulocytes/100 WBC (Bld) 0.200 % Invalid Interpretation Code 0.0-0.9 [facility] Lymphocytes 1.51 X10 3/UL Invalid Interpretation Code 0.83-4.51 [facility] Lymphocytes/100 leukocytes 18.6 % Low 19-41 [facility] MCH 29.8 pg Invalid Interpretation Code 27.0-32.0 [facility] MCHC mass conc (RBC) 34.1 G/GL Invalid Interpretation Code 32-36 [facility] MCV 87.5 fL Invalid Interpretation Code 81-99 [facility] Monocytes/100 leukocytes 5.2 % Invalid Interpretation Code 0-10 [facility] Neutrophils/100 WBC Auto (Bld) 74.1 % High 47-70 [facility] Platelets 207 10*3/mm3 Invalid Interpretation Code 150-450 [facility] PMV by Pina 8.4 fL Invalid Interpretation Code 6.2-12.0 [facility] RDW SD 39.7 fL Invalid Interpretation Code 35.1-43.9 [facility] WBC (Leukocytes) 8.1 10*3/uL Invalid Interpretation Code 4.4-11.0 [facility] Office Visiton 11-27-2016 Fall risk assessment Fall risk assessment Invali d Interpretation Code [facility] Replaced Document: Midmark E CG Observationson 11-27-2016 EKG QRS axis 66 deg Invalid Interpretation Code [facility] Interpretation Sinus Rhythm -Poor R-wave progression -nonspecific -consider old anterior infarct. BORDERLINE Invalid Interpretation Code [facility] P [place] 46 deg Invalid Interpretation Code [facility] CA Interval 126 ms Invalid Interpretation Code [facility] Pulse (Heart Rate) 66 /min Invalid Interpretation Code [facility] QRS Duration 92 ms Invalid Interpretation Code [facility] QT Interval new path ms Invalid Interpretation Code [facility] T [place] 47 deg Invalid Interpretation Code [facility] Lab Report: CT/NG W[facility] BY PCR on 11-08-2016 Chlamydia trachomatis DNA [Presence] in Urine by Probe and target amplification method Negative Invalid Interpretation Code Negative [facility] Neisseria gonorrhoeae presence Negative Invalid Interpretation Code Negative [facility] Office Visit: OB Initialon 0 11-08-2016 Fall risk assessment No Invalid Interpretation Code [facility] Herpes Simplex Virus Genital no Invalid Interpretation Code [facility] CNCOon 10-23-2016 CNCO Letter Text [facility] Cardiology [place] [address] [place] [address]Plny: [phone] Uwisxa Gandhi, MD, FACCAugust 2016Alek Bucio [facility] [place] [id number] Alek Lewis,We missed seeing you for your scheduled appointment with on 10/22/16.Our goal is to offer the best possible care to our patients, so we areconcerned when you are unable to keep a scheduled appointment.Please call us at [phone] so that we can reschedule your appointment fora day and time that will work for you.If you find it difficult to keep your appointment, please notify our officeat least 24 hours in advance so that we may reschedule your appointment.We are glad that you have chosen [facility] for yourcardiovascular needs and hope to continue serving you in the future.Sincerely,Caroline Haile M.D.(Signed electronically to expedite mailing) Normal [facility] Clinical Lists Update: 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 01-04-2016 Cholesterol 185 mg/dL Invalid Interpretation Code [facility] Cholesterol to HDL Ratio 3.08 {ratio} Invalid Interpretation Code [facility] HDL Cholesterol 60 mg/dL Invalid Interpretation Code [facility] LDL Cholesterol 106 mg/dL Invalid Interpretation Code [facility] LDL Cholesterol 125 mg/dL Invalid Interpretation Code [facility] LDL to HDL Ratio 1.77 Invalid Interpretation Code [facility] Triglyceride 96 mg/dL Invalid Interpretation Code [facility] very low density lipoproteins 19 mg/dL Invalid Interpretation Code [facility] Replaced Document: Anastasiia Luque 07-10-2012 Pulse (Heart Rate) 403 ms Invalid Interpretation Code [facility] Vital Signs Date Time Vital Sign Value Performing Clinician Facility 01-28-2025 07:52-0500 SaO2% (BldA) [Mass fraction] 100 % CRYSTAL CEBALLOS [facility] Comment on above: Order Comment: Specimen Type: ARTERIAL B LOOD SPECIMENOrdering Facility: [facility] Address: [address] [place] [address] Performed By: #### A LLBG ####[facility] LABIA [id number] [address] STATES OF [facility] 01-28-2025 03:55-0500 SaO2% (BldA) [Mass fraction] 99 % CRYSTAL CEBALLOS [facility] Comment on above: Order Comment: Specimen Type: ARTERIAL B LOOD SPECIMENOrdering Facility: [facility] Address: [address] [place] [address] Performed By: #### A LLBG ####[facility] LABIA [id number] [address] [place] 01-27-2025 23:40-0500 SaO2% (BldA) [Mass fraction] 99 % CRYSTAL CEBALLOS [facility] Comment on above: Order Comment: Specimen Type: ARTERIAL B LOOD SPECIMENOrdering Facility: [facility] Address: [address] [place] [address] Performed By: #### A LLBG ####[facility] LABIA [id number] [place] [id number] [place] 01-27-2025 15:35-0500 SaO2% (BldA) [Mass fraction] 99 % CRYSTAL CEBALLOS [facility] Comment on above: Order Comment: Specimen Type: ARTERIAL B LOOD SPECIMENOrdering Facility: [facility] Address: [address] [place] [address] Performed By: #### A LLBG ####[facility] LABIA [id number] [address] OF [place] 01-27-2025 11:29-0500 SaO2% (BldA) [Mass fraction] 99 % CRYSTAL CEBALLOS [facility] Comment on above: Order Comment: Specimen Type: ARTERIAL B LOOD SPECIMENOrdering Facility: [facility] Address: [address] [place] [address] Performed By: #### A LLBG ####[facility] LABIA [id number] [place] [id number] [facility] 01-27-2025 07:40-0500 SaO2% (BldA) [Mass fraction] 99 % CRYSTAL CEBALLOS [facility] Comment on above: Order Comment: Specimen Type: ARTERIAL B LOOD SPECIMENOrdering Facility: [facility] Address: [address] [place] [address] Performed By: #### A LLBG ####[facility] LABIA [id number] [place] [id number] [facility] 01-27-2025 03:39-0500 SaO2% (BldA) [Mass fraction] 100 % CRYSTAL CEBALLOS [facility] Comment on above: Order Comment: Specimen Type: ARTERIAL B LOOD SPECIMENOrdering Facility: [facility] Address: [address] [place] [address] Performed By: #### A LLBG ####[facility] LABIA [id number] [place] [id number] [facility] 01-27-2025 01:39-0500 SaO2% (BldA) [Mass fraction] 99 % CRYSTAL CEBALLOS [facility] Comment on above: Order Comment: Specimen Type: ARTERIAL B LOOD SPECIMENOrdering Facility: [facility] Address: [address] [place] [address] Performed By: #### A LLBG ####[facility] LABIA [id number] [place] [id number] [facility] 01-27-2025 00:14-0500 SaO2% (BldA) [Mass fraction] 99 % CRYSTAL CEBALLOS [facility] Comment on above: Order Comment: Specimen Type: ARTERIAL B LOOD SPECIMENOrdering Facility: [facility] Address: [address] [place] [address] Performed By: #### A LLBG ####[facility] LABCLIA [id number] [place] [id number] [facility] 01-26-2025 19:34-0500 SaO2% (BldA) [Mass fraction] 99 % CRYSTAL CEBALLOS [facility] Comment on above: Order Comment: Specimen Type: ARTERIAL B LOOD SPECIMENOrdering Facility: [facility] Address: [address] [place] [address] Performed By: #### A LLBG ####[facility] LABIA [id number] [place] [id number] [place] 01-26-2025 16:07-0500 SaO2% (BldA) [Mass fraction] 99 % CRYSTAL CEBALLOS [facility] Comment on above: Order Comment: Specimen Type: ARTERIAL B LOOD SPECIMENOrdering Facility: [facility] Address: [address] [place] [address] Performed By: #### A LLBG ####[facility] LABIA [id number] [place] [id number] [place] 01-26-2025 15:03-0500 SaO2% (BldA) [Mass fraction] 100 % CRYSTAL CEBALLOS [facility] Comment on above: Order Comment: Specimen Type: ARTERIAL B LOOD SPECIMENOrdering Facility: [facility] Address: [address] [place] [address] Performed By: #### A LLBG ####[facility] LABCLIA [id number] [place] [id number] [place] 01-26-2025 12:57-0500 SaO2% (BldA) [Mass fraction] 99 % CRYSTAL CEBALLOS [facility] Comment on above: Order Comment: Specimen Type: ARTERIAL B LOOD SPECIMENOrdering Facility: [facility] Address: [address] [place] [address] Performed By: #### A LLBG ####[facility] LABCLIA [id number] [place] [address] [facility] 01-26-2025 11:35-0500 SaO2% (BldA) [Mass fraction] 100 % CRYSTAL CEBALLOS [facility] Comment on above: Order Comment: Specimen Type: ARTERIAL B LOOD SPECIMENOrdering Facility: [facility] Address: [address] [place] [address] Performed By: #### A LLBG ####[facility] LABCLIA [id number] [place] [address] [facility] 01-26-2025 10:28-0500 SaO2% (BldA) [Mass fraction] 100 % CRYSTAL CBEALLOS [facility] Comment on above: Order Comment: Specimen Type: ARTERIAL B LOOD SPECIMENOrdering Facility: [facility] Address: [address] [place] [address] Performed By: #### A LLBG ####[facility] LABCLIA [id number] [place] [address] [facility] 01-26-2025 08:17-0500 SaO2% (BldA) [Mass fraction] 99 % CRYSTAL CEBALLOS [facility] Comment on above: Order Comment: Specimen Type: ARTERIAL B LOOD SPECIMENOrdering Facility: [facility] Address: [address] [place] [address] Performed By: #### A LLBG ####[facility] LABIA [id number] [place] [address] [place] [facility] 09-02-2024 10:12-0400 Diastolic blood pressure 114 mm[Hg] Ibis Mckeon MD Work Phone: [facility] 09-02-2024 10:12-0400 Systolic blood pressure 170 mm[Hg] Ibis Mckeon MD Work Phone: [facility] 09-02-2024 10:08-0400 Body height 158.8 cm Ibis Mckeon MD Work Phone: [facility] 09-02-2024 10:08-0400 Body mass index (BMI) [Ratio] 30.06 kg/m2 Ibis Mckeon MD Work Phone: [facility] 09-02-2024 10:08-0400 Body weight 75.75 kg Ibis Mckeon MD Work Phone: [facility] 09-02-2024 10:08-0400 Heart rate 78 /min Ibis Mckeon MD Work Phone: [facility] 09-02-2024 10:08-0400 Respiratory rate 18 /min Ibis Mckeon MD Work Phone: [facility] 09-02-2024 10:08-0400 SaO2% (BldA) [Mass fraction] 98 % Ibis Mckeon MD Work Phone: [facility] 06-03-2024 11:23-0400 Body height 157.[address] Tiesha Alexander MD Work Phone: [facility] 06-03-2024 11:23-0400 Body mass index (BMI) [Ratio] 31.2 kg/m2 Dr. Tiesha Alexander MD Work Phone: [facility] 06-03-2024 11:23-0400 Body weight 77.[address] Tiesha Alexander MD Work Phone: [facility] 06-03-2024 11:23-0400 Diastolic blood pressure 93 mm[Hg] Dr. Tiesha Alexander MD Work Phone: [facility] 06-03-2024 11:23-0400 Heart rate 68 /min Dr. Tiesha Alexander MD Work Phone: [facility] 06-03-2024 11:23-0400 Respiratory rate 18 /min Dr. Tiesha Alexander MD Work Phone: [facility] 06-03-2024 11:23-0400 SaO2% (BldA) [Mass fraction] 99 % Dr. Tiesha Alexander MD Work Phone: [facility] 06-03-2024 11:23-0400 Systolic blood pressure 138 mm[Hg] Dr. Tiesha Alexander MD Work Phone: [facility] 04-14-2024 13:30-0500 Body mass index (BMI) [Ratio] 32.3 kg/m2 Dr. Tiesha Alexander MD Work Phone: [facility] 04-14-2024 13:30-0500 Body weight 80.[address] Tiesha Alexander MD Work Phone: [facility] 04-14-2024 13:30-0500 Diastolic blood pressure 88 mm[Hg] Dr. Tiesha Alexander MD Work Phone: [facility] 04-14-2024 13:30-0500 Systolic blood pressure 145 mm[Hg] Dr. Tiesha Alexander MD Work Phone: [facility] 07-09-2021 16:06-0400 Body height 157.[address] Tiesha Alexander Work Phone: [facility] Work Phone: 07-09-2021 16:06-0400 Body weight 74.[address] Tiesha Alexander Work Phone: [facility] Work Phone: 07-09-2021 16:06-0400 Diastolic blood pressure 74 mm[Hg] Dr. Tiesha Alexander Work Phone: [facility] Work Phone: 07-09-2021 16:06-0400 Heart rate 64 /min Dr. Tiesha Alexander Work Phone: [facility] Work Phone: 07-09-2021 16:06-0400 Respiratory rate 16 /min Dr. Tiesha Alexander Work Phone: [facility] Work Phone: 07-09-2021 16:06-0400 Systolic blood pressure 127 mm[Hg] Dr. Tiesha Alexander Work Phone: [facility] Work Phone: 06-01-2021 11:43-0500 Body mass index (BMI) [Ratio] 28.7 kg/m2 Dr. Tiesha Alexander Work Phone: [facility] Work Phone: 06-01-2021 11:43-0500 Body weight 71.[address] Tiesha Alexander Work Phone: [facility] Work Phone: 06-01-2021 11:43-0500 Diastolic blood pressure 74 mm[Hg] Dr. Tiesha Alexander Work Phone: [facility] Work Phone: 06-01-2021 11:43-0500 Systolic blood pressure 110 mm[Hg] Dr. Tiesha Alexander Work Phone: [facility] Work Phone: 04-06-2020 15:26-0500 Body mass index (BMI) [Ratio] 28.7 kg/m2 Dr. Tiesha Alexander Work Phone: [facility] Work Phone: 01-30-2017 13:12-0500 BMI (Body Mass Index) 28.31 kg/m2 Sonya Spence MD [facility] 01-30-2017 13:12-0500 BP Diastolic 70 mm[Hg] Sonya Spence MD [facility] 01-30-2017 13:12-0500 BP Systolic 116 mm[Hg] Sonya Spence MD [facility] 01-30-2017 13:12-0500 Weight 70.22 kg Sonya Spence MD [facility] 10-12-2017 13:24-0400 Body Temperature 98.2 [degF] Sonya Spence MD [facility] 01-02-2017 13:24-0400 Pulse (Heart Rate) 72 /min Sonya Spence MD [facility] 12-05-2016 09:50-0400 Respiratory Rate 16 /min Sonya Spence MD [facility] 11-27-2016 11:17-0400 Height 157.48 cm Sonya Spence MD [facility] 11-08-2016 10:08-0400 Height 157.48 cm Sonya Spence MD [facility] 11-08-2016 10:080400 Weight 63.96 kg Sonya Spence MD [facility] Encounters Encounter Date Encounter Type Care Provider Facility Start: 01-26-2025 End: 02-01-2025 Evaluation and management of inpatient CRYSTAL CEBALLOS Facility:[facility] Start: 01-25-2025 Encounter for other preprocedural examination CRYSTAL CEBALLOS [facility] Start: 01-25-2025 Admission to [facility] CRYSTAL CEBALLOS [facility] Start: 01-25-2025 End: 01-25-2025 ambulatory CRYSTAL CEBALLOS Facility:[facility] Start: 01-24-2025 End: 01-25-2025 ambulatory RICARDO MARY Facility:[facility] Start: 01-24-2025 End: 01-24-2025 ambulatory CRYSTAL CEBALLOS Facility:[facility] Start: 01-24-2025 Encounter for preprocedural cardiovascular examination CRYSTAL CEBALLOS [facility] Start: 01-15-2025 End: 01-15-2025 ambulatory SELF Facility:[facility] Start: 10-29-2024 End: 11-02-2024 ambulatory Ibis Mckeon MD Work Phone: Cardiology Comment on above: ECG Start: 09-23-2024 ambulatory Efewongbe Hinae Facili ty:[facility] Start: 09-21-2024 End: 09-21-2024 Telephone encounter Crystal Ceballos MD Work Phone: Cardiothoracic Comment on above: Pre-Op CTHO Consult; Cardiac Preop Checklist Start: 09-21-2024 End: 09-21-2024 Patient encounter procedure Crystal Ceballos MD Work Phone: Cardiothoracic Comment on above: Nonintractable heada geraldine, unspecified chronicity pattern, unspecified headache type; Pre-operative cardiovascular examination; Aortic valve disorder Start: 09-21-2024 End: 09-21-2024 Patient encounter status Crystal Ceballos MD Work Phone: [facility] Start: 09-21-2024 End: 09-21-2024 ambulatory CRYSTAL CEBALLOS Facility:[facility] Start: 09-02-2024 End: 09-02-2024 Patient encounter procedure Pulm Fct Lab J[facility] Pulmonary Medicine Comment on above: Pre-operative cardio vascular examination (Primary Dx); Nonintractable headache, unspecified chronicity pattern, unspecified headache type; Aortic valve disorder Nonintractable heada geraldine, unspecified chronicity pattern, unspecified headache type; Pre-operative cardiovascular examination; Aortic valve disorder; Bicuspid aortic valve (HCC); Aortic valve stenosis, severe; Hypertensive heart disease without heart failure Start: 09-02-2024 End: 09-02-2024 Patient encounter status Ibis Mckeon MD Work Phone: [facility] Start: 09-02-2024 End: 09-02-2024 ambulatory IBIS MCKEON Facility:[facility] Start: 09-02-2024 End: 09-02-2024 ambulatory CRYSTAL CEBALLOS Facility:[facility] Start: 09-01-2024 End: 09-01-2024 ambulatory CRYSTAL CEBALLOS Facility:[facility] Start: 09-01-2024 End: 09-01-2024 Patient encounter status Mri (I-Stat/1.5t) Work Phone: [facility] Start: 09-01-2024 End: 09-01-2024 Subsequent hospital visit by physician Mri [facility] Wstr (I-Stat/1.5t) Work Phone: Radiology Comment on above: Nonintractable heada geraldine, unspecified chronicity pattern, unspecified headache type [R51.9] Start: 08-04-2024 End: 08-04-2024 Telephone encounter Crystal Ceballos MD Work Phone: Cardiothoracic Comment on above: Insurance Inquiry Start: 08-03-2024 End: 08-04-2024 Patient encounter status Crystal Ceballos MD Work Phone: [facility] Start: 08-03-2024 End: 08-04-2024 Telephone encounter Crystal Ceballos MD Work Phone: Cardiothoracic Comment on above: Referral Information ; Request Outside Medical Records; Schedule Evaluation Start: 07-20-2024 ambulatory Chantel SEWELL [place] Start: 07-20-2024 End: 07-20-2024 ambulatory Chantel SEWELL Facility:[facility] Start: 06-30-2024 Non-patient / Non-visit Dr. Roberto MONROE -[facility] Start: 06-30-2024 End: 06-30-[address] Tiesha Alexander MD Work Phone: [facility] Work Phone: Start: 06-30-2024 End: 06-30-2024 Patient encounter procedure Chantel SEWELL -Cardiovascular Services Work Phone: Start: 06-30-2024 End: 06-30-2024 ambulatory Chantel SEWELL Facility:[facility] Start: 06-03-2024 End: 06-03-2024 Patient encounter procedure Chantel SEWELL -[facility] Work Phone: Start: 06-03-2024 End: 06-03-2024 ambulatory Tiesha Alexander [place] Start: 04-30-2024 End: 04-30-2024 Patient encounter procedure Janina FLORES -Lab, [facility] Start: 04-30-2024 End: 04-30-2024 ambulatory Janina Penn Facility:[facility] Start: 04-14-2024 End: 04-14-2024 Patient encounter procedure Janina FLORES -Laboratory, Specimen Work Phone: Start: 04-14-2024 Encounter for gynecological examination (general) (routine) without abnormal findings Janina Penn [facility] Start: 04-14-2024 End: 04-14-2024 Patient encounter procedure Janina Michelleshlomo ELEVATOR CONSTRUCTOR-C -[facility] Work Phone: Start: 04-14-2024 End: 04-14-2024 Patient encounter status Janina Isamar [facility] Start: 04-14-2024 End: 04-14-2024 ambulatory Tiesha Alexander [place] Start: 04-14-2024 End: 04-14-2024 ambulatory Janina Penn Facility:[facility] Start: 02-03-2024 End: 02-03-2024 ambulatory Katelyn Alamo NP Facility:[facility] Start: 12-12-2022 End: 12-12-2022 ambulatory [facility] Work Phone: Start: 12-12-2022 End: 12-12-2022 Patient encounter procedure [facility]-Outpatient Breast Imaging Work Phone: Start: 03-11-2022 Non-patient / Non-visit Dr. Mario Alexander Work Phone: [facility] Start: 03-11-2022 Non-patient / Non-visit Dr. Mario Alexander Work Phone: [facility] Start: 03-11-2022 End: 03-11-[address] Tiesha Alexander Work Phone: [facility] Work Phone: Start: 03-11-2022 End: 03-11-[address] Tiesha Alexander Work Phone: [facility]-Cardiovascular Services Start: 09-17-2021 End: 09-17-[address] Tiesha Alexander Work Phone: [facility]-Outpatient Breast Imaging Start: 07-09-2021 End: 07-09-[address] Tiesha Alexander Work Phone: [facility] Start: 06-01-2021 End: 06-01-[address] Tiesha Alexander Work Phone: [facility] Start: 02-24-2017 Ambulatory [facility] Procedures Date Procedure Procedure Detail Performing Clinician Start: 01-24-2025 Antibody screen CRYSTAL ELMORE Comment on above: Order Comment: Speci men Type: BLOOD SPECIMENOrdering Facility: [facility] Address: [address] [place] [address] Performed By: #### T [id number] ####[facility] LABCLIA [id number] [address] Start: 09-02-2024 Spmtry w/vc expirato ry sarika w/wo mxml vol vntj Crystal Ceballos MD Work Phone: Start: 09-02-2024 Echocardiography CRYSTAL HOBBS Start: 09-01-2024 Mri brain brain stem w/o contrast material Crystal Ceballos MD Work Phone: Start: 12-12-2022 Screening mammography Start: 09-17-2021 Screening mammography Goyo Alexander Work Phone: Start: 11-27-2016 End: 11-27-2016 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 OPERATOR HEAVY DUTY Alex Jones MD Start: 11-27-2016 End: 11-27-2016 Ecg routine ecg w/least 12 lds w/i&r Aelx Jones MD Start: 11-27-2016 End: 12-09-2016 Echocardiography Alex Jones MD Start: 11-27-2016 End: 11-27-2016 Follow Up Appt 3 months Sangeeta Ashley Start: 11-08-2016 End: 12-05-2016 *CBC with Differential Sonya smith MD Work Phone: Start: 11-08-2016 End: 11-10-2016 *GC/Chlamydia Sonya Spence MD Work Phone: Start: 11-08-2016 End: 12-06-2016 *HEBSAG - Hep B Surface Antigen 6510 Sonya Spence MD Work Phone: Start: 11-08-2016 End: 12-06-2016 *HIV antibody Sonya Spence MD Work Phone: Start: 11-08-2016 End: 11-10-2016 *TS Type and Screen Sonya Spence MD Work Phone: Start: 11-08-2016 End: 11-10-2016 Bacteria identified in Urine by Culture Sonya Spence MD Work Phone: Start: 11-08-2016 End: 12-06-2016 Reagin Ab [Presence] in Serum by RPR Sonya Spence MD Work Phone: Start: 11-08-2016 End: 11-09-2016 Referral to engineering documentation specialist Sonya del angel MD Work Phone: Start: 11-08-2016 End: 12-06-2016 Rubella virus Ab [Units/volume] in Serum Sonya Spence MD Work Phone: Start: 07-10-2012 End: 12-09-2016 Ecg routine ecg w/least 12 lds w/i&r Hilario Hardy MD Start: 07-10-2012 End: 12-09-2016 Echocardiography Hilario Hardy MD Start: 07-10-2012 End: 12-09-2016 Follow Up Appt 1 year Hilario Nance Start: 07-10-2012 End: 12-09-2016 PFM Hilario Hardy MD Plan of Treatment Date Care Activity Detail Author Start: 01-26-2025 End: 01-26-2025 Admission to same day surgery center 01/26/2025 8:30 AM EST - 01/26/2025 1:56 PM EST Surgery Admitting [address] [place] [address] Crystal Ceballos MD [address] [place] [address] AVR +/-CABG (1) Admitting Comment on above: AVR +/-CABG (1) Start: 01-26-2025 End: 01-26-2025 Rplcmt prost aortic valve open xcp homogrf/stent AVR W/ CARDIOPULMONARY BYPASS W/ PROSTHETIC OTHER THAN HOMOGRAFT/ STENTLESS TISSUE VALVE Pre-operative cardiovascular examination Aortic valve disorder 01/26/2025 8:[address] [facility] CT & VAS Start: 01-26-2025 Subsequent hospital visit by physician 01/26/2025 8:30 AM EST Hospital Encounter Admitting [address] [place] [address] Crystal Ceballos MD [address] [place] [address] Pre-operative cardiovascular examination [Z01.810], Aortic valve disorder [I35.9] Admitting Comment on above: Pre-operative cardiovascular examination [Z01.810], Aortic valve disorder [I35.9] Start: 01-25-2025 End: 01-25-2025 Patient encounter procedure Cardiothoracic Comment on above: I35.9 [facility] 01/26/25 DR. MATUTE Start: 01-24-2025 End: 01-24-2025 Admission to same day surgery center 01/24/2025 10:25 AM EST - 01/24/2025 11:11 AM EST Surgery [facility] [address] [place] [address] Ricardo Jensen MD [facility] [address] [place] [address] [address]ON[address] W CATH PL[address] W IMAGE INJECT & INTERP W LT HEART CATH W INJECT LT VENTRGRAPHY [facility] Comment on above: CORONARY ANGIO W CATH PLACE W IMAGE INJE CT & INTERP W LT HEART CATH W INJECT LT VENTRGRAPHY Start: 01-24-2025 End: 01-24-2025 Cath plmt l hrt & arts w/njx & angio img s&i CORONARY ANGIO W CATH PLACE W IMAGE INJECT & INTERP W LT HEART CATH W INJECT LT VENTRGRAPHY Aortic valve disease 01/24/2025 10:25 AM EST [facility] Start: 01-24-2025 Subsequent hospital visit by physician 01/24/2025 10:25 AM EST Hospital Encounter [facility] [address] [place] [address] Ricardo Jensen MD [facility] [address] [place] [address] Aortic valve disease [I35.9] [facility] Comment on above: Aortic valve disease [I35.9] Start: 01-24-2025 End: 01-24-2025 Patient encounter procedure 01/24/2025 8:30 AM EST Procedure Cardiology [address] [place] [address] Ricardo Jensen MD [facility] [address] [place], [place] [id number] I35.9 OHS 01/26/25 DR. MATUTE Cardiology Comment on above: I35.9 O[facility] 01/26/25 DR. MATUTE Start: 01-24-2025 End: 01-24-2025 ambulatory 01/24/2025 7:15 AM EST Results Only [facility] [address] [place] [address] I35.9 OHS 01/26/25 DR. MATUTE [facility] Comment on above: I35.9 WVS 01/26/25 DR. MATUTE Start: 01-21-2025 End: 04-22-2025 aPTT in Platelet poor plasma by Coagulation assay ACTIVATED PARTIAL THROMBOPLASTIN TIME Lab Routine Pre-operative cardiovascular examination Aortic valve disorder Expected: 01/21/2025, Expires: 04/22/2025 [facility] Comment on above: Expected: 01/21/2025, Expires: Start: 01-21-2025 End: 04-22-2025 CBC W Auto Differential panel - Blood COMPLETE BLOOD COUNT AND DIFFERENTIAL Lab STAT Pre-operative cardiovascular examination Aortic valve disorder Expected: 01/21/2025, Expires: 04/22/2025 [facility] Comment on above: Expected: 01/21/2025, Expires: Start: 01-21-2025 End: 04-22-2025 Choriogonadotropin.beta subunit [Units/volume] in Serum or Plasma HCG QUANTITATIVE Lab Routine Pre-operative cardiovascular examination Aortic valve disorder Expected: 01/21/2025, Expires: 04/22/2025 [facility] Comment on above: Expected: 01/21/2025, Expires: Start: 01-21-2025 End: 04-22-2025 Comprehensive metabolic 2000 panel - Serum or Plasma COMPREHENSIVE METABOLIC PANEL Lab STAT Pre-operative cardiovascular examination Aortic valve disorder Expected: 01/21/2025, Expires: 04/22/2025 [facility] Comment on above: Expected: 01/21/2025, Expires: Start: 01-21-2025 End: 04-22-2025 CONFIRM BLOOD TYPE CONFIRM BLOOD TYPE Blood Bank Routine Pre-operative cardiovascular examination Aortic valve disorder Expected: 01/21/2025, Expires: 04/22/2025 [facility] Comment on above: Expected: 01/21/2025, Expires: Start: 01-21-2025 End: 04-22-2025 Lactate dehydrogenase [Enzymatic activity/volume] in Serum or Plasma LACTATE DEHYDROGENASE Lab Routine Pre-operative cardiovascular examination Aortic valve disorder Expected: 01/21/2025, Expires: 04/22/2025 [facility] Comment on above: Expected: 01/21/2025, Expires: Start: 01-21-2025 End: 04-22-2025 Lipoprotein a [Mass/volume] in Serum or Plasma LIPOPROTEIN (A) Lab Routine Pre-operative cardiovascular examination Aortic valve disorder Expected: 01/21/2025, Expires: 04/22/2025 [facility] Work Phone: Comment on above: Expected: 01/21/2025, Expires: Start: 01-21-2025 End: 04-22-2025 PT panel - Platelet poor plasma by Coagulation assay PROTHROMBIN TIME Lab Routine Pre-operative cardiovascular examination Aortic valve disorder Expected: 01/21/2025, Expires: 04/22/2025 [facility] Comment on above: Expected: 01/21/2025, Expires: Start: 01-21-2025 End: 04-22-2025 STAPHYLOCOCCUS AUREUS & MRSA SCREEN, PCR, NASAL STAPHYLOCOCCUS AUREUS & MRSA SCREEN, PCR, NASAL Lab Routine Pre-operative cardiovascular examination Aortic valve disorder Expected: 01/21/2025, Expires: 04/22/2025 [facility] Comment on above: Expected: 01/21/2025, Expires: Start: 01-21-2025 End: 04-22-2025 TYPE AND SCREEN,30 DAY TYPE AND SCREEN,30 DAY Blood Bank Routine Pre-operative cardiovascular examination Aortic valve disorder Expected: 01/21/2025, Expires: 04/22/2025 [facility] Comment on above: Expected: 01/21/2025, Expires: Start: 01-21-2025 End: 04-22-2025 URINALYSIS, DIPSTICK ONLY URINALYSIS, DIPSTICK ONLY Lab Routine Pre-operative cardiovascular examination Aortic valve disorder Expected: 01/21/2025, Expires: 04/22/2025 [facility] Comment on above: Expected: 01/21/2025, Expires: Start: 11-22-2024 Influenza vaccination [facility] Start: 09-21-2024 End: 09-21-2024 Patient encounter procedure 09/21/2024 12:00 PM EDT Office Visit Cardiothoracic [address] [place], [place] [id number] Crystal Ceballos MD [address] [place], [place] [id number] [G13.9][X70.312][I35.9] Cardiothoracic Comment on above: [R51.9][Z01.810][I35.9] Start: 09-02-2024 End: 09-02-2024 Patient encounter procedure Vascular Medicine Comment on above: + Nonintractable heada geraldine, unspecified chronicity pattern, unspecified headache type [R51.9] NF//Nonintractable h eadache, unspecified chronicity pattern, unspecified headache type [R51.9] Start: 09-02-2024 End: 09-02-2024 ambulatory Cardiology Comment on above: + [R51.9][Z01.810][I35 .9] Start: 09-01-2024 End: 09-01-2024 Patient encounter procedure 09/01/2024 3:00 PM EDT Appointment Radiology [address] [place] [address] + Radiology Comment on above: + Start: 11-23-2023 Covid-19 Vaccine () Covid-19 Vaccine () [facility] Start: 11-23-2023 Covid-19 Vaccine () Covid-19 Vaccine () [facility] Start: 2020 Screening for malignant neoplasm of breast Mammogram Screening [facility] Start: 06-14-2019 Screening for malignant neoplasm of cervix Cervical Cancer Screening [facility] Start: 06-13-2017 Screening for malignant neoplasm of cervix Cervical Cancer Screening [facility] Start: 03-04-2017 End: 03-04-2017 Appointment Appointment [facility] Start: 02-27-2017 End: 02-27-2017 Appointment Appointment [facility] Start: 01-02-2017 End: 01-02-2017 Us preg uterus after 1st trimest 03/24 gestation US OB, >14 weeks [facility] Start: 11-27-2016 End: 11-27-2016 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 ROLL OPERATOR HEAVY DUTY FORMING ROLL OPERATOR HEAVY DUTY [facility] Start: 11-27-2016 End: 11-27-2016 Echocardiography Echocardiogram (complete) [facility] Start: 11-27-2016 End: 11-27-2016 Follow Up Appt 3 months Follow Up Appt 3 months [facility] Start: 11-08-2016 End: 11-10-2016 *CBC with Differential *CBC with Differential [facility] Start: 11-08-2016 End: 11-10-2016 *GC/Chlamydia *GC/Chlamydia [facility] Start: 11-08-2016 End: 11-10-2016 *HEBSAG - Hep B Surface Antigen 6510 *HEBSAG - Hep B Surface Antigen 6510 [facility] Start: 11-08-2016 End: 11-10-2016 *HIV antibody *HIV antibody [facility] Start: 11-08-2016 End: 11-10-2016 *TS Type and Screen *TS Type and Screen [facility] Start: 11-08-2016 End: 11-10-2016 Cardiac Referral Cardiac Referral Rehab Cardiac Pulmonary, [address], [place], [address] [facility] Start: 11-08-2016 End: 11-10-2016 Reagin antibody presence *RPR [facility] Start: 11-08-2016 End: 11-10-2016 Rubella virus Ab [Units/volume] in Serum *Rubella Screen [facility] Start: 11-08-2016 End: 11-10-2016 Urine culture, bacteria *CUUR - Culture, Urine ([place] Count) [facility] Start: 07-10-2012 End: 12-09-2016 Ecg routine ecg w/least 12 lds w/i&r EKG (In office) [facility] Start: 07-10-2012 End: 07-10-2012 Echocardiography Echocardiogram (complete) [facility] Start: 07-10-2012 End: 12-09-2016 Follow Up Appt 1 year Follow Up Appt 1 year [facility] Start: 07-10-2012 End: 12-09-2016 PFM PFM [facility] Start: 09-08-2007 HPV Vaccine (1 - 3-dose SCDM series) HPV Vaccine (1 - 3-dose SCDM series) [facility] Start: 09-08-1999 Hepatitis B Vaccine (1 of 3 - 19+ 3-dose series) Hepatitis B Vaccine (1 of 3 - 19+ 3-dose series) [facility] Start: 09-08-1999 Urine microalbumin profile DTaP,Tdap,Td Vaccine (1 - Tdap) [facility] Start: 1998 Anxiety Screening Anxiety Screening [facility] Start: 1998 Depression Screening Depression Screening [facility] Start: 1998 Hepatitis C screening Hepatitis C Screening [facility] End: 08-04-2025 ECG COMPLETE ECG COMPLETE ECG Routine Nonintractable headache, unspecified chronicity pattern, unspecified headache type Pre-operative cardiovascular examination Aortic valve disorder 1 Occurrences starting 08/04/2024 until 08/04/2025 [facility] Work Phone: Comment on above: 1 Occurrences starting 08/04/2024 until 08/04/2025 End: 08-04-2025 Echocardiography ECHO Cardiology Routine Nonintractable headache, unspecified chronicity pattern, unspecified headache type Pre-operative cardiovascular examination Aortic valve disorder 1 Occurrences starting 08/04/2024 until 08/04/2025 [facility] Comment on above: 1 Occurrences starting 08/04/2024 until 08/04/2025 End: 09-03-2025 LUNG DIFFUSION CAPACITY (DLCO) LUNG DIFFUSION CAPACITY (DLCO) PFT Routine Nonintractable headache, unspecified chronicity pattern, unspecified headache type Pre-operative cardiovascular examination Aortic valve disorder 1 Occurrences starting 08/04/2024 until 09/03/2025 [facility] Comment on above: 1 Occurrences starting 08/04/2024 until 09/03/2025 LUNG DIFFUSION CAPAC ITY (DLCO) LUNG DIFFUSION CAPACITY (DLCO) PFT Routine Nonintractable headache, unspecified chronicity pattern, unspecified headache type Pre-operative cardiovascular examination Aortic valve disorder 09/02/2024 8:58 AM EDT [facility] MG Breast - bilatera l Screening [facility] End: 09-03-2025 MR Brain WO contrast MRI BRAIN WO IVCON Radiology Routine Nonintractable headache, unspecified chronicity pattern, unspecified headache type Pre-operative cardiovascular examination Aortic valve disorder 1 Occurrences starting 08/04/2024 until 09/03/2025 [facility] Comment on above: 1 Occurrences starting 08/04/2024 until 09/03/2025 Patient referral [facility] Work Phone: End: 09-03-2025 SPIROMETRY BASELINE ONLY SPIROMETRY BASELINE ONLY PFT Routine Nonintractable headache, unspecified chronicity pattern, unspecified headache type Pre-operative cardiovascular examination Aortic valve disorder 1 Occurrences starting 08/04/2024 until 09/03/2025 [facility] Comment on above: 1 Occurrences starting 08/04/2024 until 09/03/2025 SPIROMETRY BASELINE ONLY SPIROME TRY BASELINE ONLY PFT Routine Nonintractable headache, unspecified chronicity pattern, unspecified headache type Pre-operative cardiovascular examination Aortic valve disorder 09/02/2024 8:58 AM EDT [facility] Work Phone: [facility] Work Phone: Immunizations Immunization Date Immunization Notes Care Provider [facility] 03-12-2018 influenza, injectable, quadrivalent, preservative free Crystal Ceballos MD Work Phone: [facility] 03-12-2018 influenza virus vaccine, unspecified formulation Crystal Ceballos MD Work Phone: [facility] 04-10-2017 tetanus toxoid, reduced diphtheria toxoid, and acellular pertussis vaccine, adsorbed Dr. Tiesha Alexander Work Phone: [facility] 01-02-2017 influenza, injectable, madin dimas canine kidney, preservative free Sonya Spence MD [facility] 01-02-2017 [id number] Sonya smith MD [facility] 05-04-2014 influenza, injectable, quadrivalent, preservative free [facility] 05-04-2014 influenza, seasonal, injectable Dr. Tiesha Alexander Work Phone: [facility] Work Phone: 09-08-2011 tetanus toxoid, reduced diphtheria toxoid, and acellular pertussis vaccine, adsorbed Dr. Tiesha Alexander Work Phone: [facility] Payers Date Payer Category Payer Self-pay [id number] 2024 Private Health Insurance [id number] 2024 Unknown [id number] 2022 Medicaid [id number] 2014 Unknown [id number] 2014 Unknown [id number] Unknown [id number] 2.16.8 [id number] Unknown [id number] 2.16.8 [id number] Unknown [id number] 2.16.8 [id number] Unknown [id number] 2.16.8 [id number] Unknown [id number] 2.16.8 [id number] Unknown [id number] 2.16.8 [id number] Unknown [id number] 2.16.8 [id number] Unknown [id number] 2.16.8 [id number] Unknown [id number] 2.16.8 [id number] Unknown [id number] 2.16.8 [id number] Social History Date Type Detail Facility Start: 07-09-2021 End: 08-13-2022 Tobacco smoking status NHIS Unknown if ever smoked [facility] Start: 06-08-2017 None [facility] Start: 1980 Sex Assigned At Female [facility] [place] Start: 06-26-2023 Tobacco smoking stat us INIS Never smoked tobacco (finding) [facility] Start: 07-02-2024 Sex Female (finding) [facility] Start: 08-05-2016 End: 09-02-2024 Alcoholic beverage intake Current drinker of alcohol (finding) [facility] Start: 08-05-2016 Alcohol Comment Occasionally [facility] Start: 1980 Sex assigned at Not on file [facility] Start: 09-02-2024 Gender identity Not on file [facility] Start: 09-02-2024 History of Social function [facility] Start: 02-23-2012 National Score (1-100), lower number is lower risk 47 [facility] Medical Equipment Procedure Code Equipment Code Equipment Origin al Text Equipment Identifier Dates RAKEL 3GRM HEMO STAT ABS FDA Start: 08-01-2017 RAKEL 3GRM HEMO STAT ABS FDA Start: 08-01-2017 RAKEL 3GRM HEMO STAT ABS FDA Start: 08-01-2017 RAKEL 3GRM HEMO STAT ABS FDA Start: 08-01-2017 Goals Date Patient Goal Desired Activity /State Personal health goal Functional Status Date Assessment Result Facility 08-16-2014 Are you deaf, or do you have serious difficulty hearing No 08/16/2014 10:36 AM EDT Rekha Cuadra MA No [facility] 08-16-2014 Are you blind, or do you have serious difficulty seeing, even when wearing glasses No 08/16/2014 10:36 AM EDT Rekha Cuadra MA No [facility] 08-16-2014 Do you have serious difficulty walking or climbing stairs No 08/16/2014 10:36 AM EDT Rekha Cuadra MA No [facility] 08-16-2014 Do you have difficul ty dressing or bathing No 08/16/2014 10:36 AM EDT Rekha Cuadra MA No [facility] 08-16-2014 Because of a physica l, mental, or emotional condition, do you have difficulty doing errands alone such as visiting a physician's office or shopping No 08/16/2014 10:36 AM EDT Rekha Cuadra MA [facility] Mental Status Date Assessment Result Facility 08-16-2014 Because of a physica l, mental, or emotional condition, do you have serious difficulty concentrating, remembering, or making decisions No 08/16/2014 10:36 AM EDT Rekha Cuadra MA No [facility] Clinical Notes 04-14-2024 to 02-01-2025 Telephone Encounter - Bee Gonzalez RN - 11/02/2024 3:36 PM EDTTelephone Encounter - Bee Gonzalez RN - 11/02/2024 3:36 PM Crystal Garvey MD - 09/21/2024 12:25 PM EDTPatient Instructions Note Date & Type Note Facility 02-01-2025 Note [facility] 02-01-2025 Note [facility] 01-31-2025 Note [facility] 01-30-2025 Note [facility] 01-29-2025 Note [facility] 01-29-2025 Note [facility] 01-28-2025 Note [facility] 01-27-2025 Note [facility] 01-26-2025 Note [facility] 01-26-2025 Note [facility] 01-26-2025 Note [facility] 01-26-2025 Note [facility] 01-26-2025 Note [facility] 01-26-2025 Note [facility] 01-26-2025 Note [facility] 01-25-2025 Note [facility] 01-25-2025 Note [facility] 01-25-2025 Note [facility] 01-24-2025 Note [facility] 01-20-2025 Note [facility] 01-15-2025 Note [facility] 11-02-2024 Telephone encounter Note Per Dr. Darling, Leads were missplaced. But looks normal. I have changed the reading. Bee Gonzalez RN [facility] 11-02-[address] Darling, Leads were missplaced. But looks normal. I have changed the reading. Bee Gonzalez RN documented in this encounter [facility] 09-21-2024 Telephone encounter Note Scheduling plan: 01/24/25 - Cath. 01/25/25 - 30 day H&P, TCI. 01/26/25 - OR. *Please email patient her schedule. Met with patient after her visit with Dr. Ceballos to book surgery. She declined the earliest available dates, asking for early January, as above, to accommodate her work schedule. Instructed patient to hold all OTC medications, vitamins, supplements, NSAIDs and anticoagulation 5 days before surgery (she reports she takes no daily aspirin nor any anticoagulation). Discussed dental clearance and patient will obtain locally. Patient reports no beliefs that would keep her from accepting blood products. She also denies past or current issues with dysphagia. Discussed anticipated testing and appointments. She verbalized understanding of all above. Edna Marina RN Cardiac Surgery PreOp Checklist Patient Name: Alek Ashton OR Surgery Date: 01/26/25 TCI Appt. Date: 01/25/25 Primary Care Provider: Timi Zee MD Definition Comments Diabetes/Insulin Pump A1-c and Endo consult (need for pump pt) n/a Hypothyroid/thyroid nodules TSH/US of thyroid if new nodule n/a Stroke (CVA) Neurology consult n/a Dysphagia, stricture w/no recent dilation, Lui's Esophagus GI consult Denies dysphagia Von Willebrand/thrombocytopenia/ Blood... Hematology consult n/a Abnormal labs from outside Place any necessary consults n/a Cardiac Cath Correct birthday/include all images/moving if outside cath Ordered Redo OHS/Robotic surgery/radiation to chest CT or CTA/if outside CT will need in-house CXR, Cardiac MRI n/a Mechanical valve Admit for Heparin/Lovenox bridge n/a Female <50 y/o HCG Ordered Heparin allergy hx of HIT Vascular Medicine consult n/a Nickel/Metal allergy Dermatology consult n/a Breast implants/Robotic candidates Plastic Surgery consult n/a Urinary strictures Urology consult/Urology consult to OR n/a All stimulators/spinal stimulator Type of stimulator n/a PPM/AICD Device check n/a Valve/TAVR/TEVAR/Myectomy/ascend ing aorta Dental clearance/Dental Consult at F Discussed CABG surgery with previous CABG/varicose vein/vein stripping Leg vein mapping n/a LMT disease > 30% or Carotid Bruits Carotid ultrasound n/a Descending Aneurysm/TEVAR/TAA Pre-admit/hydration/spinal drain to be placed: IR/OR/Not Needed n/a Dialysis patient IHD day prior to OHS n/a CABG with no ECHO results Discussion w/surgeon results for dental clearance: preop/postop n/a Advanced Directives Instructions given to patient Discussed FMLA Forward to AA Discussed Test/Consult not needed Communicate in Epic or Access n/a Record of decreased PFTs, known lung disease Any pulmonary consult n/a Pulmonary embolectomy Needs US/Duplex BLE, VQ scan RHC, possible LHC, Pulmonary and/or Vascular consult n/a Abnormal CT All>1cm if further workup/consult needed n/a CC-[employer] Repostitory Notification of packet and general knowledge given to pt n/a Have you had a blood transfusion with the last 90 days No Have you been within the last 90 days No History of antibodies Choose correct Type and Screen order None known [facility] 09-21-2024 Miscellaneous Notes Scheduling plan: 01/24/25 - Cath. 01/25/25 - 30 day H&P, TCI. 01/26/25 - OR. *Please email patient her schedule. Met with patient after her visit with Dr. Ceballos to book surgery. She declined the earliest available dates, asking for early January, as above, to accommodate her work schedule. Instructed patient to hold all OTC medications, vitamins, supplements, NSAIDs and anticoagulation 5 days before surgery (she reports she takes no daily aspirin nor any anticoagulation). Discussed dental clearance and patient will obtain locally. Patient reports no beliefs that would keep her from accepting blood products. She also denies past or current issues with dysphagia. Discussed anticipated testing and appointments. She verbalized understanding of all above. Edna Marina RN Cardiac Surgery PreOp Checklist Patient Name: Alek Ashton OR Surgery Date: 01/26/25 [facility] Appt. Date: 01/25/25 Primary Care Provider: Timi Zee MD Definition Comments Diabetes/Insulin Pump A1-c and Endo consult (need for pump pt) n/a Hypothyroid/thyroid nodules TSH/US of thyroid if new nodule n/a Stroke (CVA) Neurology consult n/a Dysphagia, stricture w/no recent dilation, Lui's Esophagus GI consult Denies dysphagia Von Willebrand/thrombocytopenia/ Blood... Hematology consult n/a Abnormal labs from outside Place any necessary consults n/a Cardiac Cath Correct birthday/include all images/moving if outside cath Ordered Redo OHS/Robotic surgery/radiation to chest CT or CTA/if outside CT will need in-house CXR, Cardiac MRI n/a Mechanical valve Admit for Heparin/Lovenox bridge n/a Female <50 y/o HCG Ordered Heparin allergy hx of HIT Vascular Medicine consult n/a Nickel/Metal allergy Dermatology consult n/a Breast implants/Robotic candidates Plastic Surgery consult n/a Urinary strictures Urology consult/Urology consult to OR n/a All stimulators/spinal stimulator Type of stimulator n/a PPM/AICD Device check n/a Valve/TAVR/TEVAR/Myectomy/ascend ing aorta Dental clearance/Dental Consult at [facility] Discussed CABG surgery with previous CABG/varicose vein/vein stripping Leg vein mapping n/a LMT disease > 30% or Carotid Bruits Carotid ultrasound n/a Descending Aneurysm/TEVAR/TAA Pre-admit/hydration/spinal drain to be placed: IR/OR/Not Needed n/a Dialysis patient IHD day prior to OHS n/a CABG with no ECHO results Discussion w/surgeon results for dental clearance: preop/postop n/a Advanced Directives Instructions given to patient Discussed FMLA Forward to AA Discussed Test/Consult not needed Communicate in Epic or Access n/a Record of decreased PFTs, known lung disease Any pulmonary consult n/a Pulmonary embolectomy Needs US/Duplex BLE, VQ scan RHC, possible LHC, Pulmonary and/or Vascular consult n/a Abnormal CT All>1cm if further workup/consult needed n/a CC-Bio Repostitory Notification of packet and general knowledge given to pt n/a Have you had a blood transfusion with the last 90 days No Have you been within the last 90 days No History of antibodies Choose correct Type and Screen order None known documented in this encounter [facility] 09-21-2024 Note [facility] 09-21-2024 History of Presen t illness Narrative Consult to determine surgery. This patient is seen in consult for cardiovascular disease. I have reviewed the medical history and PFTs, TTE, CT images and other testing. Impression: bicuspid as, good pfts , dyspnea , ho am fugax Based on my evaluation if this patient undergoes surgery the risk of is 1% Plan: Evaluation for potential surgery. The risks, benefits and anticipated outcomes of a potential procedure versus medical management were reviewed. Discussed the potential for two patients undergoing surgery in two separate rooms (concurrent surgery) but I would be putting the patient on the heart lung machine and taking them off. Discussed that in an emergency a qualified backup surgeon is available and in the rare event of a serious situation, one of my colleagues would also be able to take over. Crystal Ceballos MD, PhD documented in this encounter [facility] 09-02-2024 Instructions Ibis Mckeon MD - 09/02/2024 11:03 AM EDT 1. Nonintractable headache, unspecified chronicity pattern, unspecified headache type 2. Pre-operative cardiovascular examination Patient is being evaluated for potential aortic valve replacement due to severe aortic valve stenosis secondary to a bicuspid aortic valve. - Discussed surgical options including mechanical and bioprosthetic valves. - Patient to follow-up with Dr. Ceballos in September for further surgical planning. 3. Aortic valve disorder Bicuspid aortic valve (HCC) Aortic valve stenosis, severe Patient has a known bicuspid aortic valve with associated severe stenosis. Recent echocardiogram shows moderate stenosis, but previous echocardiogram indicates severe stenosis. Left ventricular hypertrophy noted, but no aortic aneurysm present. Patient experiences dyspnea on exertion and occasional chest discomfort. - Reviewed echocardiogram and CT scan results; no need for repeat imaging at this time. - Discussed the importance of blood pressure control to reduce hemodynamic stress on the valve. - Advised patient to avoid extreme vasodilation, such as hot tubs, to prevent syncope. - Patient to be evaluated for aortic valve replacement; discussed risks and benefits of mechanical vs. bioprosthetic valves. 4. Hypertensive heart disease without heart failure Patient has consistently elevated blood pressure readings, with a recent measurement of 170/114 mmHg. No history of heart failure. Hypertension likely contributing to increased gradients across the aortic valve. - Strongly advised initiation of antihypertensive medication; patient to contact primary care provider or engineering documentation specialist immediately to start treatment. - Emphasized the importance of maintaining blood pressure in the 120s to reduce cardiac workload and prevent further complications. documented in this encounter [facility] 09-02-2024 History of Presen t illness Narrative Images from the original note were not included. [facility] [place] [facility] Department of Cardiovascular Medicine SECTION OF CLINICAL CARDIOLOGY OUTPATIENT VISIT DATE September 02, 2024 OUTPATIENT VISIT TYPE CONSULTATION PRIMARY CARE PHYSICIAN: Timi Zee MD [address] [address] REFERRING PHYSICIAN rCystal Ceballos [address] [facility] [id number] CHIEF COMPLAINT: No chief complaint on file. HISTORY OF PRESENT ILLNESS: Cardiac consultation at the request of Dr. Crystal Ceballos.A copy of this consultation note will be provided to the requesting physician by way of shared Medical record or letter to requesting physician via US mail. Ms. Lewis is a 43 year old female who is seen today for dyspnea on exertion The patient reports increased dyspnea when ascending hills and stairs, as well as during exercise, noting that she feels more breathless than expected for her level of fitness. She also experiences occasional dizziness. She denies consistent chest pain or pressure but mentions occasional discomfort that she is unsure is heartburn. She denies any episodes of syncope. She has a known history of a bicuspid aortic valve with associated stenosis, initially diagnosed at age 20 following the detection of a heart murmur. She has been undergoing regular echocardiographic monitoring, with a recent gap of three years. A JOSY was performed in the past. She had an echocardiogram today. She has a history of hypertension, with recent home readings typically in the 140s systolic. She is not currently on antihypertensive medication but was advised by her primary care provider that she might need it. She reports that her blood pressure issues began after her pregnancies, during which she experienced borderline preeclampsia. She is planning a vacation next week and inquires about the safety of using a hot tub given her current condition. She denies any history of smoking or alcohol use. NURSING INTAKE: Ms. Lewis is a 43 year old female from [place], [place] here today for pre-op cardiovascular evaluation related to possible AV surgery. Patient wanted to start with evaluation before scheduling surgery. She has a consultation with Dr. Ceballos on September 21 to discuss surgery options. Alek has a significant medical history of BAV with moderate stenosis and regurgitation, HLD (no medications), and HTN (has been elevated, taking Bps at home ~148's). She reports the following symptoms: occasional chest pain, CARREON (walking up hill and stairs), palpitations (couple times a week), and lightheadedness/dizziness. PAST MEDICAL HISTORY Diagnosis Date Bicuspid aortic valve (HCC) with stenosis and regurgitation FRACTURE AGE 7 LEFT ARM High cholesterol Scarlet fever PAST SURGICAL HISTORY Procedure Laterality Date INSERTION OF IUD 07/11/2014 daniele PAST SURGICAL HISTORY OF s/p excision of wisdom teeth SOCIAL HISTORY Social History Tobacco Use Smoking status: Never Smokeless tobacco: Never Vaping Use Vaping status: Never Used Substance Use Topics Alcohol use: Yes Alcohol/week: 5.0 standard drinks of alcohol Types: 5 Standard drinks or equivalent per week Comment: Occasionally Drug use: Never FAMILY HISTORY Problem Relation Age of Onset Arthritis Mother Hypertension Mother Lipids Mother Alcohol/Drug Father Hypertension Father Prostate Cancer Father Diabetes Brother Type 1 Cancer Maternal Grandfather LUNG CANCER Diabetes Paternal Grandmother Alcohol/Drug Paternal Grandmother Alcohol/Drug Paternal Grandfather ALLERGIES: ALLERGIES Allergen Reactions Adhesive Hives, Itching Band-aid adhesive Prednisone Hives MEDICATIONS: naproxen (NAPROSYN) 500 mg tablet Take 500 mg by mouth as needed for pain (Cramps). REVIEW OF SYSTEMS: POSITIVES IN BOLD GENERAL: Negative for: Weight loss or gain, Fever or Chills, Weakness and Sleep difficulties. HEENT: Negative for: Headache, Impaired Vision, Glasses, Hearing Impairment, Ringing in Ears, Nosebleeds, Poor dental care, Bleeding Gums, Dentures NECK: Negative for: Swelling, Pain, Stiffness RESPIRATORY: Negative for: Cough, Blood in Sputum, Shortness of breath, Wheezing, Apnea GASTROINTESTINAL: Negative for: Trouble swallowing, Heartburn, Change in bowel habits, Blood in stool, Dark black stools MUSCULOSKELETAL: Negative for: Muscle or joint pain, Stiffness , Joint swelling NEUROLOGIC/PSYCHIATRIC: Negative for: Weakness, Paralysis, Numbness, Tingling, Tremor, Nervousness, anxiety, Depressed mood, Memory loss SKIN: Negative for: Rashes, Itching HEMATOLOGICAL/LYMPHATIC: Negative for: Easy bruising , Easy bleeding ENDOCRINE: Negative for: Heat or cold intolerance, Excessive sweating, Frequent urination, Frequent thirst PHYSICAL EXAMINATION: BP 170/114 (BP Site: Right Arm, BP Position: Sitting) Pulse 78 Resp 18 Ht 158.8 cm (5' 2.5") Wt 75.8 kg (167 lb) LMP 03/25/2015 SpO2 98% BMI 30.06 kg/m General: Well appearing, in no acute distress. Skin: No clubbing, no cyanosis. Eyes: Extra ocular movements intact Oropharynx: Teeth in good repair. Neck: No jugular venous distention, no carotid bruits, carotids have a normal upstroke, no palpable thyromegaly. Lungs: Clear to auscultation bilaterally, no wheezing or rhonchi. Heart: Regular rhythm, PMI not displaced, S1, S2 normal, no S3, no S4, no heaves, no rub and ejection systolic murmur murmur. Abdomen: Soft, nontender, bowel sounds normal, no palpable organomegaly, no bruits. Extremities: No peripheral edema . Neuro: Oriented to person, place and time, alert, cooperative, gait coordinated. CARDIOVASCULAR MEDICINE TESTING: ECG 09/02/2024: Last ECHO Result Conclusion ECHO Collected: 09/02/2024 8:15 AM (Final result) Impression: CONCLUSIONS: - Exam indication: Aortic valve disease - The left ventricle is mildly dilated. Left ventricular systolic function is normal. EF = 64 5% (2D biplane) - The right ventricle is normal in size. Right ventricular systolic function is normal. - Bicuspid aortic valve. There is mild (1+) aortic valve regurgitation. There is moderate aortic valve stenosis. AV area is 1.35 cm (0.82 cm /m ) by continuity, VTI. The peak gradient is 60 mmHg, the mean gradient is 31 mmHg and the dimensionless valve index is 0.42. Prior peak/mean gradients 34/19mmHg DI 0.39. - Exam was compared with the prior CC echocardiographic exam performed on 01/03/2016; increase in gradients over aortic valve. * * * Final * * * ECHO 09/02/2024: CONCLUSIONS: - Exam indication: Aortic valve disease - The left ventricle is mildly dilated. Left ventricular systolic function is normal. EF = 64 5% (2D biplane) - The right ventricle is normal in size. Right ventricular systolic function is normal. - Bicuspid aortic valve. There is mild (1+) aortic valve regurgitation. There is moderate aortic valve stenosis. AV area is 1.35 cm (0.82 cm /m ) by continuity, VTI. The peak gradient is 60 mmHg, the mean gradient is 31 mmHg and the dimensionless valve index is 0.42. Prior peak/mean gradients 34/19mmHg DI 0.39. - Exam was compared with the prior CC echocardiographic exam performed on 01/03/2016; increase in gradients over aortic valve. OS ECHO 01/03/2016: CONCLUSIONS: - Exam indication: Bicuspid aortic valve - The left ventricle is normal in size. Left ventricular systolic function is normal. EF = 63 5% (2D biplane) Baseline left ventricular diastolic function is normal. - The right ventricle is normal in size. Right ventricular systolic function is normal. - Trivial MR, no stenosis - Trivial TR RVSP 24mmHg C/W normal pulmonary pressure. - Bicuspid aortic valve. There is no aortic valve regurgitation. There is moderate aortic valve stenosis caused by restricted opening. AV area is 1.20 cm (0.72 cm /m ) by continuity, VTI. The peak gradient is 34 mmHg, the mean gradient is 19 mmHg and the dimensionless valve index is 0.39. Gradients are the same from previous study. - Exam was compared with the prior CC echocardiographic exam performed on 01/04/2015 There is no significant change. I have personally reviewed the Electrocardiogram and echo. IMPRESSION: Ms. Lewis is a 43 year old female with history of bicuspid aortic valve that comes in for preoperative evaluation. PLAN AND RECOMMENDATIONS: 1. Pre-operative cardiovascular examination Patient is being evaluated for potential aortic valve replacement due to severe aortic valve stenosis secondary to a bicuspid aortic valve. - Discussed surgical options including mechanical and bioprosthetic valves. - Patient to follow-up with Dr. Ceballos in September for further surgical planning. 2. Aortic valve disorder Bicuspid aortic valve (HCC) Aortic valve stenosis, severe Patient has a known bicuspid aortic valve with associated severe stenosis. Recent echocardiogram shows moderate stenosis, but previous echocardiogram indicates severe stenosis. Left ventricular hypertrophy noted, but no aortic aneurysm present. Patient experiences dyspnea on exertion and occasional chest discomfort. - Reviewed echocardiogram and CT scan results; no need for repeat imaging at this time. - Discussed the importance of blood pressure control to reduce hemodynamic stress on the valve. - Advised patient to avoid extreme vasodilation, such as hot tubs, to prevent syncope. - Patient to be evaluated for aortic valve replacement; discussed risks and benefits of mechanical vs. bioprosthetic valves. 3. Hypertensive heart disease without heart failure Patient has consistently elevated blood pressure readings, with a recent measurement of 170/114 mmHg. No history of heart failure. Hypertension likely contributing to increased gradients across the aortic valve. - Strongly advised initiation of antihypertensive medication; patient to contact primary care provider or engineering documentation specialist immediately to start treatment. - Emphasized the importance of maintaining blood pressure in the 120s to reduce cardiac workload and prevent further complications. I personally interviewed, confirmed and edited the above information as obtained by others. CONTACT INFORMATION: Ibis Mckeon MD Section of Clinical Cardiology [facility] Department of Cardiovascular Medicine [facility] [place] [facility] Desk [address] [place] [address] Office Office Appointments: [phone] documented in this encounter [facility] 09-02-2024 Note [facility] 09-01-2024 History of Presen t illness Narrative Radiology Service Progress Note PATIENT NAME: Alek Lewis DATE OF SERVICE: September 01, 2024 TIME: 2:41 PM PATIENT IDENTITY VERIFICATION COMPLETED USING TWO (2) IDENTIFIERS: Name and Date of confirmed by patient verbally. FALL SCREENING: Has the patient had 2 falls in the last year or 1 fall with injury or currently using an Ambulatory Assistive Device (Walker, Cane, Wheelchair, Crutches, etc.)? No PATIENT GENDER DATA: Assigned female at . status: : No status: NO. PATIENT RELEVANT IMPLANT DATA REVIEWED: Yes PATIENT PRESENTS WITH AN IMPLANTABLE OR ATTACHED PREVENTION SPECIALIST: No RADIOLOGY DEPARTMENT: MR; Exam(s) Completed: Head: Routine Brain. Lavender Administered: No PERIPHERAL IV DATA: Not applicable SIGNED BY: Cathryn Belle, RT(R) September 01, 2024 2:41 PM documented in this encounter [facility] 09-01-2024 Note [facility] 08-04-2024 Telephone encounter Note IN [facility] Work Phone: 08-04-2024 Miscellaneous Notes IN Please verify insurance. Thank you! documented in this encounter [facility] 08-04-2024 Telephone encounter Note Please verify insurance. Thank you! [facility] 08-04-2024 Telephone encounter Note Scheduling plan: Evaluation only - Cardiology, testing, Dr. Ceballos. *Please email patient her schedule. Patient called back, wants to start with an evaluation before she books surgery. Reviewed anticipated testing and appointments. Encouraged her to call with questions. Edna Marina RN [facility] 08-04-2024 Miscellaneous Notes Scheduling plan: Evaluation only - Cardiology, testing, Dr. Ceballos. *Please email patient her schedule. Patient called back, wants to start with an evaluation before she books surgery. Reviewed anticipated testing and appointments. Encouraged her to call with questions. Edna Marina RN Dr. Ceballos has reviewed the available records and is offering surgery. Called patient to discuss, left a brief voicemail requesting call back. Edna Marina RN Patient referred to Dr. Ceballos by DONATO in [facility]. Chart reviewed by NPM, to Dr. Ceballos for surgeon review. Edna Marina RN documented in this encounter [facility] 08-04-[address] Ceballos has reviewed the available records and is offering surgery. Called patient to discuss, left a brief voicemail requesting call back. Edna Marina RN [facility] 08-04-2024 Telephone encounter Note Patient referred to Dr. Ceballos by DONATO in [facility]. Chart reviewed by NPM, to Dr. Ceballos for surgeon review. Edna Marina RN [facility] 04-14-2024 Note [facility] Pap Smear Specimen Adequacy April 15, 2024 12:59am Comment . Satisfactory for evaluation. Endocervical and/or squamous metaplasticcells (endocervical component) are present. Comment on above: Satisfactory for aubree luation. Endocervical and/or squamous metaplasticcells (endocervical component) are present. 04-14-2024 Evaluation note Diagnosis Onset Date Resolution Encounter for routine gynecological examination noneactive April 14 1:23pm Elevated blood pressure reading acute June 03, 2024 1:49pm Aortic stenosis with bicuspid valve chronic June 03, 2024 1:49pm [facility] Work Phone: Evaluation note* Diagnosis Onset Date Resolution Status Encounter for routine gynecological examination noneactive Aortic stenosis with bicuspid valve chronic Hyperlipidemia chronic Palpitations chronic [facility] Work Phone: Evaluation noteNo assessment information available [facility] Work Phone: evaluation note* Diagnosis Nonintractable headache, unspecified chronicity pattern, unspecified headache type- Primary Pre-operative cardiovascular examination Aortic valve disorder Aortic valve disorders documented in this encounter [facility] note* Diagnosis Nonintractable headache, unspecified chronicity pattern, unspecified headache type Pre-operative cardiovascular examination Aortic valve disorder Aortic valve disorders documented in this encounter [facility] note* Diagnosis Pre-operative cardiovascular examination- Primary Nonintractable headache, unspecified chronicity pattern, unspecified headache type Aortic valve disorder Aortic valve disorders documented in this encounter [facility] note* Diagnosis Nonintractable headache, unspecified chronicity pattern, unspecified headache type Pre-operative cardiovascular examination Aortic valve disorder Aortic valve disorders Pre-operative cardiovascular examination Aortic valve disorder Aortic valve disorders documented in this encounter [facility] note* Diagnosis Pre-operative cardiovascular examination- Primary Aortic valve disorder Aortic valve disorders Pre-operative cardiovascular examination Aortic valve disorder Aortic valve disorders documented in this encounter [facility] note* Diagnosis Nonintractable headache, unspecified chronicity pattern, unspecified headache type Pre-operative cardiovascular examination Aortic valve disorder Aortic valve disorders Bicuspid aortic valve (HCC) Congenital insufficiency of aortic valve Aortic valve stenosis, severe Aortic valve disorders Hypertensive heart disease without heart failure Unspecified hypertensive heart disease without heart failure Aortic valve disease Aortic valve disorders Pre-operative cardiovascular examination Aortic valve disorder Aortic valve disorders [facility] ([facility]ative[facility]No reason for referral information [facility] Work Phone: Reason for referral (narrative)* Transition of Care (Routine) - Authorized Specialty Diagnoses / Procedures Referred By Marisa calix Referred To Contact [facility] [place] Procedures CARDIOVASCULAR MEDICINE OP FOLLOW UP APPT ORDER Ibis Mckeon MD [address] [place] [address] Phone: tel: fax: [place] [address] Referral ID Status Reason Start Date Expiration Date Visits Requested Visits Authorized [id number] Authorized PCP Requested Referral 10/04/2024 10/04/2025 1 1 [facility] for visit Narrative* MRI/CT (Routine) - Closed Specialty Diagnoses / Procedures Referred By Marisa calix Referred To Contact [facility] Diagnoses Nonintractable headache, unspecified chronicity pattern, unspecified headache type Pre-operative cardiovascular examination Aortic valve disorder Procedures MRI BRAIN WO IVCON MRI BRAIN BRAIN STEM W/O CONTRAST MATERIAL Crystal Ceballos MD [facility] [place] [address] Phone: tel: fax: [facility] [place] [id number] Referral ID Status Reason Start Date Expiration Date V isits Requested Visits Authorized [id number] Closed Auto-Generate d Referral 08/04/2024 09/03/2025 1 1 [facility] for visit Narrative* Consult, Test, Treat (Routine) - Closed Specialty Diagnoses / Procedures Referred By Marisa calix Referred To Contact Cardiac Surg Diagnoses Nonintractable headache, unspecified chronicity pattern, unspecified headache type Pre-operative cardiovascular examination Aortic valve disorder Procedures CARDIOTHORACIC PREOP EVALUATION OFFICE/OUTPATIENT [facility] MDM 60 [place] [address] [place] [address] Phone: tel: fax: Referral ID Status Reason Start Date Expiration Date V isits Requested Visits Authorized [id number] Closed PCP Requested Referral 08/04/2024 08/04/2025 1 1 [facility] for visit Narrative* Consult, Test, Treat (Routine) - Closed Specialty Diagnoses / Procedures Referred By Contac t Referred To Contact Cardiology Diagnoses Nonintractable headache, unspecified chronicity pattern, unspecified headache type Pre-operative cardiovascular examination Aortic valve disorder Procedures CONSULT TO CARDIOLOGY OFFICE/OUTPATIENT [facility] 60 MINUTES Crystal Ceballos MD [address] [place] [address] Phone: tel: fax: Referral ID Status Reason Start Date Expiration Date V isits Requested Visits Authorized [id number] Closed PCP Requested Referral 08/04/2024 08/04/2025 1 1 [facility] Summary Purpose Family History No Family History Records Found Relationship Condition Age at Onset Recorded Date/T jorge father Malignant neoplasm Unknown Alcoholism Unknown brother Diabetes mellitus Unknown grandfather Alcoholism Unknown Cardiac disease Unknown mother Hypertension Unknown Hyperlipidemia Unknown Anxiety Unknown grandmother Parkinson's disease Unknown Advance Directives No Advanced Directives Records Found Advance Directive Response Recorded Date/ Time Living Will No October 08, 2018 3:36pm Power of Transition Specialist No October 08 9 3:36pm Advance Directive Response Recorded Date/ Time Living Will No October 08, 2018 2:36pm Power of Transition Specialist No October 08 9 2:36pm Advance Directive Response Recorded Date/ Time Living Will No October 08, 2018 3:36pm Do you have a Healthcare Power of Transition Specialist? 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) April 14, 2024 1 :23pm OVERDUE FOR OV/LAST SEEN 07/13 1:49pm Congenital stenosis of aortic valve Apri l 2024 2:46pm Reason for Visit Admit Date Encounter for routine gynecological exam ination April 14, 2024 1:23pm Elevated blood pressure reading June 032024 1:49pm Aortic stenosis with bicuspid valve aWnder gaston 2024 1:49pm Additional Source Comments INFORMATION SOURCE (unrecogn ized section and content) DATE CREATED AUTHOR 09/16/2017 [facility] DATE CREATED AUTHOR AUTHOR'S ORGANIZ ATION 09/17/2017 [facility] DATE CREATED AUTHOR AUTHOR'S ORGANIZ ATION 09/23/2024 [facility] DATE CREATED AUTHOR AUTHOR'S ORGANIZ ATION 02/03/2025 [facility] Care Teams (unrecognized sec tion and content) Team Status: Active Member Role Status Dates Dr. Tiesha Alexander MD Family Provider Active Dr. Tiesha Alexander MD Primary Care Provider Active Team Status: Inactive Member Role Status Dates Dr. Tiesha Alexander MD Primary Care Provider Active Dr. Sonya Spence MD Attending Provider, Referr ing Provider Active Team Status: Active Member Role Status Dates Dr. Tiesha Alexander MD Primary Care Provider Active Team Status: Inactive Member Role Status Dates Dr. Tiesha Alexander MD Primary Care Provider Active Start: April 14, 2024 End: April 14, 2024 Dr. Tiesha Alexander MD Referring Provider Active Start: April 14, 2024 End: April 14, 2024 SANDRA Tamayo Attending Provider Active Start: April 14, 2024 End: April 14, 2024 Team Status: Inactive Member Role Status Dates Dr. Tiesha Alexander MD Primary Care Provider Active Start: April 14, 2024 End: April 14, 2024 SANDRA Tamayo Attending Provider Active Start: April 14, 2024 End: April 14, 2024 SANDRA Tamayo Referring Provider Active Start: April 14, 2024 End: April 14, 2024 Team Status: Inactive Member Role Status Dates Dr. Tiesha Alexander MD Primary Care Provider Active Start: April 30, 2024 End: April 30, 2024 SANDRA Tamayo Attending Provider Active Start: April 30, 2024 End: April 30, 2024 SANDRA Tamayo Referring Provider Active Start: April 30, 2024 End: April 30, 2024 Team Status: Inactive Member Role Status Dates Dr. Tiesha Alexander MD Primary Care Provider Active Start: June 03, 2024 End: June 03, 2024 Dr. Tiesha Alexander MD Referring Provider Active Start: June 03, 2024 End: June 03, 2024 DONATO Elena Attending Provider Active Start: June 03, 2024 End: June 03, 2024 Team Status: Inactive Member Role Status Dates Dr. Tiesha Alexander MD Primary Care Provider Active Start: June 30, 2024 End: June 30, 2024 DONATO Elena Attending Provider Active Start: June 30, 2024 End: June 30, 2024 DONATO Elena Referring Provider Active Start: June 30, 2024 End: June 30, 2024 Team Status: Active Member Role Status Dates Dr. Tiesha Alexander MD Primary Care Provider Active Start: June 30, 2024 Dr. Alex Jones MD Attending Provider Active S tart: June 30, 2024 Cardroom Hand Relationship Specialty Start Date End Date Timi Zee Chi PCP - General Unspecified 09/08/13 Crystal Ceballos MD [address] [place], [place] [id number] Surgeon Cardiac Surg 08/04/24 Cardroom Hand Relationship Specialty Start Date End Date Timi Zee Chi PCP - General Unspecified 09/08/13 Crystal Ceballos MD [address] [place], [place] [id number] Surgeon Cardiac Surg 08/04/24 Cardroom Hand Relationship Specialty Start Date End Date Timi Zee Chi PCP - General Unspecified 09/08/13 Crystal Ceballos MD [address] [place] [address] Surgeon Cardiac Surg 08/04/24 Cardroom Hand Relationship Specialty Start Date End Date Timi Zee Chi PCP - General Unspecified 09/08/13 Crystal Ceballos MD [address] [place], [place] [id number] Surgeon Cardiac Surg 08/04/24 Cardroom Hand Relationship Specialty Start Date End Date Timi Zee Chi PCP - General Unspecified 09/08/13 Crystal Ceballos MD [address] [place], [place] [id number] Surgeon Cardiac Surg 08/04/24 Cardroom Hand Relationship Specialty Start Date End Date Timi Zee Chi PCP - General Unspecified 09/08/13 Crystal Ceballos MD [address] [place] [address] Surgeon Cardiac Surg 08/04/24 Cardroom Hand Relationship Specialty Start Date End Date Timi Zee Chi PCP - General Unspecified 09/08/13 Crystal Ceballos MD [address] [place] [address] Surgeon Cardiac Surg 08/04/24 Source Comments (unrecognize d section and content) In the event this informatio n is protected by the Federal Confidentiality of Alcohol and Drug Abuse Patient Records regulations: The Federal rules restrict any use of the information to criminally investigate or prosecute any alcohol or drug abuse patient.[facility] the event this information is protected by the Federal Confidentiality of Alcohol and Drug Abuse Patient Records regulations: The Federal rules restrict any use of the information to criminally investigate or prosecute any alcohol or drug abuse patient.[facility] the event this information is protected by the Federal Confidentiality of Alcohol and Drug Abuse Patient Records regulations: The Federal rules restrict any use of the information to criminally investigate or prosecute any alcohol or drug abuse patient.[facility] the event this information is protected by the Federal Confidentiality of Alcohol and Drug Abuse Patient Records regulations: The Federal rules restrict any use of the information to criminally investigate or prosecute any alcohol or drug abuse patient.[facility] the event this information is protected by the Federal Confidentiality of Alcohol and Drug Abuse Patient Records regulations: The Federal rules restrict any use of the information to criminally investigate or prosecute any alcohol or drug abuse patient.[facility] the event this information is protected by the Federal Confidentiality of Alcohol and Drug Abuse Patient Records regulations: The Federal rules restrict any use of the information to criminally investigate or prosecute any alcohol or drug abuse patient.[facility] the event this information is protected by the Federal Confidentiality of Alcohol and Drug Abuse Patient Records regulations: The Federal rules restrict any use of the information to criminally investigate or prosecute any alcohol or drug abuse patient.[facility] the event this information is protected by the Federal Confidentiality of Alcohol and Drug Abuse Patient Records regulations: The Federal rules restrict any use of the information to criminally investigate or prosecute any alcohol or drug abuse patient.[facility] Reason for Visit (unrecogniz ed section and content) Reason Comments Referral Information Request Outside Medical Records Schedule Evaluation Reason Comments Insurance Inquiry Reason Comments Spirometry Specialty Diagnoses / Procedures Referred By Contac t Referred To [facility] Diagnoses Nonintractable headache, unspecified chronicity pattern, unspecified headache type Pre-operative cardiovascular examination Aortic valve disorder Procedures LUNG DIFFUSION CAPACITY (DLCO) DIFFUSING CAPACITY Crystal Ceballos MD [address] [place] [address] Phone: tel: fax: [facility] [place] [address] [place] [address] Referral ID Status Reason Start Date Expiration Date V isits Requested Visits Authorized [id number] Closed Auto-Generate d Referral 08/04/2024 09/03/2025 1 1 Reason Comments Pre-Op CTHO Consult Cardiac Preop Checklist FOR RECORDS PERTAINING TO PATIENTS WHO ARE OR HAVE BEEN ENROLLED IN A CHEMICAL DEPENDENCY/SUBSTANCEABUSE PROGRAM, SOME INFORMATION MAY BE OMITTED. This clinical summary was aggregated from multiple sources. Caution should be exercised in using it in the provision of clinical care. This summary normalizes information from multiple sources, and as a consequence, information in this document may materially change the coding, format and clinical context of patient data. In addition, data may be omitted in some cases. CLINICAL DECISIONS SHOULD BE BASED ON THE PRIMARY CLINICAL RECORDS. [employer] [facility]. provides no warranty or guarantee of the accuracy or completeness of information in this document.
[2025-02-05 19:24] VITALS: BP 129/82; PULSE 93; RESP 14; TEMP 37; O2SAT 99
[2025-02-05 19:54] LABS: Hematocrit 36.7 % (37-47); Hemoglobin 12.4 g/dL (12.0-15.0); Immature Granulocytes Count 0.200 X10^3/uL (0.0-0.0); Mean Corp Hgb Conc 33.8 g/dL (32-36); Mean Corpuscular Volume 87.2 fL (81-99); Mean Platelet Vol. 8.8 fl (6.2-12.0); NRBC Flagged by Analyzer 0 % (0-5); Platelet Count 549 K/mm3 (150-450); RBC Distribution Width CV 11.5 % (11.6-14.6); RBC Distribution Width SD 36.3 fl (35.1-43.9); Red Blood Count 4.21 M/mm3 (4.2-5.4); White Blood Count 8.7 K/mm3 (4.4-11.0)
[2025-02-05 20:00] VITALS: BP 133/80; PULSE 88; RESP 10; TEMP 37; O2SAT 98
[2025-02-05 20:03] LABS: Prothrombin Time (Protime)PT. 22.4 SECONDS (11.7-14.9)
[2025-02-05 20:23] LABS: Anion Gap 14 (5-15); BUN 18 mg/dL (4-19); BUN/Creat Ratio 23.6 RATIO (10-20); Calcium,Total 9.4 mg/dL (7.6-11.0); Carbon Dioxide 23.2 mmol/L (21.0-32.0); Chloride 100 mmol/L (98-108); Estimated Creatinine Clearance 89.29 ml/min (50-250); Glucose 110 mg/dL (70-99); Potassium 3.7 mmol/L (3.3-5.1)
[2025-02-05 21:00] VITALS: BP 133/82; PULSE 93; RESP 15; O2SAT 98
[2025-02-05 21:46] VITALS: BP 129/80; PULSE 94; RESP 15; TEMP 37.2; O2SAT 98
--- NOTE | 2025-02-05 23:40 | EX.ED.DYSGE1 ---
HPI History of Present Illness Chief Complaint: Fever Narrative Narrative: Patient is a 44-year-old female presenting to the emergency department for a low-grade fever and concerned about her postop wound. Patient has a past medical history of aortic stenosis with bicuspid valve and mechanical aortic valve replacement done on 01/[address] [facility]. She is now on warfarin. She states that on Friday of this week the drains were removed and on Friday the sutures were removed. States that she then went home and the past 2 days she has noticed a low-grade fever of 100 °F. She reports that she noticed her postop wound was red and had some drainage. She called the on-call physician for her cardiothoracic surgeon and they recommended that she come to the emergency department to be evaluated. She did take Tylenol prior to arrival today. She denies any chest pain or shortness of breath. Denies any viral type symptoms including cough, congestion or sore throat. Denies any GI symptoms including abdominal pain, nausea, vomiting or diarrhea. States that she feels well otherwise. 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 Aortic stenosis with bicuspid valve 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) Facial paresthesia (03/07/20) COVID-19 virus detected (02/17/20) Abnormal uterine bleeding Nonrheumatic mitral (valve) insufficiency Segmental and somatic dysfunction of pelvic region Segmental and somatic dysfunction of sacral region Sterilization Hyperlipidemia Nonrheumatic tricuspid (valve) insufficiency Hyperlipidemia Supervision of other high risk pregnancies, third trimester Home Medications Medication Instructions Recorded Last Taken Type amlodipine 2.5 mg tablet (Norvasc) 2.5 mg PO QDAY #30 tabs 09/15/24 Unknown Rx acetaminophen 325 mg capsule 325 mg PO ONCE PRN fever or pain 02/04/25 Unknown History aspirin 81 mg chewable tablet 1 tab PO QDAY 02/04/25 Unknown History furosemide 20 mg tablet 20 mg PO QDAY 02/04/25 Unknown History lidocaine 4 % topical patch 1 patch topical BID PRN pain 02/04/25 Unknown History pantoprazole 20 mg tablet,delayed 20 mg PO QDAY 02/04/25 Unknown History release potassium chloride 10 mEq 10 meq PO QDAY 02/04/25 Unknown History tablet,extended release warfarin 5 mg tablet 5 mg PO QDAY 02/04/25 Unknown History cephalexin 500 mg capsule 500 mg PO Q6 7 days #28 CAPSULES 02/05/25 Unknown Rx metoprolol succinate 50 mg 50 mg PO QHS 02/05/25 Unknown History tablet,extended release 24 hr Allergy/AdvReac Type Severity Reaction Status Date / Time Corticosteroids Allergy Severe hives Verified 02/05/25 18:22 (Glucocorticoids) Family History Father Cancer prostate- Alcoholism Brother Diabetes Grandfather Alcoholism Heart disease Mother Hypertension Hyperlipemia Anxiety Grandmother Parkinson disease Surgical History H/O aortic valve replacement History of laparoscopy (08/01/17) History of tubal ligation Social History Smoking Status: Never smoker alcohol intake: current Alcohol type: hard liquor details: once weekly substance use type: does not use caffeine: No what type of physical activity do you participate in: none seatbelt use: always do you feel safe at home: Yes additional social history: Works at [employer] ROS ED ROS Narrative see HPI EXAM Physical Exam Narrative Exam Narrative: Vital signs: Reviewed General: Alert and orientedx3. No acute distress. Well appearing, nontoxic. HEENT: Head is normocephalic and atraumatic, sinuses nontender, pupils equal round and reactive. Nares are patent. Oropharynx and throat exams normal. Neck: Supple without lymphadenopathy nontender Cardiovascular: Regular rate and rhythm, no murmurs. No rubs or gallops. Normal S1 and S2 Respiratory: Clear to auscultation bilaterally. No wheezes, rales, rhonchi Chest: Midline vertical incision is healing well. No erythema, warmth, drainage or fluctuance. Two incision about 2 cm in size under the right breast with erythema surrounding them. No fluctuance or induration noted. They are still open and there is scant purulent discharge. There is no tracking of erythema up or down the chest wall. There is a enlarged lymph node in the right axillary that is mildly tender to palpation without any surrounding erythema, warmth, fluctuance or induration. Abdominal: Soft and nontender. Normal bowel sounds. No guarding or rebound. Nonsurgical abdomen Extremities: No tenderness. No bruising. Normal range of motion. Normal sensation. Neurological: Cranial nerves II through XII are grossly intact. Normal strength and sensation. Normal cerebellar function The rest of the physical exam is unremarkable Const Vital Signs: 02/05/25 18:22 02/05/25 18:39 02/05/25 18:43 Temperature 99.0 F 99.0 F Temperature Source Oral Oral Pulse Rate 112 H 100 Respiratory Rate 16 12 Respiratory Pattern Normal Blood Pressure 139/90 H 117/77 Blood Pressure Mean 106 90 Pulse Ox 97 97 Oxygen Delivery Method Room Air Room Air 02/05/25 19:24 02/05/25 20:00 02/05/25 21:00 Temperature 98.6 F 98.6 F Temperature Source Oral Oral Pulse Rate 93 88 93 Respiratory Rate 14 10 L 15 Respiratory Pattern Blood Pressure 129/82 H 133/80 H 133/82 H Blood Pressure Mean 97 97 99 Pulse Ox 99 98 98 Oxygen Delivery Method Room Air Room Air Room Air 02/05/25 21:46 Temperature 99.0 F Temperature Source Pulse Rate 94 Respiratory Rate 15 Respiratory Pattern Blood Pressure 129/80 H Blood Pressure Mean 96 Pulse Ox 98 Oxygen Delivery Method MDM MDM MDM Narrative Medical decision making narrative: Patient is a 44-year-old female presenting to the emergency department for a low-grade fever at home and concern for a stab wound infection. Patient was seen and examined. Vitals are stable. Patient resting in bed comfortably in no acute distress. Temperature of 99.0 °F on arrival. Suspect a cellulitis of her postop draining wounds underneath the right lower breast. She appears well and is nontoxic. I do not think that she is septic. Will obtain lab work to evaluate for any significant abnormalities. She has no URI symptoms. No chest pain or SOB to suspect pneumonia. No UTI symptoms to suspect this as the cause of low grade fever. She was given first dose of antibiotics here. CBC with no leukocytosis and a normal hemoglobin. BMP with no significant abnormalities. INR 1.9. Lactic below 1. Given the patient is only 9 days postop I did consult the on-call cardiothoracic surgeon for the patient's surgeon. Her surgeon was Dr. Rudolph and I spoke with Dr. Rodas this evening. He agreed with the workup and management of cellulitis with discharge. Patient already has a follow-up appointment scheduled for Friday. She will be prescribed antibiotics for outpatient. She was updated on the negative lab work and plan for outpatient treatment. Patient is comfortable with the plan. She was instructed to return with any worsening redness or drainage from the wounds, fever, chills, feeling unwell, nausea or vomiting. Patient is agreeable with the plan. Patient discharged from the Emergency Department. I do not feel that the patient's evaluation reveals any acute reason for admission at this time. I instructed them to either follow-up with their primary care physician or promptly return to the Emergency Department for reevaluation should symptoms worsen or new symptoms develop. I explained what symptoms would indicate the need to return to the emergency department. Shared decision making was used. The patient voiced understanding of the treatment plan and is agreeable with it. Clinical impression: post op wound check cellulitis History & Record Review Discussion w/independent historian: Patient and Family Additional record(s) reviewed:: Prior outpatient record Lab Data Attestation: I reviewed the patient's lab results. Labs: Laboratory Results - last 24 hr 02/05/25 02/05/25 18:30 19:36 WBC 8.7 RBC 4.21 Hgb 12.4 Hct 36.7 L MCV 87.2 MCH 29.5 MCHC 33.8 RDW Std Deviation 36.3 RDW Coeff of Dipak 11.5 L Plt Count 549 H MPV 8.8 Immature Gran % (Auto) 2.300 H Neut % (Auto) 61.0 Lymph % (Auto) 19.5 Avery % (Auto) 8.4 Eos % (Auto) 7.8 H Baso % (Auto) 1.0 Absolute Neuts (auto) 5.3 Absolute Lymphs (auto) 1.69 Nucleated RBC % 0 PT 22.4 H INR 1.9 Sodium 138 Potassium 3.7 Chloride 100 Carbon Dioxide 23.2 Anion Gap 14 BUN 18 Creatinine 0.75 Estim Creat Clear Calc 89.29 Est GFR (MDRD) Non-Af 101 BUN/Creatinine Ratio 23.6 H Glucose 110 H Lactic Acid < 1.0 Calcium 9.4 Discharge Plan Triage Chief Complaint: Fever ED Provider: Debora Daley Dx/Rx/DC Orders Clinical Impression: Cellulitis Instructions: Cellulitis Dc Prescriptions: New cephalexin 500 mg capsule 500 mg PO Q6 7 Days Qty: 28 0RF No Action lidocaine 4 % adhesive patch,medicated 1 patch topical BID PRN (Reason: pain) potassium chloride 10 mEq tablet extended release 10 meq PO QDAY pantoprazole 20 mg tablet,delayed release (DR/EC) 20 mg PO QDAY warfarin 5 mg tablet 5 mg PO QDAY Protocol: Dose Management Condition: Friday Dose/Route: 5 mg Instruction: 1 x 5 mg tablet Condition: Friday Dose/Route: 5 mg Instruction: 1 x 5 mg tablet Condition: Friday Dose/Route: 5 mg Instruction: 1 x 5 mg tablet Condition: Friday Dose/Route: 5 mg Instruction: 1 x 5 mg tablet Condition: Dose/Route: 5 mg Instruction: 1 x 5 mg tablet Condition: Friday Dose/Route: 5 mg Instruction: 1 x 5 mg tablet Condition: Friday Dose/Route: 5 mg Instruction: 1 x 5 mg tablet Protocol Text: Adjustment Start Date: Friday02/04/25 INR Value: 1.8 INR Date: 02/04/25 Recheck Date: 02/11/25 aspirin 81 mg tablet,chewable 1 tab PO QDAY furosemide 20 mg tablet 20 mg PO QDAY acetaminophen 325 mg capsule 325 mg PO ONCE PRN (Reason: fever or pain) metoprolol succinate 50 mg tablet extended release 24 hr 50 mg PO QHS amlodipine [Norvasc] 2.5 mg tablet 2.5 mg PO QDAY Qty: 30 6RF Primary Care Provider: Care Physician,No Primary Referrals: Your Surgeon's office [Other] - Keep Jorge appointment Care Physician,No Primary [Primary Care Provider, Medical] Activity Restrictions/Additional Instructions: Take the antibiotic every 6 hours for the next 7 days. Follow-up with your surgeons office on Friday as planned. Return if you develop any worsening redness, drainage, fevers, chills, nausea, vomiting, feeling unwell. Your evaluation in the Emergency Department did not reveal any acute reason for admission. However, I want to emphasize that you may be early in the course of a disease process or illness even if it is not present. For this reason you should follow-up within 24 hours for reevaluation with either your primary care physician or if necessary back here in the Emergency Department. You should return to the Emergency Department immediately if your symptoms worsen or new symptoms develop. Print Language: Botswanan Disposition Disposition: Home, Self Care Discharge Date/Time: 02/05/25 21:58
== END 2025-02-05 21:58 | disposition home or self-care (01) ==
PROVIDERS: Emergency Provider Student in an Organized Health Care Education/Training Program; Visit Provider Student in an Organized Health Care Education/Training Program
DX: N61.0 Mastitis without abscess (principal); E78.5 Hyperlipidemia, unspecified; Z79.01 Long term (current) use of anticoagulants; Z95.2 Presence of prosthetic heart valve; Z79.899 Other long term (current) drug therapy; Z98.51 Tubal ligation status; R50.9 Fever, unspecified
CPT/HCPCS: 80048; 83605; 85025; 85610; 99284; A4216

== ENCOUNTER 2025-02-10 10:17 | Outpatient (RCR) | payer OTHER, MEDICAID, SELFPAY ==
[2025-02-04 12:57] LABS: Prothrombin Time (Protime)PT. 21.4 SECONDS (11.7-14.9)
[2025-02-10 10:48] LABS: Prothrombin Time (Protime)PT. 21.0 SECONDS (11.7-14.9)
== END 2025-02-20 18:00 | disposition home or self-care (01) ==
LOC: LAB 10:17
PROVIDERS: PCP Internal Medicine; Referring Provider Student in an Organized Health Care Education/Training Program; Visit Provider Student in an Organized Health Care Education/Training Program
DX: Z95.2 Presence of prosthetic heart valve (principal)
CPT/HCPCS: 36415; 85610

== ENCOUNTER → 2025-03-08 | Outpatient (CLI) | payer OTHER, SELFPAY ==
--- NOTE | 2025-03-08 09:58 | CR.HP_ITS ---
CR - History & Physical General Arrival date:: 03/08/25 Arrival time:: 09:59 Date of Referral:: 02/04/25 Date of CR Evaluation:: 03/08/25 Referring Physician: Dr. Jones Primary Diagnosis: Heart Valve Repair History of Present Cardiac Event Onset Date Heart valve replacement or repair:: Yes (01/27/25) Medications Ambulatory Orders ?Medication ?Instructions ?Recorded amlodipine 2.5 mg tablet (Norvasc) 2.5 mg PO QDAY #30 tabs 09/15/24 acetaminophen 325 mg capsule 325 mg PO ONCE PRN fever or pain 02/04/25 aspirin 81 mg chewable tablet 1 tab PO QDAY 02/04/25 furosemide 20 mg tablet 20 mg PO QDAY 02/04/25 lidocaine 4 % topical patch 1 patch topical BID PRN pa in 02/04/25 pantoprazole 20 mg tablet,delayed 20 mg PO QDAY release potassium chloride 10 mEq 10 meq PO QDAY 02/04/25 tablet,extended release warfarin 5 mg tablet 5 mg PO QDAY 02/04/25 cephalexin 500 mg capsule 500 mg PO Q6 7 days #28 CAPS ULES 02/05/25 metoprolol succinate 50 mg 50 mg PO QHS 02/05/25 tablet,extended release 24 hr Allergies Allergies Corticosteroids (Glucocorticoids) Allergy (Severe, Verified 02/05/25 18:22) [facility] Sleep Disorder Evaluation Hx of Sleep Apnea: No Do you snore loudly (louder than talking or can be heard through closed doors)?: No Do you often feel tired/ fatigued/ sleepy during daytime?: No Has anyone observed you stop breathing during sleep?: No History of Hypertension (for STOP score): No STOP Results: Negative Advanced Directives Advanced Directives Do you have a Healthcare Power of Survey Operations Director?: No Living Will: No Advance Directives Information Provided: No Advance Directives on File: No DNR Order?:: No Past Medical History Covid-19 Screening Physicial Symptoms Other Clinical Concerns Exposure Risk Pertinent Comorbidities Has a serious heart condition:: Yes Past Medical Illness 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 Aortic stenosis with bicuspid valve 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) Facial paresthesia (03/07/20) COVID-19 virus detected (02/17/20) Abnormal uterine bleeding Nonrheumatic mitral (valve) insufficiency Segmental and somatic dysfunction of pelvic region Segmental and somatic dysfunction of sacral region Sterilization Hyperlipidemia Nonrheumatic tricuspid (valve) insufficiency Hyperlipidemia Supervision of other high risk pregnancies, third trimester Past Surgical History Surgical History H/O aortic valve replacement History of laparoscopy (08/01/17) History of tubal ligation Family History Summary Family History Father Cancer prostate- Alcoholism Brother Diabetes Grandfather Alcoholism Heart disease Mother Hypertension Hyperlipemia Anxiety Grandmother Parkinson disease Social History Smoking History Smoking Status: Never smoker Alcohol Use Alcohol Usage: Yes (occas) Occupation Occupation (List type of work in comments):: Employed Hours worked per day:: 8 Social Environment Status Marital Status: Current Living Arrangements Living Environment:: Family Children How many children do you have?: 2 Do any of your children live nearby?: Yes Safety Do you feel safe in your surroundings?: Yes Assistance Do you need any assistance at home?: no Review of Systems Review of Systems Hints Review of Present Symptoms: Reports Operative Discomfort, Dizziness/Lightheadedness, Fatigue, Heart Arrhythmia/Irregularities, Appetite - Normal and Appetite - Special Diet; Denies Shortness of Breath at Rest, Shortness of Breath with Exertion, PVD, Angina, Wound Healing, Sleep - Normal or Sexual Changes Risk Factor Assessment Chief Complaint Chief Complaint: Heart Valve Repair Vital Signs Pulse Ox: 97 Blood Pressure: 110/64 Pulse Pulse Rate: 56 Pulse Rhythm: Regular Hypertension How long have you been treated?: Since September Blood Pressure Sitting - Right Arm: 110/64 Obesity Height: 5 ft 2 in Weight:: 162 lb Weight in Pounds: 162.0 lbs Body Mass Index (BMI): 29.6 Nutritional Referral for Obesity: No Physical Inactivity Physical Inactivity: Reg Exercise 30 min/day Risk Stratification Risk Guidelines: Moderate Risk: Risk Factor for Smoking, Risk Factor for Diabetes, Risk Factor for Obesity, Risk Factor for Sedentary Lifestyle and Risk Factor for Depression and Highest Risk: Risk Factor for Dyslipidemia and Risk Factor for Hypertension For Smoking Smoking Risk Guidelines For Dyslipidemia Dyslipidemia Risk Guidelines For Diabetes Mellitus Diabetes Risk Guidelines For Obesity/Overweight Obesity/Overweight Risk Guidelines For Hypertension Hypertension Risk Guidelines For Sedentary Lifestyle Sedentary Lifestyle Risk Guidelines For Depression Depression Risk Guidelines Family History Family History Father Cancer Alcoholism Brother Diabetes Grandfather Alcoholism Heart disease Mother Hypertension Hyperlipemia Anxiety Grandmother Parkinson disease Motivation Motivation to Participate On a scale of 1 to 10, how prepared are you to commit to attending program?: 9 What do you see as barriers to successfully being able to complete the program?: nothing What do you see as the benefits of succesfully completing the program? In other words, what do you hope to get out of participating in the program?: Stronger Are there issues you are dealing with that will interfere with completing the program?: no Do you have a spouse or signficant other, family or friends who will help support you to complete the program?: yes
[2025-03-08 10:15] VITALS: BP 110/64; PULSE 56; O2SAT 97; BMI 29.6
--- NOTE | 2025-03-08 10:34 | PCM.CR.ITP ---
Diagnosis General Information Admitting Diagnosis: Heart Valve Repair Personal Learning Style:: Audio/Visual Barriers to Learning: No Barriers Stage of change r/t lifestyle modifications:: Contemplation Gave educational material for:: Treating Heart Disease, How The Heart Works, What it means to have Heart Disease, How Coronary Artery Disease is Diagnosed, Heart Procedures, What Heart Medications Do, Risk Factors & Modifications, Living an Active Life, Nutrition, Emotions & Heart Disease, Stress Management & Relaxation and Sleep Disorders & Heart Disease Education/Goals Cardiac Rehabilitation Goals Personal Goals: Initial Assessment: Improve management of stress and emotions, Improve energy level, Participate in home exercise program, Get back to work, or to resume activities faster, Improve knowledge of cardiac disease, Improve muscle strength and endurance, Improve diet and eating habits (eat healthier) and Control risk factors (learn risk factor modification) Scale for measuring improvement of personal goals Diagnosis & Disease Process Outcomes/Goals: Pt IDs own risk factors & lifestyle modifications by Session 10, Verbalizes symptoms of angina & response by session 3., Pt independently manages and Other Additional Outcomes/Goals: Exercise - Initial Assessment Visit Date of Eval: 03/08/25 (initial eval) Mets: Pre-: >3 METS for 30 minutes by discharge, >5 METS for 30 minutes by discharge, >7 METS for 30 minutes by discharge and Unable to meet goal due to: (see comment below) Physician Prescribed Exercise Modalities: Treadmill, Schwinn Airdyne AD-7, SciFit Stepper, KartMeFit Pro-II Ergometer and KartMeFit Lateral Eva Frequency: 3x/week for 12 weeks [36 sessions] Intensity: 60-80% of age predicted maximum heart rate reserve Duration: 30 - 45 minutes Current METSs:: 3 Target Heart Rate:: 106-132 Resting Blood Pressure: 110/64 EKG Type: SB Outcomes & Goals Goals:: Verbalizes understanding of THR, RPE & goal METS by session 6, Documents in home exercise log/reports 30 min aerobic 5 day/wk by DC, Demonstrates accurate pulse taking by DC and Other additional outcome/goals: see below Intervention & Plan Exercise Program Goals: Instruct on personal THR & RPE, Instruct on MET level & personal MET goal, Show patient to take own pulse /validate performance until accurate, Instruct on home exercise and Other additional plan/int Physical Activity Home Exercise Physical Activity - Home Exercise: Safe Exercise, Warm-up, Self-monitoring, Cool-Down, Home Exercise > 30 min Daily and Sitting Time <3 hours/daily Outcomes & Goals Outcomes/Goals: Demonstrates correct Warm-up/exercise Cool-Down (S3) if = 2.5 METs, Verbalizes symptoms of exercise intolerance by Session 3 (S3), Demonstrate safe equipment use (S3) & follows exercise prescrition (6) and Other: See below Intervention & Plan Plan/Intervention: Instruct warm-up & cool-down if exercising at > 2 METs, Instruct on symptoms of exercise intolerance & actions to take, Instruct & monitor on saf, Assess intial functional capacity & safety risk and Other See below Nutrition - Initial Assessment Program Goals Nutrition Program Goals Patient has diagnosis of Hyperlipidemia (ICD E78)?: Yes Visit Date of Eval: 03/08/25 (initial eval, Nutrition survey score of 4) Cholesterol/Lipids (Other Core Measures) Determine presence & major risk factors that modify LDL goal: Cigarette smoking, Hypertension or hypertensive medication, Low HDL cholesterol <40 mg/dL*, Family history of premature CHD in Male < 55 years: female <65 yearsFa and Age men > 45 years; women >/= 55 years Outcomes/Goals: Pt IDs own risk factors & lifestyle modifications by Session 10, Verbalizes symptoms of angina & response by session 3., Pt independently manages and Other Additional Outcomes/Goals: Intervention/Plan: Advocate for lipid panel cholesterol medication if applicable, Instruct on personal lipid levels & lipid goals/NCEP guidelines, Instruct on cholesterol and Other additional plan/int Referral to dietitian:: No (declines for now) Diabetes (Other Core Measures) Diabetes Type: Not Applicable Weight Mgt (Other Care) Height: 5 ft 2 in Weight:: 162 lb BMI: 29.6 Diagnosis Overweight/Obesity BMI> 30% ICD-10 E66: No Diagnosis High BMI/Morbid Obesity BMI> 35% ICD-10 Z68: No Outcomes/Goals: Pt sets, maintains & shows weight loss goal & trend during rehab and Other additional outcomes/goals Intervention/Plan: Instruct on ideal BMI & set weight loss goal w/patient, Assist pt to ID & incorporate diet changes for weight loss by S9, Refer to Structured Weight Loss program as appropriate, Encourage goal of using 250-300dcal per session for weight loss and Other additional plan/interventions Healthy Eating Habits Will attend diet classes:: Yes Outcomes/Goals:: Consume diet rich in vegs,fruits,whole grain/high fiber,fish,lean meat, Limit sat/trans fats,cholesterol & added salts & sugars and Other additional outcome/goals: Intervention/Plan:: Assess current eating habits and Other Additional plan/interventions Education Gave educational materials for:: Signs & symptoms of hypoglycemia, Signs & symptoms of hyperglycemia, Relate diabetes to coronary artery disease and Healthy eating Core - Initial Assessment Medication Compliance Preventative Medication(s):: Aspirin, Beta veronica and Warfarin/Coumadin H/O mental health issues: depression, anxiety, or addiction?: No Doesn?t believe in the benefits of treatment?: No Believes medications are unnecessary or harmful?: No Has a concern about medication side effects?: No Expresses concern over the cost of medications?: No Outcomes/Goals: Verbalizes medications,desired effect & common side effects @ DC, Pt self-reports following medication regimen, Keeps card in wallet w/medications listed by DC and Other additional outcome/goals: Interventions/plans: Instruct on medication effects & side effects, Review medication list w/patient every two weeks, Instruct importance of taking meds as ordered & assist problem solving and Other additional Tobacco Use Tobacco Use: Non-smoker Hypertension Hypertension Diagnosis:: Hypertension ICD-10 I10 (Diagnosis of elevated BP. Pt started on amlodipine 2.5 mg QDAY) Resting Blood Pressure:: 110/64 [place] [employer] Hypertension Guidelines Outcomes/Goals: Able to verbalize/achieve optimal blood pressure <130/80, Incorporates diet changes & exercise for blood pressure control by DC and Other additional outcomes/goals Interventions/plan: Instruct on optimal blood pressure, hypertension & medications, Instruct on effects of sodium, alcohol, stress, exercise &hypertension and Other additional plan/interventions Tobacco Cessation Referral Smoking Cessation Referral:: No Individual Education/Counseling:: No Education Schedule Given:: Yes Psychosocial - Initial Assess VIsit Date of Eval: 03/08/25 (initial eval) History of previous Mental disease:: No Psychosocial Test Tool Used:: [employer] QOL Cardiac and PHQ-9 Questionnaire phq-9 Severity See PHQ-9 Score: 5 Referral to Behavioral Health PS - Interventions: Yes: Attend Stress Management Classes Outcomes/Goals: See list Psychosocial Outcomes/Goals:: ID's personal stressors & 2 strategies to manage stress by discharge and Other Additional outcome/goals: Intervention/Plan: See List Interventions/Plan:: Assess stressors,coping strategies & signs of derpression on admission, Instruct/assist pt to develop coping & personal stress Mgt strategies, Refer to Behavioral Health if appropriate, Refer to Physician if appropriate, Instruct patient to recognize signs & symptoms of depression, Instruct patient to recog and Other additional plan/intervention Exercise - 30-day Assessment Physician Prescribed Exercise Modalities: Treadmill, Schwinn Airdyne AD-7, SciFit Stepper, SciFit Pro-II Ergometer and SciFit Lateral Manufacturing Supervisor 2Nd Shift Exercise - 60-day Assessment Physician Prescribed Exercise Modalities: Treadmill, Schwinn Airdyne AD-7, SciFit Stepper, SciFit Pro-II Ergometer and SciFit Lateral Manufacturing Supervisor 2Nd Shift Exercise - 90-day Assessment Physician Prescribed Exercise Modalities: Treadmill, Schwinn Airdyne AD-7, SciFit Stepper, SciFit Pro-II Ergometer and SciFit Lateral Manufacturing Supervisor 2Nd Shift Exercise - Final/Discharge Physician Prescribed Exercise Modalities: Treadmill, Schwinn Airdyne AD-7, SciFit Stepper, SciFit Pro-II Ergometer and SciFit Lateral Manufacturing Supervisor 2Nd Shift Frequency: 3x/week for 12 weeks [36 sessions] Intensity: 60-80% of age predicted maximum heart rate reserve Current METSs:: 3 Target Heart Rate:: 106-132 Nutrition - 30-Day Assessment Weight Mgt (Other Care) Height: 5 ft 2 in Weight:: 162 lb BMI: 29.6 Nutrition - 60-Day Assessment Weight Mgt (Other Care) Height: 5 ft 2 in Weight:: 162 lb BMI: 29.6 Core - Final Assessment Hypertension Resting Blood Pressure:: 110/64 [place] [employer] Hypertension Guidelines Core - 60-Day Assessment Hypertension Resting Blood Pressure:: 110/64 [place] [employer] Hypertension Guidelines Psychosocial - 30-Day Assess Referral to Behavioral Health PS - Interventions: Yes: Attend Stress Management Classes Psychosocial - 60-Day Assess Referral to Behavioral Health PS - Interventions: Yes: Attend Stress Management Classes Psychosocial - 90-Day Assess Referral to Behavioral Health PS - Interventions: Yes: Attend Stress Management Classes Psychosocial - Final Assessmen Psychosocial Test phq-9 Severity See PHQ-9 Score: 5 Referral to Behavioral Health PS - Interventions: Yes: Attend Stress Management Classes Nutrition - 90-Day Assessment Weight Mgt (Other Care) Height: 5 ft 2 in Weight:: 162 lb BMI: 29.6 Nutrition - Final Assessment Program Goals Patient has diagnosis of Hyperlipidemia (ICD E78)?: Yes Weight Mgt (Other Care) Height: 5 ft 2 in Weight:: 162 lb BMI: 29.6
[2025-03-08 10:42] VITALS: BP 110/64; BMI 29.6
== END | disposition home or self-care (01) ==
LOC: CR 09:55
PROVIDERS: PCP Nurse Practitioner Family; Referring Provider Internal Medicine Cardiovascular Disease; Visit Provider Internal Medicine Cardiovascular Disease
DX: Q23.0 Congenital stenosis of aortic valve (principal); Q23.1 Congenital insufficiency of aortic valve; Z95.2 Presence of prosthetic heart valve

== ENCOUNTER 2025-03-10 09:02 | Outpatient (RCR) | payer OTHER, SELFPAY ==
[2025-02-24 09:44] LABS: Prothrombin Time (Protime)PT. 23.5 SECONDS (11.7-14.9)
[2025-03-10 09:28] LABS: Prothrombin Time (Protime)PT. 25.6 SECONDS (11.7-14.9)
== END 2025-03-10 18:00 | disposition home or self-care (01) ==
LOC: LAB 09:02
PROVIDERS: Referring Provider Student in an Organized Health Care Education/Training Program; Visit Provider Student in an Organized Health Care Education/Training Program
DX: Z95.2 Presence of prosthetic heart valve (principal)
CPT/HCPCS: 36415; 85610

== ENCOUNTER 2025-03-23 14:15 | Outpatient (RCR) | payer OTHER, SELFPAY ==
[2025-03-08 10:42] VITALS: BMI 29.6
== END 2025-03-23 23:59 ==
LOC: CR 14:15
PROVIDERS: PCP Nurse Practitioner Family; Referring Provider Internal Medicine Cardiovascular Disease; Visit Provider Internal Medicine Cardiovascular Disease
DX: Q23.0 Congenital stenosis of aortic valve (principal); Q23.1 Congenital insufficiency of aortic valve; Z95.2 Presence of prosthetic heart valve
CPT/HCPCS: 93798